=== PATIENT | male | born 1955 | race Caucasian/White ===

== ENCOUNTER 2017-08-19 08:00 | Outpatient (CLI) | payer BC ==
[2017-08-23 09:48] LABS: HB2 TOTAL 16.8 g/dL; HEMOGLOBIN A1C 0.71 g/dL
== END 2017-08-19 23:59 ==
LOC: LAB.R 08:00
PROVIDERS: ATTEND Physician Assistant Medical
DX: R73.9 Hyperglycemia, unspecified (principal)
CPT/HCPCS: 83036

== ENCOUNTER 2017-08-19 08:00 | Outpatient (CLI) | payer BC ==
[2017-08-19 12:55] LABS: BASOPHILS % (AUTO) 0.4 %; EOSINOPHILS # (AUTO) 0.1 10^3/uL (0.0-0.7); EOSINOPHILS % (AUTO) 1.3 %; HGB - HEMOGLOBIN 15.5 g/dL (14.0-18.0); LYMPHOCYTES # (AUTO) 5.6 10^3/uL (1.5-3.5); LYMPHOCYTES % (AUTO) 49.3 %; MEAN CORPUSCULAR HEMOGLOBIN 32.4 pg (27.0-31.0); MEAN CORPUSCULAR HGB CONC 34.4 g/dL (32.0-36.0); MEAN CORPUSCULAR VOLUME 94.3 fL (80.0-94.0); MEAN PLATELET VOLUME 9.7 fL (7.4-11.4); MONOCYTES # (AUTO) 0.9 10^3/uL (0.0-1.0); MONOCYTES % (AUTO) 7.7 %; NEUTROPHILS # (AUTO) 4.7 10^3/uL (1.5-6.6); NEUTROPHILS % (AUTO) 41.3 %; PLT - PLATELET COUNT 204 10^3/uL (130-450); RED BLOOD COUNT 4.77 10^6/uL (4.70-6.10); RED CELL DISTRIBUTION WIDTH 12.4 % (12.0-15.0); WHITE BLOOD COUNT 11.4 x10^3/uL (4.8-10.8)
[2017-08-19 13:01] LABS: ALBUMIN 4.4 g/dL (3.2-5.5); ALBUMIN/GLOBULIN RATIO 1.6 (1.0-2.2); ALKALINE PHOSPHATASE 50 IU/L (42-121); ALT ALANINE AMINOTRANSFERASE 69 IU/L (10-60); AST ASPARTATE AMINOTRANSFERASE 96 IU/L (10-42); BILIRUBIN,TOTAL 0.7 mg/dL (0.2-1.0); BUN - BLOOD UREA NITROGEN 10 mg/dL (6-20); CALCIUM 9.1 mg/dL (8.5-10.3); CARBON DIOXIDE - CO2 23 mmol/L (21-32); CHLORIDE 102 mmol/L (101-111); CHOL/HDL RATIO 3.2 (<5.0); CHOLESTEROL 146 mg/dL; CREATININE 0.9 mg/dL (0.6-1.2); GFR - MDRD 86 (>89); GLUCOSE 133 mg/dL (70-100); HDL CHOLESTEROL 46 mg/dL; LDL CHOLESTEROL,CALCULATED 67 mg/dL; LDL/HDL RATIO 1.5 (<3.6); SODIUM 136 mmol/L (135-145); TOTAL PROTEIN 7.1 g/dL (6.7-8.2); VLDL CHOLESTEROL 33 mg/dL
== END 2017-08-19 08:01 | disposition home or self-care (01) ==
LOC: LAB.WCP 08:00
PROVIDERS: ATTEND Family Medicine
DX: I10 Essential (primary) hypertension (principal); E78.5 Hyperlipidemia, unspecified; Z12.5 Encounter for screening for malignant neoplasm of prostate
CPT/HCPCS: 36415; 80053; 80061; 83721; 84153; 85025

== ENCOUNTER 2017-09-02 09:48 | Outpatient (CLI) | payer BC ==
[2017-09-05 12:41] LABS: HEPATITIS A IGM NON-REACTIVE (NON-REACTIVE); HEPATITIS B CORE ANTIBODY IGM NON-REACTIVE (NON-REACTIVE); HEPATITIS B SURFACE ANTIGEN NON-REACTIVE (NON-REACTIVE); HEPATITIS C ANTIBODY NON-REACTIVE (NON-REACTIVE)
== END 2017-09-02 09:49 | disposition home or self-care (01) ==
LOC: LAB.WCP 09:48
PROVIDERS: ATTEND Family Medicine
DX: R94.5 Abnormal results of liver function studies (principal)
CPT/HCPCS: 36415; 80074

== ENCOUNTER 2018-09-26 07:17 | Outpatient (CLI) | payer BC ==
[2018-09-26 13:51] LABS: BASOPHILS % (AUTO) 0.5 %; EOSINOPHILS # (AUTO) 0.3 10^3/uL (0.0-0.7); EOSINOPHILS % (AUTO) 2.7 %; HGB - HEMOGLOBIN 15.1 g/dL (14.0-18.0); LYMPHOCYTES # (AUTO) 6.2 10^3/uL (1.5-3.5); LYMPHOCYTES % (AUTO) 59.6 %; MEAN CORPUSCULAR HEMOGLOBIN 32.2 pg (27.0-31.0); MEAN CORPUSCULAR HGB CONC 33.9 g/dL (32.0-36.0); MEAN PLATELET VOLUME 9.8 fL (7.4-11.4); MONOCYTES # (AUTO) 0.7 10^3/uL (0.0-1.0); MONOCYTES % (AUTO) 7.1 %; NEUTROPHILS # (AUTO) 3.1 10^3/uL (1.5-6.6); NEUTROPHILS % (AUTO) 30.1 %; PLT - PLATELET COUNT 192 10^3/uL (130-450); RED BLOOD COUNT 4.68 10^6/uL (4.70-6.10); RED CELL DISTRIBUTION WIDTH 12.5 % (12.0-15.0); WHITE BLOOD COUNT 10.4 x10^3/uL (4.8-10.8)
[2018-09-26 13:56] LABS: ALBUMIN 4.2 g/dL (3.2-5.5); ALBUMIN/GLOBULIN RATIO 1.4 (1.0-2.2); ALKALINE PHOSPHATASE 42 IU/L (42-121); ALT ALANINE AMINOTRANSFERASE 32 IU/L (10-60); AST ASPARTATE AMINOTRANSFERASE 34 IU/L (10-42); BILIRUBIN,TOTAL 0.9 mg/dL (0.2-1.0); BUN - BLOOD UREA NITROGEN 13 mg/dL (6-20); CALCIUM 9.2 mg/dL (8.5-10.3); CARBON DIOXIDE - CO2 24 mmol/L (21-32); CHLORIDE 101 mmol/L (101-111); CHOLESTEROL 167 mg/dL; CREATININE 0.9 mg/dL (0.6-1.2); GFR - MDRD 86 (>89); GLUCOSE 130 mg/dL (70-100); HDL CHOLESTEROL 55 mg/dL; LDL CHOLESTEROL,CALCULATED 76 mg/dL; LDL/HDL RATIO 1.4 (<3.6); SODIUM 138 mmol/L (135-145); TOTAL PROTEIN 7.2 g/dL (6.7-8.2); VLDL CHOLESTEROL 36 mg/dL
[2018-09-26 14:05] LABS: PLATELET ESTIMATE, MANUAL NORMAL (130-450,000) (NORMAL); PLATELET MORPHOLOGY 1+ LARGE PLATELETS (NORMAL); RBC MORPHOLOGY (MULTIPLE) NORMAL APPEARANCE (NORMAL)
[2018-09-26 14:22] LABS: HB2 TOTAL 15.7 g/dL; HEMOGLOBIN A1C 0.6 g/dL; HEMOGLOBIN A1C % 5.6 % (4.6-6.2)
== END 2018-09-26 07:18 | disposition home or self-care (01) ==
LOC: LAB.WCP 07:17
PROVIDERS: ATTEND Family Medicine
DX: I10 Essential (primary) hypertension (principal); E78.5 Hyperlipidemia, unspecified; R73.9 Hyperglycemia, unspecified; R94.5 Abnormal results of liver function studies; D12.6 Benign neoplasm of colon, unspecified; Z12.5 Encounter for screening for malignant neoplasm of prostate
CPT/HCPCS: 36415; 80053; 80061; 83036; 83721; 84153; 84443; 85025

== ENCOUNTER 2019-08-12 17:27 | Emergency (ER) | payer BC, OTHER ==
--- NOTE | 2019-08-12 17:38 | ED Physician Documentation ---
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 He is still able to bend his finger and extend it. He has sensation at the tip. However he has several lacerations at the palmar palmar radial aspect of the distal finger and that has continued bleeding despite direct pressure.) Timing - onset: How many hours ago (1), Today Timing - details: Abrupt onset, Still present Improved by: Rest Worsened by: Palpating Associated symptoms: No: Weakness, Numbness Contributing factors: No: Anticoagulated Similar symptoms before: Has not had sx before Review of Systems Constitutional: denies: Fever, Chills Nose: denies: Rhinorrhea / runny nose, Congestion Throat: denies: Sore throat Respiratory: denies: Cough Neurologic: denies: Focal weakness, Numbness PD PAST MEDICAL HISTORY - Past Medical History Cardiovascular: Hypertension, High cholesterol Respiratory: None Endocrine/Autoimmune: None GI: GERD : None HEENT: Glaucoma Psych: None Derm: None - Past Surgical History General: Colonoscopy Ortho: Other HEENT: Cataracts - Present Medications Home Medications: Ambulatory Orders Medication Instructions Recorded Confirmed Aspirin [Aspir-Low] 81 mg PO DAILY 04/28/16 04/28/16 Atorvastatin Calcium 20 mg PO DAILY 04/28/16 04/28/16 Latanoprost 2 drops OP DAILY 04/28/16 04/28/16 Losartan Potassium 50 mg PO DAILY 04/28/16 04/28/16 Omeprazole [PriLOSEC] 20 mg PO DAILY 04/28/16 04/28/16 Timolol [Betimol] 2 drops OP DAILY 04/28/16 04/28/16 - Allergies Allergies/Adverse Reactions: Allergies Allergy/AdvReac Type Severity Reaction Status Date / Time No Known Drug Allergies Allergy Verified 08/12/19 17:36 PD ED PE NORMAL - Vitals Vital signs reviewed: Yes - General General: Alert and oriented X 3, No acute distress, Well developed/nourished - Derm Derm: Normal color, Warm and dry - Extremities Extremities: Other (He has several parallel and intersecting lacerations on the palmar radial side of the distal phalanx of the left index finger. None of them extend into the nailbed. They go to the subcutaneous fatty tissue and I do not see any involvement down to the tendons or bone. There is ongoing slow dripping of bleeding from the wound. The wound has 3 main parallel and incur lacerations that converge to half centimeter area of more mangled tissue. No foreign bodies are seen.) - Neuro Neuro: No motor deficit (He is able to flex the finger strongly against resistance at both the PIP and DIP joints. He has normal sensation at the tip of the finger.), No sensory deficit Results - Vitals Vitals: Vital Signs - 24 hr 08/12/19 17:36 Temperature 36.5 C Heart Rate 85 Respiratory 14 Rate Blood Pressure 150/97 H O2 Saturation 99 Oxygen O2 Source Room air Procedures - Laceration (location) left index finger tip Length in cm: 3 Wound type: Stellate, Into subcut fat, Clean Neurovascular status: Sensory intact, Motor intact, Vascular intact Tendon involvement: Tendon intact Anesthesia: Marcaine 0.5% Wound Preparation: Irrigated copiously NS, Wound explored, To the base, Wound edges modified. No: FB identified Skin layer closure: Nylon, Interrupted, Running, Size #-0 - enter number (4), Sutures - enter # (22 sutures Combination of simple and interrupted sutures in order to bring together the parallel lacerations and then bridging the skin over the small center part in order to provide actually good skin coverage over the whole wound.) PD MEDICAL DECISION MAKING - ED course Complexity details: considered differential, d/w patient Departure - Departure Disposition: 01 Home, Self Care Clinical Impression: Finger laceration Qualifiers: Encounter type: initial encounter Finger: index finger Damage to nail status: without damage Foreign body presence: without foreign body Laterality: left Qualified Code(s): S61.211A - Laceration without foreign body of left index finger without damage to nail, initial encounter Condition: Stable Record reviewed to determine appropriate education?: Yes Instructions: ED Laceration Hand Follow-Up: Héctor Vergara MD [Primary Care Provider] - Comments: It is okay to wash and shower. Clean off the wound twice a day with soap and water, or peroxide and water. Apply some antibiotic ointment to it to keep it moist. Also to watch for signs of infection such as purulence, redness or increasing pain. Return to your primary care or the ER at the specified time for suture removal. Suture removal 9 or 10 days. Gentle use of the finger initially for the first several days to allow sealing of the wounds and less bleeding and swelling. Progressed to more normal activity over several days to week. Still protect the sutures with bandaging and such during use. Tylenol or ibuprofen if needed for pains. The numbing medicine from tonight will last for several hours so should feel okay through the evening.
[2019-08-12] MEDS ORDERED: TETANUS/DIPHTHERIA/PERTUSSIS 0.5 ML SYRINGE IM ONE (17:46)
[2019-08-12] MEDS ORDERED: LIDOCAINE 2% 50 ML MDV SUBQ STA (17:46)
[2019-08-12] MEDS ORDERED: BUPIVACAINE 0.5% PF 10 ML VIAL SUBQ STA (17:50)
[2019-08-12 18:54] VITALS: BP 148/84
== END 2019-08-12 18:54 | disposition home or self-care (01) ==
LOC: ED 17:27
DX: S61.211A Laceration without foreign body of left index finger without damage to nail, initial encounter (principal); W29.3XXA Contact with powered garden and outdoor hand tools and machinery, initial encounter; Y93.H2 Activity, gardening and landscaping; I10 Essential (primary) hypertension
CPT/HCPCS: 12002; 90471; 99283

== ENCOUNTER 2021-05-14 08:00 | Outpatient (CLI) | payer BC, OTHER ==
[2021-05-14 11:33] LABS: BASOPHILS # (AUTO) 0.1 10^3/uL (0.0-0.1); BASOPHILS % (AUTO) 0.7 %; EOSINOPHILS # (AUTO) 0.2 10^3/uL (0.0-0.7); EOSINOPHILS % (AUTO) 2.8 %; HCT - HEMATOCRIT 43.6 % (42.0-52.0); HGB - HEMOGLOBIN 15.1 g/dL (14.0-18.0); LYMPHOCYTES % (AUTO) 57.7 %; MEAN CORPUSCULAR HEMOGLOBIN 32.9 pg (27.0-31.0); MEAN CORPUSCULAR HGB CONC 34.6 g/dL (32.0-36.0); MONOCYTES # (AUTO) 0.7 10^3/uL (0.0-1.0); MONOCYTES % (AUTO) 8.1 %; NEUTROPHILS # (AUTO) 2.6 10^3/uL (1.5-6.6); NEUTROPHILS % (AUTO) 30.6 %; PLT - PLATELET COUNT 159 10^3/uL (130-450); RED BLOOD COUNT 4.59 10^6/uL (4.70-6.10); RED CELL DISTRIBUTION WIDTH 11.3 % (12.0-15.0); WHITE BLOOD COUNT 8.6 x10^3/uL (4.8-10.8)
[2021-05-14 11:58] LABS: ESTIMATED AVERAGE GLUCOSE 126 mg/dL (70-100)
[2021-05-14 12:05] LABS: ALBUMIN 4.4 g/dL (3.2-5.5); ALBUMIN/GLOBULIN RATIO 1.5 (1.0-2.2); ALKALINE PHOSPHATASE 54 IU/L (42-121); ALT ALANINE AMINOTRANSFERASE 73 IU/L (10-60); AST ASPARTATE AMINOTRANSFERASE 84 IU/L (10-42); BUN - BLOOD UREA NITROGEN 12 mg/dL (6-20); CALCIUM 9.4 mg/dL (8.5-10.3); CARBON DIOXIDE - CO2 27 mmol/L (21-32); CHLORIDE 100 mmol/L (101-111); CHOL/HDL RATIO 3.1 (<5.0); CHOLESTEROL 171 mg/dL; CREATININE 0.9 mg/dL (0.6-1.2); GFR - MDRD 85 (>89); GLUCOSE 144 mg/dL (70-100); HDL CHOLESTEROL 55 mg/dL; LDL CHOLESTEROL,CALCULATED 81 mg/dL; LDL/HDL RATIO 1.5 (<3.6); POTASSIUM 3.6 mmol/L (3.5-5.0); SODIUM 138 mmol/L (135-145); TOTAL PROTEIN 7.3 g/dL (6.7-8.2); TRIGLYCERIDES 177 mg/dL; URIC ACID 7.8 mg/dL (2.6-7.2); VLDL CHOLESTEROL 35 mg/dL
[2021-05-14 12:27] LABS: THYROID STIMULATING HORMONE 3.6 uIU/mL (0.34-5.60)
[2021-05-14 18:02] LABS: CREATININE,URINE 294.6 mg/dL; MICROALBUM/CREATININE RATIO,UR 3.7 ug/mg (<30.0); MICROALBUMIN,URINE 1.1 mg/dL (0-300.0)
== END 2021-05-14 23:59 | disposition home or self-care (01) ==
LOC: LAB.WCP 08:00
PROVIDERS: ATTEND Internal Medicine
DX: I10 Essential (primary) hypertension (principal); R73.9 Hyperglycemia, unspecified; M10.9 Gout, unspecified
CPT/HCPCS: 36415; 80053; 80061; 82043; 82570; 83036; 83721; 84443; 84550; 85025

== ENCOUNTER 2021-11-19 06:31 | Day surgery (SDC) | payer OTHER ==
[2021-11-19] MEDS ORDERED: LACTATED RINGERS 1,000 ML IV ONE ×2 (06:49→08:07)
--- NOTE | 2021-11-19 07:03 | ANESTHESIA ---
Pre-Anesthesia VS, & Labs - Diagnosis Screening - Procedure Colonoscopy Vital Signs: Temp Pulse Resp BP Pulse Ox 36 C L 94 16 170/108 H 98 11/19/21 06:38 11/19/21 06:38 11/19/21 06:38 11/19/21 06:38 11/19/21 06:38 Height: 5 ft 10 in Weight (kg): 91 kg Body Mass Index: 28.8 BMI Classification: Overweight - NPO >8 hours - Lab Results Lab results reviewed: Yes Home Medications and Allergies Home Medications: Ambulatory Orders Metoprolol Succinate [Toprol Xl] 25 mg PO ONCE 11/18/21 Potassium Citrate [Potassium] 99 mg PO DAILY 11/18/21 hydroCHLOROthiazide [Hydrodiuril] 25 mg PO DAILY 11/18/21 Aspirin [Aspir-Low] 81 mg PO DAILY 04/28/16 Latanoprost 2 drops OP DAILY 04/28/16 Losartan Potassium 50 mg PO DAILY 04/28/16 Omeprazole [PriLOSEC] 20 mg PO DAILY 04/28/16 Timolol [Betimol] 2 drops OP DAILY 04/28/16 Metoprolol Succinate [Toprol Xl] 25 mg PO ONCE 11/18/21 Potassium Citrate [Potassium] 99 mg PO DAILY 11/18/21 hydroCHLOROthiazide [Hydrodiuril] 25 mg PO DAILY 11/18/21 Allergies/Adverse Reactions: Allergies Allergy/AdvReac Type Severity Reaction Status Date / Time No Known Drug Allergies Allergy Verified 08/12/19 17:36 Anes History & Medical History - Anesthetic History Anesthesia Complications: reports: No previous complications Family history of Anesthesia Complications: Denies Family history of Malignant Hyperthermia: Denies - Medical History Cardiovascular: reports: Hypertension, High cholesterol Pulmonary: reports: None, Sleep apnea (No CPAP) Gastrointestinal: reports: GERD Urinary: reports: None Neuro: reports: None Endocrine/Autoimmune: reports: None Skin: reports: None Smoking Status: Current every day smoker (Marijuana) Psychosocial: reports: Alcohol History of Cancer?: No - Surgical History General: reports: Colonoscopy Eyes Ears Nose Throat (EENT): reports: Cataracts Orthopedic: reports: Other Exam General: Alert, Oriented x3 Dental: WNL Mouth Openin Fingerbreadth Mallampati classification: II Thyromental Distance: 4-6 cm Respiratory: Lungs clear Cardiovascular: Regular rate, Normal S1, Normal S2 Mental/Cognitive Status: Alert/Oriented X3, Normal for patient Cognitive Status: Within normal limits Plan Anesthesia Type: General Consent for Procedure(s) Verified and Reviewed: Yes Code Status: Attempt Resuscitation ASA classification: 2-Mild systemic disease Is this case an emergency?: No
[2021-11-19] MEDS ORDERED: LIDOCAINE-MPF 2% 5 ML VIAL ONE (07:21)
[2021-11-19] MEDS ORDERED: PROPOFOL 500 MG/50 ML 500 MG/50 ML VIAL ONE (07:22)
[2021-11-19] MEDS ORDERED: MIDAZOLAM 2 MG/2 ML VIAL ONE (07:25)
--- NOTE | 2021-11-19 07:28 | HISTORY & PHYSICAL EXAMINATION ---
Chief Complaint - Chief Complaint Chief Complaint: personal hx colon polyp History of Present Illness - History Obtained From Records Reviewed: yes History obtained from: pt Exam Limitations: none - History of Present Illness HPI Comment/Other: father colon cancer age 67 no bowel problems History - Past Medical History Cardiovascular: reports: Hypertension, High cholesterol Respiratory: reports: None, Sleep apnea (No CPAP) Neuro: reports: None Endocrine/Autoimmune: reports: None GI: reports: GERD : reports: None HEENT: reports: Glaucoma Psych: reports: None Derm: reports: None MRSA Hx?: No - Past Surgical History General: reports: Colonoscopy Ortho: reports: Other HEENT: reports: Cataracts Meds/Allgy - Home Medications Home Medications: Ambulatory Orders Medication Instructions Recorded Confirmed Aspirin [Aspir-Low] 81 mg PO DAILY 04/28/16 11/18/21 Latanoprost 2 drops OP DAILY 04/28/16 11/18/21 Losartan Potassium 50 mg PO DAILY 04/28/16 11/18/21 Omeprazole [PriLOSEC] 20 mg PO DAILY 04/28/16 11/18/21 Timolol [Betimol] 2 drops OP DAILY 04/28/16 11/18/21 Metoprolol Succinate [Toprol Xl] 25 mg PO ONCE 11/18/21 11/18/21 Potassium Citrate [Potassium] 99 mg PO DAILY 11/18/21 11/18/21 hydroCHLOROthiazide [Hydrodiuril] 25 mg PO DAILY 11/18/21 11/18/21 - Allergies Allergies/Adverse Reactions: Allergies Allergy/AdvReac Type Severity Reaction Status Date / Time No Known Drug Allergies Allergy Verified 08/12/19 17:36 Review of Systems - Other Findings Other Findings: 10 pt ros as above otherwise unremarkable Exam - Vital Signs Reviewed Vital Signs: Yes Vital Signs: Vital Signs x48h Temp Pulse Resp BP Pulse Ox 11/19/21 06:38 36 C L 94 16 170/108 H 98 - Physical Exam General Appearance: positive: No acute distress, Alert Eyes Bilateral: positive: PERRL, EOMI ENT: positive: No signs of dehydration Neck: positive: No JVD, Trachea midline Respiratory: positive: No respiratory distress, Breath sounds nml Cardiovascular: positive: Regular rate & rhythm Abdomen: positive: Non-tender, No distention Neurologic/Psychiatric: positive: Oriented x3 Conclusion/Plan - Problem List (1) History of adenomatous polyp of colon Conclusion/Plan: plan colonoscopy parq held and consent obtained - Lab Results Lab results reviewed: Yes
[2021-11-19] MEDS ORDERED: SIMETHICONE 40 MG/0.6 ML 30 ML BOTTLE PO ONE (07:45)
[2021-11-19] MEDS ORDERED: SIMETHICONE 40 MG/0.6 ML 30 ML BOTTLE ONE (07:47)
[2021-11-19] MEDS ORDERED: PROPOFOL 200 MG/20 ML VIAL IVP ONE (08:12)
[2021-11-19 08:52] VITALS: BP 110/80
--- NOTE | 2021-11-19 09:15 | ANESTHESIA POST OP EVALUATION ---
Anesthesia Post Eval - Post Anesthesia Eval Vitals: Last Vital Signs Temp 36.1 C L 11/19/21 08:08 Pulse 68 11/19/21 08:52 Resp 16 11/19/21 08:52 BP 110/80 11/19/21 08:52 Pulse Ox 96 11/19/21 08:52 CV Function Including HR & BP: Stable Pain Control: Satisfactory Nausea & Vomiting: Negative Mental Status: Baseline Respiratory Status: Airway Patent Hydration Status: Satisfactory Anesthesia Complications: None
== END 2021-11-19 06:32 | disposition home or self-care (01) ==
LOC: SDS 06:31
PROVIDERS: ATTEND Surgery
PROC: 0DBL8ZX Excision of Transverse Colon, Via Natural or Artificial Opening Endoscopic, Diagnostic (ICD-10-PCS; 2021-11-19)
PROC: 0DBN8ZX Excision of Sigmoid Colon, Via Natural or Artificial Opening Endoscopic, Diagnostic (ICD-10-PCS; 2021-11-19)
PROC: 0DBM8ZX Excision of Descending Colon, Via Natural or Artificial Opening Endoscopic, Diagnostic (ICD-10-PCS; principal; 2021-11-19 07:30)
DX: Z12.11 Encounter for screening for malignant neoplasm of colon (principal); D12.4 Benign neoplasm of descending colon; D12.5 Benign neoplasm of sigmoid colon; D12.3 Benign neoplasm of transverse colon; K63.5 Polyp of colon; I10 Essential (primary) hypertension
CPT/HCPCS: 45380; 45385; A9270; J7120

== ENCOUNTER 2022-06-21 11:55 | Outpatient (CLI) | payer OTHER ==
[2022-06-21 12:07] LABS: BASOPHILS # (AUTO) 0.1 10^3/uL (0.0-0.1); BASOPHILS % (AUTO) 0.6 %; EOSINOPHILS # (AUTO) 0.3 10^3/uL (0.0-0.7); HCT - HEMATOCRIT 49.6 % (42.0-52.0); HGB - HEMOGLOBIN 17.1 g/dL (14.0-18.0); LYMPHOCYTES # (AUTO) 6.5 10^3/uL (1.5-3.5); LYMPHOCYTES % (AUTO) 58.6 %; MEAN CORPUSCULAR HGB CONC 34.5 g/dL (32.0-36.0); MEAN CORPUSCULAR VOLUME 92.9 fL (80.0-94.0); MEAN PLATELET VOLUME 9.8 fL (7.4-11.4); MONOCYTES # (AUTO) 0.9 10^3/uL (0.0-1.0); MONOCYTES % (AUTO) 7.7 %; NEUTROPHILS # (AUTO) 3.3 10^3/uL (1.5-6.6); NEUTROPHILS % (AUTO) 29.9 %; PLT - PLATELET COUNT 197 10^3/uL (130-450); RED BLOOD COUNT 5.34 10^6/uL (4.70-6.10); RED CELL DISTRIBUTION WIDTH 11.2 % (12.0-15.0); WHITE BLOOD COUNT 11.1 x10^3/uL (4.8-10.8)
[2022-06-21 12:28] LABS: ALBUMIN 4.5 g/dL (3.2-5.5); ALBUMIN/GLOBULIN RATIO 1.3 (1.0-2.2); ALKALINE PHOSPHATASE 62 IU/L (42-121); ALT ALANINE AMINOTRANSFERASE 69 IU/L (10-60); AST ASPARTATE AMINOTRANSFERASE 59 IU/L (10-42); BILIRUBIN,TOTAL 1.1 mg/dL (0.2-1.0); BUN - BLOOD UREA NITROGEN 11 mg/dL (6-20); CALCIUM 10.4 mg/dL (8.5-10.3); CARBON DIOXIDE - CO2 26 mmol/L (21-32); CHLORIDE 97 mmol/L (101-111); CHOL/HDL RATIO 4.8 (<5.0); CHOLESTEROL 279 mg/dL; CREATININE 0.8 mg/dL (0.6-1.2); GFR - MDRD 97 (>89); GLUCOSE 137 mg/dL (70-100); HDL CHOLESTEROL 58 mg/dL; LDL CHOLESTEROL,CALCULATED 168 mg/dL; LDL/HDL RATIO 2.9 (<3.6); POTASSIUM 4.1 mmol/L (3.5-5.0); SODIUM 136 mmol/L (135-145); TRIGLYCERIDES 264 mg/dL; VLDL CHOLESTEROL 53 mg/dL
[2022-06-21 12:31] LABS: PLATELET ESTIMATE, MANUAL NORMAL (130-450,000) (NORMAL); PLATELET MORPHOLOGY NORMAL APPEARANCE (NORMAL); RBC MORPHOLOGY (MULTIPLE) NORMAL APPEARANCE (NORMAL); SLIDE REVIEW? Indicated
[2022-06-21 12:38] LABS: THYROID STIMULATING HORMONE 5.31 uIU/mL (0.34-5.60)
[2022-06-21 12:42] LABS: ESTIMATED AVERAGE GLUCOSE 128 mg/dL (70-100); HEMOGLOBIN A1c% 6.1 % (4.27-6.07)
[2022-06-21 15:21] LABS: CREATININE,URINE 151.6 mg/dL; MICROALBUM/CREATININE RATIO,UR 4.6 ug/mg (<30.0); MICROALBUMIN,URINE 0.7 mg/dL (0-300.0)
== END 2022-06-21 11:56 | disposition home or self-care (01) ==
LOC: LAB 11:55
PROVIDERS: ATTEND Internal Medicine
DX: E78.5 Hyperlipidemia, unspecified (principal); R73.9 Hyperglycemia, unspecified; Z12.5 Encounter for screening for malignant neoplasm of prostate; F43.22 Adjustment disorder with anxiety; Z87.39 Personal history of other diseases of the musculoskeletal system and connective tissue
CPT/HCPCS: 36415; 80053; 80061; 82043; 82570; 83036; 83721; 84153; 84443; 84550; 85025

== ENCOUNTER 2023-02-21 07:33 | Outpatient (CLI) | payer MEDICARE, BC ==
[2023-02-21 08:17] LABS: % IRON SATURATION 25 % (20-50); ALBUMIN 4.7 g/dL (3.2-5.5); ALBUMIN/GLOBULIN RATIO 1.7 (1.0-2.2); ALKALINE PHOSPHATASE 72 IU/L (42-121); ALT ALANINE AMINOTRANSFERASE 80 IU/L (10-60); AST ASPARTATE AMINOTRANSFERASE 70 IU/L (10-42); BILIRUBIN,TOTAL 0.6 mg/dL (0.2-1.0); BUN - BLOOD UREA NITROGEN 12 mg/dL (6-20); CALCIUM 9.5 mg/dL (8.5-10.3); CARBON DIOXIDE - CO2 26 mmol/L (21-32); CHLORIDE 100 mmol/L (101-111); CHOLESTEROL 167 mg/dL; CREATININE 0.9 mg/dL (0.6-1.3); GFR - MDRD 84 (>89); GLUCOSE 161 mg/dL (74-104); HDL CHOLESTEROL 55 mg/dL; IRON 114 ug/dL (50-212); LDL CHOLESTEROL,CALCULATED 71 mg/dL; LDL/HDL RATIO 1.3 (<3.6); POTASSIUM 3.6 mmol/L (3.5-4.5); SODIUM 135 mmol/L (135-145); TOTAL IRON BINDING CAPACITY 448 ug/dL (250-450); TOTAL PROTEIN 7.5 g/dL (6.4-8.9); TRANSFERRIN 320 mg/dL (203-362); TRIGLYCERIDES 205 mg/dL (48-352); VLDL CHOLESTEROL 41 mg/dL
[2023-02-21 12:23] LABS: ESTIMATED AVERAGE GLUCOSE 123 mg/dL (70-100); HEMOGLOBIN A1c% 5.9 % (4.27-6.07)
[2023-02-22 03:09] LABS: HBsAG SCREEN Negative (Negative)
[2023-02-22 05:12] LABS: HCV AB Non Reactive (Non Reactive)
== END 2023-02-21 07:34 | disposition home or self-care (01) ==
LOC: LAB 07:33
PROVIDERS: ATTEND Internal Medicine
DX: E78.5 Hyperlipidemia, unspecified (principal); R73.9 Hyperglycemia, unspecified; Z12.5 Encounter for screening for malignant neoplasm of prostate; R79.89 Other specified abnormal findings of blood chemistry
CPT/HCPCS: 36415; 80053; 80061; 82728; 83036; 83540; 84466; 86704; 86803; 87340; G0103; 83721; 84153

== ENCOUNTER 2023-09-26 08:24 | Emergency (ER) | payer MEDICARE, BC ==
--- NOTE | 2023-09-26 09:10 | ED Physician Documentation ---
PD HPI UPPER EXT INJURY - Stated complaint Stated Complaint: LT SHOULDER PX - Chief complaint Chief Complaint: Trauma Ext - History obtained from History obtained from: Patient - History of Present Illness Location: Left, Shoulder Type of injury: No: Fall, Twist Where injury occurred: Home Timing - onset: How many days ago (2) Timing - duration: Days (2) Timing - details: Abrupt onset (was doing okay the day prior with just normal use and activity of shoulders/arms. Awoke in morning with pain on shoulder with ROM. He thought would just improve, but had continued painfully.), Still present Improved by: Rest Worsened by: Moving, Palpating (mainly anterior shoulder.) Associated symptoms: No: Weakness, Numbness Similar symptoms before: Has not had sx before Review of Systems Skin: denies: Rash, Lesions Neurologic: denies: Focal weakness, Numbness PD PAST MEDICAL HISTORY - Past Medical History Cardiovascular: Hypertension, High cholesterol Respiratory: Sleep apnea Neuro: None Endocrine/Autoimmune: None GI: GERD : None HEENT: Glaucoma Psych: None Musculoskeletal: Gout Derm: None - Past Surgical History Past Surgical History: Yes General: Colonoscopy Ortho: Other HEENT: Cataracts - Present Medications Home Medications: Ambulatory Orders Medication Instructions Recorded Confirmed Aspirin [Aspir-Low] 81 mg PO DAILY 04/28/16 11/18/21 Latanoprost 2 drops OP DAILY 04/28/16 11/18/21 Losartan Potassium 50 mg PO DAILY 04/28/16 11/18/21 Omeprazole [PriLOSEC] 20 mg PO DAILY 04/28/16 11/18/21 Timolol [Betimol] 2 drops OP DAILY 04/28/16 11/18/21 Metoprolol Succinate [Toprol Xl] 25 mg PO ONCE 11/18/21 11/18/21 Potassium Citrate [Potassium] 99 mg PO DAILY 11/18/21 11/18/21 hydroCHLOROthiazide [Hydrodiuril] 25 mg PO DAILY 11/18/21 11/18/21 Diclofenac Sodium 1% Gel [Voltaren 2 gm TOP TID 8 Days #50 gm 09/26/23 Gel] Lidocaine Patch 5% [Lidoderm Patch] 1 patch TOP DAILY PRN #10 patch 09/26/23 dexAMETHasone [Decadron] 4 mg PO DAILY #5 tablet 09/26/23 - Allergies Allergies/Adverse Reactions: Allergies Allergy/AdvReac Type Severity Reaction Status Date / Time No Known Drug Allergies Allergy Verified 09/26/23 08:33 - Social History Does the pt smoke?: No Smoking Status: Never smoker Does the pt drink ETOH?: Yes Does the pt have substance abuse?: Yes Substance Use and Type: Marijuana - Immunizations Immunizations are current?: Yes PD ED PE NORMAL - Vitals Vital signs reviewed: Yes - General General: Alert and oriented X 3, Well developed/nourished, Other (appears uncomfortable and holding left shoulder guardedly with home crafted sling. ) - Neck Neck: Supple, no meningeal sign, No bony TTP - Derm Derm: Normal color, Warm and dry, No rash - Extremities Extremities: Other (left shoulder with tenderness and pain anterior and at AC area. No step off. Scapular area not really tender. Movement of shoulder against resistance hurts for abduction and extension, some with internal rotation, with pain anterior shoulder. ) - Neuro Neuro: Alert and oriented X 3, No motor deficit, No sensory deficit Results - Vitals Vitals: Vital Signs - 24 hr 09/26/23 09/26/23 08:34 11:00 Temperature 36.6 C Heart Rate 116 H 82 Respiratory 18 20 Rate Blood Pressure 152/91 H 135/86 H O2 Saturation 96 98 Oxygen O2 Source Room air - Rads (name of study) left shoulder Relevant Findings:: Prelim report reviewed, EMP independent interpretation of test (calcific changes in subacrominon area (bursa or tendon area). Arthritic changes in AC. ) PD Medical Decision Making - ED course Complexity details: reviewed results (presume acute tendonitis in shoulder with evidence of prior/chronic tendonopathy. Can treat NSAIDs, steroid, pain meds (Tylenol as he prefers no opioids), and sling with movement periodically to reduce stiffness/adhesions. ), considered differential (no particular direct injury,. Had been doing light work with lifting and use. No falls, unusual activity per se. ), d/w patient Departure - Departure Disposition: 01 Home, Self Care Clinical Impression: Shoulder pain, acute, Left shoulder tendonitis Condition: Stable Record reviewed to determine appropriate education?: Yes Instructions: ED Tendinitis Calcific Follow-Up: [facility] [Provider Group] Prescriptions: dexAMETHasone [Decadron] 4 mg PO DAILY #5 tablet Lidocaine Patch 5% [Lidoderm Patch] 1 patch TOP DAILY PRN #10 patch PRN Reason: pain Diclofenac Sodium 1% Gel [Voltaren Gel] 2 gm TOP TID 8 Days #50 gm Comments: Your x-ray shows some arthritic changes around the AC joint and also some calcification buildup in the shoulder tendons and bursa. This signifies prior inflammation and problems with the shoulder but also would make sense then for being able to flareup some tendinitis with minimal cause. Your x-ray does not show any fractures or displacements. I would treat this with a sling for the shoulder to reduce motion much of the day. However you do want to take it out of the sling and have range of motion of the shoulder several times a day to keep it from stiffening. I would suggest a combination of anti-inflammatories. I wrote for an oral steroid anti-inflammatory and also a topical nonsteroidal anti-inflammatory. In addition I would suggest Tylenol 500 to 650 mg 4 times a day regularly. There could be some added benefit with topical lidocaine patch to the area though I would not expect it to relieve the pain all by itself. I sent new prescriptions to your preferred pharmacy. Follow-up with your primary care or orthopedics if not improved over the next several days to week. Forms: PCP List Discharge Date/Time: 09/26/23 10:55
--- NOTE | 2023-09-26 09:21 | XRAY Report ---
PROCEDURE: Shoulder 2+V LT INDICATIONS: shoulder pain TECHNIQUE: 3 views of the shoulder were acquired. COMPARISON: None. FINDINGS: Bones: No fractures or dislocations. No suspicious bony lesions. Visualized ribs appear intact. Soft tissues: No suspicious soft tissue calcifications. The visualized lungs are within normal limi ts. IMPRESSION: No acute fracture. Calcific deposits in the region of the supraspinatus consistent with calcific tend initis. Reviewed by: Chiara Viera MD, PhD on 09/26/2023 8:20 AM [facility] Approved by: Chiara Viera MD, PhD on 09/26/2023 8:20 AM [facility] Station ID: [id number]
[2023-09-26] MEDS: IBUPROFEN 600 MG TABLET PO STA (10:14)
[2023-09-26] MEDS: LIDOCAINE PATCH 5% TOP STA (10:15)
[2023-09-26] MEDS: ACETAMINOPHEN 500 MG TABLET PO STA (10:15)
[2023-09-26] MEDS: dexAMETHasone 4 MG TABLET PO STA (10:15)
[2023-09-26 11:06] VITALS: BP 135/86; O2SAT 98
== END 2023-09-26 10:55 | disposition home or self-care (01) ==
LOC: ED 08:24
DX: M75.92 Shoulder lesion, unspecified, left shoulder (principal)
CPT/HCPCS: 73030; 99283; 99284; A9270; J8540

== ENCOUNTER 2023-10-06 08:38 | Outpatient (CLI) | payer MEDICARE, BC | END 2023-10-06 23:59 | disposition critical access hospital (66) | LOC: EMS 08:38 | DX: M54.50 Low back pain, unspecified (principal); W18.39XA Other fall on same level, initial encounter; Y92.003 Bedroom of unspecified non-institutional (private) residence as the place of occurrence of the external cause; R63.0 Anorexia | CPT/HCPCS: A0425; A0429 ==

== ENCOUNTER 2023-10-06 08:48 | Emergency (ER) | payer MEDICARE, BC ==
--- NOTE | 2023-10-06 09:10 | ED Physician Documentation ---
History of Present Illness - Stated complaint Stated Complaint: GLF - History obtained from History obtained from: Patient, Family, EMS - Additonal information Additional information: The patient comes to the emergency department via EMS for chief complaint of multiple pain complaints and fall with head injury today. The pain all started about 2 and half weeks ago when the patient woke up from sleep with a bruise on the top of his left shoulder and pain in the left shoulder. He states that he does not know what caused it but that it has persisted ever since. He started to wear a sling for the next several days and several days later, he was out for a walk when he began to notice that his right hip and low back were hurting. The patient states that that has been hurting over the week and a half since, as well. The patient then took his slipper off about 5 days ago and noticed a sudden pain in his right ankle. He denies any other injuries or problems with the ankle. He states that it has been hurting ever since and that he cannot even stand on the ankle because both the right ankle and the right hip hurt. The patient according to has been sleeping in the recliner because of the back and hip pain and only several days ago was finally able to sleep in his bed again. However, it is hard for him to get up and so today, the is trying to help him get up out of bed when the patient lost his balance and they both fell. He has a big thick wooden headboard and he hit his head against the headboard during the process of the fall. The patient is not on any anticoagulants and denies his head hurting. He also denies neck pain but has "excruciating" pain in his left shoulder, right hip, and right ankle. EMS was mainly called because the is petite and needed help getting the patient up, but then with all of the pain going on, it was decided the patient would be transported here. His shoulder was evaluated in the emergency department just over a week ago with negative x-rays, other than showing calcific tendinitis. He states that he was supposed to get x-rays of his spine, hip, and ankle today here would be, but then the fall happened. No other complaints at this time. PD PAST MEDICAL HISTORY - Past Medical History Cardiovascular: Hypertension, High cholesterol Respiratory: Sleep apnea Neuro: None Endocrine/Autoimmune: None GI: GERD : None HEENT: Glaucoma Psych: None Musculoskeletal: Gout Derm: None - Past Surgical History Past Surgical History: Yes General: Colonoscopy Ortho: Other HEENT: Cataracts - Present Medications Home Medications: Ambulatory Orders Medication Instructions Recorded Confirmed Latanoprost 2 drops OP DAILY 04/28/16 10/06/23 Losartan Potassium 100 mg PO DAILY 04/28/16 10/06/23 Timolol [Betimol] 2 drops OP DAILY 04/28/16 10/06/23 Metoprolol Succinate [Toprol Xl] 25 mg PO DAILY 11/18/21 10/06/23 hydroCHLOROthiazide [Hydrodiuril] 12.5 mg PO DAILY 11/18/21 10/06/23 Rosuvastatin Calcium [Crestor] 20 mg PO HS 10/06/23 10/06/23 allopurinoL [Allopurinol] 300 mg PO DAILY 10/06/23 10/06/23 predniSONE [Deltasone] 10 mg PO [id number] #42 tab 10/06/23 predniSONE [Prednisone] 10 mg PO [id number] 10/06/23 10/06/23 tiZANidine [Zanaflex] 4 mg PO TID 10/06/23 10/06/23 - Allergies Allergies/Adverse Reactions: Allergies Allergy/AdvReac Type Severity Reaction Status Date / Time No Known Drug Allergies Allergy Verified 10/06/23 09:10 - Social History Does the pt smoke?: No Smoking Status: Never smoker Does the pt drink ETOH?: Yes Does the pt have substance abuse?: Yes - Immunizations Immunizations are current?: Yes PD ED PE NORMAL - Vitals Vital signs reviewed: Yes - General General: Alert and oriented X 3, No acute distress, Well developed/nourished - HEENT HEENT: Atraumatic, EOMI, Moist mucous membranes - Neck Neck: Supple, no meningeal sign, No bony TTP - Cardiac Cardiac: RRR, No murmur - Respiratory Respiratory: No respiratory distress, Clear bilaterally - Abdomen Abdomen: Soft, Non tender, Non distended - Back Back: No spinal TTP, Other (Tenderness to palpation to the right of the inferior lumbar spine.) - Derm Derm: Normal color, Warm and dry, No rash - Extremities Extremities: No deformity, Other (Mild edema over right lateral malleolus.Mildly limited range of motion secondary to pain. No deformity.) - Neuro Neuro: Alert and oriented X 3, No motor deficit, No sensory deficit, Normal speech - Psych Psych: Normal mood, Normal affect Results - Vitals Vitals: Vital Signs - 24 hr 10/06/23 10/06/23 10/06/23 09:03 11:10 11:35 Temperature 36.0 C L 36.1 C L Heart Rate 76 71 68 Respiratory 18 17 18 Rate Blood Pressure 103/75 113/81 H 132/86 H O2 Saturation 99 95 95 Oxygen O2 Source Room air - Rads (name of study) CT head Relevant Findings:: Final report received, See rad report (Negative) CT C-spine Relevant Findings:: Final report received, See rad report (Negative for acute findings) CT lumbar spine Relevant Findings:: Final report received, See rad report (Extensive degenerative disease, otherwise unremarkable) CT pelvis Relevant Findings:: Final report received, See rad report (Negative) Right ankle x-ray series Relevant Findings:: Final report received, See rad report (Negative) PD Medical Decision Making - ED course Complexity details: reviewed results, re-evaluated patient, considered differential, d/w patient, d/w family ED course: The patient was worked up with imaging of his head, neck, lumbar spine, and right hip by CT. A right ankle series was also performed. Other than extensive degenerative joint disease in the lumbar spine, the patient's extensive imaging was all negative. I also reviewed his left shoulder x-ray from last week and this was negative as well. The nurse did inform me that the patient had a prescription for hydrocodone from yesterday on file and when asked about this, the stated they had not picked it up. She stated that she did not want to give the patient the pain medicine because she was worried about him falling. I had a discussion with both the patient and his to the effect of the patient does not have a clear reason for all of this pain in various parts of his body, and I am not sure what is at the root of all of it. However, until he is feeling better, I have advised that he use a walker at home to avoid risk of further falls and that he take his pain medication but that he stay down whenever possible while on it to avoid the risk of falling. I have offered a walker here from the emergency department but the patient says he would rather get 1 for a fraction of the steel at [facility]. I have also advised that he get a rigid ankle splint as well. I have dispensed a plastic urinal for the patient from the emergency department and have advised the that perhaps a bedside commode would be helpful as well. She has been advised to go to the [facility] and see what used medical equipment they have available. We have discussed the need for follow-up and the usual indications for return. Departure - Departure Disposition: 01 Home, Self Care Clinical Impression: Calcific tendinitis of shoulder Qualifiers: Laterality: left Qualified Code(s): M75.32 - Calcific tendinitis of left shoulder Closed head injury Qualifiers: Encounter type: subsequent encounter Qualified Code(s): S09.90XD - Unspecified injury of head, subsequent encounter Degenerative joint disease (DJD) of lumbar spine Qualifiers: Spinal osteoarthritis complication: unspecified spinal osteoarthritis Qualified Code(s): M47.816 - Spondylosis without myelopathy or radiculopathy, lumbar region Hip pain Qualifiers: Laterality: right Qualified Code(s): M25.551 - Pain in right hip Right ankle sprain Qualifiers: Encounter type: initial encounter Involved ligament of ankle: unspecified ligament Qualified Code(s): S93.401A - Sprain of unspecified ligament of right ankle, initial encounter Condition: Stable Instructions: ED Sprain Ankle W X Ray, ED Head Injury Closed, ED Degenerative Joint Disease Prescriptions: predniSONE [Deltasone] 10 mg PO [id number] #42 tab Comments: Your CT scans and x-rays overall look good. You do have some arthritis/degenerative joint disease in your back which is basically [id number] and inflammation that has accumulated over time. This is most likely what flared up when you went for your walk. Looking back at your left shoulder x-ray from last week, it appears you have some calcific tendinitis, where chronic inflammation of tendons causes the body to lay down calcium in the tendon material. This can cause a painful, severely limited shoulder as far as movement, and it is important to keep your shoulder moving to avoid getting frozen up. Please talk to your primary doctor about potentially getting referred to physical therapy for this. Is important that you picker your pain medicine prescription today. We have also sent in a prescription for a steroid taper for you to help with some of the inflammation. Please pick this up at [facility]. You have declined to have a walker dispensed from the emergency depart ment today, but you should definitely get one at either [facility] or one of the freestanding pharmacies, as this will greatly help your stability with walking. An ankle brace with rigid strips will also be helpful in giving you some extra support. Your ankle x-ray looks good and you most likely sustained some sort of sprain although the mechanism pulling your slipper off is very unusual. This is expected to get better in time, but you will need to be careful getting around. Some of the pain also may be from trying to favor your right hip and perhaps walking differently than you normally would. Either way, as you rest the affected body parts and give them time to heal, your symptoms should improve. As far as getting the equipment, the [facility] is sometimes a good resource for Certain, gently used medical equipment items. You can check there for things like walkers or wheelchairs. They do not publishes street address on their website but their phone number is [phone] and you may give them a call. You been given a urinal from the ED to use and it is advisable that you use this for now, rather than trying to walk to the bathroom, until your balance and your ankle and hip are feeling better. Please schedule the next available appointment your primary doctor to follow-up. Forms: PCP List Discharge Date/Time: 10/06/23 11:39
[2023-10-06] MEDS: SODIUM CHLORIDE 0.9% 1,000 ML IV STA (09:37)
[2023-10-06] MEDS: KETOROLAC 30 MG/ML VIAL IVP STA (09:37)
[2023-10-06] MEDS: HYDROmorphone 1 MG/ML CARPUJECT IVP STA (09:37)
--- NOTE | 2023-10-06 09:44 | XRAY Report ---
PROCEDURE: Ankle 3+V RT INDICATIONS: injury 5 d/a, pain TECHNIQUE: 3 views of the ankle were acquired. COMPARISON: None. FINDINGS: Bones: No fractures or dislocations. Ankle mortise is normally aligned. No suspicious bony lesions . Midfoot osteoarthritis. Small plantar calcaneal bone spur. Soft tissues: No tibiotalar joint effusion. Achilles tendon appears normal. Soft tissue swelling i s noted and ligamentous injury cannot be excluded. IMPRESSION: No acute bony abnormality. Reviewed by: Corry Hutchinson MD, PhD on 10/06/2023 9:43 AM PDT Approved by: Corry Hutchinson MD, PhD on 10/06/2023 9:43 AM PDT Station ID: [id number]
--- NOTE | 2023-10-06 09:52 | CT Report ---
PROCEDURE: Head WO INDICATIONS: fall/head inj TECHNIQUE: Noncontrast 4.5 mm thick angled axial sections acquired from the foramen magnum to the vertex. For r adiation dose reduction, the following was used: automated exposure control, adjustment of mA and/or kV according to patient size. COMPARISON: None. FINDINGS: Image quality: Excellent. CSF spaces: Basal cisterns are patent. No extra-axial fluid collections. Ventricles are normal in size and shape. Brain: No midline shift. No intracranial masses or hemorrhage. Haines-white matter interface is norm al. Skull and face: Calvarium and visualized facial bones are intact, without suspicious lesions. Sinuses: Visualized sinuses and mastoids are clear. IMPRESSION: No acute intracranial pathology. Reviewed by: Corry Hutchinson MD, PhD on 10/06/2023 9:50 AM PDT Approved by: Corry Hutchinson MD, PhD on 10/06/2023 9:50 AM PDT Station ID: [id number]
--- NOTE | 2023-10-06 09:55 | CT Report ---
PROCEDURE: Cervical Spine WO INDICATIONS: fall/struck head TECHNIQUE: Noncontrast 3 mm thick sections acquired from the skull base to the T4 level. Sagittal and coronal r eformats were then constructed. For radiation dose reduction, the following was used: automated exp osure control, adjustment of mA and/or kV according to patient size. COMPARISON: None. FINDINGS: Image quality: Excellent. Bones: No fractures or dislocations. Visualized superior ribs are intact. Spine degenerative disc disease and facet arthropathy are noted. Soft tissues: Prevertebral soft tissues are normal in thickness. No paravertebral hematomas. No ap ical pneumothoraces. IMPRESSION: No fracture. No acute osseous lesion. If there is continued clinical concern for pathology, then MRI should be considered for further evaluation. Reviewed by: Corry Hutchinson MD, PhD on 10/06/2023 9:53 AM PDT Approved by: Corry Hutchinson MD, PhD on 10/06/2023 9:53 AM PDT Station ID: [id number]
--- NOTE | 2023-10-06 09:58 | CT Report ---
PROCEDURE: Lumbar Spine WO INDICATIONS: pain, uncertain injury TECHNIQUE: Noncontrast 3 mm thick sections acquired from the T12 level to the sacrum. Sagittal and coronal refo rmats were constructed. For radiation dose reduction, the following was used: automated exposure co ntrol, adjustment of mA and/or kV according to patient size. COMPARISON: None. FINDINGS: Image quality: Excellent. Bones: There is normal bony alignment. No acute vertebral body compression fractures. No suspiciou s lytic or blastic bony lesions. Spine degenerative disc disease and facet arthropathy are noted. Pos sible severe L3-L4 and L4-L5 central canal stenosis. No severe neural foraminal narrowing. No pars de fects. Soft tissues: No retroperitoneal masses or hematomas. Visualized aorta is normal in caliber. IMPRESSION: Multilevel degenerative disc disease. Multilevel facet arthropathy. Possible severe L3-L4 and L4-L5 central canal stenosis secondary to degenerative change. Consider non emergent MRI of lumbar spine for additional evaluation. No fracture. No acute osseous lesion. If there is continued clinical concern for pathology, then MRI should be considered for further evaluation. Reviewed by: Corry Hutchinson MD, PhD on 10/06/2023 9:57 AM PDT Approved by: Corry Hutchinson MD, PhD on 10/06/2023 9:57 AM PDT Station ID: [id number]
--- NOTE | 2023-10-06 10:07 | CT Report ---
PROCEDURE: Pelvis WO INDICATIONS: pain R pelvis/hip TECHNIQUE: Noncontrast 3 mm axial sections acquired through the bony pelvis, with coronal and sagittal reformatt ing. For radiation dose reduction, the following was used: automated exposure control, adjustment of mA and/or kV according to patient size. COMPARISON: None. FINDINGS: Image quality: Excellent. Bones: No fracture or dislocation. Mild bilateral hip osteoarthritis. Lower lumbar spine degenerativ e disease and facet arthropathy. Soft tissues: No soft tissue hematoma. No significant hip joint effusion. Visualized large and small bowel loops of normal caliber. Appendix is visualized and is normal. No lymphadenopathy based on siz e criteria. Small fat-containing left inguinal hernia. IMPRESSION: No fracture. Reviewed by: Corry Hutchinson MD, PhD on 10/06/2023 10:05 AM PDT Approved by: Corry Hutchinson MD, PhD on 10/06/2023 10:05 AM PDT Station ID: [id number]
[2023-10-06 11:48] VITALS: O2SAT 95
[2023-10-06 11:58] VITALS: BP 132/86
== END 2023-10-06 11:39 | disposition home or self-care (01) ==
LOC: EDUNIT# → ED 08:48
DX: M75.32 Calcific tendinitis of left shoulder (principal); S09.90XA Unspecified injury of head, initial encounter; M47.816 Spondylosis without myelopathy or radiculopathy, lumbar region; M25.551 Pain in right hip; S93.401A Sprain of unspecified ligament of right ankle, initial encounter; W03.XXXA Other fall on same level due to collision with another person, initial encounter; Y93.89 Activity, other specified; Y92.003 Bedroom of unspecified non-institutional (private) residence as the place of occurrence of the external cause
CPT/HCPCS: 70450; 72125; 72131; 72192; 73610; 96374; 96375; 99284; J1170

== ENCOUNTER 2023-10-14 07:42 | Inpatient (IN) | payer MEDICARE, BC ==
[2023-10-14 10:29] LABS: BASOPHILS % (AUTO) 0.5 %; HCT - HEMATOCRIT 43.1 % (42.0-52.0); HGB - HEMOGLOBIN 14.8 g/dL (14.0-18.0); LYMPHOCYTES % (AUTO) 48.4 %; MEAN CORPUSCULAR HEMOGLOBIN 31.8 pg (27.0-31.0); MEAN CORPUSCULAR HGB CONC 34.3 g/dL (32.0-36.0); MEAN CORPUSCULAR VOLUME 92.7 fL (80.0-94.0); MEAN PLATELET VOLUME 9.2 fL (7.4-11.4); MONOCYTES % (AUTO) 4.5 %; NEUTROPHILS % (AUTO) 45.7 %; PLT - PLATELET COUNT 396 10^3/uL (130-450); RED BLOOD COUNT 4.65 10^6/uL (4.70-6.10); RED CELL DISTRIBUTION WIDTH 12.1 % (12.0-15.0); WHITE BLOOD COUNT 24.3 x10^3/uL (4.8-10.8)
[2023-10-14 10:32] LABS: ABNORMAL LYMPHS % (MANUAL) 0 %
[2023-10-14] MEDS: DEXAMETHASONE 10 MG/ML VIAL IV STA (10:37)
[2023-10-14] MEDS: KETOROLAC 30 MG/ML VIAL IVP STA (10:37)
[2023-10-14] MEDS: HYDROmorphone 1 MG/ML CARPUJECT IVP STA ×3 (10:38→17:08)
[2023-10-14] MEDS: SODIUM CHLORIDE 0.9% 1,000 ML IV STA (10:38)
[2023-10-14 10:42] LABS: ALBUMIN 2.9 g/dL (3.2-5.5); ALBUMIN/GLOBULIN RATIO 0.7 (1.0-2.2); BILIRUBIN,TOTAL 1.3 mg/dL (0.2-1.0); CALCIUM 9.8 mg/dL (8.5-10.3); CREATININE 0.9 mg/dL (0.6-1.3); CRP - C-REACTIVE PROTEIN 23.4 mg/dL (<0.5); POTASSIUM 4.3 mmol/L (3.5-4.5); TOTAL PROTEIN 7.2 g/dL (6.4-8.9)
--- NOTE | 2023-10-14 10:49 | XRAY Report ---
PROCEDURE: Tib/Fib RT INDICATIONS: infection TECHNIQUE: 2 views of the tibia and fibula were acquired. COMPARISON: Right ankle radiograph dated 10/06/2023. FINDINGS: Bones: No fractures or dislocations. No bony erosive changes or abnormal periosteal reaction. No preston picious bony lesions. Soft tissues: No suspicious soft tissue calcifications or masses. IMPRESSION: No lower leg fracture or dislocation. No radiographic evidence of osteomyelitis. Reviewed by: Elvis Perez MD on 10/14/2023 10:48 AM PDT Approved by: Elvis Perez MD on 10/14/2023 10:48 AM PDT Station ID: [id number]
[2023-10-14 10:51] LABS: BAND NEUTROPHILS % (MANUAL) 4 %; EOSINOPHILS # (MANUAL) 0.2 10^3/uL (0-0.7); LYMPHOCYTES # (MANUAL) 13.4 10^3/uL (1.5-3.5); LYMPHOCYTES % (MANUAL) 55 %; MONOCYTES # (MANUAL) 0.7 10^3/uL (0.0-1.0)
[2023-10-14 10:52] LABS: DIFFERENTIAL COMMENT MANUAL DIFFERENTIAL; PLATELET ESTIMATE, MANUAL NORMAL (130-450,000) (NORMAL); PLATELET MORPHOLOGY NORMAL APPEARANCE (NORMAL); RBC MORPHOLOGY (MULTIPLE) NORMAL APPEARANCE (NORMAL); WBC MORPHOLOGY (MULTIPLE) 2+ SMUDGE CELLS (NORMAL)
[2023-10-14] MEDS: VANCOMYCIN INJ 2 GM in SODIUM CHLORIDE 0.9% 500 ML IV STA (11:35)
--- NOTE | 2023-10-14 13:06 | ED Physician Documentation ---
History of Present Illness - Stated complaint Stated Complaint: RT FOOT SWELLING - Chief complaint Chief Complaint: Ext Problem - History obtained from History obtained from: Patient, Family - Additonal information Additional information: The patient is brought to the emergency department by his for chief complaint of redness, swelling, and pain of his right lower extremity. He has been having pain for the last couple of weeks, but the redness, as well as hemorrhagic bulla, just developed a couple of days ago. The patient has not had fevers but has been feeling generally unwell and has been in a lot of pain. His says he has not been eating because he hurts too much. The patient is not a known diabetic. He does have a history of gout. He has noticed erythema over the dorsum of his first MTP, as well as laterally over his ankle and lateral lower leg. His states that he has just generally declined in recent months, and has not been able to summon the energy to take a shower or to exercise regularly as he used to. The patient denies any other symptoms at this time. PD PAST MEDICAL HISTORY - Past Medical History Cardiovascular: Hypertension, High cholesterol Respiratory: Sleep apnea Neuro: None Endocrine/Autoimmune: None GI: GERD : None HEENT: Glaucoma Psych: None Musculoskeletal: Gout Derm: None - Past Surgical History Past Surgical History: Yes General: Colonoscopy Ortho: Other HEENT: Cataracts - Present Medications Home Medications: Ambulatory Orders Medication Instructions Recorded Confirmed Latanoprost 2 drops OP DAILY 04/28/16 10/06/23 Losartan Potassium 100 mg PO DAILY 04/28/16 10/06/23 Timolol [Betimol] 2 drops OP DAILY 04/28/16 10/06/23 Metoprolol Succinate [Toprol Xl] 25 mg PO DAILY 11/18/21 10/06/23 hydroCHLOROthiazide [Hydrodiuril] 12.5 mg PO DAILY 11/18/21 10/06/23 Rosuvastatin Calcium [Crestor] 20 mg PO HS 10/06/23 10/06/23 allopurinoL [Allopurinol] 300 mg PO DAILY 10/06/23 10/06/23 predniSONE [Deltasone] 10 mg PO [id number] #42 tab 10/06/23 predniSONE [Prednisone] 10 mg PO [id number] 10/06/23 10/06/23 tiZANidine [Zanaflex] 4 mg PO TID 10/06/23 10/06/23 - Allergies Allergies/Adverse Reactions: Allergies Allergy/AdvReac Type Severity Reaction Status Date / Time No Known Drug Allergies Allergy Verified 10/14/23 07:55 - Social History Does the pt smoke?: No Smoking Status: Never smoker Does the pt drink ETOH?: Yes Does the pt have substance abuse?: Yes - Immunizations Immunizations are current?: Yes PD ED PE NORMAL - Vitals Vital signs reviewed: Yes - General General: No acute distress, Well developed/nourished, Other (Awake, answers questions appropriately, but responses are slow.) - HEENT HEENT: Atraumatic - Cardiac Cardiac: RRR, No murmur - Respiratory Respiratory: Clear bilaterally - Abdomen Abdomen: Normal bowel sounds, Soft, Non tender, Non distended - Derm Derm: Warm and dry - Extremities Extremities: No deformity - Neuro Neuro: Alert and oriented X 3 - Psych Psych: Normal mood, Normal affect Results - Vitals Vitals: Vital Signs - 24 hr 10/14/23 10/14/23 10/14/23 07:48 10:02 12:55 Temperature 36.6 C 36.3 C L 36.1 C L Heart Rate 67 111 H 93 Respiratory 16 18 18 Rate Blood Pressure 141/102 H 128/98 H 126/94 H O2 Saturation 99 94 97 If not protocol : Oxygen Flow, liters/minute 10/14/23 10/14/23 12:58 13:55 Temperature 35.7 C L Heart Rate 96 Respiratory 18 Rate Blood Pressure 119/85 H O2 Saturation 87 L 97 If not protocol 2 : Oxygen Flow, liters/minute Oxygen O2 Source Nasal cannula - Labs Labs: Laboratory Tests 10/14/23 10/14/23 10/14/23 10:23 10:23 10:23 WBC 24.3 H RBC 4.65 L Hgb 14.8 Hct 43.1 MCV 92.7 MCH 31.8 H MCHC 34.3 RDW 12.1 Plt Count 396 MPV 9.2 Neut # (Auto) Not Reportable Lymph # (Auto) Not Reportable [place] # (Auto) Not Reportable Eos # (Auto) Not Reportable Baso # (Auto) Not Reportable Absolute Nucleated RBC Not Reportable Total Counted 100 Band Neuts % (Manual) 4 Abnorm Lymph % (Manual) 0 Nucleated RBC % Not Reportable Neutrophils # (Manual) 10.0 H Lymphocytes # (Manual) 13.4 H Monocytes # (Manual) 0.7 Eosinophils # (Manual) 0.2 Basophils # (Manual) 0.0 Differential Comment MANUAL DIFFERENTIAL WBC Morphology 2+ SMUDGE CELLS Platelet Estimate NORMAL (130-450,000) Platelet Morphology NORMAL APPEARANCE RBC Morph Micro Appear NORMAL APPEARANCE ESR 56 H Sodium 124 L Potassium 4.3 Chloride 84 L Carbon Dioxide 26 Anion Gap 14.0 H BUN 35 H Creatinine 0.9 Estimated GFR (MDRD) 84 L Glucose 237 H Calcium 9.8 Total Bilirubin 1.3 H AST 35 ALT 35 Alkaline Phosphatase 126 H C-Reactive Protein 23.4 H Total Protein 7.2 Albumin 2.9 L Globulin 4.3 H Albumin/Globulin Ratio 0.7 L Lipase 38 - Rads (name of study) Tib-fib x-ray series Relevant Findings:: Final report received, See rad report (No acute findings.) PD Medical Decision Making - ED course Complexity details: reviewed results, re-evaluated patient, considered di fferential, d/w patient ED course: Patient was evaluated in the emergency department and worked up with labs and x- ray imaging of his right lower extremity. The patient's responses were very slow which is consistent with when I saw him last week, but his was not aware of any sort of neurologic diagnosis. His right lower extremity was edematous and the deep erythema over his right great toe and lateral foot, ankle, and lower leg was new since I saw him last week. His had thought that he was having a gout flareup but I was concerned for cellulitis, given the ascending erythema. I obtained the x-ray series to evaluate for soft tissue air which would be indicative of necrotizing fasciitis, and this was negative. The patient's laboratory studies showed of significance, a white blood cell count of over 24,000, as well as a moderate hyponatremia of 124. Furthermore, the patient was found to have an elevated blood glucose of over 230 and I was concerned for undiagnosed diabetes. I went back to speak with the patient's , who stated that he had been told that he should modify his dietary intake, but had never been given an official diagnosis of diabetes. I started vancomycin on the patient and I also treated the patient's pain with multiple doses of Dilaudid and a dose of Toradol. The patient was still quite uncomfortable and given the new onset diabetes, the lower extremity infection, the markedly elevated white blood cell count and the inability to get adequate pain control in the emergency department, I felt he should be admitted to the hospital. I spoke with Dr. Francis who was in agreement. WILL Cortez did come down and see the patient and came to request a CT scan of the lower extremity prior to admission. This was ordered, And final read is pending at this time. The plan will be to admit the patient to hospitalist service, unless the CT reading indicates the need for a change in management. Departure - Departure Disposition: ED Place in Observation Clinical Impression: Diabetes mellitus, new onset, Hyponatremia Cellulitis Qualifiers: Site of cellulitis: extremity Site of cellulitis of extremity: lower extremity Laterality: right Qualified Code(s): L03.115 - Cellulitis of right lower limb Condition: Serious Forms: PCP List
--- NOTE | 2023-10-14 14:01 | PROVIDER PROGRESS NOTE ---
Progress Note Requested by emergency department to evaluate this 68-year-old gentleman for admission for cellulitis. This 68-year-old male with a past medical history of glaucoma, hypertension and hyperlipidemia who presented to the ED today with worsening right foot pain and swelling. He has a remote history of gout. it has been some years since he has had a gout exacerbation but started to have some right first MTP pain roughly a week ago. He has had no improvement in this pain. Has started to walk with a walker even after starting gout medication about a week ago. On September 25 he was in his usual state of health and presented to the emergency department via POV for some shoulder and back pain. Subsequently was seen by his PCP; labs x-ray and MRI were ordered. On October 05 he was getting ready to go to the hospital to have the studies done when he was ill enough that he fell standing up out of bed at this time he fell down on top of his and started to have some right ankle pain. This has not improved. Over this last 3 weeks he has also had a decreased appetite. In any event, presented to the emergency department today with worsening right first MTP swelling and pain. Workup included CBC remarkable for a white blood count of 24.3, ESR of 56, hyponatremia at 124, normal renal function, glucose of 237. On examination today patient appears ill. he is diaphoretic and his skin is cool. His vital signs are within normal limits; he is not hypotensive or tachycardic. On exam he has a hemorrhagic blister over the right first MCP joint. the right foot and ankle and calf are swollen. There is no palpable crepitus. There is pain on passive stretch of the right calf muscle. there is no palpable cord. Pain is out of proportion to exam. Assessment: given hyponatremia, pain out of portion to exam and pain on passive stretch cannot rule out necrotizing soft tissue infection. Previously undiagnosed diabetes can certainly be a contributor to this. Plan: I have discussed this patient with the emergency room physician, as well as my supervising MD. I have requested that CT of the right lower extremity be ordered to rule out presence of soft tissue gas. Patient is receiving vancomycin here in the emergency department. Consider addition of clindamycin if CT is positive. Patient will be admitted to medicine assuming he does not require urgent surgical intervention.
[2023-10-14] MEDS ORDERED: iohexoL-300 100 ML VIAL ONE (14:03)
--- NOTE | 2023-10-14 14:48 | CT Report ---
PROCEDURE: Lower Extremity RT W INDICATIONS: infection TECHNIQUE: After administration of contrast 3 mm axial sections acquired of the right lower extremity, with jose daniel nal and sagittal reformats. For radiation dose reduction, the following was used: automated exposur e control, adjustment of mA and/or kV according to patient size. CONTRAST: 100ml omni 300 COMPARISON: Right tib-fib radiograph from the same day. Right ankle radiograph dated 10/06/2023. FINDINGS: Image quality: Excellent. Bones: Alignment of right lower extremity is anatomic. No fracture or dislocation. Mild to moderate right hip joint osteoarthritic changes are seen. No evidence of avascular necrosis of femoral head. M ild to moderate tricompartmental osteoarthritis in right knee is also seen more notably in lateral fe moral tibial compartment. No significant patellar subluxation. Mild osteoarthritic changes also seen throughout right ankle and foot. There is no bony erosion or abnormal periosteal reaction. No aggress lisset appearing intraosseous lesion. Soft tissues: There is small right hip joint effusion. No calcified intra-articular loose bodies. No inguinal lymphadenopathy by size criteria. There is no enhancing soft tissue mass or drainable perip herally enhancing fluid collection. No significant right knee joint effusion. There is significant subcutaneous soft tissue edema and swelling with skin thickening over anterolate ral aspect of right lower leg. There is heterogeneous density and enhancement throughout extensor mus cles of the right lower leg. No definite discrete drainable peripherally enhancing intramuscular rayo ection is seen. No other area of abnormal muscle density is seen in lower leg. IMPRESSION: 1. Finding is suggestive of significant myositis involving right extensor muscles along the anterolat eral aspect of right lower leg. No definite discrete drainable intramuscular fluid collection is seen . Enlarged right extensor muscles, clinical diagnosis of compartment syndrome cannot be excluded. 2. Cellulitis along the anterolateral aspect of right lower leg. No abscess collection is seen within subcutaneous soft tissue. No other muscle or soft tissue abnormality is seen. 3. Osteoarthritic changes throughout right lower extremity. No fracture or dislocation. No CT evidenc e of osteomyelitis. Reviewed by: Elvis ePrez MD on 10/14/2023 2:47 PM PDT Approved by: Elvis Perez MD on 10/14/2023 2:47 PM PDT Station ID: [id number]
--- NOTE | 2023-10-14 15:27 | ED Physician Documentation ---
ED Addendum - Addendum Addendum: 10/14/23 15:[address] Lai at shift 3 PM shift change. Briefly 68-year-old gentleman with lower extremity cellulitis pending CT. CT done and showing myositis. I updated the hospitalist by phone who requests orthopedic consult and Dr. Moore will see him. We also broadened antibiotic coverage to include gram-negative coverage with cefepime. He had already received vancomycin and I did order blood cultures and lactate. Disposition: Place in observation Condition: Stable Diagnosis: 1. Right leg cellulitis
[2023-10-14] MEDS: CEFEPIME 2 GM in SODIUM CHLORIDE 0.9% MINIBAG 100 ML IV STA (15:38)
[2023-10-14] MEDS: ONDANSETRON 4 MG/2 ML VIAL IVP STA (15:55)
--- NOTE | 2023-10-14 16:48 | CONSULTATION NOTE ---
Referring Provider Name of Referring Provider:: Dr. Zavala Consult Date: 10/14/23 History of Present Illness - History of Present Illness HPI Comment/Other: Stew Rosen is a 68-year-old male who presents with a greater than 6-day history of progressive right forefoot and lateral ankle and distal calf redness and swelling and pain. Patient denies any penetrating trauma in the region of his foot or ankle. Also denies any trauma whatsoever to hurt his leg. Denies of fever or chills. Initially thought that this was a episode of gout since he has had this in the past and this involves his great toe. He obtained antigout medications last Tuesday and was taking the medication with little improvement. As he was unable to see his primary care physician in the clinic he presented to the emergency room for further evaluation and treatment of his problem. History - Past Medical History Cardiovascular: reports: Hypertension, High cholesterol Respiratory: reports: Sleep apnea Neuro: reports: None Endocrine/Autoimmune: reports: None GI: reports: GERD : reports: None HEENT: reports: Glaucoma Psych: reports: None Musculoskeletal: reports: Gout Derm: reports: None MRSA Hx?: No - Past Surgical History General: reports: Colonoscopy Ortho: reports: Other HEENT: reports: Cataracts Meds/Allgy - Home Medications Home Medications: Ambulatory Orders Medication Instructions Recorded Confirmed Latanoprost 2 drops OP DAILY 04/28/16 10/06/23 Losartan Potassium 100 mg PO DAILY 04/28/16 10/06/23 Timolol [Betimol] 2 drops OP DAILY 04/28/16 10/06/23 Metoprolol Succinate [Toprol Xl] 25 mg PO DAILY 11/18/21 10/06/23 hydroCHLOROthiazide [Hydrodiuril] 12.5 mg PO DAILY 11/18/21 10/06/23 Rosuvastatin Calcium [Crestor] 20 mg PO HS 10/06/23 10/06/23 allopurinoL [Allopurinol] 300 mg PO DAILY 10/06/23 10/06/23 predniSONE [Deltasone] 10 mg PO [id number] #42 tab 10/06/23 predniSONE [Prednisone] 10 mg PO [id number] 10/06/23 10/06/23 tiZANidine [Zanaflex] 4 mg PO TID 10/06/23 10/06/23 - Allergies Allergies/Adverse Reactions: Allergies Allergy/AdvReac Type Severity Reaction Status Date / Time No Known Drug Allergies Allergy Verified 10/14/23 07:55 Exam - Vital Signs Vital Signs: Vital Signs x48h Temp Pulse Resp BP Pulse Ox O2 Flow Rate 10/14/23 15:50 37.3 C 95 18 129/90 H 96 10/14/23 13:55 35.7 C L 96 18 119/85 H 97 2 10/14/23 12:58 87 L 10/14/23 12:55 36.1 C L 93 18 126/94 H 97 10/14/23 10:02 36.3 C L 111 H 18 128/98 H 94 - Physical Exam Comments/Other: Examination: Patient was afebrile. His right foot shows a hemorrhagic bullae superficial over the dorsum of his right great toe. There is surrounding erythema and mild swelling involving the medial forefoot and midfoot region. In addition he also has significant erythema and swelling over the anterolateral aspect of his ankle and the distal calf. There is no palpable fluctuance in his calf. Sensation showed a slight diminished sensation in the dorsal webspace of his right foot. Otherwise the rest of his foot and calf regions were symmetrical on testing with his opposite side. Patient had active toe flexion extension on command. There is able to hold his toe and extensions against resistance. All this was done without discomfort. With passive stretch involving his extensors flexors inverters and everters of his ankle and foot there was no increased pain. X-rays: Plain films showed no osseous abnormalities. CT scan showed no evidence of abscess. There was soft tissue swelling consistent with myositis Laboratory: White count of 24,000; sed rate of 56; CRP of 23 Conclusion/Plan - Problem List (1) Cellulitis Conclusion/Plan: Plan: Agree with the plan to admit the patient to medicine for antibiotic coverage. Will observe the patient that while he is in-house. At this point he does not appear to have an acute compartment syndrome. Will observe room on serial basis while he is in the hospital to make sure his condition has not does not deteriorate with increased compartment pressures that may require decompression. Qualifiers: Site of cellulitis: extremity Site of cellulitis of extremity: lower extremity Laterality: right Qualified Code(s): L03.115 - Cellulitis of right lower limb - Lab Results Fish Bones: 10/14/23 10:23 10/14/23 10:23
[2023-10-14] MEDS ORDERED: oxyCODONE 5 MG TABLET PO PRN (17:12)
--- NOTE | 2023-10-14 17:41 | PHARMACY PROGRESS NOTE ---
- Therapy Status Vancomycin regimen day #: 1 Therapy status: Awaiting steady state Basis for treatment: Empirical Treatment indication: CELLULITIS Trough goal: 10-15 Concurrent antibiotics: CEFEPIME 1GM Q8H - ZEINA Risk Risk level for Acute Kidney Injury: Moderate Acute Kidney Injury risk factors: Other nephrotoxic agents - Monitoring and Recommendation Clinical response to treatment: I&O Previous 24 hours 10/12/23 10/13/23 10/14/23 23:59 23:59 23:59 Intake Total 1600 Balance 1600 Lab Results 10/14/23 10/14/23 10:23 10:23 ESR 56 H BUN 35 H Creatinine 0.9 Estimated GFR (MDRD) 84 L Areas for additional monitoring: IV to PO when appropriate, Therapy de- escalation based on culture results, Acute Kidney Injury Pharmacy recommendation: Continue current regime (LOADED W/ 2GM X1 IN ED. WILL START ON 1GM Q12H FOR ANTICIPATED TROUGH ~13. LABS REV'D. PEND MICRO.)
[2023-10-14 17:53] LABS: BASOPHILS % (AUTO) 0.6 %; HCT - HEMATOCRIT 43.8 % (42.0-52.0); HGB - HEMOGLOBIN 14.7 g/dL (14.0-18.0); LYMPHOCYTES % (AUTO) 50.7 %; MEAN CORPUSCULAR HEMOGLOBIN 31.8 pg (27.0-31.0); MEAN CORPUSCULAR HGB CONC 33.6 g/dL (32.0-36.0); MEAN CORPUSCULAR VOLUME 94.8 fL (80.0-94.0); MEAN PLATELET VOLUME 9.2 fL (7.4-11.4); MONOCYTES % (AUTO) 2.9 %; NEUTROPHILS % (AUTO) 45.2 %; PLT - PLATELET COUNT 363 10^3/uL (130-450); RED BLOOD COUNT 4.62 10^6/uL (4.70-6.10); RED CELL DISTRIBUTION WIDTH 12.3 % (12.0-15.0)
[2023-10-14 17:56] LABS: ABNORMAL LYMPHS % (MANUAL) 0 %
--- NOTE | 2023-10-14 17:58 | HISTORY & PHYSICAL EXAMINATION ---
Chief Complaint - Chief Complaint Chief Complaint: right leg pain History of Present Illness - Admitted From Admitted From:: ED - History Obtained From Records Reviewed: PCP visit on 10/02 History obtained from: Patient, and Exam Limitations: none - History of Present Illness HPI Comment/Other: This 68-year-old male with a past medical history of glaucoma, hypertension and hyperlipidemia who presented to the ED today with worsening right foot pain and swelling. He has a remote history of gout. it has been some years since he has had a gout exacerbation but started to have some right first MTP pain roughly a week ago. He has had no improvement in this pain. Has started to walk with a walker even after starting gout medication about a week ago. On September 25 he was in his usual state of health and presented to the emergency department via POV for some shoulder and back pain. Subsequently was seen by his PCP; labs x-ray and MRI were ordered. On October 05 he was getting ready to go to the hospital to have the studies done when he was ill enough that he fell standing up out of bed at this time he fell down on top of his and started to have some right ankle pain. This has not improved. Over this last 3 weeks he has also had a decreased appetite. He has had a significant decline in function over the last 3 weeks. 3 weeks ago he was driving going to the grocery store taking walks and engaging in his hobbies currently he has been sick at home feeling poorly. In any event, presented to the emergency department today with worsening right first MTP swelling and pain. Workup included CBC remarkable for a white blood count of 24.3, ESR of 56, hyponatremia at 124, normal renal function, glucose of 237. History - Past Medical History Cardiovascular: reports: Hypertension, High cholesterol Respiratory: reports: Sleep apnea Neuro: reports: None Endocrine/Autoimmune: reports: None GI: reports: GERD : reports: None HEENT: reports: Glaucoma Psych: reports: None Musculoskeletal: reports: Gout Derm: reports: None MRSA Hx?: No - Past Surgical History General: reports: Colonoscopy Ortho: reports: Other HEENT: reports: Cataracts - Family & Social History Family History: Mother: (mom at age 94, glaucoma), Hypertension, Father: Cancer (colon) Living arrangement: At home Living Situation: With spouse/s.o. - Substance History Use: Uses substance without health or social issues: NONE Abuse: Recurrent use of substance despite neg consequences: NONE Dependence: Experiences withdrawal or developed tolerances: NONE - POLST Patient has POLST: No POLST Status: Full Code Meds/Allgy - Home Medications Home Medications: Ambulatory Orders Medication Instructions Recorded Confirmed Latanoprost 2 drops OP DAILY 04/28/16 10/06/23 Losartan Potassium 100 mg PO DAILY 04/28/16 10/06/23 Timolol [Betimol] 2 drops OP DAILY 04/28/16 10/06/23 Metoprolol Succinate [Toprol Xl] 25 mg PO DAILY 11/18/21 10/06/23 hydroCHLOROthiazide [Hydrodiuril] 12.5 mg PO DAILY 11/18/21 10/06/23 Rosuvastatin Calcium [Crestor] 20 mg PO HS 10/06/23 10/06/23 allopurinoL [Allopurinol] 300 mg PO DAILY 10/06/23 10/06/23 predniSONE [Deltasone] 10 mg PO [id number] #42 tab 10/06/23 predniSONE [Prednisone] 10 mg PO [id number] 10/06/23 10/06/23 tiZANidine [Zanaflex] 4 mg PO TID 10/06/23 10/06/23 - Allergies Allergies/Adverse Reactions: Allergies Allergy/AdvReac Type Severity Reaction Status Date / Time No Known Drug Allergies Allergy Verified 10/14/23 07:55 Review of Systems - Cardiovascular Cariovascular: denies: Irregular heart rate, Palpitations, Chest pain - Respiratory Respiratory: denies: Cough - Gastrointestinal Gastrointestinal: reports: Abdominal pain. denies: Constipation, Diarrhea, Change in bowel habits - Musculoskeletal Musculoskeletal: reports: Muscle pain - Integumentary Integumentary: reports: Rash (right leg erythma) - Neurological Neurological: reports: General weakness - Psychiatric Psychiatric: denies: Depression, Anxiety - Endocrine Endocrine: reports: Polydypsia (has been very thirsty) - All Other Systems All Other Systems: reports: Reviewed and negative Prior Level of Functionality: Independent and functional adult. Exam - Vital Signs Reviewed Vital Signs: Yes Vital Signs: Vital Signs x48h Temp Pulse Resp BP Pulse Ox O2 Flow Rate 10/14/23 15:50 37.3 C 95 18 129/90 H 96 10/14/23 13:55 35.7 C L 96 18 119/85 H 97 2 10/14/23 12:58 87 L 10/14/23 12:55 36.1 C L 93 18 126/94 H 97 10/14/23 10:02 36.3 C L 111 H 18 128/98 H 94 - Physical Exam General Appearance: positive: Mild distress, Other (Appears ill) Eyes Bilateral: positive: Normal inspection ENT: positive: Other (Lips are dry). negative: Dry mucous membranes Neck: positive: Nml inspection Respiratory: positive: Chest non-tender, No respiratory distress, Breath sounds nml Cardiovascular: positive: Regular rate & rhythm Peripheral Pulses: positive: 2+ Abdomen: positive: Tenderness (Mild diffuse abdominal tenderness.) Back: positive: Nml inspection Skin: positive: Warm (Hemorrhagic blister about 1.5 cm in diameter on the dorsal aspect of the right first MTP TP joint. There is erythema and warmth on the right lateral leg. There is pain out of proportion to exam with palpation of the anterior tibial area and with passive stretch. There is edema of the right lower) Extremities: positive: Calf tenderness, Joint swelling Neurologic/Psychiatric: positive: Oriented x3 Sepsis Event Note (H) - Sepsis Criteria Sepsis Criteria: WBC count greater than 12,000 or less than 4000, LICENSED [employer]: altered consciousness (unrelated to primary neuro pathology) Conclusion/Plan - Problem List (1) Sepsis Conclusion/Plan: This patient has a cellulitis that has been growing over the last several weeks. It is possible that he has an undiagnosed diabetes. Last hemoglobin A1c in the outpatient setting was 5.9% in January 2023. He does have an elevated blood glucose in excess of 200 today. I have sent in hemoglobin A1c. With regards to his sepsis he does have elevated white blood cell count. He does not have fever he does not have hypotension he does not have tachycardia. He does have hyponatremia. Reviewing his labs from January 2023 which were the most recent outpatient labs are available to me I do not see any previous hyponatremia his previous labs showed a sodium of 135. Repeat sodium is ordered this evening along with inflammatory markers. (2) Cellulitis Conclusion/Plan: Right lower extremity cellulitis with symptoms that are quite concerning for sepsis. Patient has significant leukocytosis and hyponatremia. He has pain on passive stretch. For this reason we asked the emergency department to obtain a CT of the right lower extremity. There is myositis but there is no gas seen on imaging. Orthopedics has seen the patient and does not feel that this needs to be operatively explored. We will admit with broad-spectrum antibiotics. Blood cultures have been sent. Qualifiers: Site of cellulitis: extremity Site of cellulitis of extremity: lower extremity Laterality: right Qualified Code(s): L03.115 - Cellulitis of right lower limb (3) Diabetes mellitus, new onset Conclusion/Plan: Hemoglobin A1c is ordered. He has had elevated glucose since he has been here in the emergency department in excess of 200. I will order sliding scale insulin. Hemoglobin A1c last checked in the outpatient environment in January 2023 is 5.9%. (4) Hyponatremia Conclusion/Plan: hyponatremia which is new in onset. I wonder if it is associated with his acute illness. I was concerned about a necrotizing soft tissue infection with cellulitis edema extreme pain in the setting of hyponatremia. CT is negative at this time. We will continue to watch his exam. (5) Hypertension Conclusion/Plan: He has been normotensive during his stay here most recent blood pressure readings 119/85 and 129/90. I will have pharmacy reconcile his medications and will restart antihypertensive as indicated. (6) Glaucoma Conclusion/Plan: Medication reconciliation is not complete. I will order his glaucoma medications - Lab Results Fish Bones: 10/14/23 10:23 10/14/23 10:23
[2023-10-14 18:04] LABS: CALCIUM 9.1 mg/dL (8.5-10.3); CREATININE 0.9 mg/dL (0.6-1.3); CRP - C-REACTIVE PROTEIN 23.5 mg/dL (<0.5); POTASSIUM 4.6 mmol/L (3.5-4.5)
[2023-10-14 18:17] LABS: BAND NEUTROPHILS % (MANUAL) 4 %; BASOPHILS # (MANUAL) 0.2 10^3/uL (0-0.1); BASOPHILS % (MANUAL) 1 %; LYMPHOCYTES % (MANUAL) 52 %; MONOCYTES # (MANUAL) 0.4 10^3/uL (0.0-1.0); NEUTROPHILS # (MANUAL) 8.4 10^3/uL (1.5-6.6); REACTIVE LYMPHS % (MANUAL) 5 %
[2023-10-14 18:18] LABS: DIFFERENTIAL COMMENT MANUAL DIFFERENTIAL; PLATELET ESTIMATE, MANUAL NORMAL (130-450,000) (NORMAL); PLATELET MORPHOLOGY NORMAL APPEARANCE (NORMAL); RBC MORPHOLOGY (MULTIPLE) NORMAL APPEARANCE (NORMAL)
[2023-10-14] MEDS: SODIUM CHLORIDE 0.9% 1,000 ML IV SCH (18:26)
[2023-10-14] MEDS: SODIUM CHLORIDE FLUSH 0.9% 10 ML SYRINGE IVP SCH (18:27)
[2023-10-14] MEDS: PANTOPRAZOLE 40 MG TABLET PO SCH (18:57)
[2023-10-14] MEDS: iohexoL-300 100 ML VIAL IVP ONE (19:07)
[2023-10-14] MEDS: VANCOMYCIN INJ 1 GM in SODIUM CHLORIDE 0.9% 250 ML IV SCH (20:48)
[2023-10-14] MEDS: HEPARIN 5,000 UNIT/ML VIAL SUBQ SCH (20:49)
[2023-10-14] MEDS: IBUPROFEN 600 MG TABLET PO PRN (20:55)
[2023-10-14] MEDS: INSULIN LISPRO 300 UNIT/3 ML PEN SUBQ SCH (21:02)
[2023-10-14] MEDS: CEFEPIME 1 GM in SODIUM CHLORIDE 0.9% MINIBAG 100 ML IV SCH (22:48)
[2023-10-15 05:29] LABS: BASOPHILS % (AUTO) 0.6 %; HCT - HEMATOCRIT 39.6 % (42.0-52.0); HGB - HEMOGLOBIN 14.2 g/dL (14.0-18.0); LYMPHOCYTES % (AUTO) 43.8 %; MEAN CORPUSCULAR HEMOGLOBIN 33.1 pg (27.0-31.0); MEAN CORPUSCULAR HGB CONC 35.9 g/dL (32.0-36.0); MEAN CORPUSCULAR VOLUME 92.3 fL (80.0-94.0); MEAN PLATELET VOLUME 9.5 fL (7.4-11.4); MONOCYTES % (AUTO) 3.1 %; NEUTROPHILS % (AUTO) 51.8 %; PLT - PLATELET COUNT 298 10^3/uL (130-450); RED BLOOD COUNT 4.29 10^6/uL (4.70-6.10); RED CELL DISTRIBUTION WIDTH 12.4 % (12.0-15.0); WHITE BLOOD COUNT 20.7 x10^3/uL (4.8-10.8)
[2023-10-15 05:44] LABS: ABNORMAL LYMPHS % (MANUAL) 0 %; BAND NEUTROPHILS % (MANUAL) 0 %
[2023-10-15 06:09] LABS: CALCIUM 8.6 mg/dL (8.5-10.3); CREATININE 1.7 mg/dL (0.6-1.3); POTASSIUM 4.5 mmol/L (3.5-4.5)
[2023-10-15 06:44] LABS: LYMPHOCYTES # (MANUAL) 11.6 10^3/uL (1.5-3.5); LYMPHOCYTES % (MANUAL) 52 %; MONOCYTES # (MANUAL) 2.3 10^3/uL (0.0-1.0); NEUTROPHILS # (MANUAL) 6.8 10^3/uL (1.5-6.6); REACTIVE LYMPHS % (MANUAL) 4 %
[2023-10-15 06:45] LABS: DIFFERENTIAL COMMENT MANUAL DIFFERENTIAL; PLATELET ESTIMATE, MANUAL NORMAL (130-450,000) (NORMAL); PLATELET MORPHOLOGY PLATELET CLUMPING (NORMAL)
--- NOTE | 2023-10-15 08:07 | PROVIDER PROGRESS NOTE ---
Subjective - Prog Note Date Prog Note Date: 10/15/23 Prog Note Time: 08:07 - Subjective Pt reports feeling: Improved, No change Subjective: He states his leg feels much better. Overnight has had decrease in pain and recession of the swelling in his leg. Continues with no appetite and a rather nagging abdominal pain. His abdominal pain feels little worse this morning. He has not had any vomiting. He continues to have loose stools. He does not have any blood in his bowel movements. He does not have any mucus in his bowel movements. They are not particularly foul-smelling. His states that his loose stools have been going on for a period of weeks. Current Medications - Current Medications Current Medications: Medications Acetaminophen (Acetaminophen 325 Mg Tablet) 650 mg PO Q4HR PRN PRN Reason: Pain 1 to 4, or Fever Last Admin: 10/15/23 08:20 Dose: 650 mg Cefepime HCl 1 gm/ Sodium (Chloride) 100 mls @ 200 mls/hr IV Q8H [facility] Stop: 10/17/23 21:59 Last Admin: 10/15/23 06:40 Dose: Infused Heparin Sodium (Porcine) (Heparin 5,000 Unit/Ml Vial) 5,000 unit SUBQ BID [facility] Last Admin: 10/15/23 08:18 Dose: 5,000 unit Hydromorphone HCl (Hydromorphone 0.5 Mg/0.5 Ml Syringe) 0.5 mg IVP Q2H PRN PRN Reason: Pain 8 to 10 Ibuprofen (Ibuprofen 600 Mg Tablet) 600 mg PO Q6HR PRN PRN Reason: Pain 1 to 4 Last Admin: 10/14/23 20:55 Dose: 600 mg Insulin Human Lispro (Insulin Lispro 300 Unit/3 Ml Pen) 1 - 9 unit SUBQ 0800,1200,1700,2100 [facility]; Protocol Last Admin: 10/15/23 11:24 Dose: 7 unit Ondansetron HCl (Ondansetron 4 Mg/2 Ml Vial) 4 mg IVP Q6HR PRN PRN Reason: Nausea / Vomiting Oxycodone HCl (Oxycodone 5 Mg Tablet) 5 mg PO Q4HR PRN PRN Reason: Pain 8 to 10 Pantoprazole Sodium (Pantoprazole 40 Mg Tablet) 40 mg PO QDAC [facility] Last Admin: 10/15/23 06:22 Dose: 40 mg Vancomycin HCl 1 gm/ Sodium (Chloride) 250 mls @ 250 mls/hr IV Q12H [facility] Last Admin: 10/15/23 10:46 Dose: Infused Orders 10/15/23 08:00 Insulin Lispro [Humalog Kwikpen U-100] 1 - 9 unit SUBQ 0800,1200,1700,2100 Objective - Vital Signs/Intake & Output Reviewed Vital Signs: Yes Vital Signs: Vital Signs x48h Temp Pulse Resp BP Pulse Ox 10/15/23 07:30 36.2 C L 111 H 20 111/68 92 10/15/23 05:24 36.4 C L 108 H 18 106/68 92 10/15/23 00:15 36.4 C L 111 H 16 98/62 92 Intake & Output: Intake & Output 10/12/23 10/13/23 10/14/23 10/15/23 23:59 23:59 23:59 23:59 Intake Total 2310 100 Output Total 275 350 Balance 2034 -250 - Objective General Appearance: positive: Mild distress Eyes Bilateral: positive: Normal inspection ENT: positive: ENT inspection nml Neck: positive: Nml inspection Respiratory: positive: Chest non-tender, No respiratory distress Cardiovascular: positive: Regular rate & rhythm, No murmur Peripheral Pulses: 2+ Dorsalis pedis (R), 2+ Dorsalis pedis (L) Skin: positive: Other (Hemorrhagic blister about 1.5 cm in diameter on the dorsal aspect of the right first MTP joint. There is erythema and warmth on the right lateral leg. this erythema and warmth has receeded within the marked borders.) Extremities: positive: Other (2+ pitting edema at the mid pre tibial area. he is able to tolerate palpation of the leg and calf today.) - Lab Results Fish Bones: 10/15/23 05:16 10/15/23 05:16 Other Labs: Lab Results x24hrs 10/15/23 10/15/23 10/15/23 Range/Units 07:25 05:16 05:16 WBC 20.7 H (4.8-10.8) x10^3/uL RBC 4.29 L (4.70-6.10) 10^6/uL Hgb 14.2 (14.0-18.0) g/dL Hct 39.6 L (42.0-52.0) % MCV 92.3 (80.0-94.0) fL MCH 33.1 H (27.0-31.0) pg MCHC 35.9 (32.0-36.0) g/dL RDW 12.4 (12.0-15.0) % Plt Count 298 (130-450) 10^3/uL MPV 9.5 (7.4-11.4) fL Neut # (Auto) Not Reportable Lymph # (Auto) Not Reportable [place] # (Auto) Not Reportable Eos # (Auto) Not Reportable Baso # (Auto) Not Reportable Absolute Nucleated RBC Not Reportable Total Counted 100 Band Neuts % (Manual) 0 (0 - 10) % Reactive Lymphs % (Man) 4 % Abnorm Lymph % (Manual) 0 % Nucleated RBC % Not Reportable Neutrophils # (Manual) 6.8 H (1.5-6.6) 10^3/uL Lymphocytes # (Manual) 11.6 H (1.5-3.5) 10^3/uL Monocytes # (Manual) 2.3 H (0.0-1.0) 10^3/uL Eosinophils # (Manual) 0.0 (0-0.7) 10^3/uL Basophils # (Manual) 0.0 (0-0.1) 10^3/uL Differential Comment MANUAL DIFFERENTIAL WBC Morphology (NORMAL) Platelet Estimate NORMAL (130-450,000) (NORMAL) Platelet Morphology PLATELET CLUMPING (NORMAL) RBC Morph Micro Appear (NORMAL) ESR (0-20) mm/Hr Sodium 124 L (135-145) mmol/L Potassium 4.5 (3.5-4.5) mmol/L Chloride 90 L (101-111) mmol/L Carbon Dioxide 19 L (21-32) mmol/L Anion Gap 15.0 H (6-13) BUN 62 H (6-20) mg/dL Creatinine 1.7 H (0.6-1.3) mg/dL Estimated GFR (MDRD) 40 L (>89) Glucose 336 H (74-104) mg/dL POC Whole Bld Glucose 321 H (70 - 100) mg/dL Lactic Acid (0.5-2.2) mmol/L Calcium 8.6 (8.5-10.3) mg/dL Total Bilirubin (0.2-1.0) mg/dL AST (10-42) IU/L ALT (10-60) IU/L Alkaline Phosphatase (42-121) IU/L C-Reactive Protein (<0.5) mg/dL Total Protein (6.4-8.9) g/dL Albumin (3.2-5.5) g/dL Globulin (2.1-4.2) g/dL Albumin/Globulin Ratio (1.0-2.2) Lipase (11-82) U/L Procalcitonin Immunoas (<0.5) ng/mL 10/15/23 10/14/23 10/14/23 Range/Units 00:12 20:58 18:35 WBC (4.8-10.8) x10^3/uL RBC (4.70-6.10) 10^6/uL Hgb (14.0-18.0) g/dL Hct (42.0-52.0) % MCV (80.0-94.0) fL MCH (27.0-31.0) pg MCHC (32.0-36.0) g/dL RDW (12.0-15.0) % Plt Count (130-450) 10^3/uL MPV (7.4-11.4) fL Neut # (Auto) Lymph # (Auto) Benton # (Auto) Eos # (Auto) Baso # (Auto) Absolute Nucleated RBC Total Counted Band Neuts % (Manual) (0 - 10) % Reactive Lymphs % (Man) % Abnorm Lymph % (Manual) % Nucleated RBC % Neutrophils # (Manual) (1.5-6.6) 10^3/uL Lymphocytes # (Manual) (1.5-3.5) 10^3/uL Monocytes # (Manual) (0.0-1.0) 10^3/uL Eosinophils # (Manual) (0-0.7) 10^3/uL Basophils # (Manual) (0-0.1) 10^3/uL Differential Comment WBC Morphology (NORMAL) Platelet Estimate (NORMAL) Platelet Morphology (NORMAL) RBC Morph Micro Appear (NORMAL) ESR (0-20) mm/Hr Sodium (135-145) mmol/L Potassium (3.5-4.5) mmol/L Chloride (101-111) mmol/L Carbon Dioxide (21-32) mmol/L Anion Gap (6-13) BUN (6-20) mg/dL Creatinine (0.6-1.3) mg/dL Estimated GFR (MDRD) (>89) Glucose (74-104) mg/dL POC Whole Bld Glucose 371 H 273 H 245 H (70 - 100) mg/dL Lactic Acid (0.5-2.2) mmol/L Calcium (8.5-10.3) mg/dL Total Bilirubin (0.2-1.0) mg/dL AST (10-42) IU/L ALT (10-60) IU/L Alkaline Phosphatase (42-121) IU/L C-Reactive Protein (<0.5) mg/dL Total Protein (6.4-8.9) g/dL Albumin (3.2-5.5) g/dL Globulin (2.1-4.2) g/dL Albumin/Globulin Ratio (1.0-2.2) Lipase (11-82) U/L Procalcitonin Immunoas (<0.5) ng/mL 10/14/23 10/14/23 10/14/23 Range/Units 17:44 17:44 17:44 WBC (4.8-10.8) x10^3/uL RBC (4.70-6.10) 10^6/uL Hgb (14.0-18.0) g/dL Hct (42.0-52.0) % MCV (80.0-94.0) fL MCH (27.0-31.0) pg MCHC (32.0-36.0) g/dL RDW (12.0-15.0) % Plt Count (130-450) 10^3/uL MPV (7.4-11.4) fL Neut # (Auto) Lymph # (Auto) [place] # (Auto) Eos # (Auto) Baso # (Auto) Absolute Nucleated RBC Total Counted Band Neuts % (Manual) (0 - 10) % Reactive Lymphs % (Man) % Abnorm Lymph % (Manual) % Nucleated RBC % Neutrophils # (Manual) (1.5-6.6) 10^3/uL Lymphocytes # (Manual) (1.5-3.5) 10^3/uL Monocytes # (Manual) (0.0-1.0) 10^3/uL Eosinophils # (Manual) (0-0.7) 10^3/uL Basophils # (Manual) (0-0.1) 10^3/uL Differential Comment WBC Morphology (NORMAL) Platelet Estimate (NORMAL) Platelet Morphology (NORMAL) RBC Morph Micro Appear (NORMAL) ESR 67 H (0-20) mm/Hr Sodium (135-145) mmol/L Potassium (3.5-4.5) mmol/L Chloride (101-111) mmol/L Carbon Dioxide (21-32) mmol/L Anion Gap (6-13) BUN (6-20) mg/dL Creatinine (0.6-1.3) mg/dL Estimated GFR (MDRD) (>89) Glucose (74-104) mg/dL POC Whole Bld Glucose (70 - 100) mg/dL Lactic Acid 1.6 (0.5-2.2) mmol/L Calcium (8.5-10.3) mg/dL Total Bilirubin (0.2-1.0) mg/dL AST (10-42) IU/L ALT (10-60) IU/L Alkaline Phosphatase (42-121) IU/L C-Reactive Protein (<0.5) mg/dL Total Protein (6.4-8.9) g/dL Albumin (3.2-5.5) g/dL Globulin (2.1-4.2) g/dL Albumin/Globulin Ratio (1.0-2.2) Lipase (11-82) U/L Procalcitonin Immunoas 1.26 H (<0.5) ng/mL 10/14/23 10/14/23 10/14/23 Range/Units 17:44 17:44 15:42 WBC 21.0 H (4.8-10.8) x10^3/uL RBC 4.62 L (4.70-6.10) 10^6/uL Hgb 14.7 (14.0-18.0) g/dL Hct 43.8 (42.0-52.0) % MCV 94.8 H (80.0-94.0) fL MCH 31.8 H (27.0-31.0) pg MCHC 33.6 (32.0-36.0) g/dL RDW 12.3 (12.0-15.0) % Plt Count 363 (130-450) 10^3/uL MPV 9.2 (7.4-11.4) fL Neut # (Auto) Not Reportable Lymph # (Auto) Not Reportable [place] # (Auto) Not Reportable Eos # (Auto) Not Reportable Baso # (Auto) Not Reportable Absolute Nucleated RBC Not Reportable Total Counted 100 Band Neuts % (Manual) 4 (0 - 10) % Reactive Lymphs % (Man) 5 % Abnorm Lymph % (Manual) 0 % Nucleated RBC % Not Reportable Neutrophils # (Manual) 8.4 H (1.5-6.6) 10^3/uL Lymphocytes # (Manual) 12.0 H (1.5-3.5) 10^3/uL Monocytes # (Manual) 0.4 (0.0-1.0) 10^3/uL Eosinophils # (Manual) 0.0 (0-0.7) 10^3/uL Basophils # (Manual) 0.2 H (0-0.1) 10^3/uL Differential Comment MANUAL DIFFERENTIAL WBC Morphology (NORMAL) Platelet Estimate NORMAL (130-450,000) (NORMAL) Platelet Morphology NORMAL APPEARANCE (NORMAL) RBC Morph Micro Appear NORMAL APPEARANCE (NORMAL) ESR (0-20) mm/Hr Sodium 124 L (135-145) mmol/L Potassium 4.6 H (3.5-4.5) mmol/L Chloride 89 L (101-111) mmol/L Carbon Dioxide 23 (21-32) mmol/L Anion Gap 12.0 (6-13) BUN 42 H (6-20) mg/dL Creatinine 0.9 (0.6-1.3) mg/dL Estimated GFR (MDRD) 84 L (>89) Glucose 257 H (74-104) mg/dL POC Whole Bld Glucose (70 - 100) mg/dL Lactic Acid 1.5 (0.5-2.2) mmol/L Calcium 9.1 (8.5-10.3) mg/dL Total Bilirubin (0.2-1.0) mg/dL AST (10-42) IU/L ALT (10-60) IU/L Alkaline Phosphatase (42-121) IU/L C-Reactive Protein 23.5 H (<0.5) mg/dL Total Protein (6.4-8.9) g/dL Albumin (3.2-5.5) g/dL Globulin (2.1-4.2) g/dL Albumin/Globulin Ratio (1.0-2.2) Lipase (11-82) U/L Procalcitonin Immunoas (<0.5) ng/mL 10/14/23 10/14/23 10/14/23 Range/Units 10:23 10:23 10:23 WBC 24.3 H (4.8-10.8) x10^3/uL RBC 4.65 L (4.70-6.10) 10^6/uL Hgb 14.8 (14.0-18.0) g/dL Hct 43.1 (42.0-52.0) % MCV 92.7 (80.0-94.0) fL MCH 31.8 H (27.0-31.0) pg MCHC 34.3 (32.0-36.0) g/dL RDW 12.1 (12.0-15.0) % Plt Count 396 (130-450) 10^3/uL MPV 9.2 (7.4-11.4) fL Neut # (Auto) Not Reportable Lymph # (Auto) Not Reportable [place] # (Auto) Not Reportable Eos # (Auto) Not Reportable Baso # (Auto) Not Reportable Absolute Nucleated RBC Not Reportable Total Counted 100 Band Neuts % (Manual) 4 (0 - 10) % Reactive Lymphs % (Man) % Abnorm Lymph % (Manual) 0 % Nucleated RBC % Not Reportable Neutrophils # (Manual) 10.0 H (1.5-6.6) 10^3/uL Lymphocytes # (Manual) 13.4 H (1.5-3.5) 10^3/uL Monocytes # (Manual) 0.7 (0.0-1.0) 10^3/uL Eosinophils # (Manual) 0.2 (0-0.7) 10^3/uL Basophils # (Manual) 0.0 (0-0.1) 10^3/uL Differential Comment MANUAL DIFFERENTIAL WBC Morphology 2+ SMUDGE CELLS (NORMAL) Platelet Estimate NORMAL (130-450,000) (NORMAL) Platelet Morphology NORMAL APPEARANCE (NORMAL) RBC Morph Micro Appear NORMAL APPEARANCE (NORMAL) ESR 56 H (0-20) mm/Hr Sodium 124 L (135-145) mmol/L Potassium 4.3 (3.5-4.5) mmol/L Chloride 84 L (101-111) mmol/L Carbon Dioxide 26 (21-32) mmol/L Anion Gap 14.0 H (6-13) BUN 35 H (6-20) mg/dL Creatinine 0.9 (0.6-1.3) mg/dL Estimated GFR (MDRD) 84 L (>89) Glucose 237 H (74-104) mg/dL POC Whole Bld Glucose (70 - 100) mg/dL Lactic Acid (0.5-2.2) mmol/L Calcium 9.8 (8.5-10.3) mg/dL Total Bilirubin 1.3 H (0.2-1.0) mg/dL AST 35 (10-42) IU/L ALT 35 (10-60) IU/L Alkaline Phosphatase 126 H (42-121) IU/L C-Reactive Protein 23.4 H (<0.5) mg/dL Total Protein 7.2 (6.4-8.9) g/dL Albumin 2.9 L (3.2-5.5) g/dL Globulin 4.3 H (2.1-4.2) g/dL Albumin/Globulin Ratio 0.7 L (1.0-2.2) Lipase 38 (11-82) U/L Procalcitonin Immunoas (<0.5) ng/mL - Diagnostic Imaging Diagnostic Imaging Results: positive: Discussed with radiologist Diagnostic Imaging Comments: stat report called by radiology, Dr Haney. pneumoperitoneum Sepsis Event Note (H) - Sepsis Criteria Sepsis Criteria: WBC count greater than 12,000 or less than 4000, [employer]: altered consciousness (unrelated to primary neuro pathology) Assessment/Plan - Problem List (1) Pneumoperitoneum Impression: In response to patient's partially resolved sepsis, lack of appetite abdominal tenderness which is diffuse and persistent abdominal pain I decided to obtain a CT of the abdomen and pelvis. I received a call from radiology stating that the patient had pneumoperitoneum. I immediately contacted the surgeon on-call who was starting another emergent operation. She will see this patient as soon as she completes her current case. He is currently on vancomycin and cefepime for cellulitis. I have added Flagyl to his antibiotic regimen to cover anaerobes. Patient remains mildly hypotensive and mildly tachycardic. He has not begun to run a fever. He continues to have abdominal pain, and he continues to be diaphoretic. (2) Sepsis Impression: . With regards to his sepsis he continues to have leukocytosis, improved from 24.3 on admission to 20.7 this AM. He does not have fever. Overnight, he has had some hypotension, mild. 106/68, 111/68, Heart rate mild tachycardia, 108 and 111. Evidence of end organ dysfunction with Acute kidney injury, Ct 0.9 at admit, up to 1.7 this AM. Continue IV fluids. He did get contrast for the CT of his leg yesterday afternoon. This could be contributing to his acute kidney injury. C-reactive protein done yesterday was high at 23.5 indicating infection. Procalcitonin was intermediate at 1.26 ( (3) Cellulitis Impression: Right lower extremity cellulitis with symptoms that are quite concerning for sepsis. Patient has significant leukocytosis and hyponatremia. his pain on passive stretch has resolved. Erythema is receding within the marked areas. There is myositis but there is no gas seen on imaging. Orthopedics has seen the patient and does not feel that this needs to be operatively explored. Broad spectrum abx are continuing. Blood cultures have been sent. Qualifiers: Site of cellulitis: extremity Site of cellulitis of extremity: lower extremity Laterality: right Qualified Code(s): L03.115 - Cellulitis of right lower limb (4) Acute kidney injury Impression: Patient has been on IV fluids overnight. He received IV contrast for CT of the lower extremity yesterday. His creatinine has increased from 0.9 at the time of admission to 1.3 this morning. This is evidence of endorgan dysfunction related to sepsis. Initial source of sepsis thought to be the cellulitis however in light of recent CT is more likely to be intra-abdominal or multifactorial. (5) Diabetes mellitus, new onset Impression: Elevated glucose above 300. have increased the insulin sliding scale. Will add basal insulin. Hemoglobin A1c last checked in the outpatient environment in January 2023 is 5.9%, currently 8.4% Currently poor control likely due to infection. But, will need outpatient plan for DM management upon DC. (6) Hyponatremia Impression: Not improved overnight. Likely due to his untreated sepsis. We will follow. He is on a normal saline IV. treating the source of his sepsis will likely improve his hyponatremia (7) Hypertension Impression: Relative hypotension at this time. All outpatient antihypertensives have been held. (8) Glaucoma Impression: He is using his outpatient regimen of drops at this time. (9) Hyperlipidemia Impression: Hold statin at this time for this period of critical illness
[2023-10-15] MEDS: INSULIN LISPRO 300 UNIT/3 ML PEN SUBQ SCH ×2 (08:18→11:24)
[2023-10-15] MEDS: ACETAMINOPHEN 325 MG TABLET PO PRN (08:20)
--- NOTE | 2023-10-15 10:47 | PROVIDER PROGRESS NOTE ---
Subjective - Prog Note Date Prog Note Date: 10/15/23 Prog Note Time: 10:44 - Subjective Pt reports feeling: Improved (Less pain in leg this AM) Objective - Vital Signs/Intake & Output Vital Signs: Vital Signs x48h Temp Pulse Resp BP Pulse Ox 10/15/23 07:30 36.2 C L 111 H 20 111/68 92 10/15/23 05:24 36.4 C L 108 H 18 106/68 92 Intake & Output: Intake & Output 10/12/23 10/13/23 10/14/23 10/15/23 23:59 23:59 23:59 23:59 Intake Total 2310 1100 Output Total 275 350 Balance 2035 750 - Lab Results Fish Bones: 10/15/23 05:16 10/15/23 05:16 Other Labs: Lab Results x24hrs 10/15/23 10/15/23 10/15/23 Range/Units 10:18 07:25 05:16 WBC (4.8-10.8) x10^3/uL RBC (4.70-6.10) 10^6/uL Hgb (14.0-18.0) g/dL Hct (42.0-52.0) % MCV (80.0-94.0) fL MCH (27.0-31.0) pg MCHC (32.0-36.0) g/dL RDW (12.0-15.0) % Plt Count (130-450) 10^3/uL MPV (7.4-11.4) fL Neut # (Auto) Lymph # (Auto) Upton # (Auto) Eos # (Auto) Baso # (Auto) Absolute Nucleated RBC Total Counted Band Neuts % (Manual) (0 - 10) % Reactive Lymphs % (Man) % Abnorm Lymph % (Manual) % Nucleated RBC % Neutrophils # (Manual) (1.5-6.6) 10^3/uL Lymphocytes # (Manual) (1.5-3.5) 10^3/uL Monocytes # (Manual) (0.0-1.0) 10^3/uL Eosinophils # (Manual) (0-0.7) 10^3/uL Basophils # (Manual) (0-0.1) 10^3/uL Differential Comment WBC Morphology (NORMAL) Platelet Estimate (NORMAL) Platelet Morphology (NORMAL) RBC Morph Micro Appear (NORMAL) ESR (0-20) mm/Hr Sodium (135-145) mmol/L Potassium (3.5-4.5) mmol/L Chloride (101-111) mmol/L Carbon Dioxide (21-32) mmol/L Anion Gap (6-13) BUN (6-20) mg/dL Creatinine (0.6-1.3) mg/dL Estimated GFR (MDRD) (>89) Glucose (74-104) mg/dL POC Whole Bld Glucose 321 H (70 - 100) mg/dL Lactic Acid (0.5-2.2) mmol/L Calcium (8.5-10.3) mg/dL Total Creatine Kinase 11 L (30-223) IU/L C-Reactive Protein (<0.5) mg/dL Procalcitonin Immunoas (<0.5) ng/mL Vancomycin Peak 59.6 H (20.0-40.0) ug/mL 10/15/23 10/15/23 10/15/23 Range/Units 05:16 05:16 00:12 WBC 20.7 H (4.8-10.8) x10^3/uL RBC 4.29 L (4.70-6.10) 10^6/uL Hgb 14.2 (14.0-18.0) g/dL Hct 39.6 L (42.0-52.0) % MCV 92.3 (80.0-94.0) fL MCH 33.1 H (27.0-31.0) pg MCHC 35.9 (32.0-36.0) g/dL RDW 12.4 (12.0-15.0) % Plt Count 298 (130-450) 10^3/uL MPV 9.5 (7.4-11.4) fL Neut # (Auto) Not Reportable Lymph # (Auto) Not Reportable Upton # (Auto) Not Reportable Eos # (Auto) Not Reportable Baso # (Auto) Not Reportable Absolute Nucleated RBC Not Reportable Total Counted 100 Band Neuts % (Manual) 0 (0 - 10) % Reactive Lymphs % (Man) 4 % Abnorm Lymph % (Manual) 0 % Nucleated RBC % Not Reportable Neutrophils # (Manual) 6.8 H (1.5-6.6) 10^3/uL Lymphocytes # (Manual) 11.6 H (1.5-3.5) 10^3/uL Monocytes # (Manual) 2.3 H (0.0-1.0) 10^3/uL Eosinophils # (Manual) 0.0 (0-0.7) 10^3/uL Basophils # (Manual) 0.0 (0-0.1) 10^3/uL Differential Comment MANUAL DIFFERENTIAL WBC Morphology (NORMAL) Platelet Estimate NORMAL (130-450,000) (NORMAL) Platelet Morphology PLATELET CLUMPING (NORMAL) RBC Morph Micro Appear (NORMAL) ESR (0-20) mm/Hr Sodium 124 L (135-145) mmol/L Potassium 4.5 (3.5-4.5) mmol/L Chloride 90 L (101-111) mmol/L Carbon Dioxide 19 L (21-32) mmol/L Anion Gap 15.0 H (6-13) BUN 62 H (6-20) mg/dL Creatinine 1.7 H (0.6-1.3) mg/dL Estimated GFR (MDRD) 40 L (>89) Glucose 336 H (74-104) mg/dL POC Whole Bld Glucose 371 H (70 - 100) mg/dL Lactic Acid (0.5-2.2) mmol/L Calcium 8.6 (8.5-10.3) mg/dL Total Creatine Kinase (30-223) IU/L C-Reactive Protein (<0.5) mg/dL Procalcitonin Immunoas (<0.5) ng/mL Vancomycin Peak (20.0-40.0) ug/mL 10/14/23 10/14/23 10/14/23 Range/Units 20:58 18:35 17:44 WBC (4.8-10.8) x10^3/uL RBC (4.70-6.10) 10^6/uL Hgb (14.0-18.0) g/dL Hct (42.0-52.0) % MCV (80.0-94.0) fL MCH (27.0-31.0) pg MCHC (32.0-36.0) g/dL RDW (12.0-15.0) % Plt Count (130-450) 10^3/uL MPV (7.4-11.4) fL Neut # (Auto) Lymph # (Auto) Upton # (Auto) Eos # (Auto) Baso # (Auto) Absolute Nucleated RBC Total Counted Band Neuts % (Manual) (0 - 10) % Reactive Lymphs % (Man) % Abnorm Lymph % (Manual) % Nucleated RBC % Neutrophils # (Manual) (1.5-6.6) 10^3/uL Lymphocytes # (Manual) (1.5-3.5) 10^3/uL Monocytes # (Manual) (0.0-1.0) 10^3/uL Eosinophils # (Manual) (0-0.7) 10^3/uL Basophils # (Manual) (0-0.1) 10^3/uL Differential Comment WBC Morphology (NORMAL) Platelet Estimate (NORMAL) Platelet Morphology (NORMAL) RBC Morph Micro Appear (NORMAL) ESR (0-20) mm/Hr Sodium (135-145) mmol/L Potassium (3.5-4.5) mmol/L Chloride (101-111) mmol/L Carbon Dioxide (21-32) mmol/L Anion Gap (6-13) BUN (6-20) mg/dL Creatinine (0.6-1.3) mg/dL Estimated GFR (MDRD) (>89) Glucose (74-104) mg/dL POC Whole Bld Glucose 273 H 245 H (70 - 100) mg/dL Lactic Acid 1.6 (0.5-2.2) mmol/L Calcium (8.5-10.3) mg/dL Total Creatine Kinase (30-223) IU/L C-Reactive Protein (<0.5) mg/dL Procalcitonin Immunoas (<0.5) ng/mL Vancomycin Peak (20.0-40.0) ug/mL 10/14/23 10/14/23 10/14/23 Range/Units 17:44 17:44 17:44 WBC (4.8-10.8) x10^3/uL RBC (4.70-6.10) 10^6/uL Hgb (14.0-18.0) g/dL Hct (42.0-52.0) % MCV (80.0-94.0) fL MCH (27.0-31.0) pg MCHC (32.0-36.0) g/dL RDW (12.0-15.0) % Plt Count (130-450) 10^3/uL MPV (7.4-11.4) fL Neut # (Auto) Lymph # (Auto) Upton # (Auto) Eos # (Auto) Baso # (Auto) Absolute Nucleated RBC Total Counted Band Neuts % (Manual) (0 - 10) % Reactive Lymphs % (Man) % Abnorm Lymph % (Manual) % Nucleated RBC % Neutrophils # (Manual) (1.5-6.6) 10^3/uL Lymphocytes # (Manual) (1.5-3.5) 10^3/uL Monocytes # (Manual) (0.0-1.0) 10^3/uL Eosinophils # (Manual) (0-0.7) 10^3/uL Basophils # (Manual) (0-0.1) 10^3/uL Differential Comment WBC Morphology (NORMAL) Platelet Estimate (NORMAL) Platelet Morphology (NORMAL) RBC Morph Micro Appear (NORMAL) ESR 67 H (0-20) mm/Hr Sodium 124 L (135-145) mmol/L Potassium 4.6 H (3.5-4.5) mmol/L Chloride 89 L (101-111) mmol/L Carbon Dioxide 23 (21-32) mmol/L Anion Gap 12.0 (6-13) BUN 42 H (6-20) mg/dL Creatinine 0.9 (0.6-1.3) mg/dL Estimated GFR (MDRD) 84 L (>89) Glucose 257 H (74-104) mg/dL POC Whole Bld Glucose (70 - 100) mg/dL Lactic Acid (0.5-2.2) mmol/L Calcium 9.1 (8.5-10.3) mg/dL Total Creatine Kinase (30-223) IU/L C-Reactive Protein 23.5 H (<0.5) mg/dL Procalcitonin Immunoas 1.26 H (<0.5) ng/mL Vancomycin Peak (20.0-40.0) ug/mL 10/14/23 10/14/23 10/14/23 Range/Units 17:44 15:42 10:23 WBC 21.0 H (4.8-10.8) x10^3/uL RBC 4.62 L (4.70-6.10) 10^6/uL Hgb 14.7 (14.0-18.0) g/dL Hct 43.8 (42.0-52.0) % MCV 94.8 H (80.0-94.0) fL MCH 31.8 H (27.0-31.0) pg MCHC 33.6 (32.0-36.0) g/dL RDW 12.3 (12.0-15.0) % Plt Count 363 (130-450) 10^3/uL MPV 9.2 (7.4-11.4) fL Neut # (Auto) Not Reportable Lymph # (Auto) Not Reportable Upton # (Auto) Not Reportable Eos # (Auto) Not Reportable Baso # (Auto) Not Reportable Absolute Nucleated RBC Not Reportable Total Counted 100 Band Neuts % (Manual) 4 (0 - 10) % Reactive Lymphs % (Man) 5 % Abnorm Lymph % (Manual) 0 % Nucleated RBC % Not Reportable Neutrophils # (Manual) 8.4 H (1.5-6.6) 10^3/uL Lymphocytes # (Manual) 12.0 H (1.5-3.5) 10^3/uL Monocytes # (Manual) 0.4 (0.0-1.0) 10^3/uL Eosinophils # (Manual) 0.0 (0-0.7) 10^3/uL Basophils # (Manual) 0.2 H (0-0.1) 10^3/uL Differential Comment MANUAL DIFFERENTIAL WBC Morphology (NORMAL) Platelet Estimate NORMAL (130-450,000) (NORMAL) Platelet Morphology NORMAL APPEARANCE (NORMAL) RBC Morph Micro Appear NORMAL APPEARANCE (NORMAL) ESR 56 H (0-20) mm/Hr Sodium (135-145) mmol/L Potassium (3.5-4.5) mmol/L Chloride (101-111) mmol/L Carbon Dioxide (21-32) mmol/L Anion Gap (6-13) BUN (6-20) mg/dL Creatinine (0.6-1.3) mg/dL Estimated GFR (MDRD) (>89) Glucose (74-104) mg/dL POC Whole Bld Glucose (70 - 100) mg/dL Lactic Acid 1.5 (0.5-2.2) mmol/L Calcium (8.5-10.3) mg/dL Total Creatine Kinase (30-223) IU/L C-Reactive Protein (<0.5) mg/dL Procalcitonin Immunoas (<0.5) ng/mL Vancomycin Peak (20.0-40.0) ug/mL 10/14/23 Range/Units 10:23 WBC (4.8-10.8) x10^3/uL RBC (4.70-6.10) 10^6/uL Hgb (14.0-18.0) g/dL Hct (42.0-52.0) % MCV (80.0-94.0) fL MCH (27.0-31.0) pg MCHC (32.0-36.0) g/dL RDW (12.0-15.0) % Plt Count (130-450) 10^3/uL MPV (7.4-11.4) fL Neut # (Auto) Not Reportable Lymph # (Auto) Not Reportable Upton # (Auto) Not Reportable Eos # (Auto) Not Reportable Baso # (Auto) Not Reportable Absolute Nucleated RBC Not Reportable Total Counted 100 Band Neuts % (Manual) 4 (0 - 10) % Reactive Lymphs % (Man) % Abnorm Lymph % (Manual) 0 % Nucleated RBC % Not Reportable Neutrophils # (Manual) 10.0 H (1.5-6.6) 10^3/uL Lymphocytes # (Manual) 13.4 H (1.5-3.5) 10^3/uL Monocytes # (Manual) 0.7 (0.0-1.0) 10^3/uL Eosinophils # (Manual) 0.2 (0-0.7) 10^3/uL Basophils # (Manual) 0.0 (0-0.1) 10^3/uL Differential Comment MANUAL DIFFERENTIAL WBC Morphology 2+ SMUDGE CELLS (NORMAL) Platelet Estimate NORMAL (130-450,000) (NORMAL) Platelet Morphology NORMAL APPEARANCE (NORMAL) RBC Morph Micro Appear NORMAL APPEARANCE (NORMAL) ESR (0-20) mm/Hr Sodium (135-145) mmol/L Potassium (3.5-4.5) mmol/L Chloride (101-111) mmol/L Carbon Dioxide (21-32) mmol/L Anion Gap (6-13) BUN (6-20) mg/dL Creatinine (0.6-1.3) mg/dL Estimated GFR (MDRD) (>89) Glucose (74-104) mg/dL POC Whole Bld Glucose (70 - 100) mg/dL Lactic Acid (0.5-2.2) mmol/L Calcium (8.5-10.3) mg/dL Total Creatine Kinase (30-223) IU/L C-Reactive Protein (<0.5) mg/dL Procalcitonin Immunoas (<0.5) ng/mL Vancomycin Peak (20.0-40.0) ug/mL - Other Results/Comments Other Results/Comments: EXAM: Right leg: Area of erythema is shrinking, calin around great toe. Moving toes ok. Sensation unchanged. 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 Will continue to follow with you. Qualifiers: Qualified Code(s): L03.115 - Cellulitis of right lower limb
[2023-10-15 11:16] LABS: ESTIMATED AVERAGE GLUCOSE 194 mg/dL (70-100); HEMOGLOBIN A1c% 8.4 % (4.27-6.07)
[2023-10-15] MEDS: INSULIN GLARGINE-YFGN 300 UNIT/3 ML PEN SUBQ SCH ×2 (11:23→22:00)
--- NOTE | 2023-10-15 12:11 | CT Report ---
PROCEDURE: Abdomen/Pelvis WO INDICATIONS: abdominal pain TECHNIQUE: A CT scan of the abdomen and pelvis was performed without the use of intravenous contrast. Images we re recorded and evaluated at appropriate window settings. Reformats: coronal and sagittal. For radiat ion dose reduction, the following was used: automated exposure control, adjustment of mA and/or kV ac cording to patient size. COMPARISON: 10/06/2023 FINDINGS: Image quality: Diagnostic Lower chest: Bibasilar mild opacities and atelectasis. Possible trace effusion. Possible coronary irais cifications Liver: Solid organs not well evaluated without intravenous contrast. No contour deforming mass. Gallbladder and biliary system: Pericholecystic fluid and wall thickening. No biliary ductal dilation Pancreas: No ductal dilation Spleen: Nonenlarged Adrenals: No discrete nodules Kidneys: Persistent nephrogram from prior contrast, representing acute kidney injury possibly from AT N. Vessels and lymph nodes: No abdominal aortic aneurysm. No pathologic lymph nodes by size criteria. Ve ssels are not well evaluated on noncontrast imaging Bowel and peritoneum: No evidence of small bowel obstruction. There is generalized. Free fluid is pre sent. Mostly liquid colonic contents, possibly superimposed colitis. Body wall: Small fat-containing inguinal hernias. Small fat-containing umbilical hernia Pelvis: Bladder is filled with contrast. Prostate is not well evaluated on this study Bones: No acute or suspicious osseous finding. Degenerative changes. IMPRESSION: New generalized pneumoperitoneum and free fluid, suspicious for hollow viscus perforation. WILL Cortez was called at the time this report was signed. Other findings as above. Reviewed by: Papito Haney MD on 10/15/2023 12:10 PM PDT Approved by: Papito Haney MD on 10/15/2023 12:10 PM PDT Station ID: [id number]
[2023-10-15] MEDS: metroNIDAZOLE 500 MG/100 ML 500 MG/100 ML BAG IV SCH (13:07)
[2023-10-15] MEDS: HYDROmorphone 0.5 MG/0.5 ML SYRINGE IVP PRN (14:27)
[2023-10-15] MEDS ORDERED: MIDAZOLAM 2 MG/2 ML VIAL ONE (14:33)
[2023-10-15] MEDS ORDERED: PROPOFOL 200 MG/20 ML VIAL IVP ONE (14:34)
[2023-10-15] MEDS ORDERED: fentaNYL 100 MCG/2 ML VIAL ONE ×2 (14:34→14:50)
[2023-10-15] MEDS ORDERED: ONDANSETRON 4 MG/2 ML VIAL ONE (14:35)
[2023-10-15] MEDS ORDERED: ROCURONIUM 50 MG/5 ML VIAL ONE ×2 (14:39→18:36)
[2023-10-15 14:50] LABS: H. PYLORIS ANTIGEN STL NEGATIVE (Negative)
--- NOTE | 2023-10-15 15:01 | ADVANCE CARE PLANNING NOTE ---
Advance Care Planning - Planning Encounter Date: 10/15/23 Time: 14:56 Purpose: determine goals of care in light of acute illness. Parties in Attendance: patient, , Makeda Cortez KELLY Decisional Capacity of the Patient: decisional - Diagnosis for Encounter (1) Pneumoperitoneum Summary: This diagnosis is come to light this morning. In retrospect this could have been an ongoing problem for several weeks. In any event CT this morning shows pneumoperitoneum with extensive air underneath the diaphragm. Surgery has been consulted. Patient has been awake made aware that this will be a period of critical illness. He and his agree that they would like all necessary medical interventions completed. (3) Cellulitis Qualifiers: Site of cellulitis: extremity Site of cellulitis of extremity: lower extremity Laterality: right Qualified Code(s): L03.115 - Cellulitis of right lower limb - Encounter Subjective/Patient's Story: On September 25 this patient began to have some shoulder pain. He was seen in the emergency department and then subsequently went to his PCP who ordered MRIs. He has also been treated with medication for pain to include Voltaren topical and Lidoderm. It was around this time he had an exacerbation of his gout which happens very rarely. On the morning of October 05 that he was getting ready to go to the hospital for ordered radiological testing and had a trip and fall since that time he has been having right ankle and foot pain which developed into a cellulitis. Prior to this. Of acute illness starting on September 25 Stew is a functional adult who enjoys walking and cycling. He is living independently at home with his . He has been retired for about 7 years. Objective/Medical Story: Cellulitis with myositis seen on CT scan. New onset acute kidney injury. Abdominal pain leading to CT resulting in findings of extensive pneumoperitoneum. Elevated blood glucose with a hemoglobin A1c of 8.4%. Likely undiagnosed diabetes. He has been treated with broad-spectrum antibiotics and pain medication. Urgent surgical consultation is pending. Goals of Care: At this time to prolong life through all medical means possible. Plan: Urgent surgical consultation has been requested. Patient will likely be taken to the operating room for an exploratory laparotomy. Patient is aware that he may require a period of time with colostomy. We are waiting definitive surgical consultation and intervention. Code Status: Attempt Resuscitation Time spent on advance care plannin
[2023-10-15] MEDS ORDERED: BUPIVACAINE 0.25% PF 30 ML VIAL ONE (16:08)
[2023-10-15] MEDS ORDERED: PHENYLEPHRINE 20 MG in SODIUM CHLORIDE 0.9% 248 ML IV ONE (16:20)
--- NOTE | 2023-10-15 16:21 | HISTORY & PHYSICAL EXAMINATION ---
HPI - Admitted From Admitted from: ED - History Obtained From History obtained from: Patient, Family Exam limitations: Other (lethargic, poor historian) - History of Present Illness HPI Comment/Other: 68yoM admitted to the hospital yesterday for a severe right foot infection with significant electrolyte derangements, being followed by orthopedic surgeon and deemed nonoperative at this time. He endorses a progressive pain and redness of the right foot and ankle for 1 week with no known inciting event (trauma, insect bite, etc). He complained of worsened abdominal pain this morning and thus the IM team obtained a CT abdomen pelvis (Noncontrasted as his creatinine was up to 1.7 from 0.9 yesterday) and a large volume of free air and moderate volume of free fluid (mid abdomen) was identified with no obvious source. On further questioning he has had relative anorexia, lack of taste/smell, and loose non-bloody stool for about 2-3 weeks. He does not report similar instances of this. PMH/PSH - Past Medical History Cardiovascular: positive: Hypertension (triple agent), High cholesterol Respiratory: positive: Sleep apnea Neuro: positive: None Endocrine/Autoimmune: positive: Type 2 diabetes (unknown to the patient - HA1C 5 -> 8 over last 6 mo) GI: positive: GERD : positive: None HEENT: positive: Glaucoma Psych: positive: None Musculoskeletal: positive: Gout Derm: positive: Herpes zoster MRSA Hx?: No - Past Surgical History General: positive: Colonoscopy Ortho: positive: Other (achilles repair ) HEENT: positive: Cataracts Social & Family Hx - Living Situation Living Arrangement: At home Living Situation: With spouse/s.o. - Social History Does the pt smoke?: No Smoking Status: Former smoker Does the pt drink ETOH?: Yes ETOH Use: Beer Does the pt have substance abuse?: Yes Substance Use and Type: Marijuana - POLST Patient has POLST: No POLST Status: Full Code Meds/Allgy - Home Medications Home Medications: Ambulatory Orders Medication Instructions Recorded Confirmed Latanoprost 1 drops EACHEYE HS 04/28/16 10/15/23 Losartan Potassium 100 mg PO DAILY 04/28/16 10/15/23 Timolol [Betimol] 1 drops EACHEYE DAILY 04/28/16 10/15/23 Metoprolol Succinate [Toprol Xl] 25 mg PO DAILY 11/18/21 10/15/23 hydroCHLOROthiazide [Hydrodiuril] 12.5 mg PO DAILY 11/18/21 10/15/23 Rosuvastatin Calcium [Crestor] 20 mg PO HS 10/06/23 10/15/23 allopurinoL [Allopurinol] 300 mg PO DAILY 10/06/23 10/15/23 predniSONE [Deltasone] 10 mg PO [id number] #[id number] tab 10/06/23 10/15/23 tiZANidine [Zanaflex] 4 - 8 mg PO TID 10/06/23 10/15/23 Colchicine [Colcrys] 0.6 - 1.2 mg PO UD PRN 10/14/23 10/15/23 Diclofenac Sodium 1% Gel [Voltaren 1 applic TOP DAILY PRN 10/15/23 10/15/23 Gel] Lidocaine Patch 5% [Lidoderm Patch] 1 patch TOP DAILY PRN 10/15/23 10/15/23 Oxycodone HCl/Acetaminophen 1 tab PO BID PRN 10/15/23 10/15/23 [Oxycodone-Acetaminophen 5-325] - Allergies Allergies/Adverse Reactions: Allergies Allergy/AdvReac Type Severity Reaction Status Date / Time No Known Drug Allergies Allergy Verified 10/14/23 07:55 Review of Systems - Constitutional Constitutional: reports: Fatigue, Malaise, Weakness, Poor appetite - Gastrointestinal Gastrointestinal: reports: Abdominal pain, Abdominal distention, Diarrhea, Nausea. denies: Rectal bleeding, Bloody stools, Vomiting - Genitourinary Genitourinary: denies: Hematuria - Musculoskeletal Musculoskeletal: reports: Back pain, Muscle aches - Integumentary Integumentary: reports: Lesions (right foot) Exam - Vital Signs Reviewed Vital Signs: Yes Vital Signs: Vital Signs x48h Temp Pulse Resp BP Pulse Ox O2 Flow Rate 10/15/23 14:53 16 92 2 10/15/23 14:52 104 H 16 117/77 91 L 10/15/23 12:37 36.2 C L 102 H 20 114/75 94 - Physical Exam General Appearance: positive: Mild distress Eyes Bilateral: positive: Normal inspection, PERRL Respiratory: positive: Chest non-tender, No respiratory distress, Breath sounds nml Cardiovascular: positive: Tachycardia Abdomen: positive: Tenderness (generalized), Guarding. negative: No distention (distended with tympany) Skin: positive: Pallor Extremities: positive: Other (right ankle with erythema and swelling (decreased from skin outline yesterday), hemorrhagic bullae over right 1st metatarsal) Results - Lab Results Fish Bones: 10/15/23 05:16 10/15/23 05:16 Other Lab Results: Lab Results x24hrs 10/15/23 10/15/23 10/15/23 Range/Units 14:20 11:14 10:18 WBC (4.8-10.8) x10^3/uL RBC (4.70-6.10) 10^6/uL Hgb (14.0-18.0) g/dL Hct (42.0-52.0) % MCV (80.0-94.0) fL MCH (27.0-31.0) pg MCHC (32.0-36.0) g/dL RDW (12.0-15.0) % Plt Count (130-450) 10^3/uL MPV (7.4-11.4) fL Neut # (Auto) Lymph # (Auto) Osborne # (Auto) Eos # (Auto) Baso # (Auto) Absolute Nucleated RBC Total Counted Band Neuts % (Manual) (0 - 10) % Reactive Lymphs % (Man) % Abnorm Lymph % (Manual) % Nucleated RBC % Neutrophils # (Manual) (1.5-6.6) 10^3/uL Lymphocytes # (Manual) (1.5-3.5) 10^3/uL Monocytes # (Manual) (0.0-1.0) 10^3/uL Eosinophils # (Manual) (0-0.7) 10^3/uL Basophils # (Manual) (0-0.1) 10^3/uL Differential Comment Platelet Estimate (NORMAL) Platelet Morphology (NORMAL) RBC Morph Micro Appear (NORMAL) ESR (0-20) mm/Hr Sodium (135-145) mmol/L Potassium (3.5-4.5) mmol/L Chloride (101-111) mmol/L Carbon Dioxide (21-32) mmol/L Anion Gap (6-13) BUN (6-20) mg/dL Creatinine (0.6-1.3) mg/dL Estimated GFR (MDRD) (>89) Glucose (74-104) mg/dL POC Whole Bld Glucose 307 H (70 - 100) mg/dL Estimat Average Glucose (70-100) mg/dL Hemoglobin A1c % (4.27-6.07) % Lactic Acid (0.5-2.2) mmol/L Uric Acid 7.1 (4.4-7.6) mg/dL Calcium (8.5-10.3) mg/dL Total Creatine Kinase (30-223) IU/L C-Reactive Protein (<0.5) mg/dL Procalcitonin Immunoas (<0.5) ng/mL Stool H. pylori Ag NEGATIVE (Negative) Last Dose Date Last Dose Time Vancomycin Peak (20.0-40.0) ug/mL 10/15/23 10/15/23 10/15/23 Range/Units 10:18 07:25 05:16 WBC (4.8-10.8) x10^3/uL RBC (4.70-6.10) 10^6/uL Hgb (14.0-18.0) g/dL Hct (42.0-52.0) % MCV (80.0-94.0) fL MCH (27.0-31.0) pg MCHC (32.0-36.0) g/dL RDW (12.0-15.0) % Plt Count (130-450) 10^3/uL MPV (7.4-11.4) fL Neut # (Auto) Lymph # (Auto) Osborne # (Auto) Eos # (Auto) Baso # (Auto) Absolute Nucleated RBC Total Counted Band Neuts % (Manual) (0 - 10) % Reactive Lymphs % (Man) % Abnorm Lymph % (Manual) % Nucleated RBC % Neutrophils # (Manual) (1.5-6.6) 10^3/uL Lymphocytes # (Manual) (1.5-3.5) 10^3/uL Monocytes # (Manual) (0.0-1.0) 10^3/uL Eosinophils # (Manual) (0-0.7) 10^3/uL Basophils # (Manual) (0-0.1) 10^3/uL Differential Comment Platelet Estimate (NORMAL) Platelet Morphology (NORMAL) RBC Morph Micro Appear (NORMAL) ESR (0-20) mm/Hr Sodium (135-145) mmol/L Potassium (3.5-4.5) mmol/L Chloride (101-111) mmol/L Carbon Dioxide (21-32) mmol/L Anion Gap (6-13) BUN (6-20) mg/dL Creatinine (0.6-1.3) mg/dL Estimated GFR (MDRD) (>89) Glucose (74-104) mg/dL POC Whole Bld Glucose 321 H (70 - 100) mg/dL Estimat Average Glucose (70-100) mg/dL Hemoglobin A1c % (4.27-6.07) % Lactic Acid (0.5-2.2) mmol/L Uric Acid (4.4-7.6) mg/dL Calcium (8.5-10.3) mg/dL Total Creatine Kinase 11 L (30-223) IU/L C-Reactive Protein (<0.5) mg/dL Procalcitonin Immunoas (<0.5) ng/mL Stool H. pylori Ag (Negative) Last Dose Date UNK Last Dose Time UNK Vancomycin Peak 59.6 H (20.0-40.0) ug/mL 10/15/23 10/15/23 10/15/23 Range/Units 05:16 05:16 05:16 WBC 20.7 H (4.8-10.8) x10^3/uL RBC 4.29 L (4.70-6.10) 10^6/uL Hgb 14.2 (14.0-18.0) g/dL Hct 39.6 L (42.0-52.0) % MCV 92.3 (80.0-94.0) fL MCH 33.1 H (27.0-31.0) pg MCHC 35.9 (32.0-36.0) g/dL RDW 12.4 (12.0-15.0) % Plt Count 298 (130-450) 10^3/uL MPV 9.5 (7.4-11.4) fL Neut # (Auto) Not Reportable Lymph # (Auto) Not Reportable Osborne # (Auto) Not Reportable Eos # (Auto) Not Reportable Baso # (Auto) Not Reportable Absolute Nucleated RBC Not Reportable Total Counted 100 Band Neuts % (Manual) 0 (0 - 10) % Reactive Lymphs % (Man) 4 % Abnorm Lymph % (Manual) 0 % Nucleated RBC % Not Reportable Neutrophils # (Manual) 6.8 H (1.5-6.6) 10^3/uL Lymphocytes # (Manual) 11.6 H (1.5-3.5) 10^3/uL Monocytes # (Manual) 2.3 H (0.0-1.0) 10^3/uL Eosinophils # (Manual) 0.0 (0-0.7) 10^3/uL Basophils # (Manual) 0.0 (0-0.1) 10^3/uL Differential Comment MANUAL DIFFERENTIAL Platelet Estimate NORMAL (130-450,000) (NORMAL) Platelet Morphology PLATELET CLUMPING (NORMAL) RBC Morph Micro Appear (NORMAL) ESR (0-20) mm/Hr Sodium 124 L (135-145) mmol/L Potassium 4.5 (3.5-4.5) mmol/L Chloride 90 L (101-111) mmol/L Carbon Dioxide 19 L (21-32) mmol/L Anion Gap 15.0 H (6-13) BUN 62 H (6-20) mg/dL Creatinine 1.7 H (0.6-1.3) mg/dL Estimated GFR (MDRD) 40 L (>89) Glucose 336 H (74-104) mg/dL POC Whole Bld Glucose (70 - 100) mg/dL Estimat Average Glucose 194 H (70-100) mg/dL Hemoglobin A1c % 8.4 H (4.27-6.07) % Lactic Acid (0.5-2.2) mmol/L Uric Acid (4.4-7.6) mg/dL Calcium 8.6 (8.5-10.3) mg/dL Total Creatine Kinase (30-223) IU/L C-Reactive Protein (<0.5) mg/dL Procalcitonin Immunoas (<0.5) ng/mL Stool H. pylori Ag (Negative) Last Dose Date Last Dose Time Vancomycin Peak (20.0-40.0) ug/mL 10/15/23 10/14/23 10/14/23 Range/Units 00:12 20:58 18:35 WBC (4.8-10.8) x10^3/uL RBC (4.70-6.10) 10^6/uL Hgb (14.0-18.0) g/dL Hct (42.0-52.0) % MCV (80.0-94.0) fL MCH (27.0-31.0) pg MCHC (32.0-36.0) g/dL RDW (12.0-15.0) % Plt Count (130-450) 10^3/uL MPV (7.4-11.4) fL Neut # (Auto) Lymph # (Auto) Osborne # (Auto) Eos # (Auto) Baso # (Auto) Absolute Nucleated RBC Total Counted Band Neuts % (Manual) (0 - 10) % Reactive Lymphs % (Man) % Abnorm Lymph % (Manual) % Nucleated RBC % Neutrophils # (Manual) (1.5-6.6) 10^3/uL Lymphocytes # (Manual) (1.5-3.5) 10^3/uL Monocytes # (Manual) (0.0-1.0) 10^3/uL Eosinophils # (Manual) (0-0.7) 10^3/uL Basophils # (Manual) (0-0.1) 10^3/uL Differential Comment Platelet Estimate (NORMAL) Platelet Morphology (NORMAL) RBC Morph Micro Appear (NORMAL) ESR (0-20) mm/Hr Sodium (135-145) mmol/L Potassium (3.5-4.5) mmol/L Chloride (101-111) mmol/L Carbon Dioxide (21-32) mmol/L Anion Gap (6-13) BUN (6-20) mg/dL Creatinine (0.6-1.3) mg/dL Estimated GFR (MDRD) (>89) Glucose (74-104) mg/dL POC Whole Bld Glucose 371 H 273 H 245 H (70 - 100) mg/dL Estimat Average Glucose (70-100) mg/dL Hemoglobin A1c % (4.27-6.07) % Lactic Acid (0.5-2.2) mmol/L Uric Acid (4.4-7.6) mg/dL Calcium (8.5-10.3) mg/dL Total Creatine Kinase (30-223) IU/L C-Reactive Protein (<0.5) mg/dL Procalcitonin Immunoas (<0.5) ng/mL Stool H. pylori Ag (Negative) Last Dose Date Last Dose Time Vancomycin Peak (20.0-40.0) ug/mL 10/14/23 10/14/23 10/14/23 Range/Units 17:44 17:44 17:44 WBC (4.8-10.8) x10^3/uL RBC (4.70-6.10) 10^6/uL Hgb (14.0-18.0) g/dL Hct (42.0-52.0) % MCV (80.0-94.0) fL MCH (27.0-31.0) pg MCHC (32.0-36.0) g/dL RDW (12.0-15.0) % Plt Count (130-450) 10^3/uL MPV (7.4-11.4) fL Neut # (Auto) Lymph # (Auto) Osborne # (Auto) Eos # (Auto) Baso # (Auto) Absolute Nucleated RBC Total Counted Band Neuts % (Manual) (0 - 10) % Reactive Lymphs % (Man) % Abnorm Lymph % (Manual) % Nucleated RBC % Neutrophils # (Manual) (1.5-6.6) 10^3/uL Lymphocytes # (Manual) (1.5-3.5) 10^3/uL Monocytes # (Manual) (0.0-1.0) 10^3/uL Eosinophils # (Manual) (0-0.7) 10^3/uL Basophils # (Manual) (0-0.1) 10^3/uL Differential Comment Platelet Estimate (NORMAL) Platelet Morphology (NORMAL) RBC Morph Micro Appear (NORMAL) ESR 67 H (0-20) mm/Hr Sodium (135-145) mmol/L Potassium (3.5-4.5) mmol/L Chloride (101-111) mmol/L Carbon Dioxide (21-32) mmol/L Anion Gap (6-13) BUN (6-20) mg/dL Creatinine (0.6-1.3) mg/dL Estimated GFR (MDRD) (>89) Glucose (74-104) mg/dL POC Whole Bld Glucose (70 - 100) mg/dL Estimat Average Glucose (70-100) mg/dL Hemoglobin A1c % (4.27-6.07) % Lactic Acid 1.6 (0.5-2.2) mmol/L Uric Acid (4.4-7.6) mg/dL Calcium (8.5-10.3) mg/dL Total Creatine Kinase (30-223) IU/L C-Reactive Protein (<0.5) mg/dL Procalcitonin Immunoas 1.26 H (<0.5) ng/mL Stool H. pylori Ag (Negative) Last Dose Date Last Dose Time Vancomycin Peak (20.0-40.0) ug/mL 10/14/23 10/14/23 Range/Units 17:44 17:44 WBC 21.0 H (4.8-10.8) x10^3/uL RBC 4.62 L (4.70-6.10) 10^6/uL Hgb 14.7 (14.0-18.0) g/dL Hct 43.8 (42.0-52.0) % MCV 94.8 H (80.0-94.0) fL MCH 31.8 H (27.0-31.0) pg MCHC 33.6 (32.0-36.0) g/dL RDW 12.3 (12.0-15.0) % Plt Count 363 (130-450) 10^3/uL MPV 9.2 (7.4-11.4) fL Neut # (Auto) Not Reportable Lymph # (Auto) Not Reportable Osborne # (Auto) Not Reportable Eos # (Auto) Not Reportable Baso # (Auto) Not Reportable Absolute Nucleated RBC Not Reportable Total Counted 100 Band Neuts % (Manual) 4 (0 - 10) % Reactive Lymphs % (Man) 5 % Abnorm Lymph % (Manual) 0 % Nucleated RBC % Not Reportable Neutrophils # (Manual) 8.4 H (1.5-6.6) 10^3/uL Lymphocytes # (Manual) 12.0 H (1.5-3.5) 10^3/uL Monocytes # (Manual) 0.4 (0.0-1.0) 10^3/uL Eosinophils # (Manual) 0.0 (0-0.7) 10^3/uL Basophils # (Manual) 0.2 H (0-0.1) 10^3/uL Differential Comment MANUAL DIFFERENTIAL Platelet Estimate NORMAL (130-450,000) (NORMAL) Platelet Morphology NORMAL APPEARANCE (NORMAL) RBC Morph Micro Appear NORMAL APPEARANCE (NORMAL) ESR (0-20) mm/Hr Sodium 124 L (135-145) mmol/L Potassium 4.6 H (3.5-4.5) mmol/L Chloride 89 L (101-111) mmol/L Carbon Dioxide 23 (21-32) mmol/L Anion Gap 12.0 (6-13) BUN 42 H (6-20) mg/dL Creatinine 0.9 (0.6-1.3) mg/dL Estimated GFR (MDRD) 84 L (>89) Glucose 257 H (74-104) mg/dL POC Whole Bld Glucose (70 - 100) mg/dL Estimat Average Glucose (70-100) mg/dL Hemoglobin A1c % (4.27-6.07) % Lactic Acid (0.5-2.2) mmol/L Uric Acid (4.4-7.6) mg/dL Calcium 9.1 (8.5-10.3) mg/dL Total Creatine Kinase (30-223) IU/L C-Reactive Protein 23.5 H (<0.5) mg/dL Procalcitonin Immunoas (<0.5) ng/mL Stool H. pylori Ag (Negative) Last Dose Date Last Dose Time Vancomycin Peak (20.0-40.0) ug/mL - Diagnostic Imaging Results Diagnostic Imaging Results: positive: Read contemporaneously Diagnostic Imaging Results Comments: CT abdomen pelvis with no contrast - large volume free air, moderate volume free fluid in mid abdomen. Sepsis Event Note (H) - Evaluation Current Stage of Sepsis: Sepsis Possible source of Sepsis: positive: Bone/Joint, GI tract/intra-abdominal - Sepsis Criteria Sepsis Criteria: Recorded Heart Rate greater than 90 bpm, WBC count greater than 12,000 or less than 4000, BOILER WASHER: altered consciousness (unrelated to primary neuro pathology) Impression/Plan - Problem List Problem List: 68yoM with free air of unclear etiology, preceded by 2-3 weeks of poor appetite, loose nonbloody stool, and generalized malaise - query colitis however no stool studies completed yet. Also with significant right foot infection (cellulitis vs myositis) for which he is admitted and on antibiotics, with severe electrolyte derangements. Patient also with undiagnosed DM (A1C 8 from 5 (6 mo interval)) and BG in 300s this admission. Mild tachycardia, SBPs in low 100s without his home antihypertensives. - continue abx (vanc, cefepime, flagyl added today) - defer mgmt of right foot to orthopedics - agree with adding insulin Discussed with patient, spouse, and friend at bedside the serious nature of the findings of free air and fluid in the abdomen, and the recommendation for emergent exploratory laparotomy to identify and manage the source of hollow viscous perforation. Discussed that interventions would be depending on findings, but could include large or small bowel resection, repair of hole in viscus, and possible stoma creation (particularly in light of multitude of sepsis sources, electrolyte derangements, and uncontrolled blood glucose levels. They understand, all questions were answered, and they agree to proceed to the OR. - to OR now for exploratory laparotomy with possible interventions - DC'd NSAIDS and heparin Elva Navarro DO, FACS General Surgeon
[2023-10-15] MEDS ORDERED: VASOPRESSIN 20 UNIT/ML VIAL ONE (16:51)
[2023-10-15] MEDS: BUPIVACAINE 0.25% PF 30 ML VIAL SUBQ ONE (17:50)
--- NOTE | 2023-10-15 18:28 | ANESTHESIA ---
Pre-Anesthesia VS, & Labs - Diagnosis pneumoperitoneum - Procedure exploratory laparotomy Vital Signs: Temp Pulse Resp BP Pulse Ox O2 Flow Rate 36.1 C L 103 H 16 102/71 93 2 10/15/23 16:00 10/15/23 16:00 10/15/23 16:00 10/15/23 16:00 10/15/23 16:00 10/15/23 16:00 Height: 5 ft 10 in Weight (kg): 92.5 kg Body Mass Index: 29.2 BMI Classification: Overweight - NPO Other (ensure at 0900, bites of pears at approx 1130) - Lab Results Current Lab Results: Laboratory Tests 10/15/23 16:37: POC Whole Bld Glucose 321 H 10/15/23 11:14: POC Whole Bld Glucose 307 H 10/15/23 10:18: Uric Acid 7.1 10/15/23 10:18: Last Dose Date UNK, Last Dose Time UNK, Vancomycin Peak 59.6 H 10/15/23 07:25: POC Whole Bld Glucose 321 H 10/15/23 05:16: Total Creatine Kinase 11 L 10/15/23 05:16: Estimat Average Glucose 194 H, Hemoglobin A1c % 8.4 H 10/15/23 05:16: Sodium 124 L, Potassium 4.5, Chloride 90 L, Carbon Dioxide 19 L, Anion Gap 15.0 H, BUN 62 H, Creatinine 1.7 H, Estimated GFR (MDRD) 40 L, Glucose 336 H, Calcium 8.6 10/15/23 05:16: WBC 20.7 H, RBC 4.29 L, Hgb 14.2, Hct 39.6 L, MCV 92.3, MCH 33.1 H, MCHC 35.9, RDW 12.4, Plt Count 298, MPV 9.5, Neut # (Auto) Not Reportable, Lymph # (Auto) Not Reportable, Dewey # (Auto) Not Reportable, Eos # (Auto) Not Reportable, Baso # (Auto) Not Reportable, Absolute Nucleated RBC Not Reportable, Total Counted 100, Band Neuts % (Manual) 0, Reactive Lymphs % (Man) 4, Abnorm Lymph % (Manual) 0, Nucleated RBC % Not Reportable, Neutrophils # (Manual) 6.8 H , Lymphocytes # (Manual) 11.6 H, Monocytes # (Manual) 2.3 H, Eosinophils # (Manual) 0.0, Basophils # (Manual) 0.0, Differential Comment MANUAL DIFFERENTIAL, Platelet Estimate NORMAL (130-450,000), Platelet Morphology PLATELET CLUMPING 10/15/23 00:12: POC Whole Bld Glucose 371 H 10/14/23 20:58: POC Whole Bld Glucose 273 H 10/14/23 18:35: POC Whole Bld Glucose 245 H 10/14/23 17:44: Lactic Acid 1.6 10/14/23 17:44: Procalcitonin Immunoas 1.26 H 10/14/23 17:44: ESR 67 H 10/14/23 17:44: Sodium 124 L, Potassium 4.6 H, Chloride 89 L, Carbon Dioxide 23, Anion Gap 12.0, BUN 42 H, Creatinine 0.9, Estimated GFR (MDRD) 84 L, Glucose 257 H, Calcium 9.1, C-Reactive Protein 23.5 H 10/14/23 17:44: WBC 21.0 H, RBC 4.62 L, Hgb 14.7, Hct 43.8, MCV 94.8 H, MCH 31.8 H, MCHC 33.6, RDW 12.3, Plt Count 363, MPV 9.2, Neut # (Auto) Not Reportable, Lymph # (Auto) Not Reportable, Dewey # (Auto) Not Reportable, Eos # (Auto) Not Reportable, Baso # (Auto) Not Reportable, Absolute Nucleated RBC Not Reportable, Total Counted 100, Band Neuts % (Manual) 4, Reactive Lymphs % (Man) 5, Abnorm Lymph % (Manual) 0, Nucleated RBC % Not Reportable, Neutrophils # (Manual) 8.4 H , Lymphocytes # (Manual) 12.0 H, Monocytes # (Manual) 0.4, Eosinophils # (Manual) 0.0, Basophils # (Manual) 0.2 H, Differential Comment MANUAL DIFFERENTIAL, Platelet Estimate NORMAL (130-450,000), Platelet Morphology NORMAL APPEARANCE, RBC Morph Micro Appear NORMAL APPEARANCE 10/14/23 15:42: Lactic Acid 1.5 10/14/23 10:23: ESR 56 H 10/14/23 10:23: Sodium 124 L, Potassium 4.3, Chloride 84 L, Carbon Dioxide 26, Anion Gap 14.0 H, BUN 35 H, Creatinine 0.9, Estimated GFR (MDRD) 84 L, Glucose 237 H, Calcium 9.8, Total Bilirubin 1.3 H, AST 35, ALT 35, Alkaline Phosphatase 126 H, C-Reactive Protein 23.4 H, Total Protein 7.2, Albumin 2.9 L, Globulin 4.3 H, Albumin/Globulin Ratio 0.7 L, Lipase 38 10/14/23 10:23: WBC 24.3 H, RBC 4.65 L, Hgb 14.8, Hct 43.1, MCV 92.7, MCH 31.8 H , MCHC 34.3, RDW 12.1, Plt Count 396, MPV 9.2, Neut # (Auto) Not Reportable, Lymph # (Auto) Not Reportable, Dewey # (Auto) Not Reportable, Eos # (Auto) Not Reportable, Baso # (Auto) Not Reportable, Absolute Nucleated RBC Not Reportable, Total Counted 100, Band Neuts % (Manual) 4, Abnorm Lymph % (Manual) 0, Nucleated RBC % Not Reportable, Neutrophils # (Manual) 10.0 H, Lymphocytes # (Manual) 13.4 H, Monocytes # (Manual) 0.7, Eosinophils # (Manual) 0.2, Basophils # (Manual) 0.0, Differential Comment MANUAL DIFFERENTIAL, WBC Morphology 2+ SMUDGE CELLS, Platelet Estimate NORMAL (130-450,000), Platelet Morphology NORMAL APPEARANCE, RBC Morph Micro Appear NORMAL APPEARANCE Fish Bones: 10/15/23 05:16 10/15/23 05:16 Home Medications and Allergies Home Medications: Ambulatory Orders Colchicine [Colcrys] 0.6 - 1.2 mg PO UD PRN 10/14/23 Diclofenac Sodium 1% Gel [Voltaren Gel] 1 applic TOP DAILY PRN 10/15/23 Lidocaine Patch 5% [Lidoderm Patch] 1 patch TOP DAILY PRN 10/15/23 Oxycodone HCl/Acetaminophen [Oxycodone-Acetaminophen 5-325] 1 tab PO BID PRN 10/15/23 Active Medications Acetaminophen (Acetaminophen 325 Mg Tablet) 650 mg PO Q4HR PRN PRN Reason: Pain 1 to 4, or Fever Last Admin: 10/15/23 08:20 Dose: 650 mg Hydromorphone HCl (Hydromorphone 0.5 Mg/0.5 Ml Syringe) 0.5 mg IVP Q2H PRN PRN Reason: Pain 8 to 10 Last Admin: 10/15/23 14:27 Dose: 0.5 mg Sodium Chloride (Normal Saline 0.9%) 1,000 mls @ 75 mls/hr IV .[id number] ON LICENSE OF [facility] Last Admin: 10/15/23 08:17 Dose: 75 mls/hr Cefepime HCl 1 gm/ Sodium (Chloride) 100 mls @ 200 mls/hr IV Q8H ON LICENSE OF [facility] Stop: 10/17/23 21:59 Last Admin: 10/15/23 14:08 Dose: 200 mls/hr Vancomycin HCl 1 gm/ Sodium (Chloride) 250 mls @ 250 mls/hr IV Q12H ON LICENSE OF [facility] Last Infusion: 10/15/23 10:46 Dose: Infused Metronidazole (Flagyl 500 Mg/100 Ml) 500 mg in 100 mls @ 100 mls/hr IV Q8H ON LICENSE OF [facility] Stop: 10/19/23 23:59 Last Infusion: 10/15/23 14:09 Dose: Infused Phenylephrine HCl 20 mg/ (Sodium Chloride) 250 mls @ 75 mls/hr IV .Q3H20M ONE; Protocol Stop: 10/15/23 19:39 Insulin Glargine-yfgn (Insulin Glargine-Yfgn 300 Unit/3 Ml Pen) 10 unit SUBQ QP M ON LICENSE OF [facility] Insulin Glargine-yfgn (Insulin Glargine-Yfgn 300 Unit/3 Ml Pen) 10 unit SUBQ QDBREAKFAST ON LICENSE OF [facility] Last Admin: 10/15/23 11:23 Dose: 10 unit Insulin Human Lispro (Insulin Lispro 300 Unit/3 Ml Pen) 1 - 9 unit SUBQ 0800,1200,1700,2100 ON LICENSE OF [facility]; Protocol Last Admin: 10/15/23 11:24 Dose: 7 unit Ondansetron HCl (Ondansetron 4 Mg/2 Ml Vial) 4 mg IVP Q6HR PRN PRN Reason: Nausea / Vomiting Oxycodone HCl (Oxycodone 5 Mg Tablet) 5 mg PO Q4HR PRN PRN Reason: Pain 8 to 10 Pantoprazole Sodium (Pantoprazole 40 Mg Tablet) 40 mg PO QDAC ON LICENSE OF [facility] Last Admin: 10/15/23 06:22 Dose: 40 mg Sodium Chloride (Sodium Chloride Flush 0.9% 10 Ml Syringe) 10 ml IVP PRN PRN PRN Reason: NEEDED PER PROVIDER ORDERS Sodium Chloride (Sodium Chloride Flush 0.9% 10 Ml Syringe) 10 ml IVP 0100,0900,1700 ON LICENSE OF [facility] Last Admin: 10/15/23 08:21 Dose: Not Given Timolol Maleate (Timolol 0.5% Ophth Drops) 1 drops EACHEYE DAILY ON LICENSE OF [facility] Latanoprost 1 drops EACHEYE HS 04/28/16 Losartan Potassium 100 mg PO DAILY 04/28/16 Timolol [Betimol] 1 drops EACHEYE DAILY 04/28/16 Metoprolol Succinate [Toprol Xl] 25 mg PO DAILY 11/18/21 hydroCHLOROthiazide [Hydrodiuril] 12.5 mg PO DAILY 11/18/21 Rosuvastatin Calcium [Crestor] 20 mg PO HS 10/06/23 allopurinoL [Allopurinol] 300 mg PO DAILY 10/06/23 tiZANidine [Zanaflex] 4 - 8 mg PO TID 10/06/23 Colchicine [Colcrys] 0.6 - 1.2 mg PO UD PRN 10/14/23 Diclofenac Sodium 1% Gel [Voltaren Gel] 1 applic TOP DAILY PRN 10/15/23 Lidocaine Patch 5% [Lidoderm Patch] 1 patch TOP DAILY PRN 10/15/23 Oxycodone HCl/Acetaminophen [Oxycodone-Acetaminophen 5-325] 1 tab PO BID PRN 10/15/23 Allergies/Adverse Reactions: Allergies Allergy/AdvReac Type Severity Reaction Status Date / Time No Known Drug Allergies Allergy Verified 10/14/23 07:55 Anes History & Medical History - Anesthetic History Anesthesia Complications: reports: No previous complications Family history of Anesthesia Complications: Denies Family history of Malignant Hyperthermia: Denies - Medical History Cardiovascular: reports: Hypertension (triple agent), High cholesterol Pulmonary: reports: Sleep apnea Gastrointestinal: reports: GERD, Cirrhosis Urinary: reports: None Neuro: reports: None Musculoskeletal: reports: Gout, Other (myositis RLE) Endocrine/Autoimmune: reports: Type 2 diabetes (unknown to the patient - HA1C 5 -> 8 over last 6 mo) Blood Disorders: reports: None Skin: reports: Herpes zoster, Other (RLE cellulitis with blisters, erythema) Smoking Status: Former smoker Psychosocial: reports: Substance abuse, Alcohol (very heavy ETOH, admits to drinking 12 drinks/day), Cannabis (daily cannabis use) History of Cancer?: No - Surgical History General: reports: Colonoscopy Eyes Ears Nose Throat (EENT): reports: Cataracts Orthopedic: reports: Other (achilles repair ) Exam General: Alert, Oriented x3, Moderate distress, Other (flat affect) Dental: Poor dentition, Other (abrasions on lower lip) Mouth Openin Fingerbreadth Mallampati classification: III Thyromental Distance: 4-6 cm Respiratory: Decreased breath sounds Cardiovascular: Regular rate Extremities: Other (RLE cellulitis) Mental/Cognitive Status: Lethargic Plan Anesthesia Type: General Consent for Procedure(s) Verified and Reviewed: Yes Code Status: Attempt Resuscitation ASA classification: 3-Severe systemic disease Is this case an emergency?: Yes
[2023-10-15] MEDS ORDERED: ATROPINE ABBOJECT 1 MG/10 ML SYRINGE IVP PRN (19:48)
[2023-10-15] MEDS ORDERED: ONDANSETRON 4 MG/2 ML VIAL IVP PRN (19:48)
[2023-10-15] MEDS ORDERED: NALOXONE 0.4 MG/ML VIAL IVP PRN (19:48)
[2023-10-15] MEDS ORDERED: ePHEDrine 50 MG/ML VIAL IVP PRN (19:48)
[2023-10-15] MEDS ORDERED: MORPHINE 2 MG/ML CARPUJECT IVP PRN (19:48)
[2023-10-15] MEDS ORDERED: fentaNYL 100 MCG/2 ML VIAL IVP PRN (19:48)
[2023-10-15] MEDS ORDERED: METOCLOPRAMIDE 10 MG/2 ML VIAL IVP PRN (19:48)
[2023-10-15] MEDS ORDERED: HYDROmorphone 0.5 MG/0.5 ML SYRINGE IVP PRN (19:48)
[2023-10-15] MEDS ORDERED: SUGAMMADEX 200 MG/2 ML VIAL IVP ONE (19:52)
[2023-10-15] MEDS ORDERED: LACTATED RINGERS 1,000 ML IV SCH (20:00)
[2023-10-15] MEDS ORDERED: HYDROmorphone 1 MG/ML CARPUJECT ONE (20:07)
--- NOTE | 2023-10-15 20:19 | OPERATIVE REPORT ---
Operative Report - General Admit Date: 10/16/23 Planned Procedure: exploratory laparotomy Pre-Op Diagnosis: pneumoperitoneum Procedure Performed: exploratory laparotomy, repair of duodenal (D1) perforation and perry patch, liver biopsy Post Op Diagnosis: perforated duodenal ulcer, purulent peritonitis, cirrhosis - Procedure Note Primary Surgeon: Elva Navarro Secondary Surgeon: First silvestre Cortez PA-C Anesthesia Provider: Ashley Ambrosio Anesthesia Technique: General ET tube Pathology: 1. peritoneal fluid for culture 2. duodenal ulcer (margin) 3. liver biopsy IV Fluids (mL): 2,000 Estimated Blood Loss (mL): 75 Urine Output (mL): 150 Drain/Tube Type: Nile Gauthier round drain Indications: 68yoM admitted with sepsis deemed to be secondary to RLE cellulitis vs myositis. Evaluation on abdominal pain on HD2 revealed pneumoperitoneum on CT scan. Findings: 600cc purulent fluid in the abdomen, maximal purulent content in RUQ with fibrinous debris and recent food (pears) contents present adjacent to duodenum. 1cm perforation identified in anterior superior aspect of D1. 10L irrigation of abdomen. Repair of duodenum (primary transverse closure followed by omental perry patch. CHAPITO drain laid posterior to the repair. NG positioned in the stomach. Wanted to place a distal feeding however one was not able to be located within the hospital during the case. The Liver surface was nodular with a scalloped edge, a 1cm section from the liver edge was taken for biopsy to rule in/out cirrhosis. Rao left in place, CVC placed at end of case. Complications: NOne - Other Other Information/Narrative: The patient was brought to the operating room and placed supine on the table, general anesthesia with endotracheal tube was induced, a rao catheter was placed. The abdomen was prepped and draped and a timeout was performed. A vertical midline laparotomy incision was made and the peritoneal cavity was entered. 600cc of purulent ascites was encountered and suctioned, and also sent for culture. The abdomen was explored and the bowel was run to identify the source. The large bowel was normal in appearance aside of a moderately dilated transverse colon. A 1cm perforation in the anterior superior portion of D1 portion of the duodenum was identified; the stomach and remaining small bowel were normal in appearance. A bookwalter retractor was placed. The abdomen was irrigated with 8L of normal saline. The edges of the perforation were sharply trimmed to create a clean mucosal edge and also to obtain specimen to send for biopsy of the perforated ulcer. The defect was closed transversely with a running full thickness 3-0 vicryl suture. An omental perry patch was tacked over the repair using 2-0 silk sutures; additionally the omental tongue was pexied to the stomach in order to take some weight off of the omentum to help avoid the perry patch from pulling away from the repair. A 10mm flat CHAPITO drain was placed immediately posterior to the repair and brought out through a separate stab incision in the RUQ and secured at the s kin with 2-0 Nylon. An NGT was placed and manually confirmed to be within the stomach. IT was desired to place a distal feeding tube (bhoff) however one was not able to be found within the hospital during the case during which time I would have been able to manually able to pass it beyond the defect without worsening the defect. The liver was noted to be significantly nodular and fibrotic, consistent with the appearance of chronic cirrhosis. A 1 cm biopsy from the liver edge of the left liver was taken using electrocautery and sent for pathology. Surgiflo and surgicell were used to obtain hemostasis at the biopsy site as well as at the right liver edge where omental adhesions tore and caused some bleeding. The fascia was closed with running #1 PDS x2. The subcutaneous space was irrig ated with normal saline. The skin was closed with karen. A silver dressing was placed over the midline incision and a drain sponge placed at the CHAPITO drain. There were no complications, the rao was left in place, a central line was placed by anesthesia, and the patient was transferred to the ICU in stable condition.
[2023-10-15] MEDS: LACTATED RINGERS 400 ML IV ONE (20:46)
[2023-10-15 21:11] LABS: BASOPHILS % (AUTO) 0.1 %; HCT - HEMATOCRIT 37.2 % (42.0-52.0); HGB - HEMOGLOBIN 12.3 g/dL (14.0-18.0); LYMPHOCYTES % (AUTO) 43.8 %; MEAN CORPUSCULAR HEMOGLOBIN 31.8 pg (27.0-31.0); MEAN CORPUSCULAR HGB CONC 33.1 g/dL (32.0-36.0); MEAN CORPUSCULAR VOLUME 96.1 fL (80.0-94.0); MEAN PLATELET VOLUME 9.7 fL (7.4-11.4); MONOCYTES % (AUTO) 2.6 %; NEUTROPHILS % (AUTO) 51.9 %; PLT - PLATELET COUNT 379 10^3/uL (130-450); RED BLOOD COUNT 3.87 10^6/uL (4.70-6.10); RED CELL DISTRIBUTION WIDTH 12.7 % (12.0-15.0)
[2023-10-15] MEDS ORDERED: PHENYLEPHRINE 10 MG/ML VIAL ONE (21:14)
--- NOTE | 2023-10-15 21:15 | ANESTHESIA PROCEDURE NOTE ---
Anesth Central Line Template - Central Line Central Line Preparation: Unable to obtain consent Central line location: Right IJ Central line type: Triple lumen Central line aftercare: Chlorhexidine disc placed, Secured, Placement confirmed, No pneumothorax, No complications, Bundle checklist complete, Pt tolerated well (placed in OR post-opwhile pt intbated under general anesthesia. port cxr in ICU)
[2023-10-15 21:16] LABS: WHITE BLOOD COUNT 36.3 x10^3/uL (4.8-10.8)
--- NOTE | 2023-10-15 21:16 | ANESTHESIA POST OP EVALUATION ---
Anesthesia Post Eval - Post Anesthesia Eval Vitals: Last Vital Signs Temp 36.6 C 10/15/23 20:49 Pulse 98 10/15/23 21:05 Resp 17 10/15/23 21:05 BP 114/67 10/15/23 21:05 Pulse Ox 95 10/15/23 21:05 O2 Flow Rate 5 10/15/23 21:00 CV Function Including HR & BP: Stable Pain Control: Satisfactory Nausea & Vomiting: Negative Mental Status: Baseline Respiratory Status: Airway Patent Hydration Status: Satisfactory Anesthesia Complications: None
[2023-10-15 21:17] LABS: ABNORMAL LYMPHS % (MANUAL) 0 %
[2023-10-15 21:20] LABS: INR 1.9 (0.8-1.2); PT - PROTHROMBIN TIME 19.8 secs (9.9-12.6)
[2023-10-15] MEDS: SODIUM CHLORIDE 0.9% 1,000 ML IV SCH (21:24)
[2023-10-15 21:25] LABS: ALBUMIN 2.2 g/dL (3.2-5.5); ALBUMIN/GLOBULIN RATIO 0.7 (1.0-2.2); BILIRUBIN,TOTAL 0.7 mg/dL (0.2-1.0); CALCIUM 7.5 mg/dL (8.5-10.3); CREATININE 2.8 mg/dL (0.6-1.3); CRP - C-REACTIVE PROTEIN 26.2 mg/dL (<0.5); POTASSIUM 4.8 mmol/L (3.5-4.5); TOTAL PROTEIN 5.3 g/dL (6.4-8.9)
--- NOTE | 2023-10-15 21:38 | XRAY Report ---
PROCEDURE: Chest for Line Placement INDICATIONS: NG TUBE PLACEMENT AND CENTRAL LINE PLACEMENT TECHNIQUE: One view of the chest was acquired. COMPARISON: CT abdomen/pelvis same day.. FINDINGS: Surgical changes and devices: Central line from right internal jugular approach extends almost into the inferior vena cava appears to be an esophagogastric tube extends below the imaging margin at leas t into the gastric body.. Lungs and pleura: No pleural effusions or pneumothorax. Lungs are clear. Mediastinum: Mediastinal contours appear normal. Heart size is normal. Bones and chest wall: No suspicious bony lesions. Overlying soft tissues appear unremarkable. IMPRESSION: No acute cardiopulmonary process. Central line placed from right-sided approach extending through the right atrium to the upper margin of the inferior vena cava. No pneumothorax. Recommend withdrawing this catheter significantly. Reviewed by: Nick Ashton MD on 10/15/2023 9:36 PM PDT Approved by: Nick Ashton MD on 10/15/2023 9:36 PM PDT Station ID: [id number]
[2023-10-15 21:54] LABS: VANCOMYCIN,TROUGH 26.4 ug/mL
[2023-10-15] MEDS: SODIUM CHLORIDE FLUSH 0.9% 10 ML SYRINGE IVP PRN (21:56)
[2023-10-15] MEDS: PANTOPRAZOLE 40 MG VIAL IVP SCH (22:05)
[2023-10-15] MEDS: PHENYLEPHRINE 20 MG in SODIUM CHLORIDE 0.9% 248 ML IV ONE (22:06)
[2023-10-15 22:09] LABS: BAND NEUTROPHILS % (MANUAL) 7 %; LYMPHOCYTES # (MANUAL) 17.1 10^3/uL (1.5-3.5); LYMPHOCYTES % (MANUAL) 47 %; MONOCYTES # (MANUAL) 1.1 10^3/uL (0.0-1.0); NEUTROPHILS # (MANUAL) 18.2 10^3/uL (1.5-6.6); PLATELET ESTIMATE, MANUAL NORMAL (130-450,000) (NORMAL); PLATELET MORPHOLOGY NORMAL APPEARANCE (NORMAL); RBC MORPHOLOGY (MULTIPLE) NORMAL APPEARANCE (NORMAL); WBC MORPHOLOGY (MULTIPLE) 1+ TOXIC GRANULATION (NORMAL)
[2023-10-15 22:10] LABS: DIFFERENTIAL COMMENT MANUAL DIFFERENTIAL
--- NOTE | 2023-10-15 23:27 | XRAY Report ---
PROCEDURE: Chest for Line Placement INDICATIONS: line pulled back approx 2cm and resutured/secured TECHNIQUE: One view of the chest was acquired. COMPARISON: Similar chest plain film same day.. FINDINGS: Surgical changes and devices: Esophagogastric tube extends into the gastric body, and below the imag ing margin. Central line has been withdrawn from the upper aspect of the inferior vena cava but remai ns within the right atrium. Lungs and pleura: No pleural effusions or pneumothorax. Lungs are difficult to accurately assess du e to pronounced reduced inspiratory volume. Mediastinum: Mediastinal contours appear normal. Heart size is normal. Bones and chest wall: No suspicious bony lesions. Overlying soft tissues appear unremarkable. IMPRESSION: No definite acute cardiopulmonary process. Esophagogastric tube positioning normal. Central line from right-sided approach extends into the righ t atrium and could be withdrawn further, into the distal SVC. Reviewed by: Nick Ashton MD on 10/15/2023 11:26 PM PDT Approved by: Nick Ashton MD on 10/15/2023 11:26 PM PDT Station ID: [id number]
--- NOTE | 2023-10-16 00:20 | CONSULTATION NOTE ---
Consultation Report: central pulled back approx 2 cm and resutured, secured under sterile technique. NAC
[2023-10-16] MEDS: PROCHLORPERAZINE 10 MG/2 ML VIAL IVP PRN (04:55)
[2023-10-16 05:47] LABS: BASOPHILS # (AUTO) 0.1 10^3/uL (0.0-0.1); BASOPHILS % (AUTO) 0.6 %; HCT - HEMATOCRIT 36.1 % (42.0-52.0); HGB - HEMOGLOBIN 11.8 g/dL (14.0-18.0); LYMPHOCYTES # (AUTO) 7.7 10^3/uL (1.5-3.5); LYMPHOCYTES % (AUTO) 33.9 %; MEAN CORPUSCULAR HEMOGLOBIN 31.6 pg (27.0-31.0); MEAN CORPUSCULAR HGB CONC 32.7 g/dL (32.0-36.0); MEAN CORPUSCULAR VOLUME 96.8 fL (80.0-94.0); MEAN PLATELET VOLUME 9.5 fL (7.4-11.4); MONOCYTES # (AUTO) 0.9 10^3/uL (0.0-1.0); MONOCYTES % (AUTO) 3.8 %; NEUTROPHILS # (AUTO) 13.7 10^3/uL (1.5-6.6); NEUTROPHILS % (AUTO) 60.6 %; PLT - PLATELET COUNT 235 10^3/uL (130-450); RED BLOOD COUNT 3.73 10^6/uL (4.70-6.10); RED CELL DISTRIBUTION WIDTH 12.3 % (12.0-15.0); WHITE BLOOD COUNT 22.6 x10^3/uL (4.8-10.8)
[2023-10-16 06:11] LABS: CALCIUM, IONIZED 0.98 mmol/L (1.15-1.33); VBG PH 7.284 (7.31-7.41)
[2023-10-16 06:24] LABS: MAGNESIUM 1.8 mg/dL (1.7-2.3)
--- NOTE | 2023-10-16 07:27 | PHARMACY PROGRESS NOTE ---
- Therapy Status Vancomycin regimen day #: 3 Therapy status: Trough supratherapeutic Basis for treatment: Empirical Treatment indication: CELLULITIS Trough goal: 10-15 Concurrent antibiotics: CEFEPIME 1G Q8H - ZEINA Risk Risk level for Acute Kidney Injury: High Acute Kidney Injury risk factors: IV contrast within 72 hrs, Baseline BUN:SCr >20:1, Diabetes, Admission to ICU, Sepsis - Monitoring and Recommendation Clinical response to treatment: I&O Previous 24 hours 10/14/23 10/15/23 10/16/23 23:59 23:59 23:59 Intake Total 1600 Balance 1600 Lab Results 10/14/23 10/14/23 10:23 10:23 ESR 56 H BUN 35 H Creatinine 0.9 Estimated GFR (MDRD) 84 L Cultures 10/14/23 15:42 Blood - Right Hand Blood Culture - Preliminary 10/14/23 15:42 Blood Blood Culture (PCR) - Final 10/14/23 15:42 Blood - Right Arm Blood Culture - Preliminary Monitoring plan: Daily serum creatinine, Suggest ongoing fluid replacement Areas for additional monitoring: Therapy de-escalation based on culture results (DOSE ADJUSTED DUE T WORSENING RENAL FUNCTION FROM 1G Q12H TO 1G Q48H PER CALCULATIONS USING MOST RECENT PEAK AND TROUGH THOUGH BAYESIAN MODELING. WILL CONTINUE TO MONITOR.), Acute Kidney Injury Pharmacy recommendation: Continue current regime (LOADED W/ 2GM X1 IN ED. WILL START ON 1GM Q12H FOR ANTICIPATED TROUGH ~13. LABS REV'D. PEND MICRO.)
[2023-10-16 07:39] LABS: DIFFERENTIAL COMMENT MANUAL=AUTO DIFF; PLATELET ESTIMATE, MANUAL NORMAL (130-450,000) (NORMAL); PLATELET MORPHOLOGY PLATELET CLUMPING (NORMAL)
[2023-10-16] MEDS: SODIUM CHLORIDE 0.9% 1,000 ML IV ONE (07:55)
[2023-10-16] MEDS: SODIUM CHLORIDE 0.9% 1,000 ML IV SCH (08:10)
[2023-10-16 09:31] LABS: ALBUMIN 2.2 g/dL (3.2-5.5); ALBUMIN/GLOBULIN RATIO 0.7 (1.0-2.2); BILIRUBIN,TOTAL 0.6 mg/dL (0.2-1.0); CALCIUM 7.3 mg/dL (8.5-10.3); CREATININE 3.1 mg/dL (0.6-1.3); POTASSIUM 4.7 mmol/L (3.5-4.5); TOTAL PROTEIN 5.4 g/dL (6.4-8.9)
--- NOTE | 2023-10-16 11:00 | PROVIDER PROGRESS NOTE ---
Subjective - Prog Note Date Prog Note Date: 10/16/23 Prog Note Time: 11:00 - Subjective Pt reports feeling: No change Subjective: minimally verbal this morning. He is not sure if he feels better. Continues to have a lot of abdominal pain. Current Medications - Current Medications Current Medications: Medications Ondansetron HCl (Ondansetron 4 Mg/2 Ml Vial) 4 mg IVP Q6HR PRN PRN Reason: Nausea / Vomiting Sodium Chloride (Normal Saline 0.9%) 1,000 mls @ 125 mls/hr IV .Q8H [facility] Last Admin: 10/16/23 08:10 Dose: 125 mls/hr Vancomycin HCl 1 gm/ Sodium (Chloride) 250 mls @ 250 mls/hr IV Q48H [facility] Cefepime HCl 1 gm/ Sodium (Chloride) 100 mls @ 200 mls/hr IV BID [facility] Stop: 10/17/23 21:59 Heparin Sodium (Porcine) (Heparin 5,000 Unit/Ml Vial) 5,000 unit SUBQ TID [facility] Hydromorphone HCl (Hydromorphone 0.5 Mg/0.5 Ml Syringe) 0.5 mg IVP Q2H PRN PRN Reason: Pain 8 to 10 Last Admin: 10/16/23 04:25 Dose: 0.5 mg Insulin Glargine-yfgn (Insulin Glargine-Yfgn 300 Unit/3 Ml Pen) 10 unit SUBQ QDBREAKFAST [facility] Last Admin: 10/16/23 08:45 Dose: 10 unit Insulin Glargine-yfgn (Insulin Glargine-Yfgn 300 Unit/3 Ml Pen) 10 unit SUBQ QPM [facility] Last Admin: 10/15/23 22:00 Dose: 10 unit Insulin Human Regular (Insulin Regular, Human 300 Unit/3 Ml Pen) 1 - 9 unit SUBQ Q6HR [facility]; Protocol Last Admin: 10/16/23 12:16 Dose: 1 unit Insulin Human Regular (Insulin Regular, Human 300 Unit/3 Ml Pen) 3 unit SUBQ Q6HR [facility] Last Admin: 10/16/23 12:16 Dose: 3 unit Metronidazole (Flagyl 500 Mg/100 Ml) 500 mg in 100 mls @ 100 mls/hr IV Q8H [facility] Stop: 10/19/23 23:59 Last Admin: 10/16/23 12:27 Dose: 100 mls/hr Pantoprazole Sodium (Pantoprazole 40 Mg Vial) 40 mg IVP BID [facility] Last Admin: 10/16/23 08:58 Dose: 40 mg Prochlorperazine Edisylate (Prochlorperazine 10 Mg/2 Ml Vial) 10 mg IVP Q6HR PRN PRN Reason: Nausea / Vomiting Last Admin: 10/16/23 04:55 Dose: 10 mg Objective - Vital Signs/Intake & Output Reviewed Vital Signs: Yes Vital Signs: Vital Signs Temp Pulse Resp BP Pulse Ox O2 Flow Rate 10/16/23 10:00 113 H 24 112/74 94 3 10/16/23 09:00 109 H 17 122/81 H 98 6 10/16/23 08:00 36.7 C 111 H 16 121/76 97 6 Intake & Output: Intake & Output 10/13/23 10/14/23 10/15/23 10/16/23 23:59 23:59 23:59 23:59 Intake Total 2310 1750 260 Output Total 275 611 362 Balance 5 1139 -102 - Objective General Appearance: positive: Mild distress Eyes Bilateral: positive: Normal inspection ENT: positive: Other (lips are dry) Neck: positive: Nml inspection Respiratory: positive: Chest non-tender, No respiratory distress, Breath sounds nml Cardiovascular: positive: Regular rate & rhythm Abdomen: positive: Other (appropriately tender. serosanguinous drain output- 60ml recorded since MN. dresssing is C/D/I) Skin: positive: Color nml, No rash Extremities: positive: Other (cellulitis at RLE continues to receed. intact DP pulse to palpation. hemorrhagic blister on dorsal aspect of the 1st MTP remains.) Neurologic/Psychiatric: positive: Oriented x3 - Lab Results Fish Bones: 10/16/23 13:51 10/16/23 13:51 Other Labs: Lab Results x24hrs 10/16/23 10/16/23 10/16/23 Range/Units 07:57 05:37 05:37 WBC (4.8-10.8) x10^3/uL RBC (4.70-6.10) 10^6/uL Hgb (14.0-18.0) g/dL Hct (42.0-52.0) % MCV (80.0-94.0) fL MCH (27.0-31.0) pg MCHC (32.0-36.0) g/dL RDW (12.0-15.0) % Plt Count (130-450) 10^3/uL MPV (7.4-11.4) fL Neut # (Auto) Lymph # (Auto) [place] # (Auto) Eos # (Auto) Baso # (Auto) Absolute Nucleated RBC Total Counted Band Neuts % (Manual) (0 - 10) % Abnorm Lymph % (Manual) % Nucleated RBC % Neutrophils # (Manual) (1.5-6.6) 10^3/uL Lymphocytes # (Manual) (1.5-3.5) 10^3/uL Monocytes # (Manual) (0.0-1.0) 10^3/uL Eosinophils # (Manual) (0-0.7) 10^3/uL Basophils # (Manual) (0-0.1) 10^3/uL Differential Comment WBC Morphology (NORMAL) Platelet Estimate (NORMAL) Platelet Morphology (NORMAL) RBC Morph Micro Appear (NORMAL) PT (9.9-12.6) secs INR (0.8-1.2) VBG pH 7.284 L (7.31-7.41) Ionized Calcium 0.98 L (1.15-1.33) mmol/L Sodium (135-145) mmol/L Potassium (3.5-4.5) mmol/L Chloride (101-111) mmol/L Carbon Dioxide (21-32) mmol/L Anion Gap (6-13) BUN (6-20) mg/dL Creatinine (0.6-1.3) mg/dL Estimated GFR (MDRD) (>89) Glucose (74-104) mg/dL POC Whole Bld Glucose 196 H (70 - 100) mg/dL Estimat Average Glucose (70-100) mg/dL Hemoglobin A1c % (4.27-6.07) % Calcium (8.5-10.3) mg/dL Phosphorus 8.0 H (2.5-5.0) mg/dL Magnesium (1.7-2.3) mg/dL Total Bilirubin (0.2-1.0) mg/dL AST (10-42) IU/L ALT (10-60) IU/L Alkaline Phosphatase (42-121) IU/L C-Reactive Protein (<0.5) mg/dL Total Protein (6.4-8.9) g/dL Albumin (3.2-5.5) g/dL Globulin (2.1-4.2) g/dL Albumin/Globulin Ratio (1.0-2.2) Prealbumin (17-34) mg/dL Stl C. diff Tox B Gene (NEGATIVE) Stool H. pylori Ag (Negative) Last Dose Date Last Dose Time Vancomycin Trough ug/mL 10/16/23 10/16/23 10/15/23 Range/Units 05:37 05:37 21:03 WBC 22.6 H (4.8-10.8) x10^3/uL RBC 3.73 L (4.70-6.10) 10^6/uL Hgb 11.8 L (14.0-18.0) g/dL Hct 36.1 L (42.0-52.0) % MCV 96.8 H (80.0-94.0) fL MCH 31.6 H (27.0-31.0) pg MCHC 32.7 (32.0-36.0) g/dL RDW 12.3 (12.0-15.0) % Plt Count 235 (130-450) 10^3/uL MPV 9.5 (7.4-11.4) fL Neut # (Auto) 13.7 H Lymph # (Auto) 7.7 H [place] # (Auto) 0.9 Eos # (Auto) 0.0 Baso # (Auto) 0.1 Absolute Nucleated RBC 0.00 Total Counted Band Neuts % (Manual) Not Reportable (0 - 10) % Abnorm Lymph % (Manual) Not Reportable % Nucleated RBC % 0.0 Neutrophils # (Manual) Not Reportable (1.5-6.6) 10^3/uL Lymphocytes # (Manual) Not Reportable (1.5-3.5) 10^3/uL Monocytes # (Manual) Not Reportable (0.0-1.0) 10^3/uL Eosinophils # (Manual) Not Reportable (0-0.7) 10^3/uL Basophils # (Manual) Not Reportable (0-0.1) 10^3/uL Differential Comment MANUAL=AUTO DIFF WBC Morphology (NORMAL) Platelet Estimate NORMAL (130-450,000) (NORMAL) Platelet Morphology PLATELET CLUMPING (NORMAL) RBC Morph Micro Appear (NORMAL) PT 19.8 H (9.9-12.6) secs INR 1.9 H (0.8-1.2) VBG pH (7.31-7.41) Ionized Calcium (1.15-1.33) mmol/L Sodium 129 L (135-145) mmol/L Potassium 4.7 H (3.5-4.5) mmol/L Chloride 98 L (101-111) mmol/L Carbon Dioxide 17 L (21-32) mmol/L Anion Gap 14.0 H (6-13) BUN 85 H* (6-20) mg/dL Creatinine 3.1 H (0.6-1.3) mg/dL Estimated GFR (MDRD) 20 L (>89) Glucose 204 H (74-104) mg/dL POC Whole Bld Glucose (70 - 100) mg/dL Estimat Average Glucose (70-100) mg/dL Hemoglobin A1c % (4.27-6.07) % Calcium 7.3 L (8.5-10.3) mg/dL Phosphorus (2.5-5.0) mg/dL Magnesium 1.8 (1.7-2.3) mg/dL Total Bilirubin 0.6 (0.2-1.0) mg/dL AST 23 (10-42) IU/L ALT 23 (10-60) IU/L Alkaline Phosphatase 79 (42-121) IU/L C-Reactive Protein (<0.5) mg/dL Total Protein 5.4 L (6.4-8.9) g/dL Albumin 2.2 L (3.2-5.5) g/dL Globulin 3.2 (2.1-4.2) g/dL Albumin/Globulin Ratio 0.7 L (1.0-2.2) Prealbumin (17-34) mg/dL Stl C. diff Tox B Gene (NEGATIVE) Stool H. pylori Ag (Negative) Last Dose Date Last Dose Time Vancomycin Trough ug/mL 10/15/23 10/15/23 10/15/23 Range/Units 21:03 21:03 21:03 WBC 36.3 H* (4.8-10.8) x10^3/uL RBC 3.87 L (4.70-6.10) 10^6/uL Hgb 12.3 L (14.0-18.0) g/dL Hct 37.2 L (42.0-52.0) % MCV 96.1 H (80.0-94.0) fL MCH 31.8 H (27.0-31.0) pg MCHC 33.1 (32.0-36.0) g/dL RDW 12.7 (12.0-15.0) % Plt Count 379 (130-450) 10^3/uL MPV 9.7 (7.4-11.4) fL Neut # (Auto) Not Reportable Lymph # (Auto) Not Reportable [place] # (Auto) Not Reportable Eos # (Auto) Not Reportable Baso # (Auto) Not Reportable Absolute Nucleated RBC Not Reportable Total Counted 100 Band Neuts % (Manual) 7 (0 - 10) % Abnorm Lymph % (Manual) 0 % Nucleated RBC % Not Reportable Neutrophils # (Manual) 18.2 H (1.5-6.6) 10^3/uL Lymphocytes # (Manual) 17.1 H (1.5-3.5) 10^3/uL Monocytes # (Manual) 1.1 H (0.0-1.0) 10^3/uL Eosinophils # (Manual) 0.0 (0-0.7) 10^3/uL Basophils # (Manual) 0.0 (0-0.1) 10^3/uL Differential Comment MANUAL DIFFERENTIAL WBC Morphology 1+ TOXIC GRANULATION (NORMAL) Platelet Estimate NORMAL (130-450,000) (NORMAL) Platelet Morphology NORMAL APPEARANCE (NORMAL) RBC Morph Micro Appear NORMAL APPEARANCE (NORMAL) PT (9.9-12.6) secs INR (0.8-1.2) VBG pH (7.31-7.41) Ionized Calcium (1.15-1.33) mmol/L Sodium 127 L (135-145) mmol/L Potassium 4.8 H (3.5-4.5) mmol/L Chloride 97 L (101-111) mmol/L Carbon Dioxide 18 L (21-32) mmol/L Anion Gap 12.0 (6-13) BUN 79 H (6-20) mg/dL Creatinine 2.8 H (0.6-1.3) mg/dL Estimated GFR (MDRD) 23 L (>89) Glucose 211 H (74-104) mg/dL POC Whole Bld Glucose 213 H (70 - 100) mg/dL Estimat Average Glucose (70-100) mg/dL Hemoglobin A1c % (4.27-6.07) % Calcium 7.5 L (8.5-10.3) mg/dL Phosphorus (2.5-5.0) mg/dL Magnesium (1.7-2.3) mg/dL Total Bilirubin 0.7 (0.2-1.0) mg/dL AST 22 (10-42) IU/L ALT 22 (10-60) IU/L Alkaline Phosphatase 84 (42-121) IU/L C-Reactive Protein 26.2 H (<0.5) mg/dL Total Protein 5.3 L (6.4-8.9) g/dL Albumin 2.2 L (3.2-5.5) g/dL Globulin 3.1 (2.1-4.2) g/dL Albumin/Globulin Ratio 0.7 L (1.0-2.2) Prealbumin 6 L (17-34) mg/dL Stl C. diff Tox B Gene (NEGATIVE) Stool H. pylori Ag (Negative) Last Dose Date Last Dose Time Vancomycin Trough ug/mL 10/15/23 10/15/23 10/15/23 Range/Units 21:03 18:48 16:37 WBC (4.8-10.8) x10^3/uL RBC (4.70-6.10) 10^6/uL Hgb (14.0-18.0) g/dL Hct (42.0-52.0) % MCV (80.0-94.0) fL MCH (27.0-31.0) pg MCHC (32.0-36.0) g/dL RDW (12.0-15.0) % Plt Count (130-450) 10^3/uL MPV (7.4-11.4) fL Neut # (Auto) Lymph # (Auto) [place] # (Auto) Eos # (Auto) Baso # (Auto) Absolute Nucleated RBC Total Counted Band Neuts % (Manual) (0 - 10) % Abnorm Lymph % (Manual) % Nucleated RBC % Neutrophils # (Manual) (1.5-6.6) 10^3/uL Lymphocytes # (Manual) (1.5-3.5) 10^3/uL Monocytes # (Manual) (0.0-1.0) 10^3/uL Eosinophils # (Manual) (0-0.7) 10^3/uL Basophils # (Manual) (0-0.1) 10^3/uL Differential Comment WBC Morphology (NORMAL) Platelet Estimate (NORMAL) Platelet Morphology (NORMAL) RBC Morph Micro Appear (NORMAL) PT (9.9-12.6) secs INR (0.8-1.2) VBG pH (7.31-7.41) Ionized Calcium (1.15-1.33) mmol/L Sodium (135-145) mmol/L Potassium (3.5-4.5) mmol/L Chloride (101-111) mmol/L Carbon Dioxide (21-32) mmol/L Anion Gap (6-13) BUN (6-20) mg/dL Creatinine (0.6-1.3) mg/dL Estimated GFR (MDRD) (>89) Glucose (74-104) mg/dL POC Whole Bld Glucose 246 H 321 H (70 - 100) mg/dL Estimat Average Glucose (70-100) mg/dL Hemoglobin A1c % (4.27-6.07) % Calcium (8.5-10.3) mg/dL Phosphorus (2.5-5.0) mg/dL Magnesium (1.7-2.3) mg/dL Total Bilirubin (0.2-1.0) mg/dL AST (10-42) IU/L ALT (10-60) IU/L Alkaline Phosphatase (42-121) IU/L C-Reactive Protein (<0.5) mg/dL Total Protein (6.4-8.9) g/dL Albumin (3.2-5.5) g/dL Globulin (2.1-4.2) g/dL Albumin/Globulin Ratio (1.0-2.2) Prealbumin (17-34) mg/dL Stl C. diff Tox B Gene (NEGATIVE) Stool H. pylori Ag (Negative) Last Dose Date 10/15/23 Last Dose Time 1056 Vancomycin Trough 26.4 H* ug/mL 10/15/23 10/15/23 10/15/23 Range/Units 14:20 14:20 11:14 WBC (4.8-10.8) x10^3/uL RBC (4.70-6.10) 10^6/uL Hgb (14.0-18.0) g/dL Hct (42.0-52.0) % MCV (80.0-94.0) fL MCH (27.0-31.0) pg MCHC (32.0-36.0) g/dL RDW (12.0-15.0) % Plt Count (130-450) 10^3/uL MPV (7.4-11.4) fL Neut # (Auto) Lymph # (Auto) [place] # (Auto) Eos # (Auto) Baso # (Auto) Absolute Nucleated RBC Total Counted Band Neuts % (Manual) (0 - 10) % Abnorm Lymph % (Manual) % Nucleated RBC % Neutrophils # (Manual) (1.5-6.6) 10^3/uL Lymphocytes # (Manual) (1.5-3.5) 10^3/uL Monocytes # (Manual) (0.0-1.0) 10^3/uL Eosinophils # (Manual) (0-0.7) 10^3/uL Basophils # (Manual) (0-0.1) 10^3/uL Differential Comment WBC Morphology (NORMAL) Platelet Estimate (NORMAL) Platelet Morphology (NORMAL) RBC Morph Micro Appear (NORMAL) PT (9.9-12.6) secs INR (0.8-1.2) VBG pH (7.31-7.41) Ionized Calcium (1.15-1.33) mmol/L Sodium (135-145) mmol/L Potassium (3.5-4.5) mmol/L Chloride (101-111) mmol/L Carbon Dioxide (21-32) mmol/L Anion Gap (6-13) BUN (6-20) mg/dL Creatinine (0.6-1.3) mg/dL Estimated GFR (MDRD) (>89) Glucose (74-104) mg/dL POC Whole Bld Glucose 307 H (70 - 100) mg/dL Estimat Average Glucose (70-100) mg/dL Hemoglobin A1c % (4.27-6.07) % Calcium (8.5-10.3) mg/dL Phosphorus (2.5-5.0) mg/dL Magnesium (1.7-2.3) mg/dL Total Bilirubin (0.2-1.0) mg/dL AST (10-42) IU/L ALT (10-60) IU/L Alkaline Phosphatase (42-121) IU/L C-Reactive Protein (<0.5) mg/dL Total Protein (6.4-8.9) g/dL Albumin (3.2-5.5) g/dL Globulin (2.1-4.2) g/dL Albumin/Globulin Ratio (1.0-2.2) Prealbumin (17-34) mg/dL Stl C. diff Tox B Gene NEGATIVE (NEGATIVE) Stool H. pylori Ag NEGATIVE (Negative) Last Dose Date Last Dose Time Vancomycin Trough ug/mL 10/15/23 Range/Units 05:16 WBC (4.8-10.8) x10^3/uL RBC (4.70-6.10) 10^6/uL Hgb (14.0-18.0) g/dL Hct (42.0-52.0) % MCV (80.0-94.0) fL MCH (27.0-31.0) pg MCHC (32.0-36.0) g/dL RDW (12.0-15.0) % Plt Count (130-450) 10^3/uL MPV (7.4-11.4) fL Neut # (Auto) Lymph # (Auto) [place] # (Auto) Eos # (Auto) Baso # (Auto) Absolute Nucleated RBC Total Counted Band Neuts % (Manual) (0 - 10) % Abnorm Lymph % (Manual) % Nucleated RBC % Neutrophils # (Manual) (1.5-6.6) 10^3/uL Lymphocytes # (Manual) (1.5-3.5) 10^3/uL Monocytes # (Manual) (0.0-1.0) 10^3/uL Eosinophils # (Manual) (0-0.7) 10^3/uL Basophils # (Manual) (0-0.1) 10^3/uL Differential Comment WBC Morphology (NORMAL) Platelet Estimate (NORMAL) Platelet Morphology (NORMAL) RBC Morph Micro Appear (NORMAL) PT (9.9-12.6) secs INR (0.8-1.2) VBG pH (7.31-7.41) Ionized Calcium (1.15-1.33) mmol/L Sodium (135-145) mmol/L Potassium (3.5-4.5) mmol/L Chloride (101-111) mmol/L Carbon Dioxide (21-32) mmol/L Anion Gap (6-13) BUN (6-20) mg/dL Creatinine (0.6-1.3) mg/dL Estimated GFR (MDRD) (>89) Glucose (74-104) mg/dL POC Whole Bld Glucose (70 - 100) mg/dL Estimat Average Glucose 194 H (70-100) mg/dL Hemoglobin A1c % 8.4 H (4.27-6.07) % Calcium (8.5-10.3) mg/dL Phosphorus (2.5-5.0) mg/dL Magnesium (1.7-2.3) mg/dL Total Bilirubin (0.2-1.0) mg/dL AST (10-42) IU/L ALT (10-60) IU/L Alkaline Phosphatase (42-121) IU/L C-Reactive Protein (<0.5) mg/dL Total Protein (6.4-8.9) g/dL Albumin (3.2-5.5) g/dL Globulin (2.1-4.2) g/dL Albumin/Globulin Ratio (1.0-2.2) Prealbumin (17-34) mg/dL Stl C. diff Tox B Gene (NEGATIVE) Stool H. pylori Ag (Negative) Last Dose Date Last Dose Time Vancomycin Trough ug/mL Sepsis Event Note (H) - Evaluation Current Stage of Sepsis: Sepsis Possible source of Sepsis: positive: Bone/Joint, GI tract/intra-abdominal - Sepsis Criteria Sepsis Criteria: Recorded Heart Rate greater than 90 bpm, WBC count greater than 12,000 or less than 4000, [employer] REPA[employer]ER: altered consciousness (unrelated to primary neuro pathology), Renal: urine output less than 0.5ml/kg/hr for 2 hours or creatinine gr Assessment/Plan - Problem List (1) Pneumoperitoneum Impression: Patient was taken to the operating room yesterday evening for exploratory laparotomy and response to pneumoperitoneum. I was the wheelchair van operator first responder on this case. Intraoperative findings included duodenal perforation with extensive purulent drainage and succus in the abdomen. 1 cm perforation which was biopsied, primarily closed and Onesimo patch was placed. Surgeon has requested that patient not be given enteral nutrition until at least postop day 3 and possibly postop day 4 depending on his progress and healing. At that time repair will be studied with barium prior to feeding. Patient was discussed with Dr. Navarro today regarding his postoperative care (2) Sepsis Impression: Secondary either to his right lower extremity cellulitis or his pneumoperitoneum and perforated duodenal ulcer. There is evidence of improvement in this patient's clinical course after returning from the operating room. He has maintained his blood pressures without pressor therapy. Readings today are 112/74, 121/72, 128/86, 125/80. His heart rate remains mildly tachycardic in the 110s. He is requiring oxygen support alternating between nasal cannula and simple mask on 3 L maintaining sats in the mid 90s. His urine output has been decreased please see further discussion under acute kidney injury. His white blood cell count peaked at 36.3 postoperatively, came down to 22.6 this morning and further down to 19.7 this afternoon. I think that we have again surgical source control. I think that he will need a total of 4 days of antibiotics postoperatively for his intra-abdominal sepsis. However, for his cellulitis I think a period of 5 to 7 days would be appropriate. After receiving the diagnosis of pneumoperitoneum from the radiologist I added Flagyl for anaerobic coverage. It became clear that the patient's primary source of intra-abdominal infection is duodenal therefore anaerobic coverage may not be indicated, however given the colitis also seen on the CT and his degree of critical illness I do not feel that it is appropriate to discontinue Flagyl at this time. (3) Perforated duodenal ulcer Impression: Likely secondary to alcohol use. Patient was on OTC PPIs prior to admission. It has come to light that until 3 weeks ago he was drinking 10-12 [employer] light beers per day. At the time of admission we are given a history of no alcohol use. Patient is still too critically ill to be receptive to counseling with regards to his alcohol use. This was discussed with his Gabriela today. She feels confident that he can cease alcohol use. (4) Cellulitis Impression: Of the right lower extremity. Improving. I believe that it is improving because the redness is receding within the marked borders. Swelling is decreasing the hemorrhagic blister remains unchanged. I have ordered vancomycin, pharmacy is dosing this medication. I have decreased cefepime dosing to every 12 hours due to his acute kidney injury. Qualifiers: Site of cellulitis: extremity Site of cellulitis of extremity: lower extremity Laterality: right Qualified Code(s): L03.115 - Cellulitis of right lower limb (5) Acute kidney injury Impression: This morning he was given a 1 L bolus of normal saline. At that time his urine output picked up from marginal at 20 cc or less per hour to 50 cc in the first hour that the bolus was given since that time he is maintain a urine output of around 30 cc an hour indicating improved renal function. Laboratories studies show an upward trend in his creatinine from 0.9 at admission to 1 point 7 in the AM yesterday, 2.8 at 9 PM and then 3.1 this morning. It would seem that since we have surgical source control of his intra- abdominal infection his renal function is improving. We are repeating labs this afternoon. (6) Diabetes mellitus, new onset Impression: At this time controlling blood sugars with glargine 10 units twice daily and sliding scale insulin. Blood sugar readings today have been 196 and 171. He is on n.p.o. sliding scale, moderate. It would seem that his blood sugars are not well-controlled although in this period of critical illness less than 180 is probably adequate. Most recent reading at noon was 171 for this reason I will not increase his SSI. (7) Hyponatremia Impression: Hyponatremic at the time of admission sodium of 124. He has had minimal oral intake thus effectively fluid restricted since the time of admission. He is currently n.p.o. for the next several days. Sodium uptrending, 127 yesterday evening and 129 this morning repeat labs are pending at this time. Slow correction out of goal of not more than 8 mmol/L/day is planned as I do not know the time course over which he developed this hyponatremia. (8) Alcoholic cirrhosis of liver Impression: Please see other comments regarding alcohol use disorder. Ammonia level is 25.3 today. Liver biopsy was sent at the time of exploratory laparotomy. Appearance of the liver is fibrosed and nodular. There was about 600 mL of thin purulent fluid in the Abdomen, likely some ascites in addition to the infection. (9) Glaucoma Impression: Will continue glaucoma drops. (10) Hypertension Impression: Not currently needing outpatient antihypertensives. Will revisit this issue as his critical illness improves. (12) Alcohol use disorder Impression: Please see above. Patient will need alcohol cessation counseling. (13) Malnutrition Impression: Poor oral intake since September 25. Albumin is low since admission. Admission level 2.9. Subsequently 2.2. Will need nutrition in order to heal this intra-abdominal infection. Therefore we will start TPN this evening. Discussed with pharmacy this morning.
[2023-10-16] MEDS: INSULIN REGULAR, HUMAN 300 UNIT/3 ML PEN SUBQ SCH ×2 (12:16)
[2023-10-16 14:02] LABS: BASOPHILS % (AUTO) 0.5 %; HCT - HEMATOCRIT 34.5 % (42.0-52.0); HGB - HEMOGLOBIN 11.3 g/dL (14.0-18.0); LYMPHOCYTES % (AUTO) 34.3 %; MEAN CORPUSCULAR HEMOGLOBIN 31.7 pg (27.0-31.0); MEAN CORPUSCULAR HGB CONC 32.8 g/dL (32.0-36.0); MEAN CORPUSCULAR VOLUME 96.9 fL (80.0-94.0); MEAN PLATELET VOLUME 9.4 fL (7.4-11.4); MONOCYTES % (AUTO) 4.1 %; NEUTROPHILS % (AUTO) 60.3 %; PLT - PLATELET COUNT 219 10^3/uL (130-450); RED BLOOD COUNT 3.56 10^6/uL (4.70-6.10); RED CELL DISTRIBUTION WIDTH 12.5 % (12.0-15.0); WHITE BLOOD COUNT 19.7 x10^3/uL (4.8-10.8)
[2023-10-16] MEDS: HEPARIN 5,000 UNIT/ML VIAL SUBQ SCH (14:09)
[2023-10-16 14:12] LABS: ABNORMAL LYMPHS % (MANUAL) 0 %
[2023-10-16 14:17] LABS: PHOSPHORUS 7.2 mg/dL (2.5-5.0)
[2023-10-16 14:19] LABS: CREATININE 3.4 mg/dL (0.6-1.3); POTASSIUM 4.6 mmol/L (3.5-4.5)
[2023-10-16 14:24] LABS: BAND NEUTROPHILS % (MANUAL) 10 %; LYMPHOCYTES # (MANUAL) 4.3 10^3/uL (1.5-3.5); LYMPHOCYTES % (MANUAL) 19 %; METAMYELOCYTES % (MANUAL) 1 %; MONOCYTES # (MANUAL) 0.6 10^3/uL (0.0-1.0); NEUTROPHILS # (MANUAL) 14.6 10^3/uL (1.5-6.6); RBC MORPHOLOGY (MULTIPLE) 1+ ANISOCYTOSIS (NORMAL); REACTIVE LYMPHS % (MANUAL) 3 %
[2023-10-16 14:25] LABS: DIFFERENTIAL COMMENT MANUAL DIFFERENTIAL
[2023-10-16] MEDS: TIMOLOL 0.5% OPHTH DROPS EACHEYE SCH (15:57)
[2023-10-16] MEDS: TPN (CLINIMIX E 5/15) 2,000 ML with MULTIVITAMIN 10 ML, TRACE ELEMENTS 1 ML IV SCH (17:06)
[2023-10-16] MEDS: FAT EMULSION 20% 250 ML IV SCH (18:39)
--- NOTE | 2023-10-16 19:32 | PROVIDER PROGRESS NOTE ---
Subjective - General Admit Date: 10/16/23 Procedure Date: 10/15/23 Post Op Days: 1 Procedure Performed: exploratory laparotomy, repair duodenal perforatio/perry patch, liver bx - Review of Systems Drain Type: CHAPITO (behind perry patch Drain Output Description: serosanguinous Approximate mls Output: 50 All Other Systems: positive: Reviewed and negative - Other Other Information/Narrative: in bed this AM, comfortable but sleepy, not interactive. DId not require any pressor support (tyron) since leaving the OR. CHAPITO drain non-bilious suggesting no leak from repair site at this time. Objective - Patient Data Reviewed Vital Signs: Yes Vital Signs: Vital Signs x48h Temp Pulse Resp BP Pulse Ox O2 Flow Rate 10/16/23 19:00 37.0 C 93 17 132/84 H 97 2 10/16/23 18:00 90 17 120/78 97 2 10/16/23 17:00 93 17 123/83 H 97 2 10/16/23 16:00 109 H 18 124/78 97 2 10/16/23 15:00 112 H 23 142/92 H 96 3 10/16/23 14:00 102 H 19 120/76 96 3 10/16/23 12:59 109 H 23 125/80 96 3 10/16/23 12:00 111 H 18 128/86 H 97 3 Weight: Weight 10/14/23 10/15/23 10/16/23 23:59 23:59 23:59 Weight (kg) 92.5 kg 92.5 kg 96.5 kg Intake & Output: Intake and Output Totals x24h 10/14/23 10/15/23 10/16/23 23:59 23:59 23:59 Intake Total 2310 1750 3393.15 Output Total 120 072 4900 Balance 2035 1139 2381.15 - Lab Results Lab Results: 10/16/23 13:51 10/16/23 13:51 Other Lab Results: Lab Results x24hrs 10/16/23 10/16/23 10/16/23 Range/Units 18:05 13:51 13:51 WBC (4.8-10.8) x10^3/uL RBC (4.70-6.10) 10^6/uL Hgb (14.0-18.0) g/dL Hct (42.0-52.0) % MCV (80.0-94.0) fL MCH (27.0-31.0) pg MCHC (32.0-36.0) g/dL RDW (12.0-15.0) % Plt Count (130-450) 10^3/uL MPV (7.4-11.4) fL Neut # (Auto) Lymph # (Auto) Ulster # (Auto) Eos # (Auto) Baso # (Auto) Absolute Nucleated RBC Total Counted Band Neuts % (Manual) (0 - 10) % Reactive Lymphs % (Man) % Abnorm Lymph % (Manual) % Metamyelocytes % ( - 0) % Nucleated RBC % Neutrophils # (Manual) (1.5-6.6) 10^3/uL Lymphocytes # (Manual) (1.5-3.5) 10^3/uL Monocytes # (Manual) (0.0-1.0) 10^3/uL Eosinophils # (Manual) (0-0.7) 10^3/uL Basophils # (Manual) (0-0.1) 10^3/uL Differential Comment WBC Morphology (NORMAL) Platelet Estimate (NORMAL) Platelet Morphology (NORMAL) RBC Morph Micro Appear (NORMAL) PT (9.9-12.6) secs INR (0.8-1.2) VBG pH (7.31-7.41) Ionized Calcium (1.15-1.33) mmol/L Sodium 130 L (135-145) mmol/L Potassium 4.6 H (3.5-4.5) mmol/L Chloride 101 (101-111) mmol/L Carbon Dioxide 16 L (21-32) mmol/L Anion Gap 13.0 (6-13) BUN 91 H* (6-20) mg/dL Creatinine 3.4 H (0.6-1.3) mg/dL Estimated GFR (MDRD) 18 L (>89) Glucose 183 H (74-104) mg/dL POC Whole Bld Glucose 195 H (70 - 100) mg/dL Calcium 7.0 L (8.5-10.3) mg/dL Phosphorus 7.2 H (2.5-5.0) mg/dL Magnesium (1.7-2.3) mg/dL Total Bilirubin (0.2-1.0) mg/dL AST (10-42) IU/L ALT (10-60) IU/L Alkaline Phosphatase (42-121) IU/L Ammonia 25.3 (18-72) umol/L C-Reactive Protein (<0.5) mg/dL Total Protein (6.4-8.9) g/dL Albumin (3.2-5.5) g/dL Globulin (2.1-4.2) g/dL Albumin/Globulin Ratio (1.0-2.2) Prealbumin (17-34) mg/dL Stl C. diff Tox B Gene (NEGATIVE) Last Dose Date Last Dose Time Vancomycin Trough ug/mL 10/16/23 10/16/23 10/16/23 Range/Units 13:51 12:08 07:57 WBC 19.7 H (4.8-10.8) x10^3/uL RBC 3.56 L (4.70-6.10) 10^6/uL Hgb 11.3 L (14.0-18.0) g/dL Hct 34.5 L (42.0-52.0) % MCV 96.9 H (80.0-94.0) fL MCH 31.7 H (27.0-31.0) pg MCHC 32.8 (32.0-36.0) g/dL RDW 12.5 (12.0-15.0) % Plt Count 219 (130-450) 10^3/uL MPV 9.4 (7.4-11.4) fL Neut # (Auto) Not Reportable Lymph # (Auto) Not Reportable Ulster # (Auto) Not Reportable Eos # (Auto) Not Reportable Baso # (Auto) Not Reportable Absolute Nucleated RBC Not Reportable Total Counted 100 Band Neuts % (Manual) 10 (0 - 10) % Reactive Lymphs % (Man) 3 % Abnorm Lymph % (Manual) 0 % Metamyelocytes % 1 H ( - 0) % Nucleated RBC % Not Reportable Neutrophils # (Manual) 14.6 H (1.5-6.6) 10^3/uL Lymphocytes # (Manual) 4.3 H (1.5-3.5) 10^3/uL Monocytes # (Manual) 0.6 (0.0-1.0) 10^3/uL Eosinophils # (Manual) 0.0 (0-0.7) 10^3/uL Basophils # (Manual) 0.0 (0-0.1) 10^3/uL Differential Comment MANUAL DIFFERENTIAL WBC Morphology (NORMAL) Platelet Estimate (NORMAL) Platelet Morphology (NORMAL) RBC Morph Micro Appear 1+ ANISOCYTOSIS (NORMAL) PT (9.9-12.6) secs INR (0.8-1.2) VBG pH (7.31-7.41) Ionized Calcium (1.15-1.33) mmol/L Sodium (135-145) mmol/L Potassium (3.5-4.5) mmol/L Chloride (101-111) mmol/L Carbon Dioxide (21-32) mmol/L Anion Gap (6-13) BUN (6-20) mg/dL Creatinine (0.6-1.3) mg/dL Estimated GFR (MDRD) (>89) Glucose (74-104) mg/dL POC Whole Bld Glucose 171 H 196 H (70 - 100) mg/dL Calcium (8.5-10.3) mg/dL Phosphorus (2.5-5.0) mg/dL Magnesium (1.7-2.3) mg/dL Total Bilirubin (0.2-1.0) mg/dL AST (10-42) IU/L ALT (10-60) IU/L Alkaline Phosphatase (42-121) IU/L Ammonia (18-72) umol/L C-Reactive Protein (<0.5) mg/dL Total Protein (6.4-8.9) g/dL Albumin (3.2-5.5) g/dL Globulin (2.1-4.2) g/dL Albumin/Globulin Ratio (1.0-2.2) Prealbumin (17-34) mg/dL Stl C. diff Tox B Gene (NEGATIVE) Last Dose Date Last Dose Time Vancomycin Trough ug/mL 10/16/23 10/16/23 10/16/23 Range/Units 05:37 05:37 05:37 WBC (4.8-10.8) x10^3/uL RBC (4.70-6.10) 10^6/uL Hgb (14.0-18.0) g/dL Hct (42.0-52.0) % MCV (80.0-94.0) fL MCH (27.0-31.0) pg MCHC (32.0-36.0) g/dL RDW (12.0-15.0) % Plt Count (130-450) 10^3/uL MPV (7.4-11.4) fL Neut # (Auto) Lymph # (Auto) [place] # (Auto) Eos # (Auto) Baso # (Auto) Absolute Nucleated RBC Total Counted Band Neuts % (Manual) (0 - 10) % Reactive Lymphs % (Man) % Abnorm Lymph % (Manual) % Metamyelocytes % ( - 0) % Nucleated RBC % Neutrophils # (Manual) (1.5-6.6) 10^3/uL Lymphocytes # (Manual) (1.5-3.5) 10^3/uL Monocytes # (Manual) (0.0-1.0) 10^3/uL Eosinophils # (Manual) (0-0.7) 10^3/uL Basophils # (Manual) (0-0.1) 10^3/uL Differential Comment WBC Morphology (NORMAL) Platelet Estimate (NORMAL) Platelet Morphology (NORMAL) RBC Morph Micro Appear (NORMAL) PT (9.9-12.6) secs INR (0.8-1.2) VBG pH 7.284 L (7.31-7.41) Ionized Calcium 0.98 L (1.15-1.33) mmol/L Sodium 129 L (135-145) mmol/L Potassium 4.7 H (3.5-4.5) mmol/L Chloride 98 L (101-111) mmol/L Carbon Dioxide 17 L (21-32) mmol/L Anion Gap 14.0 H (6-13) BUN 85 H* (6-20) mg/dL Creatinine 3.1 H (0.6-1.3) mg/dL Estimated GFR (MDRD) 20 L (>89) Glucose 204 H (74-104) mg/dL POC Whole Bld Glucose (70 - 100) mg/dL Calcium 7.3 L (8.5-10.3) mg/dL Phosphorus 8.0 H (2.5-5.0) mg/dL Magnesium 1.8 (1.7-2.3) mg/dL Total Bilirubin 0.6 (0.2-1.0) mg/dL AST 23 (10-42) IU/L ALT 23 (10-60) IU/L Alkaline Phosphatase 79 (42-121) IU/L Ammonia (18-72) umol/L C-Reactive Protein (<0.5) mg/dL Total Protein 5.4 L (6.4-8.9) g/dL Albumin 2.2 L (3.2-5.5) g/dL Globulin 3.2 (2.1-4.2) g/dL Albumin/Globulin Ratio 0.7 L (1.0-2.2) Prealbumin (17-34) mg/dL Stl C. diff Tox B Gene (NEGATIVE) Last Dose Date Last Dose Time Vancomycin Trough ug/mL 10/16/23 10/15/23 10/15/23 Range/Units 05:37 21:03 21:03 WBC 22.6 H (4.8-10.8) x10^3/uL RBC 3.73 L (4.70-6.10) 10^6/uL Hgb 11.8 L (14.0-18.0) g/dL Hct 36.1 L (42.0-52.0) % MCV 96.8 H (80.0-94.0) fL MCH 31.6 H (27.0-31.0) pg MCHC 32.7 (32.0-36.0) g/dL RDW 12.3 (12.0-15.0) % Plt Count 235 (130-450) 10^3/uL MPV 9.5 (7.4-11.4) fL Neut # (Auto) 13.7 H Lymph # (Auto) 7.7 H [place]ster # (Auto) 0.9 Eos # (Auto) 0.0 Baso # (Auto) 0.1 Absolute Nucleated RBC 0.00 Total Counted Band Neuts % (Manual) Not Reportable (0 - 10) % Reactive Lymphs % (Man) % Abnorm Lymph % (Manual) Not Reportable % Metamyelocytes % ( - 0) % Nucleated RBC % 0.0 Neutrophils # (Manual) Not Reportable (1.5-6.6) 10^3/uL Lymphocytes # (Manual) Not Reportable (1.5-3.5) 10^3/uL Monocytes # (Manual) Not Reportable (0.0-1.0) 10^3/uL Eosinophils # (Manual) Not Reportable (0-0.7) 10^3/uL Basophils # (Manual) Not Reportable (0-0.1) 10^3/uL Differential Comment MANUAL=AUTO DIFF WBC Morphology (NORMAL) Platelet Estimate NORMAL (130-450,000) (NORMAL) Platelet Morphology PLATELET CLUMPING (NORMAL) RBC Morph Micro Appear (NORMAL) PT 19.8 H (9.9-12.6) secs INR 1.9 H (0.8-1.2) VBG pH (7.31-7.41) Ionized Calcium (1.15-1.33) mmol/L Sodium (135-145) mmol/L Potassium (3.5-4.5) mmol/L Chloride (101-111) mmol/L Carbon Dioxide (21-32) mmol/L Anion Gap (6-13) BUN (6-20) mg/dL Creatinine (0.6-1.3) mg/dL Estimated GFR (MDRD) (>89) Glucose (74-104) mg/dL POC Whole Bld Glucose 213 H (70 - 100) mg/dL Calcium (8.5-10.3) mg/dL Phosphorus (2.5-5.0) mg/dL Magnesium (1.7-2.3) mg/dL Total Bilirubin (0.2-1.0) mg/dL AST (10-42) IU/L ALT (10-60) IU/L Alkaline Phosphatase (42-121) IU/L Ammonia (18-72) umol/L C-Reactive Protein (<0.5) mg/dL Total Protein (6.4-8.9) g/dL Albumin (3.2-5.5) g/dL Globulin (2.1-4.2) g/dL Albumin/Globulin Ratio (1.0-2.2) Prealbumin (17-34) mg/dL Stl C. diff Tox B Gene (NEGATIVE) Last Dose Date Last Dose Time Vancomycin Trough ug/mL 10/15/23 10/15/23 10/15/23 Range/Units 21:03 21:03 21:03 WBC 36.3 H* (4.8-10.8) x10^3/uL RBC 3.87 L (4.70-6.10) 10^6/uL Hgb 12.3 L (14.0-18.0) g/dL Hct 37.2 L (42.0-52.0) % MCV 96.1 H (80.0-94.0) fL MCH 31.8 H (27.0-31.0) pg MCHC 33.1 (32.0-36.0) g/dL RDW 12.7 (12.0-15.0) % Plt Count 379 (130-450) 10^3/uL MPV 9.7 (7.4-11.4) fL Neut # (Auto) Not Reportable Lymph # (Auto) Not Reportable [place] # (Auto) Not Reportable Eos # (Auto) Not Reportable Baso # (Auto) Not Reportable Absolute Nucleated RBC Not Reportable Total Counted 100 Band Neuts % (Manual) 7 (0 - 10) % Reactive Lymphs % (Man) % Abnorm Lymph % (Manual) 0 % Metamyelocytes % ( - 0) % Nucleated RBC % Not Reportable Neutrophils # (Manual) 18.2 H (1.5-6.6) 10^3/uL Lymphocytes # (Manual) 17.1 H (1.5-3.5) 10^3/uL Monocytes # (Manual) 1.1 H (0.0-1.0) 10^3/uL Eosinophils # (Manual) 0.0 (0-0.7) 10^3/uL Basophils # (Manual) 0.0 (0-0.1) 10^3/uL Differential Comment MANUAL DIFFERENTIAL WBC Morphology 1+ TOXIC GRANULATION (NORMAL) Platelet Estimate NORMAL (130-450,000) (NORMAL) Platelet Morphology NORMAL APPEARANCE (NORMAL) RBC Morph Micro Appear NORMAL APPEARANCE (NORMAL) PT (9.9-12.6) secs INR (0.8-1.2) VBG pH (7.31-7.41) Ionized Calcium (1.15-1.33) mmol/L Sodium 127 L (135-145) mmol/L Potassium 4.8 H (3.5-4.5) mmol/L Chloride 97 L (101-111) mmol/L Carbon Dioxide 18 L (21-32) mmol/L Anion Gap 12.0 (6-13) BUN 79 H (6-20) mg/dL Creatinine 2.8 H (0.6-1.3) mg/dL Estimated GFR (MDRD) 23 L (>89) Glucose 211 H (74-104) mg/dL POC Whole Bld Glucose (70 - 100) mg/dL Calcium 7.5 L (8.5-10.3) mg/dL Phosphorus (2.5-5.0) mg/dL Magnesium (1.7-2.3) mg/dL Total Bilirubin 0.7 (0.2-1.0) mg/dL AST 22 (10-42) IU/L ALT 22 (10-60) IU/L Alkaline Phosphatase 84 (42-121) IU/L Ammonia (18-72) umol/L C-Reactive Protein 26.2 H (<0.5) mg/dL Total Protein 5.3 L (6.4-8.9) g/dL Albumin 2.2 L (3.2-5.5) g/dL Globulin 3.1 (2.1-4.2) g/dL Albumin/Globulin Ratio 0.7 L (1.0-2.2) Prealbumin 6 L (17-34) mg/dL Stl C. diff Tox B Gene (NEGATIVE) Last Dose Date 10/15/23 Last Dose Time 1056 Vancomycin Trough 26.4 H* ug/mL 10/15/23 Range/Units 14:20 WBC (4.8-10.8) x10^3/uL RBC (4.70-6.10) 10^6/uL Hgb (14.0-18.0) g/dL Hct (42.0-52.0) % MCV (80.0-94.0) fL MCH (27.0-31.0) pg MCHC (32.0-36.0) g/dL RDW (12.0-15.0) % Plt Count (130-450) 10^3/uL MPV (7.4-11.4) fL Neut # (Auto) Lymph # (Auto) [place] # (Auto) Eos # (Auto) Baso # (Auto) Absolute Nucleated RBC Total Counted Band Neuts % (Manual) (0 - 10) % Reactive Lymphs % (Man) % Abnorm Lymph % (Manual) % Metamyelocytes % ( - 0) % Nucleated RBC % Neutrophils # (Manual) (1.5-6.6) 10^3/uL Lymphocytes # (Manual) (1.5-3.5) 10^3/uL Monocytes # (Manual) (0.0-1.0) 10^3/uL Eosinophils # (Manual) (0-0.7) 10^3/uL Basophils # (Manual) (0-0.1) 10^3/uL Differential Comment WBC Morphology (NORMAL) Platelet Estimate (NORMAL) Platelet Morphology (NORMAL) RBC Morph Micro Appear (NORMAL) PT (9.9-12.6) secs INR (0.8-1.2) VBG pH (7.31-7.41) Ionized Calcium (1.15-1.33) mmol/L Sodium (135-145) mmol/L Potassium (3.5-4.5) mmol/L Chloride (101-111) mmol/L Carbon Dioxide (21-32) mmol/L Anion Gap (6-13) BUN (6-20) mg/dL Creatinine (0.6-1.3) mg/dL Estimated GFR (MDRD) (>89) Glucose (74-104) mg/dL POC Whole Bld Glucose (70 - 100) mg/dL Calcium (8.5-10.3) mg/dL Phosphorus (2.5-5.0) mg/dL Magnesium (1.7-2.3) mg/dL Total Bilirubin (0.2-1.0) mg/dL AST (10-42) IU/L ALT (10-60) IU/L Alkaline Phosphatase (42-121) IU/L Ammonia (18-72) umol/L C-Reactive Protein (<0.5) mg/dL Total Protein (6.4-8.9) g/dL Albumin (3.2-5.5) g/dL Globulin (2.1-4.2) g/dL Albumin/Globulin Ratio (1.0-2.2) Prealbumin (17-34) mg/dL Stl C. diff Tox B Gene NEGATIVE (NEGATIVE) Last Dose Date Last Dose Time Vancomycin Trough ug/mL - Current Medications Current Medications: Current Medications Generic Name Dose Route Start Last Admin Trade Name Freq PRN Reason Stop Dose Admin Heparin Sodium (Porcine) 5,000 unit 10/16/23 14:00 10/16/23 14:09 Heparin 5,000 Unit/Ml Vial SUBQ 5,000 unit TID CYRIL Administration Hydromorphone HCl 0.5 mg 10/14/23 17:12 10/16/23 15:00 Hydromorphone 0.5 Mg/0.5 Ml Syringe IVP 0.5 mg Q2H PRN Administration Pain 8 to 10 Metronidazole 500 mg in 100 mls @ 100 mls/hr 10/15/23 13:00 10/16/23 13:40 Flagyl 500 Mg/100 Ml IV 10/19/23 23:59 Infused Q8H CYRIL Infusion Sodium Chloride 1,000 mls @ 125 mls/hr 10/16/23 07:11 10/16/23 18:15 Normal Saline 0.9% IV 125 mls/hr .Q8H CYRIL Administration Multivitamins 10 ml/ TRACE 2,011 mls @ 83 mls/hr 10/16/23 19:00 10/16/23 17:09 ELEMENTS 1 ml/ Amino Ac/ IV 50 mls/hr Electrol/Dextrose/Calcium 1900 CYRIL Infusion Protocol Fat Emulsion Intravenous 250 mls @ 21 mls/hr 10/16/23 19:00 10/16/23 18:39 Intralipid 20% IV 21 mls/hr 1900 CYRIL Administration Insulin Glargine-yfgn 10 unit 10/15/23 21:00 10/15/23 22:00 Insulin Glargine-Yfgn 300 Unit/3 Ml Pen SUBQ 10 unit QPM CYRIL Administration Insulin Glargine-yfgn 10 unit 10/15/23 11:00 10/16/23 08:45 Insulin Glargine-Yfgn 300 Unit/3 Ml Pen SUBQ 10 unit [id number] CYRIL Administration Insulin Human Regular 1 - 9 unit 10/16/23 12:00 10/16/23 18:14 Insulin Regular, Human 300 Unit/3 Ml Pen SUBQ 3 unit Q6HR CYRIL Administration Protocol Insulin Human Regular 3 unit 10/16/23 12:00 10/16/23 18:14 Insulin Regular, Human 300 Unit/3 Ml Pen SUBQ 3 unit Q6HR CYRIL Administration Pantoprazole Sodium 40 mg 10/15/23 21:00 10/16/23 08:58 Pantoprazole 40 Mg Vial IVP 40 mg BID CYRIL Administration Prochlorperazine Edisylate 10 mg 10/15/23 20:51 10/16/23 04:55 Prochlorperazine 10 Mg/2 Ml Vial IVP 10 mg Q6HR PRN Administration Nausea / Vomiting Sodium Chloride 10 ml 10/14/23 17:12 10/16/23 05:38 Sodium Chloride Flush 0.9% 10 Ml Syringe IVP 30 ml PRN PRN Administration NEEDED PER PROVIDER ORDERS Sodium Chloride 10 ml 10/15/23 01:00 10/16/23 18:16 Sodium Chloride Flush 0.9% 10 Ml Syringe IVP 10 ml 0100,0900,1700 CYRIL Administration Timolol Maleate 1 drops 10/16/23 15:00 10/16/23 15:57 Timolol 0.5% Ophth Drops EACHEYE 1 drops DAILY CYRIL Administration - Physical Exam Wound/Incisions: positive: Dressing dry and intact, Other (CHAPITO drain ssf) General Appearance: positive: Lethargic Respiratory: positive: Chest non-tender, No respiratory distress Cardiovascular: positive: Regular rate & rhythm Abdomen: positive: Tenderness (appropriate/minimal about incision). negative: No distention (less than preop) Skin: positive: Pallor Extremities: positive: Other (RLE cellulitis with improved erythema) ABX Reporting Has patient been on IV antibiotics over the past 48 hours?: Yes Impression/Plan - Problem List Problem List: POD1 s/p ex lap with repair of duodenal ulcer and perry patch for pneumoperitoneum - Continue NGT, strict NPO, nothing per NGT until UGI swallow study on POD 3-5 (pending clinical status) - continue CHAPITO drain to monitor for leak at repair site - TPN started by primary team, no preop albumin but immediately postop prealbumin was 6 (CRP 25) (Note was unable to place distal feeding tube intraoperatively as dpbhoff tube was unable to be located during relevant portion of case) - BID PPI - abx for foregut coverage with purulent peritonitis - peritoneal fluid cx are pending though gram stain has no organisms - f/u bx of duodenal ulcer margins (1cm perf in D1) - TID hep dvt ppx started - likely rao out tomorrow if HD stable today - silver dressing in place, karen will need to come out around POD 12 RLE cellulitis/myositits - improving by physical exam - as per primary team with ortho consult Comorbidities: - previously undiagnosed DM - IM primary team managing blood glucose (improving 300s to high-100s) - ZEINA continue to worsen without creatinine peak yet - IVF resuscitation being managed by IM - previously undiagnosed alcoholic cirrhosis, based on etoh hx and appearance of liver intraoperatively ---f/u liver biopsies, counseling re etoh-cessation, ongoing outpatient f/u Elva Navarro DO, FACS General Surgeon
[2023-10-16] MEDS: CEFEPIME 1 GM in SODIUM CHLORIDE 0.9% MINIBAG 100 ML IV SCH (21:09)
[2023-10-17 02:07] LABS: ADENOVIRUS F 40/41 Not Detected (Not Detected); ASTROVIRUS Not Detected (Not Detected); C DIFFICILE TOXIN A/B Not Detected (Not Detected); CAMPYLOBACTER Not Detected (Not Detected); CRYPTOSPORIDIUM Not Detected (Not Detected); CYCLOSPORA CAYETANENSIS Not Detected (Not Detected); ENTAMOEBA HISTOLYTICA Not Detected (Not Detected); ENTEROAGGREGATIVE E COLI Not Detected (Not Detected); ENTEROPATHOGENIC E COLI Not Detected (Not Detected); ENTEROTOXIGENIC E COLI Not Detected (Not Detected); GIARDIA LAMBLIA Not Detected (Not Detected); NOROVIRUS GI/GII Not Detected (Not Detected); PLESIOMONAS SHIGELLOIDES Not Detected (Not Detected); ROTAVIRUS A Not Detected (Not Detected); SALMONELLA Not Detected (Not Detected); SAPOVIRUS Not Detected (Not Detected); SHIGA-TOXIN-PRODUCING E COLI Not Detected (Not Detected); SHIGELLA/ENTEROINVASIVE E COLI Not Detected (Not Detected); VIBRIO Not Detected (Not Detected); VIBRIO CHOLERAE Not Detected (Not Detected); YERSINIA ENTEROCOLITICA Not Detected (Not Detected)
[2023-10-17 05:32] LABS: BASOPHILS # (AUTO) 0.1 10^3/uL (0.0-0.1); BASOPHILS % (AUTO) 0.4 %; EOSINOPHILS % (AUTO) 0.1 %; HCT - HEMATOCRIT 34.8 % (42.0-52.0); HGB - HEMOGLOBIN 11.4 g/dL (14.0-18.0); LYMPHOCYTES # (AUTO) 6.8 10^3/uL (1.5-3.5); LYMPHOCYTES % (AUTO) 34.2 %; MEAN CORPUSCULAR HEMOGLOBIN 31.7 pg (27.0-31.0); MEAN CORPUSCULAR HGB CONC 32.8 g/dL (32.0-36.0); MEAN CORPUSCULAR VOLUME 96.7 fL (80.0-94.0); MEAN PLATELET VOLUME 9.6 fL (7.4-11.4); MONOCYTES # (AUTO) 1.1 10^3/uL (0.0-1.0); MONOCYTES % (AUTO) 5.6 %; NEUTROPHILS # (AUTO) 11.5 10^3/uL (1.5-6.6); NEUTROPHILS % (AUTO) 58.2 %; PLT - PLATELET COUNT 237 10^3/uL (130-450); RED CELL DISTRIBUTION WIDTH 12.5 % (12.0-15.0); WHITE BLOOD COUNT 19.8 x10^3/uL (4.8-10.8)
[2023-10-17 05:37] LABS: INR 1.9 (0.8-1.2); PT - PROTHROMBIN TIME 19.5 secs (9.9-12.6)
[2023-10-17 05:57] LABS: VBG PH 7.333 (7.31-7.41)
[2023-10-17 06:04] LABS: PHOSPHORUS 5.4 mg/dL (2.5-5.0)
[2023-10-17 06:06] LABS: ALBUMIN 2.2 g/dL (3.2-5.5); ALBUMIN/GLOBULIN RATIO 0.7 (1.0-2.2); BILIRUBIN,TOTAL 0.4 mg/dL (0.2-1.0); CALCIUM 7.3 mg/dL (8.5-10.3); CREATININE 3.2 mg/dL (0.6-1.3); POTASSIUM 3.8 mmol/L (3.5-4.5); TOTAL PROTEIN 5.2 g/dL (6.4-8.9)
[2023-10-17 06:45] LABS: PLATELET ESTIMATE, MANUAL NORMAL (130-450,000) (NORMAL); PLATELET MORPHOLOGY NORMAL APPEARANCE (NORMAL)
[2023-10-17 06:46] LABS: DIFFERENTIAL COMMENT MANUAL=AUTO DIFF
--- NOTE | 2023-10-17 07:53 | PROVIDER PROGRESS NOTE ---
Subjective - General Admit Date: 10/16/23 Procedure Date: 10/15/23 Post Op Days: 2 Procedure Performed: exploratory laparotomy, repair duodenal perforatio/perry patch, liver bx - Review of Systems Wound/Incisions: positive: Dressing dry and intact, Other (CHAPITO drain ssf) Drain Type: CHAPITO (behind perry patch Drain Output Description: serosanguinous Approximate mls Output: 140 All Other Systems: positive: Reviewed and negative - Other Other Information/Narrative: Pain controlled. Patient complaining of dry mouth and would like something to drink. He states he did not sleep well last night. He has not been out of bed since surgery. No n/v. No acute events overnight per RN. Objective - Patient Data Reviewed Vital Signs: Yes Vital Signs: Vital Signs x48h Temp Pulse Resp BP Pulse Ox 10/17/23 07:00 112 H 19 153/93 H 95 10/17/23 06:00 107 H 17 137/89 H 94 10/17/23 05:00 110 H 18 154/92 H 94 10/17/23 04:00 106 H 17 145/91 H 94 10/17/23 03:00 109 H 18 140/93 H 95 10/17/23 02:00 110 H 20 134/85 H 95 10/17/23 01:00 36.7 C 110 H 18 135/88 H 94 10/17/23 00:00 106 H 18 129/90 H 95 Weight: Weight 10/15/23 10/16/23 10/17/23 23:59 23:59 23:59 Weight (kg) 92.5 kg 96.5 kg Intake & Output: Intake and Output Totals x24h 10/15/23 10/16/23 10/17/23 23:59 23:59 23:59 Intake Total 1750 3593.15 1000 Output Total 611 1552 1080 Balance 1139 2041.15 -80 - Lab Results Lab Results: 10/17/23 04:42 10/17/23 04:42 Other Lab Results: Lab Results x24hrs 10/17/23 10/17/23 10/17/23 Range/Units 05:57 04:42 04:42 WBC (4.8-10.8) x10^3/uL RBC (4.70-6.10) 10^6/uL Hgb (14.0-18.0) g/dL Hct (42.0-52.0) % MCV (80.0-94.0) fL MCH (27.0-31.0) pg MCHC (32.0-36.0) g/dL RDW (12.0-15.0) % Plt Count (130-450) 10^3/uL MPV (7.4-11.4) fL Neut # (Auto) Lymph # (Auto) Lamb # (Auto) Eos # (Auto) Baso # (Auto) Absolute Nucleated RBC Total Counted Band Neuts % (Manual) (0 - 10) % Reactive Lymphs % (Man) % Abnorm Lymph % (Manual) % Metamyelocytes % ( - 0) % Nucleated RBC % Neutrophils # (Manual) (1.5-6.6) 10^3/uL Lymphocytes # (Manual) (1.5-3.5) 10^3/uL Monocytes # (Manual) (0.0-1.0) 10^3/uL Eosinophils # (Manual) (0-0.7) 10^3/uL Basophils # (Manual) (0-0.1) 10^3/uL Differential Comment Platelet Estimate (NORMAL) Platelet Morphology (NORMAL) RBC Morph Micro Appear (NORMAL) PT 19.5 H (9.9-12.6) secs INR 1.9 H (0.8-1.2) VBG pH 7.333 (7.31-7.41) Ionized Calcium 1.00 L (1.15-1.33) mmol/L Sodium (135-145) mmol/L Potassium (3.5-4.5) mmol/L Chloride (101-111) mmol/L Carbon Dioxide (21-32) mmol/L Anion Gap (6-13) BUN (6-20) mg/dL Creatinine (0.6-1.3) mg/dL Estimated GFR (MDRD) (>89) Glucose (74-104) mg/dL POC Whole Bld Glucose 217 H (70 - 100) mg/dL Calcium (8.5-10.3) mg/dL Phosphorus (2.5-5.0) mg/dL Magnesium (1.7-2.3) mg/dL Total Bilirubin (0.2-1.0) mg/dL AST (10-42) IU/L ALT (10-60) IU/L Alkaline Phosphatase (42-121) IU/L Ammonia (18-72) umol/L Total Protein (6.4-8.9) g/dL Albumin (3.2-5.5) g/dL Globulin (2.1-4.2) g/dL Albumin/Globulin Ratio (1.0-2.2) Prealbumin (17-34) mg/dL Triglycerides (48-352) mg/dL Stl C. cayetanensis PCR (Not Detected) Stool Rotavirus A PCR (Not Detected) Stl Adenov F 40/41 PCR (Not Detected) Stool Astrovirus (PCR) (Not Detected) Stool Campylobacter PCR (Not Detected) Stl C. diff Tox A/B PCR (Not Detected) Stool Cryptosporidium PCR (Not Detected) Stl Sh Tox Pr E STEC PCR (Not Detected) Stool E coli O157 PCR (Not Detected) Stl Enterotoxigenic E PCR (Not Detected) Stool EPEC (PCR) (Not Detected) Stl E. histolytica PCR (Not Detected) Stool Giardia Lamblia PCR (Not Detected) Stl P. shigelloides PCR (Not Detected) Stool Salmonella PCR (Not Detected) Stool Sapovirus (PCR) (Not Detected) Stl Shigella/EIEC PCR (Not Detected) St Y.enterocolitica PCR (Not Detected) Stool Vibrio (PCR) (Not Detected) Stl Vibrio cholerae PCR (Not Detected) Stl Enteroaggr Ecoli PCR (Not Detected) Stl Norovirus GI/GII PCR (Not Detected) 10/17/23 10/17/23 10/16/23 Range/Units 04:42 04:42 23:52 WBC 19.8 H (4.8-10.8) x10^3/uL RBC 3.60 L (4.70-6.10) 10^6/uL Hgb 11.4 L (14.0-18.0) g/dL Hct 34.8 L (42.0-52.0) % MCV 96.7 H (80.0-94.0) fL MCH 31.7 H (27.0-31.0) pg MCHC 32.8 (32.0-36.0) g/dL RDW 12.5 (12.0-15.0) % Plt Count 237 (130-450) 10^3/uL MPV 9.6 (7.4-11.4) fL Neut # (Auto) 11.5 H Lymph # (Auto) 6.8 H Lamb # (Auto) 1.1 H Eos # (Auto) 0.0 Baso # (Auto) 0.1 Absolute Nucleated RBC 0.00 Total Counted Band Neuts % (Manual) Not Reportable (0 - 10) % Reactive Lymphs % (Man) % Abnorm Lymph % (Manual) Not Reportable % Metamyelocytes % ( - 0) % Nucleated RBC % 0.0 Neutrophils # (Manual) Not Reportable (1.5-6.6) 10^3/uL Lymphocytes # (Manual) Not Reportable (1.5-3.5) 10^3/uL Monocytes # (Manual) Not Reportable (0.0-1.0) 10^3/uL Eosinophils # (Manual) Not Reportable (0-0.7) 10^3/uL Basophils # (Manual) Not Reportable (0-0.1) 10^3/uL Differential Comment MANUAL=AUTO DIFF Platelet Estimate NORMAL (130-450,000) (NORMAL) Platelet Morphology NORMAL APPEARANCE (NORMAL) RBC Morph Micro Appear (NORMAL) PT (9.9-12.6) secs INR (0.8-1.2) VBG pH (7.31-7.41) Ionized Calcium (1.15-1.33) mmol/L Sodium 132 L (135-145) mmol/L Potassium 3.8 (3.5-4.5) mmol/L Chloride 104 (101-111) mmol/L Carbon Dioxide 17 L (21-32) mmol/L Anion Gap 11.0 (6-13) BUN 94 H* (6-20) mg/dL Creatinine 3.2 H (0.6-1.3) mg/dL Estimated GFR (MDRD) 19 L (>89) Glucose 257 H (74-104) mg/dL POC Whole Bld Glucose 223 H (70 - 100) mg/dL Calcium 7.3 L (8.5-10.3) mg/dL Phosphorus 5.4 H (2.5-5.0) mg/dL Magnesium 2.0 (1.7-2.3) mg/dL Total Bilirubin 0.4 (0.2-1.0) mg/dL AST 24 (10-42) IU/L ALT 23 (10-60) IU/L Alkaline Phosphatase 96 (42-121) IU/L Ammonia (18-72) umol/L Total Protein 5.2 L (6.4-8.9) g/dL Albumin 2.2 L (3.2-5.5) g/dL Globulin 3.0 (2.1-4.2) g/dL Albumin/Globulin Ratio 0.7 L (1.0-2.2) Prealbumin 6 L (17-34) mg/dL Triglycerides 130 (48-352) mg/dL Stl C. cayetanensis PCR (Not Detected) Stool Rotavirus A PCR (Not Detected) Stl Adenov F 40/41 PCR (Not Detected) Stool Astrovirus (PCR) (Not Detected) Stool Campylobacter PCR (Not Detected) Stl C. diff Tox A/B PCR (Not Detected) Stool Cryptosporidium PCR (Not Detected) Stl Sh Tox Pr E STEC PCR (Not Detected) Stool E coli O157 PCR (Not Detected) Stl Enterotoxigenic E PCR (Not Detected) Stool EPEC (PCR) (Not Detected) Stl E. histolytica PCR (Not Detected) Stool Giardia Lamblia PCR (Not Detected) Stl P. shigelloides PCR (Not Detected) Stool Salmonella PCR (Not Detected) Stool Sapovirus (PCR) (Not Detected) Stl Shigella/EIEC PCR (Not Detected) St Y.enterocolitica PCR (Not Detected) Stool Vibrio (PCR) (Not Detected) Stl Vibrio cholerae PCR (Not Detected) Stl Enteroaggr Ecoli PCR (Not Detected) Stl Norovirus GI/GII PCR (Not Detected) 10/16/23 10/16/23 10/16/23 Range/Units 21:12 18:05 13:51 WBC (4.8-10.8) x10^3/uL RBC (4.70-6.10) 10^6/uL Hgb (14.0-18.0) g/dL Hct (42.0-52.0) % MCV (80.0-94.0) fL MCH (27.0-31.0) pg MCHC (32.0-36.0) g/dL RDW (12.0-15.0) % Plt Count (130-450) 10^3/uL MPV (7.4-11.4) fL Neut # (Auto) Lymph # (Auto) Lamb # (Auto) Eos # (Auto) Baso # (Auto) Absolute Nucleated RBC Total Counted Band Neuts % (Manual) (0 - 10) % Reactive Lymphs % (Man) % Abnorm Lymph % (Manual) % Metamyelocytes % ( - 0) % Nucleated RBC % Neutrophils # (Manual) (1.5-6.6) 10^3/uL Lymphocytes # (Manual) (1.5-3.5) 10^3/uL Monocytes # (Manual) (0.0-1.0) 10^3/uL Eosinophils # (Manual) (0-0.7) 10^3/uL Basophils # (Manual) (0-0.1) 10^3/uL Differential Comment Platelet Estimate (NORMAL) Platelet Morphology (NORMAL) RBC Morph Micro Appear (NORMAL) PT (9.9-12.6) secs INR (0.8-1.2) VBG pH (7.31-7.41) Ionized Calcium (1.15-1.33) mmol/L Sodium (135-145) mmol/L Potassium (3.5-4.5) mmol/L Chloride (101-111) mmol/L Carbon Dioxide (21-32) mmol/L Anion Gap (6-13) BUN (6-20) mg/dL Creatinine (0.6-1.3) mg/dL Estimated GFR (MDRD) (>89) Glucose (74-104) mg/dL POC Whole Bld Glucose 241 H 195 H (70 - 100) mg/dL Calcium (8.5-10.3) mg/dL Phosphorus (2.5-5.0) mg/dL Magnesium (1.7-2.3) mg/dL Total Bilirubin (0.2-1.0) mg/dL AST (10-42) IU/L ALT (10-60) IU/L Alkaline Phosphatase (42-121) IU/L Ammonia 25.3 (18-72) umol/L Total Protein (6.4-8.9) g/dL Albumin (3.2-5.5) g/dL Globulin (2.1-4.2) g/dL Albumin/Globulin Ratio (1.0-2.2) Prealbumin (17-34) mg/dL Triglycerides (48-352) mg/dL Stl C. cayetanensis PCR (Not Detected) Stool Rotavirus A PCR (Not Detected) Stl Adenov F 40/41 PCR (Not Detected) Stool Astrovirus (PCR) (Not Detected) Stool Campylobacter PCR (Not Detected) Stl C. diff Tox A/B PCR (Not Detected) Stool Cryptosporidium PCR (Not Detected) Stl Sh Tox Pr E STEC PCR (Not Detected) Stool E coli O157 PCR (Not Detected) Stl Enterotoxigenic E PCR (Not Detected) Stool EPEC (PCR) (Not Detected) Stl E. histolytica PCR (Not Detected) Stool Giardia Lamblia PCR (Not Detected) Stl P. shigelloides PCR (Not Detected) Stool Salmonella PCR (Not Detected) Stool Sapovirus (PCR) (Not Detected) Stl Shigella/EIEC PCR (Not Detected) St Y.enterocolitica PCR (Not Detected) Stool Vibrio (PCR) (Not Detected) Stl Vibrio cholerae PCR (Not Detected) Stl Enteroaggr Ecoli PCR (Not Detected) Stl Norovirus GI/GII PCR (Not Detected) 10/16/23 10/16/23 10/16/23 Range/Units 13:51 13:51 12:08 WBC 19.7 H (4.8-10.8) x10^3/uL RBC 3.56 L (4.70-6.10) 10^6/uL Hgb 11.3 L (14.0-18.0) g/dL Hct 34.5 L (42.0-52.0) % MCV 96.9 H (80.0-94.0) fL MCH 31.7 H (27.0-31.0) pg MCHC 32.8 (32.0-36.0) g/dL RDW 12.5 (12.0-15.0) % Plt Count 219 (130-450) 10^3/uL MPV 9.4 (7.4-11.4) fL Neut # (Auto) Not Reportable Lymph # (Auto) Not Reportable Lamb # (Auto) Not Reportable Eos # (Auto) Not Reportable Baso # (Auto) Not Reportable Absolute Nucleated RBC Not Reportable Total Counted 100 Band Neuts % (Manual) 10 (0 - 10) % Reactive Lymphs % (Man) 3 % Abnorm Lymph % (Manual) 0 % Metamyelocytes % 1 H ( - 0) % Nucleated RBC % Not Reportable Neutrophils # (Manual) 14.6 H (1.5-6.6) 10^3/uL Lymphocytes # (Manual) 4.3 H (1.5-3.5) 10^3/uL Monocytes # (Manual) 0.6 (0.0-1.0) 10^3/uL Eosinophils # (Manual) 0.0 (0-0.7) 10^3/uL Basophils # (Manual) 0.0 (0-0.1) 10^3/uL Differential Comment MANUAL DIFFERENTIAL Platelet Estimate (NORMAL) Platelet Morphology (NORMAL) RBC Morph Micro Appear 1+ ANISOCYTOSIS (NORMAL) PT (9.9-12.6) secs INR (0.8-1.2) VBG pH (7.31-7.41) Ionized Calcium (1.15-1.33) mmol/L Sodium 130 L (135-145) mmol/L Potassium 4.6 H (3.5-4.5) mmol/L Chloride 101 (101-111) mmol/L Carbon Dioxide 16 L (21-32) mmol/L Anion Gap 13.0 (6-13) BUN 91 H* (6-20) mg/dL Creatinine 3.4 H (0.6-1.3) mg/dL Estimated GFR (MDRD) 18 L (>89) Glucose 183 H (74-104) mg/dL POC Whole Bld Glucose 171 H (70 - 100) mg/dL Calcium 7.0 L (8.5-10.3) mg/dL Phosphorus 7.2 H (2.5-5.0) mg/dL Magnesium (1.7-2.3) mg/dL Total Bilirubin (0.2-1.0) mg/dL AST (10-42) IU/L ALT (10-60) IU/L Alkaline Phosphatase (42-121) IU/L Ammonia (18-72) umol/L Total Protein (6.4-8.9) g/dL Albumin (3.2-5.5) g/dL Globulin (2.1-4.2) g/dL Albumin/Globulin Ratio (1.0-2.2) Prealbumin (17-34) mg/dL Triglycerides (48-352) mg/dL Stl C. cayetanensis PCR (Not Detected) Stool Rotavirus A PCR (Not Detected) Stl Adenov F 40/41 PCR (Not Detected) Stool Astrovirus (PCR) (Not Detected) Stool Campylobacter PCR (Not Detected) Stl C. diff Tox A/B PCR (Not Detected) Stool Cryptosporidium PCR (Not Detected) Stl Sh Tox Pr E STEC PCR (Not Detected) Stool E coli O157 PCR (Not Detected) Stl Enterotoxigenic E PCR (Not Detected) Stool EPEC (PCR) (Not Detected) Stl E. histolytica PCR (Not Detected) Stool Giardia Lamblia PCR (Not Detected) Stl P. shigelloides PCR (Not Detected) Stool Salmonella PCR (Not Detected) Stool Sapovirus (PCR) (Not Detected) Stl Shigella/EIEC PCR (Not Detected) St Y.enterocolitica PCR (Not Detected) Stool Vibrio (PCR) (Not Detected) Stl Vibrio cholerae PCR (Not Detected) Stl Enteroaggr Ecoli PCR (Not Detected) Stl Norovirus GI/GII PCR (Not Detected) 10/16/23 10/16/23 10/15/23 Range/Units 07:57 05:37 14:20 WBC (4.8-10.8) x10^3/uL RBC (4.70-6.10) 10^6/uL Hgb (14.0-18.0) g/dL Hct (42.0-52.0) % MCV (80.0-94.0) fL MCH (27.0-31.0) pg MCHC (32.0-36.0) g/dL RDW (12.0-15.0) % Plt Count (130-450) 10^3/uL MPV (7.4-11.4) fL Neut # (Auto) Lymph # (Auto) Lamb # (Auto) Eos # (Auto) Baso # (Auto) Absolute Nucleated RBC Total Counted Band Neuts % (Manual) (0 - 10) % Reactive Lymphs % (Man) % Abnorm Lymph % (Manual) % Metamyelocytes % ( - 0) % Nucleated RBC % Neutrophils # (Manual) (1.5-6.6) 10^3/uL Lymphocytes # (Manual) (1.5-3.5) 10^3/uL Monocytes # (Manual) (0.0-1.0) 10^3/uL Eosinophils # (Manual) (0-0.7) 10^3/uL Basophils # (Manual) (0-0.1) 10^3/uL Differential Comment Platelet Estimate (NORMAL) Platelet Morphology (NORMAL) RBC Morph Micro Appear (NORMAL) PT (9.9-12.6) secs INR (0.8-1.2) VBG pH (7.31-7.41) Ionized Calcium (1.15-1.33) mmol/L Sodium 129 L (135-145) mmol/L Potassium 4.7 H (3.5-4.5) mmol/L Chloride 98 L (101-111) mmol/L Carbon Dioxide 17 L (21-32) mmol/L Anion Gap 14.0 H (6-13) BUN (6-20) mg/dL Creatinine 3.1 H (0.6-1.3) mg/dL Estimated GFR (MDRD) 20 L (>89) Glucose 204 H (74-104) mg/dL POC Whole Bld Glucose 196 H (70 - 100) mg/dL Calcium 7.3 L (8.5-10.3) mg/dL Phosphorus (2.5-5.0) mg/dL Magnesium (1.7-2.3) mg/dL Total Bilirubin 0.6 (0.2-1.0) mg/dL AST 23 (10-42) IU/L ALT 23 (10-60) IU/L Alkaline Phosphatase 79 (42-121) IU/L Ammonia (18-72) umol/L Total Protein 5.4 L (6.4-8.9) g/dL Albumin 2.2 L (3.2-5.5) g/dL Globulin 3.2 (2.1-4.2) g/dL Albumin/Globulin Ratio 0.7 L (1.0-2.2) Prealbumin (17-34) mg/dL Triglycerides (48-352) mg/dL Stl C. cayetanensis PCR Not Detected (Not Detected) Stool Rotavirus A PCR Not Detected (Not Detected) Stl Adenov F 40/41 PCR Not Detected (Not Detected) Stool Astrovirus (PCR) Not Detected (Not Detected) Stool Campylobacter PCR Not Detected (Not Detected) Stl C. diff Tox A/B PCR Not Detected (Not Detected) Stool Cryptosporidium PCR Not Detected (Not Detected) Stl Sh Tox Pr E STEC PCR Not Detected (Not Detected) Stool E coli O157 PCR Not applicable (Not Detected) Stl Enterotoxigenic E PCR Not Detected (Not Detected) Stool EPEC (PCR) Not Detected (Not Detected) Stl E. histolytica PCR Not Detected (Not Detected) Stool Giardia Lamblia PCR Not Detected (Not Detected) Stl P. shigelloides PCR Not Detected (Not Detected) Stool Salmonella PCR Not Detected (Not Detected) Stool Sapovirus (PCR) Not Detected (Not Detected) Stl Shigella/EIEC PCR Not Detected (Not Detected) St Y.enterocolitica PCR Not Detected (Not Detected) Stool Vibrio (PCR) Not Detected (Not Detected) Stl Vibrio cholerae PCR Not Detected (Not Detected) Stl Enteroaggr Ecoli PCR Not Detected (Not Detected) Stl Norovirus GI/GII PCR Not Detected (Not Detected) - Current Medications Current Medications: Current Medications Generic Name Dose Route Start Last Admin Trade Name Freq PRN Reason Stop Dose Admin Heparin Sodium (Porcine) 5,000 unit 10/16/23 14:00 10/17/23 06:07 Heparin 5,000 Unit/Ml Vial SUBQ 5,000 unit TID CYRIL Administration Hydromorphone HCl 0.5 mg 10/14/23 17:12 10/17/23 01:59 Hydromorphone 0.5 Mg/0.5 Ml Syringe IVP 0.5 mg Q2H PRN Administration Pain 8 to 10 Metronidazole 500 mg in 100 mls @ 100 mls/hr 10/15/23 13:00 10/17/23 04:36 Flagyl 500 Mg/100 Ml IV 10/19/23 23:59 100 mls/hr Q8H CYRIL Administration Multivitamins 10 ml/ TRACE 2,011 mls @ 83 mls/hr 10/16/23 19:00 10/16/23 17:09 ELEMENTS 1 ml/ Amino Ac/ IV 50 mls/hr Electrol/Dextrose/Calcium 1900 [facility] Infusion Protocol Fat Emulsion Intravenous 250 mls @ 21 mls/hr 10/16/23 19:00 10/16/23 18:39 Intralipid 20% IV 21 mls/hr 1900 CYRIL Administration Cefepime HCl 1 gm/ Sodium 100 mls @ 200 mls/hr 10/16/23 21:00 10/16/23 21:45 Chloride IV 10/17/23 21:59 Infused BID CYRIL Infusion Insulin Glargine-yfgn 10 unit 10/15/23 21:00 10/16/23 21:36 Insulin Glargine-Yfgn 300 Unit/3 Ml Pen SUBQ 10 unit QPM CYRIL Administration Insulin Glargine-yfgn 10 unit 10/15/23 11:00 10/16/23 08:45 Insulin Glargine-Yfgn 300 Unit/3 Ml Pen SUBQ 10 unit [id number] CYRIL Administration Insulin Human Regular 1 - 9 unit 10/16/23 12:00 10/17/23 06:08 Insulin Regular, Human 300 Unit/3 Ml Pen SUBQ 3 unit Q6HR CYRIL Administration Protocol Insulin Human Regular 3 unit 10/16/23 12:00 10/17/23 06:07 Insulin Regular, Human 300 Unit/3 Ml Pen SUBQ 3 unit Q6HR CYRIL Administration Pantoprazole Sodium 40 mg 10/15/23 21:00 10/16/23 21:12 Pantoprazole 40 Mg Vial IVP 40 mg BID CYRIL Administration Prochlorperazine Edisylate 10 mg 10/15/23 20:51 10/16/23 04:55 Prochlorperazine 10 Mg/2 Ml Vial IVP 10 mg Q6HR PRN Administration Nausea / Vomiting Sodium Chloride 10 ml 10/14/23 17:12 10/17/23 04:40 Sodium Chloride Flush 0.9% 10 Ml Syringe IVP 20 ml PRN PRN Administration NEEDED PER PROVIDER ORDERS Sodium Chloride 10 ml 10/15/23 01:00 10/17/23 00:03 Sodium Chloride Flush 0.9% 10 Ml Syringe IVP 10 ml 0100,0900,1700 YCRIL Administration Timolol Maleate 1 drops 10/16/23 15:00 10/16/23 15:57 Timolol 0.5% Ophth Drops EACHEYE 1 drops DAILY CYRIL Administration - Physical Exam Wound/Incisions: positive: Healing well, Dressing dry and intact General Appearance: positive: No acute distress Eyes Bilateral: positive: PERRL, EOMI ENT: positive: Dry mucous membranes Neck: positive: Trachea midline Respiratory: positive: Chest non-tender, No respiratory distress Cardiovascular: positive: Tachycardia Abdomen: positive: Tenderness (incisional, no r/g) Extremities: positive: Other (R LE cellulitis appears to be improving, MSI) Neurologic/Psychiatric: positive: Oriented x3 ABX Reporting Has patient been on IV antibiotics over the past 48 hours?: Yes Impression/Plan - Problem List Problem List: 68 y/o M with: 1. duodenal perforation with purulent peritonitis POD#2 s/p ex lap with repair of duodenal ulcer and perry patch for pneumoperitoneum (10/14/) - Consider small fluid bolus this AM given leukocytosis and borderline UOP (0.5mL/kg/hr for last 24 hrs) - Continue NGT, strict NPO, nothing per NGT until able to evaluate perforation on POD 3-5 (pending clinical status). Unable to obtain UGI at this facility due to lack of fluoroscopy. Exploring other options, likely will pursue blue ice study. - Continue CHAPITO drain to monitor for leak at repair site, 200mL serosang output yesterday (not bilious) - Continue TPN as per primary team, postop prealbumin was 6 (CRP 25) (Note was unable to place distal feeding tube intraoperatively as dpbhoff tube was unable to be located during relevant portion of case) - Continue BID PPI - Abx for foregut coverage with purulent peritonitis - peritoneal fluid cx are pending though gram stain has no organisms. Adding fluconazole today given persistent leukocytosis and tachycardia. - 2/2 blood cx at time of admission growing GPC's - f/u bx of duodenal ulcer margins (1cm perf in D1), liver bx - TID hep dvt ppx - Ok to d/c rao from surgery standpoint - silver dressing in place, karen will need to come out around POD 12 2. RLE cellulitis/myositits - improving by physical exam - as per primary team with ortho consult 3. previously undiagnosed DM - IM primary team managing blood glucose (improving 300s to high-100s) 4.ZEINA - Cr stable this AM - IVF resuscitation being managed by IM. Consider IVF bolus this AM 5.previously undiagnosed alcoholic cirrhosis, based on etoh hx and appearance of liver intraoperatively ---f/u liver biopsies, counseling re etoh-cessation, ongoing outpatient f/u Agree with PT/OT consultation to increase activity. No lifting/pushing/pulling more than 20 lbs. Abd binder ordered. Patient status remains guarded. Admitted to ICU. Thank you for consulting us in the care of this patient. We will continue to follow closely. Yohana Shah MD FACS General Surgeon
[2023-10-17] MEDS: SODIUM CHLORIDE 0.9% 1,000 ML IV SCH (08:00)
[2023-10-17] MEDS: VANCOMYCIN INJ 1 GM in SODIUM CHLORIDE 0.9% 250 ML IV SCH (08:26)
[2023-10-17] MEDS: SODIUM CHLORIDE 0.9% 1,000 ML IV ONE (08:48)
[2023-10-17] MEDS: FLUCONAZOLE 200 MG/100 ML 100 ML IV SCH (08:49)
--- NOTE | 2023-10-17 11:13 | PROVIDER PROGRESS NOTE ---
Subjective - Prog Note Date Prog Note Date: 10/17/23 Prog Note Time: 11:12 Objective - Vital Signs/Intake & Output Vital Signs: Vital Signs Temp Pulse Resp BP Pulse Ox 10/17/23 10:00 92 17 144/85 H 96 10/17/23 09:00 99 15 140/98 H 95 10/17/23 08:00 98.1 C H 116 H 19 143/96 H 94 Intake & Output: Intake & Output 10/14/23 10/15/23 10/16/23 10/17/23 23:59 23:59 23:59 23:59 Intake Total 2310 1750 3593.15 1855 Output Total 173 066 5219 1825 Balance 2035 1139 2041.15 30 - Lab Results Fish Bones: 10/17/23 04:42 10/17/23 04:42 Other Labs: Lab Results x24hrs 10/17/23 10/17/23 10/17/23 Range/Units 05:57 04:42 04:42 WBC (4.8-10.8) x10^3/uL RBC (4.70-6.10) 10^6/uL Hgb (14.0-18.0) g/dL Hct (42.0-52.0) % MCV (80.0-94.0) fL MCH (27.0-31.0) pg MCHC (32.0-36.0) g/dL RDW (12.0-15.0) % Plt Count (130-450) 10^3/uL MPV (7.4-11.4) fL Neut # (Auto) Lymph # (Auto) [place] # (Auto) Eos # (Auto) Baso # (Auto) Absolute Nucleated RBC Total Counted Band Neuts % (Manual) (0 - 10) % Reactive Lymphs % (Man) % Abnorm Lymph % (Manual) % Metamyelocytes % ( - 0) % Nucleated RBC % Neutrophils # (Manual) (1.5-6.6) 10^3/uL Lymphocytes # (Manual) (1.5-3.5) 10^3/uL Monocytes # (Manual) (0.0-1.0) 10^3/uL Eosinophils # (Manual) (0-0.7) 10^3/uL Basophils # (Manual) (0-0.1) 10^3/uL Differential Comment Platelet Estimate (NORMAL) Platelet Morphology (NORMAL) RBC Morph Micro Appear (NORMAL) PT 19.5 H (9.9-12.6) secs INR 1.9 H (0.8-1.2) VBG pH 7.333 (7.31-7.41) Ionized Calcium 1.00 L (1.15-1.33) mmol/L Sodium (135-145) mmol/L Potassium (3.5-4.5) mmol/L Chloride (101-111) mmol/L Carbon Dioxide (21-32) mmol/L Anion Gap (6-13) BUN (6-20) mg/dL Creatinine (0.6-1.3) mg/dL Estimated GFR (MDRD) (>89) Glucose (74-104) mg/dL POC Whole Bld Glucose 217 H (70 - 100) mg/dL Calcium (8.5-10.3) mg/dL Phosphorus (2.5-5.0) mg/dL Magnesium (1.7-2.3) mg/dL Total Bilirubin (0.2-1.0) mg/dL AST (10-42) IU/L ALT (10-60) IU/L Alkaline Phosphatase (42-121) IU/L Ammonia (18-72) umol/L Total Protein (6.4-8.9) g/dL Albumin (3.2-5.5) g/dL Globulin (2.1-4.2) g/dL Albumin/Globulin Ratio (1.0-2.2) Prealbumin (17-34) mg/dL Triglycerides (48-352) mg/dL Stl C. cayetanensis PCR (Not Detected) Stool Rotavirus A PCR (Not Detected) Stl Adenov F 40/41 PCR (Not Detected) Stool Astrovirus (PCR) (Not Detected) Stool Campylobacter PCR (Not Detected) Stl C. diff Tox A/B PCR (Not Detected) Stool Cryptosporidium PCR (Not Detected) Stl Sh Tox Pr E STEC PCR (Not Detected) Stool E coli O157 PCR (Not Detected) Stl Enterotoxigenic E PCR (Not Detected) Stool EPEC (PCR) (Not Detected) Stl E. histolytica PCR (Not Detected) Stool Giardia Lamblia PCR (Not Detected) Stl P. shigelloides PCR (Not Detected) Stool Salmonella PCR (Not Detected) Stool Sapovirus (PCR) (Not Detected) Stl Shigella/EIEC PCR (Not Detected) St Y.enterocolitica PCR (Not Detected) Stool Vibrio (PCR) (Not Detected) Stl Vibrio cholerae PCR (Not Detected) Stl Enteroaggr Ecoli PCR (Not Detected) Stl Norovirus GI/GII PCR (Not Detected) 10/17/23 10/17/23 10/16/23 Range/Units 04:42 04:42 23:52 WBC 19.8 H (4.8-10.8) x10^3/uL RBC 3.60 L (4.70-6.10) 10^6/uL Hgb 11.4 L (14.0-18.0) g/dL Hct 34.8 L (42.0-52.0) % MCV 96.7 H (80.0-94.0) fL MCH 31.7 H (27.0-31.0) pg MCHC 32.8 (32.0-36.0) g/dL RDW 12.5 (12.0-15.0) % Plt Count 237 (130-450) 10^3/uL MPV 9.6 (7.4-11.4) fL Neut # (Auto) 11.5 H Lymph # (Auto) 6.8 H [place] # (Auto) 1.1 H Eos # (Auto) 0.0 Baso # (Auto) 0.1 Absolute Nucleated RBC 0.00 Total Counted Band Neuts % (Manual) Not Reportable (0 - 10) % Reactive Lymphs % (Man) % Abnorm Lymph % (Manual) Not Reportable % Metamyelocytes % ( - 0) % Nucleated RBC % 0.0 Neutrophils # (Manual) Not Reportable (1.5-6.6) 10^3/uL Lymphocytes # (Manual) Not Reportable (1.5-3.5) 10^3/uL Monocytes # (Manual) Not Reportable (0.0-1.0) 10^3/uL Eosinophils # (Manual) Not Reportable (0-0.7) 10^3/uL Basophils # (Manual) Not Reportable (0-0.1) 10^3/uL Differential Comment MANUAL=AUTO DIFF Platelet Estimate NORMAL (130-450,000) (NORMAL) Platelet Morphology NORMAL APPEARANCE (NORMAL) RBC Morph Micro Appear (NORMAL) PT (9.9-12.6) secs INR (0.8-1.2) VBG pH (7.31-7.41) Ionized Calcium (1.15-1.33) mmol/L Sodium 132 L (135-145) mmol/L Potassium 3.8 (3.5-4.5) mmol/L Chloride 104 (101-111) mmol/L Carbon Dioxide 17 L (21-32) mmol/L Anion Gap 11.0 (6-13) BUN 94 H* (6-20) mg/dL Creatinine 3.2 H (0.6-1.3) mg/dL Estimated GFR (MDRD) 19 L (>89) Glucose 257 H (74-104) mg/dL POC Whole Bld Glucose 223 H (70 - 100) mg/dL Calcium 7.3 L (8.5-10.3) mg/dL Phosphorus 5.4 H (2.5-5.0) mg/dL Magnesium 2.0 (1.7-2.3) mg/dL Total Bilirubin 0.4 (0.2-1.0) mg/dL AST 24 (10-42) IU/L ALT 23 (10-60) IU/L Alkaline Phosphatase 96 (42-121) IU/L Ammonia (18-72) umol/L Total Protein 5.2 L (6.4-8.9) g/dL Albumin 2.2 L (3.2-5.5) g/dL Globulin 3.0 (2.1-4.2) g/dL Albumin/Globulin Ratio 0.7 L (1.0-2.2) Prealbumin 6 L (17-34) mg/dL Triglycerides 130 (48-352) mg/dL Stl C. cayetanensis PCR (Not Detected) Stool Rotavirus A PCR (Not Detected) Stl Adenov F 40/41 PCR (Not Detected) Stool Astrovirus (PCR) (Not Detected) Stool Campylobacter PCR (Not Detected) Stl C. diff Tox A/B PCR (Not Detected) Stool Cryptosporidium PCR (Not Detected) Stl Sh Tox Pr E STEC PCR (Not Detected) Stool E coli O157 PCR (Not Detected) Stl Enterotoxigenic E PCR (Not Detected) Stool EPEC (PCR) (Not Detected) Stl E. histolytica PCR (Not Detected) Stool Giardia Lamblia PCR (Not Detected) Stl P. shigelloides PCR (Not Detected) Stool Salmonella PCR (Not Detected) Stool Sapovirus (PCR) (Not Detected) Stl Shigella/EIEC PCR (Not Detected) St Y.enterocolitica PCR (Not Detected) Stool Vibrio (PCR) (Not Detected) Stl Vibrio cholerae PCR (Not Detected) Stl Enteroaggr Ecoli PCR (Not Detected) Stl Norovirus GI/GII PCR (Not Detected) 10/16/23 10/16/23 10/16/23 Range/Units 21:12 18:05 13:51 WBC (4.8-10.8) x10^3/uL RBC (4.70-6.10) 10^6/uL Hgb (14.0-18.0) g/dL Hct (42.0-52.0) % MCV (80.0-94.0) fL MCH (27.0-31.0) pg MCHC (32.0-36.0) g/dL RDW (12.0-15.0) % Plt Count (130-450) 10^3/uL MPV (7.4-11.4) fL Neut # (Auto) Lymph # (Auto) [place] # (Auto) Eos # (Auto) Baso # (Auto) Absolute Nucleated RBC Total Counted Band Neuts % (Manual) (0 - 10) % Reactive Lymphs % (Man) % Abnorm Lymph % (Manual) % Metamyelocytes % ( - 0) % Nucleated RBC % Neutrophils # (Manual) (1.5-6.6) 10^3/uL Lymphocytes # (Manual) (1.5-3.5) 10^3/uL Monocytes # (Manual) (0.0-1.0) 10^3/uL Eosinophils # (Manual) (0-0.7) 10^3/uL Basophils # (Manual) (0-0.1) 10^3/uL Differential Comment Platelet Estimate (NORMAL) Platelet Morphology (NORMAL) RBC Morph Micro Appear (NORMAL) PT (9.9-12.6) secs INR (0.8-1.2) VBG pH (7.31-7.41) Ionized Calcium (1.15-1.33) mmol/L Sodium (135-145) mmol/L Potassium (3.5-4.5) mmol/L Chloride (101-111) mmol/L Carbon Dioxide (21-32) mmol/L Anion Gap (6-13) BUN (6-20) mg/dL Creatinine (0.6-1.3) mg/dL Estimated GFR (MDRD) (>89) Glucose (74-104) mg/dL POC Whole Bld Glucose 241 H 195 H (70 - 100) mg/dL Calcium (8.5-10.3) mg/dL Phosphorus (2.5-5.0) mg/dL Magnesium (1.7-2.3) mg/dL Total Bilirubin (0.2-1.0) mg/dL AST (10-42) IU/L ALT (10-60) IU/L Alkaline Phosphatase (42-121) IU/L Ammonia 25.3 (18-72) umol/L Total Protein (6.4-8.9) g/dL Albumin (3.2-5.5) g/dL Globulin (2.1-4.2) g/dL Albumin/Globulin Ratio (1.0-2.2) Prealbumin (17-34) mg/dL Triglycerides (48-352) mg/dL Stl C. cayetanensis PCR (Not Detected) Stool Rotavirus A PCR (Not Detected) Stl Adenov F 40/41 PCR (Not Detected) Stool Astrovirus (PCR) (Not Detected) Stool Campylobacter PCR (Not Detected) Stl C. diff Tox A/B PCR (Not Detected) Stool Cryptosporidium PCR (Not Detected) Stl Sh Tox Pr E STEC PCR (Not Detected) Stool E coli O157 PCR (Not Detected) Stl Enterotoxigenic E PCR (Not Detected) Stool EPEC (PCR) (Not Detected) Stl E. histolytica PCR (Not Detected) Stool Giardia Lamblia PCR (Not Detected) Stl P. shigelloides PCR (Not Detected) Stool Salmonella PCR (Not Detected) Stool Sapovirus (PCR) (Not Detected) Stl Shigella/EIEC PCR (Not Detected) St Y.enterocolitica PCR (Not Detected) Stool Vibrio (PCR) (Not Detected) Stl Vibrio cholerae PCR (Not Detected) Stl Enteroaggr Ecoli PCR (Not Detected) Stl Norovirus GI/GII PCR (Not Detected) 10/16/23 10/16/23 10/16/23 Range/Units 13:51 13:51 12:08 WBC 19.7 H (4.8-10.8) x10^3/uL RBC 3.56 L (4.70-6.10) 10^6/uL Hgb 11.3 L (14.0-18.0) g/dL Hct 34.5 L (42.0-52.0) % MCV 96.9 H (80.0-94.0) fL MCH 31.7 H (27.0-31.0) pg MCHC 32.8 (32.0-36.0) g/dL RDW 12.5 (12.0-15.0) % Plt Count 219 (130-450) 10^3/uL MPV 9.4 (7.4-11.4) fL Neut # (Auto) Not Reportable Lymph # (Auto) Not Reportable [place] # (Auto) Not Reportable Eos # (Auto) Not Reportable Baso # (Auto) Not Reportable Absolute Nucleated RBC Not Reportable Total Counted 100 Band Neuts % (Manual) 10 (0 - 10) % Reactive Lymphs % (Man) 3 % Abnorm Lymph % (Manual) 0 % Metamyelocytes % 1 H ( - 0) % Nucleated RBC % Not Reportable Neutrophils # (Manual) 14.6 H (1.5-6.6) 10^3/uL Lymphocytes # (Manual) 4.3 H (1.5-3.5) 10^3/uL Monocytes # (Manual) 0.6 (0.0-1.0) 10^3/uL Eosinophils # (Manual) 0.0 (0-0.7) 10^3/uL Basophils # (Manual) 0.0 (0-0.1) 10^3/uL Differential Comment MANUAL DIFFERENTIAL Platelet Estimate (NORMAL) Platelet Morphology (NORMAL) RBC Morph Micro Appear 1+ ANISOCYTOSIS (NORMAL) PT (9.9-12.6) secs INR (0.8-1.2) VBG pH (7.31-7.41) Ionized Calcium (1.15-1.33) mmol/L Sodium 130 L (135-145) mmol/L Potassium 4.6 H (3.5-4.5) mmol/L Chloride 101 (101-111) mmol/L Carbon Dioxide 16 L (21-32) mmol/L Anion Gap 13.0 (6-13) BUN 91 H* (6-20) mg/dL Creatinine 3.4 H (0.6-1.3) mg/dL Estimated GFR (MDRD) 18 L (>89) Glucose 183 H (74-104) mg/dL POC Whole Bld Glucose 171 H (70 - 100) mg/dL Calcium 7.0 L (8.5-10.3) mg/dL Phosphorus 7.2 H (2.5-5.0) mg/dL Magnesium (1.7-2.3) mg/dL Total Bilirubin (0.2-1.0) mg/dL AST (10-42) IU/L ALT (10-60) IU/L Alkaline Phosphatase (42-121) IU/L Ammonia (18-72) umol/L Total Protein (6.4-8.9) g/dL Albumin (3.2-5.5) g/dL Globulin (2.1-4.2) g/dL Albumin/Globulin Ratio (1.0-2.2) Prealbumin (17-34) mg/dL Triglycerides (48-352) mg/dL Stl C. cayetanensis PCR (Not Detected) Stool Rotavirus A PCR (Not Detected) Stl Adenov F 40/41 PCR (Not Detected) Stool Astrovirus (PCR) (Not Detected) Stool Campylobacter PCR (Not Detected) Stl C. diff Tox A/B PCR (Not Detected) Stool Cryptosporidium PCR (Not Detected) Stl Sh Tox Pr E STEC PCR (Not Detected) Stool E coli O157 PCR (Not Detected) Stl Enterotoxigenic E PCR (Not Detected) Stool EPEC (PCR) (Not Detected) Stl E. histolytica PCR (Not Detected) Stool Giardia Lamblia PCR (Not Detected) Stl P. shigelloides PCR (Not Detected) Stool Salmonella PCR (Not Detected) Stool Sapovirus (PCR) (Not Detected) Stl Shigella/EIEC PCR (Not Detected) St Y.enterocolitica PCR (Not Detected) Stool Vibrio (PCR) (Not Detected) Stl Vibrio cholerae PCR (Not Detected) Stl Enteroaggr Ecoli PCR (Not Detected) Stl Norovirus GI/GII PCR (Not Detected) 10/15/23 Range/Units 14:20 WBC (4.8-10.8) x10^3/uL RBC (4.70-6.10) 10^6/uL Hgb (14.0-18.0) g/dL Hct (42.0-52.0) % MCV (80.0-94.0) fL MCH (27.0-31.0) pg MCHC (32.0-36.0) g/dL RDW (12.0-15.0) % Plt Count (130-450) 10^3/uL MPV (7.4-11.4) fL Neut # (Auto) Lymph # (Auto) [place] # (Auto) Eos # (Auto) Baso # (Auto) Absolute Nucleated RBC Total Counted Band Neuts % (Manual) (0 - 10) % Reactive Lymphs % (Man) % Abnorm Lymph % (Manual) % Metamyelocytes % ( - 0) % Nucleated RBC % Neutrophils # (Manual) (1.5-6.6) 10^3/uL Lymphocytes # (Manual) (1.5-3.5) 10^3/uL Monocytes # (Manual) (0.0-1.0) 10^3/uL Eosinophils # (Manual) (0-0.7) 10^3/uL Basophils # (Manual) (0-0.1) 10^3/uL Differential Comment Platelet Estimate (NORMAL) Platelet Morphology (NORMAL) RBC Morph Micro Appear (NORMAL) PT (9.9-12.6) secs INR (0.8-1.2) VBG pH (7.31-7.41) Ionized Calcium (1.15-1.33) mmol/L Sodium (135-145) mmol/L Potassium (3.5-4.5) mmol/L Chloride (101-111) mmol/L Carbon Dioxide (21-32) mmol/L Anion Gap (6-13) BUN (6-20) mg/dL Creatinine (0.6-1.3) mg/dL Estimated GFR (MDRD) (>89) Glucose (74-104) mg/dL POC Whole Bld Glucose (70 - 100) mg/dL Calcium (8.5-10.3) mg/dL Phosphorus (2.5-5.0) mg/dL Magnesium (1.7-2.3) mg/dL Total Bilirubin (0.2-1.0) mg/dL AST (10-42) IU/L ALT (10-60) IU/L Alkaline Phosphatase (42-121) IU/L Ammonia (18-72) umol/L Total Protein (6.4-8.9) g/dL Albumin (3.2-5.5) g/dL Globulin (2.1-4.2) g/dL Albumin/Globulin Ratio (1.0-2.2) Prealbumin (17-34) mg/dL Triglycerides (48-352) mg/dL Stl C. cayetanensis PCR Not Detected (Not Detected) Stool Rotavirus A PCR Not Detected (Not Detected) Stl Adenov F 40/41 PCR Not Detected (Not Detected) Stool Astrovirus (PCR) Not Detected (Not Detected) Stool Campylobacter PCR Not Detected (Not Detected) Stl C. diff Tox A/B PCR Not Detected (Not Detected) Stool Cryptosporidium PCR Not Detected (Not Detected) Stl Sh Tox Pr E STEC PCR Not Detected (Not Detected) Stool E coli O157 PCR Not applicable (Not Detected) Stl Enterotoxigenic E PCR Not Detected (Not Detected) Stool EPEC (PCR) Not Detected (Not Detected) Stl E. histolytica PCR Not Detected (Not Detected) Stool Giardia Lamblia PCR Not Detected (Not Detected) Stl P. shigelloides PCR Not Detected (Not Detected) Stool Salmonella PCR Not Detected (Not Detected) Stool Sapovirus (PCR) Not Detected (Not Detected) Stl Shigella/EIEC PCR Not Detected (Not Detected) St Y.enterocolitica PCR Not Detected (Not Detected) Stool Vibrio (PCR) Not Detected (Not Detected) Stl Vibrio cholerae PCR Not Detected (Not Detected) Stl Enteroaggr Ecoli PCR Not Detected (Not Detected) Stl Norovirus GI/GII PCR Not Detected (Not Detected) Sepsis Event Note (H) - Evaluation Current Stage of Sepsis: Sepsis Possible source of Sepsis: positive: Bone/Joint, GI tract/intra-abdominal - Sepsis Criteria Sepsis Criteria: Recorded Heart Rate greater than 90 bpm, WBC count greater than 12,000 or less than 4000, [employer]: altered consciousness (unrelated to primary neuro pathology), Renal: urine output less than 0.5ml/kg/hr for 2 hours or creatinine gr Assessment/Plan - Problem List (4) Cellulitis Qualifiers: Site of cellulitis: extremity Site of cellulitis of extremity: lower extremity Laterality: right Qualified Code(s): L03.115 - Cellulitis of right lower limb
[2023-10-17] MEDS: INSULIN REGULAR, HUMAN 300 UNIT/3 ML PEN SUBQ SCH ×2 (12:11→18:07)
--- NOTE | 2023-10-17 15:40 | PROVIDER PROGRESS NOTE ---
Subjective - Prog Note Date Prog Note Date: 10/17/23 Prog Note Time: 08:00 - Subjective Pt reports feeling: No change Subjective: Desperately wants to drink water. He was surprised to learn of his intra- abdominal pathology. When questioned about his previous alcohol use he is able to relate to me that he drank "a lot". He does not want to admit to exactly how much he might have been drinking on a daily basis. he has no complaints with regards to discomfort in his lower extremities. his shoulder pain is now gone this AM Current Medications - Current Medications Current Medications: Medications Heparin Sodium (Porcine) (Heparin 5,000 Unit/Ml Vial) 5,000 unit SUBQ TID [facility] Last Admin: 10/17/23 14:01 Dose: 5,000 unit Insulin Glargine-yfgn (Insulin Glargine-Yfgn 300 Unit/3 Ml Pen) 10 unit SUBQ QPM [facility] Last Admin: 10/16/23 21:36 Dose: 10 unit Multivitamins 10 ml/ TRACE ELEMENTS 1 ml/ Amino Ac/Electrol/Dextrose/Calcium 2,011 mls @ 65 mls/hr IV 1900 [facility]; Protocol Last Admin: 10/17/23 10:15 Dose: 65 mls/hr Cefepime HCl 1 gm/ Sodium (Chloride) 100 mls @ 200 mls/hr IV Q24H [facility] Fat Emulsion Intravenous (Intralipid 20%) 250 mls @ 21 mls/hr IV 1900 [facility] Last Admin: 10/17/23 11:51 Dose: Infused Fluconazole (Diflucan 200 Mg/100 Ml) 100 mls @ 200 mls/hr IV DAILY [facility] Last Admin: 10/17/23 11:48 Dose: Infused Hydromorphone HCl (Hydromorphone 0.5 Mg/0.5 Ml Syringe) 0.5 mg IVP Q2H PRN PRN Reason: Pain 8 to 10 Last Admin: 10/17/23 14:01 Dose: 0.5 mg Insulin Glargine-yfgn (Insulin Glargine-Yfgn 300 Unit/3 Ml Pen) 10 unit SUBQ QDBREAKFAST [facility] Last Admin: 10/17/23 08:25 Dose: 10 unit Insulin Human Regular (Insulin Regular, Human 300 Unit/3 Ml Pen) 6 unit SUBQ Q6HR [facility] Last Admin: 10/17/23 12:11 Dose: 6 unit Insulin Human Regular (Insulin Regular, Human 300 Unit/3 Ml Pen) 3 - 11 unit SUBQ Q6HR [facility]; Protocol Lorazepam (Lorazepam 2 Mg/Ml Vial) 0.5 mg IVP Q4H PRN PRN Reason: Anxiety Metronidazole (Flagyl 500 Mg/100 Ml) 500 mg in 100 mls @ 100 mls/hr IV Q8H [facility] Stop: 10/19/23 23:59 Last Admin: 10/17/23 14:38 Dose: Infused Ondansetron HCl (Ondansetron 4 Mg/2 Ml Vial) 4 mg IVP Q6HR PRN PRN Reason: Nausea / Vomiting Pantoprazole Sodium (Pantoprazole 40 Mg Vial) 40 mg IVP BID [facility] Last Admin: 10/17/23 08:24 Dose: 40 mg Vancomycin HCl 1 gm/ Sodium (Chloride) 250 mls @ 250 mls/hr IV Q48H [facility] Last Admin: 10/17/23 11:48 Dose: Infused Timolol Maleate (Timolol 0.5% Ophth Drops) 1 drops EACHEYE DAILY [facility] Last Admin: 10/17/23 08:23 Dose: 1 drops Objective - Vital Signs/Intake & Output Reviewed Vital Signs: Yes Vital Signs: Vital Signs Temp Pulse Resp BP Pulse Ox 10/17/23 14:00 100 18 137/89 H 96 10/17/23 13:00 98 19 138/93 H 95 10/17/23 12:00 36.3 C L 97 18 145/94 H 18 L Intake & Output: Intake & Output 10/14/23 10/15/23 10/16/23 10/17/23 23:59 23:59 23:59 23:59 Intake Total 2310 1750 3593.15 5317.5 Output Total 586 444 4033 2790 Balance 2035 1139 2041.15 2527.5 - Objective General Appearance: positive: Mild distress Eyes Bilateral: positive: Normal inspection ENT: positive: Dry mucous membranes Neck: positive: Nml inspection, No JVD Respiratory: positive: No respiratory distress, Breath sounds nml Cardiovascular: positive: Tachycardia Abdomen: positive: Tenderness (appropriately tender. there is no drainage on the dressing. CHAPITO without bilious drainage- some serosanguinous drainage in the bulb.) Back: positive: Nml inspection Skin: positive: Other (The hemorrhagic blister remains intact. There is edema of the foot, but erythema continues to receed. The MTP joint is has an effusion .) Extremities: positive: Pedal edema (mild bilateral pedal edema. right>Left, see comments about cellulitis.) Neurologic/Psychiatric: positive: Oriented x3, Mood/affect nml - Lab Results Fish Bones: 10/17/23 04:42 10/17/23 04:42 Other Labs: Lab Results x24hrs 10/17/23 10/17/23 10/17/23 Range/Units 11:41 05:57 04:42 WBC (4.8-10.8) x10^3/uL RBC (4.70-6.10) 10^6/uL Hgb (14.0-18.0) g/dL Hct (42.0-52.0) % MCV (80.0-94.0) fL MCH (27.0-31.0) pg MCHC (32.0-36.0) g/dL RDW (12.0-15.0) % Plt Count (130-450) 10^3/uL MPV (7.4-11.4) fL Neut # (Auto) (1.5-6.6) 10^3/uL Lymph # (Auto) (1.5-3.5) 10^3/uL Bertie # (Auto) (0.0-1.0) 10^3/uL Eos # (Auto) (0.0-0.7) 10^3/uL Baso # (Auto) (0.0-0.1) 10^3/uL Absolute Nucleated RBC x10^3/uL Band Neuts % (Manual) Abnorm Lymph % (Manual) Nucleated RBC % /100WBC Neutrophils # (Manual) Lymphocytes # (Manual) Monocytes # (Manual) Eosinophils # (Manual) Basophils # (Manual) Differential Comment Platelet Estimate (NORMAL) Platelet Morphology (NORMAL) PT 19.5 H (9.9-12.6) secs INR 1.9 H (0.8-1.2) VBG pH (7.31-7.41) Ionized Calcium (1.15-1.33) mmol/L Sodium (135-145) mmol/L Potassium (3.5-4.5) mmol/L Chloride (101-111) mmol/L Carbon Dioxide (21-32) mmol/L Anion Gap (6-13) BUN (6-20) mg/dL Creatinine (0.6-1.3) mg/dL Estimated GFR (MDRD) (>89) Glucose (74-104) mg/dL POC Whole Bld Glucose 225 H 217 H (70 - 100) mg/dL Calcium (8.5-10.3) mg/dL Phosphorus (2.5-5.0) mg/dL Magnesium (1.7-2.3) mg/dL Total Bilirubin (0.2-1.0) mg/dL AST (10-42) IU/L ALT (10-60) IU/L Alkaline Phosphatase (42-121) IU/L Total Protein (6.4-8.9) g/dL Albumin (3.2-5.5) g/dL Globulin (2.1-4.2) g/dL Albumin/Globulin Ratio (1.0-2.2) Prealbumin (17-34) mg/dL Triglycerides (48-352) mg/dL Stl C. cayetanensis PCR (Not Detected) Stool Rotavirus A PCR (Not Detected) Stl Adenov F 40/41 PCR (Not Detected) Stool Astrovirus (PCR) (Not Detected) Stool Campylobacter PCR (Not Detected) Stl C. diff Tox A/B PCR (Not Detected) Stool Cryptosporidium PCR (Not Detected) Stl Sh Tox Pr E STEC PCR (Not Detected) Stool E coli O157 PCR (Not Detected) Stl Enterotoxigenic E PCR (Not Detected) Stool EPEC (PCR) (Not Detected) Stl E. histolytica PCR (Not Detected) Stool Giardia Lamblia PCR (Not Detected) Stl P. shigelloides PCR (Not Detected) Stool Salmonella PCR (Not Detected) Stool Sapovirus (PCR) (Not Detected) Stl Shigella/EIEC PCR (Not Detected) St Y.enterocolitica PCR (Not Detected) Stool Vibrio (PCR) (Not Detected) Stl Vibrio cholerae PCR (Not Detected) Stl Enteroaggr Ecoli PCR (Not Detected) Stl Norovirus GI/GII PCR (Not Detected) 10/17/23 10/17/23 10/17/23 Range/Units 04:42 04:42 04:42 WBC 19.8 H (4.8-10.8) x10^3/uL RBC 3.60 L (4.70-6.10) 10^6/uL Hgb 11.4 L (14.0-18.0) g/dL Hct 34.8 L (42.0-52.0) % MCV 96.7 H (80.0-94.0) fL MCH 31.7 H (27.0-31.0) pg MCHC 32.8 (32.0-36.0) g/dL RDW 12.5 (12.0-15.0) % Plt Count 237 (130-450) 10^3/uL MPV 9.6 (7.4-11.4) fL Neut # (Auto) 11.5 H (1.5-6.6) 10^3/uL Lymph # (Auto) 6.8 H (1.5-3.5) 10^3/uL Bertie # (Auto) 1.1 H (0.0-1.0) 10^3/uL Eos # (Auto) 0.0 (0.0-0.7) 10^3/uL Baso # (Auto) 0.1 (0.0-0.1) 10^3/uL Absolute Nucleated RBC 0.00 x10^3/uL Band Neuts % (Manual) Not Reportable Abnorm Lymph % (Manual) Not Reportable Nucleated RBC % 0.0 /100WBC Neutrophils # (Manual) Not Reportable Lymphocytes # (Manual) Not Reportable Monocytes # (Manual) Not Reportable Eosinophils # (Manual) Not Reportable Basophils # (Manual) Not Reportable Differential Comment MANUAL=AUTO DIFF Platelet Estimate NORMAL (130-450,000) (NORMAL) Platelet Morphology NORMAL APPEARANCE (NORMAL) PT (9.9-12.6) secs INR (0.8-1.2) VBG pH 7.333 (7.31-7.41) Ionized Calcium 1.00 L (1.15-1.33) mmol/L Sodium 132 L (135-145) mmol/L Potassium 3.8 (3.5-4.5) mmol/L Chloride 104 (101-111) mmol/L Carbon Dioxide 17 L (21-32) mmol/L Anion Gap 11.0 (6-13) BUN 94 H* (6-20) mg/dL Creatinine 3.2 H (0.6-1.3) mg/dL Estimated GFR (MDRD) 19 L (>89) Glucose 257 H (74-104) mg/dL POC Whole Bld Glucose (70 - 100) mg/dL Calcium 7.3 L (8.5-10.3) mg/dL Phosphorus 5.4 H (2.5-5.0) mg/dL Magnesium 2.0 (1.7-2.3) mg/dL Total Bilirubin 0.4 (0.2-1.0) mg/dL AST 24 (10-42) IU/L ALT 23 (10-60) IU/L Alkaline Phosphatase 96 (42-121) IU/L Total Protein 5.2 L (6.4-8.9) g/dL Albumin 2.2 L (3.2-5.5) g/dL Globulin 3.0 (2.1-4.2) g/dL Albumin/Globulin Ratio 0.7 L (1.0-2.2) Prealbumin 6 L (17-34) mg/dL Triglycerides 130 (48-352) mg/dL Stl C. cayetanensis PCR (Not Detected) Stool Rotavirus A PCR (Not Detected) Stl Adenov F 40/41 PCR (Not Detected) Stool Astrovirus (PCR) (Not Detected) Stool Campylobacter PCR (Not Detected) Stl C. diff Tox A/B PCR (Not Detected) Stool Cryptosporidium PCR (Not Detected) Stl Sh Tox Pr E STEC PCR (Not Detected) Stool E coli O157 PCR (Not Detected) Stl Enterotoxigenic E PCR (Not Detected) Stool EPEC (PCR) (Not Detected) Stl E. histolytica PCR (Not Detected) Stool Giardia Lamblia PCR (Not Detected) Stl P. shigelloides PCR (Not Detected) Stool Salmonella PCR (Not Detected) Stool Sapovirus (PCR) (Not Detected) Stl Shigella/EIEC PCR (Not Detected) St Y.enterocolitica PCR (Not Detected) Stool Vibrio (PCR) (Not Detected) Stl Vibrio cholerae PCR (Not Detected) Stl Enteroaggr Ecoli PCR (Not Detected) Stl Norovirus GI/GII PCR (Not Detected) 10/16/23 10/16/23 10/16/23 Range/Units 23:52 21:12 18:05 WBC (4.8-10.8) x10^3/uL RBC (4.70-6.10) 10^6/uL Hgb (14.0-18.0) g/dL Hct (42.0-52.0) % MCV (80.0-94.0) fL MCH (27.0-31.0) pg MCHC (32.0-36.0) g/dL RDW (12.0-15.0) % Plt Count (130-450) 10^3/uL MPV (7.4-11.4) fL Neut # (Auto) (1.5-6.6) 10^3/uL Lymph # (Auto) (1.5-3.5) 10^3/uL Bertie # (Auto) (0.0-1.0) 10^3/uL Eos # (Auto) (0.0-0.7) 10^3/uL Baso # (Auto) (0.0-0.1) 10^3/uL Absolute Nucleated RBC x10^3/uL Band Neuts % (Manual) Abnorm Lymph % (Manual) Nucleated RBC % /100WBC Neutrophils # (Manual) Lymphocytes # (Manual) Monocytes # (Manual) Eosinophils # (Manual) Basophils # (Manual) Differential Comment Platelet Estimate (NORMAL) Platelet Morphology (NORMAL) PT (9.9-12.6) secs INR (0.8-1.2) VBG pH (7.31-7.41) Ionized Calcium (1.15-1.33) mmol/L Sodium (135-145) mmol/L Potassium (3.5-4.5) mmol/L Chloride (101-111) mmol/L Carbon Dioxide (21-32) mmol/L Anion Gap (6-13) BUN (6-20) mg/dL Creatinine (0.6-1.3) mg/dL Estimated GFR (MDRD) (>89) Glucose (74-104) mg/dL POC Whole Bld Glucose 223 H 241 H 195 H (70 - 100) mg/dL Calcium (8.5-10.3) mg/dL Phosphorus (2.5-5.0) mg/dL Magnesium (1.7-2.3) mg/dL Total Bilirubin (0.2-1.0) mg/dL AST (10-42) IU/L ALT (10-60) IU/L Alkaline Phosphatase (42-121) IU/L Total Protein (6.4-8.9) g/dL Albumin (3.2-5.5) g/dL Globulin (2.1-4.2) g/dL Albumin/Globulin Ratio (1.0-2.2) Prealbumin (17-34) mg/dL Triglycerides (48-352) mg/dL Stl C. cayetanensis PCR (Not Detected) Stool Rotavirus A PCR (Not Detected) Stl Adenov F 40/41 PCR (Not Detected) Stool Astrovirus (PCR) (Not Detected) Stool Campylobacter PCR (Not Detected) Stl C. diff Tox A/B PCR (Not Detected) Stool Cryptosporidium PCR (Not Detected) Stl Sh Tox Pr E STEC PCR (Not Detected) Stool E coli O157 PCR (Not Detected) Stl Enterotoxigenic E PCR (Not Detected) Stool EPEC (PCR) (Not Detected) Stl E. histolytica PCR (Not Detected) Stool Giardia Lamblia PCR (Not Detected) Stl P. shigelloides PCR (Not Detected) Stool Salmonella PCR (Not Detected) Stool Sapovirus (PCR) (Not Detected) Stl Shigella/EIEC PCR (Not Detected) St Y.enterocolitica PCR (Not Detected) Stool Vibrio (PCR) (Not Detected) Stl Vibrio cholerae PCR (Not Detected) Stl Enteroaggr Ecoli PCR (Not Detected) Stl Norovirus GI/GII PCR (Not Detected) 10/15/23 Range/Units 14:20 WBC (4.8-10.8) x10^3/uL RBC (4.70-6.10) 10^6/uL Hgb (14.0-18.0) g/dL Hct (42.0-52.0) % MCV (80.0-94.0) fL MCH (27.0-31.0) pg MCHC (32.0-36.0) g/dL RDW (12.0-15.0) % Plt Count (130-450) 10^3/uL MPV (7.4-11.4) fL Neut # (Auto) (1.5-6.6) 10^3/uL Lymph # (Auto) (1.5-3.5) 10^3/uL Bertie # (Auto) (0.0-1.0) 10^3/uL Eos # (Auto) (0.0-0.7) 10^3/uL Baso # (Auto) (0.0-0.1) 10^3/uL Absolute Nucleated RBC x10^3/uL Band Neuts % (Manual) Abnorm Lymph % (Manual) Nucleated RBC % /100WBC Neutrophils # (Manual) Lymphocytes # (Manual) Monocytes # (Manual) Eosinophils # (Manual) Basophils # (Manual) Differential Comment Platelet Estimate (NORMAL) Platelet Morphology (NORMAL) PT (9.9-12.6) secs INR (0.8-1.2) VBG pH (7.31-7.41) Ionized Calcium (1.15-1.33) mmol/L Sodium (135-145) mmol/L Potassium (3.5-4.5) mmol/L Chloride (101-111) mmol/L Carbon Dioxide (21-32) mmol/L Anion Gap (6-13) BUN (6-20) mg/dL Creatinine (0.6-1.3) mg/dL Estimated GFR (MDRD) (>89) Glucose (74-104) mg/dL POC Whole Bld Glucose (70 - 100) mg/dL Calcium (8.5-10.3) mg/dL Phosphorus (2.5-5.0) mg/dL Magnesium (1.7-2.3) mg/dL Total Bilirubin (0.2-1.0) mg/dL AST (10-42) IU/L ALT (10-60) IU/L Alkaline Phosphatase (42-121) IU/L Total Protein (6.4-8.9) g/dL Albumin (3.2-5.5) g/dL Globulin (2.1-4.2) g/dL Albumin/Globulin Ratio (1.0-2.2) Prealbumin (17-34) mg/dL Triglycerides (48-352) mg/dL Stl C. cayetanensis PCR Not Detected (Not Detected) Stool Rotavirus A PCR Not Detected (Not Detected) Stl Adenov F 40/41 PCR Not Detected (Not Detected) Stool Astrovirus (PCR) Not Detected (Not Detected) Stool Campylobacter PCR Not Detected (Not Detected) Stl C. diff Tox A/B PCR Not Detected (Not Detected) Stool Cryptosporidium PCR Not Detected (Not Detected) Stl Sh Tox Pr E STEC PCR Not Detected (Not Detected) Stool E coli O157 PCR Not applicable (Not Detected) Stl Enterotoxigenic E PCR Not Detected (Not Detected) Stool EPEC (PCR) Not Detected (Not Detected) Stl E. histolytica PCR Not Detected (Not Detected) Stool Giardia Lamblia PCR Not Detected (Not Detected) Stl P. shigelloides PCR Not Detected (Not Detected) Stool Salmonella PCR Not Detected (Not Detected) Stool Sapovirus (PCR) Not Detected (Not Detected) Stl Shigella/EIEC PCR Not Detected (Not Detected) St Y.enterocolitica PCR Not Detected (Not Detected) Stool Vibrio (PCR) Not Detected (Not Detected) Stl Vibrio cholerae PCR Not Detected (Not Detected) Stl Enteroaggr Ecoli PCR Not Detected (Not Detected) Stl Norovirus GI/GII PCR Not Detected (Not Detected) Sepsis Event Note (H) - Evaluation Current Stage of Sepsis: Sepsis Possible source of Sepsis: positive: Bone/Joint, GI tract/intra-abdominal Confirmed Source and Organism (if known) of Sepsis: positve blood cultures for GPC- ID [pending. tried to add on fungal cultures for peritoneal fluid, but specimen no longer available. - Sepsis Criteria Sepsis Criteria: Recorded Heart Rate greater than 90 bpm, WBC count greater than 12,000 or less than 4000, BRAKE LINING FINISHER: altered consciousness (unrelated to primary neuro pathology), Renal: urine output less than 0.5ml/kg/hr for 2 hours or creatinine gr Assessment/Plan - Problem List (1) Pneumoperitoneum Impression: POD#2 for exploratory laparotomy and response to pneumoperitoneum. . Intraoperative findings included duodenal perforation with extensive purulent drainage and succus in the abdomen. 1 cm perforation which was biopsied, primarily closed and Onesimo patch was placed. Surgeon has requested that patient not be given enteral nutrition until at least postop day 3 and possibly postop day 4 depending on his progress and healing. At that time repair will be studied prior to feeding Patient was discussed with Dr. Shah. We elected to start Fluconazole. Attempted to add on fungal cultures to peritoneal fluid specimen. Specimen is no longer available. With regards to studying the repair on postop day 3 or 4, fluoroscopy is not available at this institution. Will continue to work with surgery to find a viable option for study of the repair. (2) Sepsis Impression: Secondary either to his right lower extremity cellulitis or his pneumoperitoneum and perforated duodenal ulcer. There is evidence of improvement in this patient's clinical course after returning from the operating room. He has maintained his blood pressures without pressor therapy. Readings today are 143/96, 140/98, 144/85, 145/92, 145/94, 138/93, 137/89, 170/93. His heart rate remains mildly tachycardic in the 110s, Did dip down into the 90s around the middle of the day today. He is no longer requiring oxygen support. He is breathing well on room air. His urine output has been decreased please see further discussion under acute kidney injury. His white blood cell count peaked at 36.3 postoperatively, came down to. 19.7 yesterday afternoon but 19.8 this morning. Some stagnation with regards to resolution here.. I think that he will need a total of 4 days of antibiotics postoperatively for his intra-abdominal sepsis. However, for his cellulitis I think a period of 5 to 7 days would be appropriate. After receiving the diagnosis of pneumoperitoneum from the radiologist I added Flagyl for anaerobic coverage. It became clear that the patient's primary source of intra-abdominal infection is duodenal therefore anaerobic coverage may not be indicated, however given the colitis also seen on the CT and his degree of critical illness I do not feel that it is appropriate to discontinue Flagyl at this time. (3) Perforated duodenal ulcer Impression: Likely secondary to alcohol use. Patient was on OTC PPIs prior to admission. It has come to light that until 3 weeks ago he was drinking 10-12 Coors light beers per day. At the time of admission we are given a history of no alcohol use. This morning he is much more receptive to counseling regarding his alcohol use. He is quite frankly shocked to hear that this happened to him and at this juncture is vowing never to consume alcohol again. (4) Cellulitis Impression: Of the right lower extremity. Improving. I believe that it is improving because the redness is receding within the marked borders. Swelling is decreasing. the hemorrhagic blister remains unchanged. I have ordered vancomycin, pharmacy is dosing this medication. I have decreased cefepime dosing to every 12 hours due to his acute kidney injury. Qualifiers: Site of cellulitis: extremity Site of cellulitis of extremity: lower extremity Laterality: right Qualified Code(s): L03.115 - Cellulitis of right lower limb (5) Acute kidney injury Impression: This morning I gave him a 1 L bolus of normal saline. His urine output looks adequate. 2 L since midnight. He is getting TPN. In addition to normal saline. Creatinine is 3.2 this morning, 0.9 at admission, and 3.4 yesterday. (6) Diabetes mellitus, new onset Impression: At this time controlling blood sugars with glargine 10 units twice daily and sliding scale insulin. Also 6 mg of regular insulin every 6 hours while he is on TPN. His blood sugars still remain in excess of 200 with readings today of 225 and 217. I increase the regular insulin from 3 mg every 6 hours to 6 mg every 6 hours this morning. Will wait for this to take effect and consider increasing sliding scale tomorrow. (7) Hyponatremia Impression: Hyponatremic at the time of admission sodium of 124. He has had minimal oral intake thus effectively fluid restricted since the time of admission. He is currently n.p.o. for the next several days. Sodium uptrending, 124 at admission, 130 yesterday and 132 today.Slow correction out of goal of not more than 8 mmol/L/day is planned as I do not know the time course over which he developed this hyponatremia. (8) Alcoholic cirrhosis of liver Impression: Please see other comments regarding alcohol use disorder. Ammonia level was not significantly elevated at 25.3. Liver biopsy was sent at the time of exploratory laparotomy. Remains pending. Appearance of the liver is fibrosed and nodular. (9) Glaucoma Impression: Will continue glaucoma drops. (10) Hypertension Impression: See discussion above regarding his blood pressures. Will check echocardiogram today. We will consider restarting his blood pressure medications. He is currently n.p.o. and assuming echo does not show any gross abnormalities I will restart his metoprolol 5 mg every 6 hours scheduled with hold parameters of heart rate less than 110 systolic blood pressure less than 120. (12) Alcohol use disorder Impression: Please see above. Patient was receptive to the idea of ceasing all alcohol consumption.. (13) Malnutrition Impression: Poor oral intake since September 25. Albumin is low since admission. Admission level 2.9. Subsequently 2.2. Will need nutrition in order to heal this intra-abdominal infection. TPN was started yesterday evening. Heavy Duty Press Operator is following with labs. There is some concern about hypocalcemia. However calcium corrected with regards to albumin level shows a calcium corrected at 8.7. (14) Tachycardia Impression: Etiology of his tachycardia is unclear. He could be having some mild alcohol withdrawal symptoms which are manifesting as tachycardia. He could have alcoholic cardiomyopathy. He could have fluid deficit which is causing his tachycardia. He was on metoprolol as an outpatient and could be having some reflex tachycardia after going off of this. We will check echocardiogram.
[2023-10-17] MEDS: METOPROLOL 5 MG/5 ML VIAL IVP SCH (18:07)
[2023-10-17] MEDS: SODIUM CHLORIDE 0.9% 500 ML IV ONE (18:08)
[2023-10-17] MEDS: LORazepam 2 MG/ML VIAL IVP PRN (21:37)
[2023-10-18 05:04] LABS: EOSINOPHILS % (AUTO) 0.3 %; LYMPHOCYTES % (AUTO) 31.5 %; MONOCYTES % (AUTO) 6.9 %
[2023-10-18 05:07] LABS: BASOPHILS # (AUTO) 0.1 10^3/uL (0.0-0.1); BASOPHILS % (AUTO) 0.4 %; HCT - HEMATOCRIT 35.7 % (42.0-52.0); HGB - HEMOGLOBIN 11.7 g/dL (14.0-18.0); MEAN CORPUSCULAR HEMOGLOBIN 31.6 pg (27.0-31.0); MEAN CORPUSCULAR HGB CONC 32.8 g/dL (32.0-36.0); MEAN CORPUSCULAR VOLUME 96.5 fL (80.0-94.0); MEAN PLATELET VOLUME 9.6 fL (7.4-11.4); MONOCYTES # (AUTO) 1.1 10^3/uL (0.0-1.0); NEUTROPHILS # (AUTO) 9.3 10^3/uL (1.5-6.6); NEUTROPHILS % (AUTO) 59.1 %; PLT - PLATELET COUNT 219 10^3/uL (130-450); RED CELL DISTRIBUTION WIDTH 12.5 % (12.0-15.0); WHITE BLOOD COUNT 15.7 x10^3/uL (4.8-10.8)
[2023-10-18 05:21] LABS: CALCIUM 7.8 mg/dL (8.5-10.3); POTASSIUM 3.8 mmol/L (3.5-4.5)
--- NOTE | 2023-10-18 06:47 | PROVIDER PROGRESS NOTE ---
Subjective - General Admit Date: 10/16/23 Procedure Date: 10/15/23 Post Op Days: 3 Procedure Performed: exploratory laparotomy, repair duodenal perforatio/perry patch, liver bx - Review of Systems Wound/Incisions: positive: Healing well, Dressing dry and intact Drain Type: CHAPITO (behind perry patch Drain Output Description: serosanguinous Approximate mls Output: 770 All Other Systems: positive: Reviewed and negative - Other Other Information/Narrative: Pain controlled, patient states abdomen is feeling better and denies pain in his leg. No n/v. He is very thirsty and would like something to drink. No f/c. No acute events overnight. Objective - Patient Data Vital Signs: Vital Signs x48h Temp Pulse Resp BP BP Pulse Ox 10/18/23 06:04 162/94 H 10/18/23 06:00 115 H 17 162/94 H 96 10/18/23 05:00 112 H 18 154/96 H 96 10/18/23 04:00 36.8 C 108 H 17 133/99 H 97 10/18/23 03:00 109 H 18 150/91 H 97 10/18/23 02:00 106 H 18 135/94 H 95 10/18/23 01:00 102 H 17 149/87 H 96 10/18/23 00:04 130/92 H 10/18/23 00:00 36.6 C 114 H 19 130/92 H 96 10/17/23 23:00 110 H 17 133/93 H 95 Weight: Weight 10/16/23 10/17/23 10/18/23 23:59 23:59 23:59 Weight (kg) 96.5 kg 98.5 kg Intake & Output: Intake and Output Totals x24h 10/16/23 10/17/23 10/18/23 23:59 23:59 23:59 Intake Total 3593.15 6427.75 350 Output Total 1552 4575 1170 Balance 2041.15 1852.75 -820 - Lab Results Lab Results: 10/18/23 04:30 10/18/23 04:30 Other Lab Results: Lab Results x24hrs 10/18/23 10/18/23 10/18/23 Range/Units 05:54 04:30 04:30 WBC 15.7 H (4.8-10.8) x10^3/uL RBC 3.70 L (4.70-6.10) 10^6/uL Hgb 11.7 L (14.0-18.0) g/dL Hct 35.7 L (42.0-52.0) % MCV 96.5 H (80.0-94.0) fL MCH 31.6 H (27.0-31.0) pg MCHC 32.8 (32.0-36.0) g/dL RDW 12.5 (12.0-15.0) % Plt Count 219 (130-450) 10^3/uL MPV 9.6 (7.4-11.4) fL Neut # (Auto) 9.3 H (1.5-6.6) 10^3/uL Lymph # (Auto) 5.0 H (1.5-3.5) 10^3/uL [place] # (Auto) 1.1 H (0.0-1.0) 10^3/uL Eos # (Auto) 0.0 (0.0-0.7) 10^3/uL Baso # (Auto) 0.1 (0.0-0.1) 10^3/uL Absolute Nucleated RBC 0.00 x10^3/uL Band Neuts % (Manual) Abnorm Lymph % (Manual) Nucleated RBC % 0.0 /100WBC Neutrophils # (Manual) Lymphocytes # (Manual) Monocytes # (Manual) Eosinophils # (Manual) Basophils # (Manual) Differential Comment Platelet Estimate (NORMAL) Platelet Morphology (NORMAL) Sodium 135 (135-145) mmol/L Potassium 3.8 (3.5-4.5) mmol/L Chloride 110 (101-111) mmol/L Carbon Dioxide 17 L (21-32) mmol/L Anion Gap 8.0 (6-13) BUN 69 H (6-20) mg/dL Creatinine 2.0 H (0.6-1.3) mg/dL Estimated GFR (MDRD) 33 L (>89) Glucose 255 H (74-104) mg/dL POC Whole Bld Glucose 247 H (70 - 100) mg/dL Calcium 7.8 L (8.5-10.3) mg/dL 10/18/23 10/17/23 10/17/23 Range/Units 00:03 18:02 11:41 WBC (4.8-10.8) x10^3/uL RBC (4.70-6.10) 10^6/uL Hgb (14.0-18.0) g/dL Hct (42.0-52.0) % MCV (80.0-94.0) fL MCH (27.0-31.0) pg MCHC (32.0-36.0) g/dL RDW (12.0-15.0) % Plt Count (130-450) 10^3/uL MPV (7.4-11.4) fL Neut # (Auto) (1.5-6.6) 10^3/uL Lymph # (Auto) (1.5-3.5) 10^3/uL [place] # (Auto) (0.0-1.0) 10^3/uL Eos # (Auto) (0.0-0.7) 10^3/uL Baso # (Auto) (0.0-0.1) 10^3/uL Absolute Nucleated RBC x10^3/uL Band Neuts % (Manual) Abnorm Lymph % (Manual) Nucleated RBC % /100WBC Neutrophils # (Manual) Lymphocytes # (Manual) Monocytes # (Manual) Eosinophils # (Manual) Basophils # (Manual) Differential Comment Platelet Estimate (NORMAL) Platelet Morphology (NORMAL) Sodium (135-145) mmol/L Potassium (3.5-4.5) mmol/L Chloride (101-111) mmol/L Carbon Dioxide (21-32) mmol/L Anion Gap (6-13) BUN (6-20) mg/dL Creatinine (0.6-1.3) mg/dL Estimated GFR (MDRD) (>89) Glucose (74-104) mg/dL POC Whole Bld Glucose 234 H 223 H 225 H (70 - 100) mg/dL Calcium (8.5-10.3) mg/dL 10/17/23 Range/Units 04:42 WBC (4.8-10.8) x10^3/uL RBC (4.70-6.10) 10^6/uL Hgb (14.0-18.0) g/dL Hct (42.0-52.0) % MCV (80.0-94.0) fL MCH (27.0-31.0) pg MCHC (32.0-36.0) g/dL RDW (12.0-15.0) % Plt Count (130-450) 10^3/uL MPV (7.4-11.4) fL Neut # (Auto) 11.5 H (1.5-6.6) 10^3/uL Lymph # (Auto) 6.8 H (1.5-3.5) 10^3/uL [place] # (Auto) 1.1 H (0.0-1.0) 10^3/uL Eos # (Auto) 0.0 (0.0-0.7) 10^3/uL Baso # (Auto) 0.1 (0.0-0.1) 10^3/uL Absolute Nucleated RBC 0.00 x10^3/uL Band Neuts % (Manual) Not Reportable Abnorm Lymph % (Manual) Not Reportable Nucleated RBC % 0.0 /100WBC Neutrophils # (Manual) Not Reportable Lymphocytes # (Manual) Not Reportable Monocytes # (Manual) Not Reportable Eosinophils # (Manual) Not Reportable Basophils # (Manual) Not Reportable Differential Comment MANUAL=AUTO DIFF Platelet Estimate NORMAL (130-450,000) (NORMAL) Platelet Morphology NORMAL APPEARANCE (NORMAL) Sodium (135-145) mmol/L Potassium (3.5-4.5) mmol/L Chloride (101-111) mmol/L Carbon Dioxide (21-32) mmol/L Anion Gap (6-13) BUN (6-20) mg/dL Creatinine (0.6-1.3) mg/dL Estimated GFR (MDRD) (>89) Glucose (74-104) mg/dL POC Whole Bld Glucose (70 - 100) mg/dL Calcium (8.5-10.3) mg/dL - Current Medications Current Medications: Current Medications Generic Name Dose Route Start Last Admin Trade Name Freq PRN Reason Stop Dose Admin Heparin Sodium (Porcine) 5,000 unit 10/16/23 14:00 10/18/23 06:05 Heparin 5,000 Unit/Ml Vial SUBQ 5,000 unit TID CYRIL Administration Hydromorphone HCl 0.5 mg 10/14/23 17:12 10/17/23 21:31 Hydromorphone 0.5 Mg/0.5 Ml Syringe IVP 0.5 mg Q2H PRN Administration Pain 8 to 10 Metronidazole 500 mg in 100 mls @ 100 mls/hr 10/15/23 13:00 10/18/23 05:55 Flagyl 500 Mg/100 Ml IV 10/19/23 23:59 Infused Q8H CYRIL Infusion Vancomycin HCl 1 gm/ Sodium 250 mls @ 250 mls/hr 10/17/23 08:00 10/17/23 11:48 Chloride IV Infused Q48H CYRIL Infusion Multivitamins 10 ml/ TRACE 2,011 mls @ 65 mls/hr 10/16/23 19:00 10/17/23 18:06 ELEMENTS 1 ml/ Amino Ac/ IV 65 mls/hr Electrol/Dextrose/Calcium 1900 CYRIL Administration Protocol Fat Emulsion Intravenous 250 mls @ 21 mls/hr 10/16/23 19:00 10/18/23 06:36 Intralipid 20% IV Infused 1900 CYRIL Infusion Sodium Chloride 1,000 mls @ 75 mls/hr 10/17/23 07:28 10/17/23 21:35 Normal Saline 0.9% IV Not Given .[id number] CYRIL Fluconazole 100 mls @ 200 mls/hr 10/17/23 09:00 10/17/23 11:48 Diflucan 200 Mg/100 Ml IV Infused DAILY CYRIL Infusion Insulin Glargine-yfgn 10 unit 10/15/23 21:00 10/17/23 21:37 Insulin Glargine-Yfgn 300 Unit/3 Ml Pen SUBQ 10 unit QPM CYRIL Administration Insulin Glargine-yfgn 10 unit 10/15/23 11:00 10/17/23 08:25 Insulin Glargine-Yfgn 300 Unit/3 Ml Pen SUBQ 10 unit QDBREAKFAST CYRIL Administration Insulin Human Regular 6 unit 10/17/23 12:00 10/18/23 06:04 Insulin Regular, Human 300 Unit/3 Ml Pen SUBQ 6 unit Q6HR CYRIL Administration Insulin Human Regular 3 - 11 unit 10/17/23 18:00 10/18/23 06:04 Insulin Regular, Human 300 Unit/3 Ml Pen SUBQ 7 unit Q6HR CYRIL Administration Protocol Lorazepam 0.5 mg 10/17/23 08:18 10/17/23 21:37 Lorazepam 2 Mg/Ml Vial IVP 0.5 mg Q4H PRN Administration Anxiety Metoprolol Tartrate 5 mg 10/17/23 18:00 10/18/23 06:04 Metoprolol 5 Mg/5 Ml Vial IVP 5 mg Q6H CYRIL Administration Pantoprazole Sodium 40 mg 10/15/23 21:00 10/17/23 21:26 Pantoprazole 40 Mg Vial IVP 40 mg BID CYRIL Administration Prochlorperazine Edisylate 10 mg 10/15/23 20:51 10/16/23 04:55 Prochlorperazine 10 Mg/2 Ml Vial IVP 10 mg Q6HR PRN Administration Nausea / Vomiting Sodium Chloride 10 ml 10/14/23 17:12 10/18/23 04:54 Sodium Chloride Flush 0.9% 10 Ml Syringe IVP 40 ml PRN PRN Administration NEEDED PER PROVIDER ORDERS Sodium Chloride 10 ml 10/15/23 01:00 10/18/23 00:06 Sodium Chloride Flush 0.9% 10 Ml Syringe IVP 10 ml 0100,0900,1700 CYRIL Administration Timolol Maleate 1 drops 10/16/23 15:00 10/17/23 08:23 Timolol 0.5% Ophth Drops EACHEYE 1 drops DAILY CYRIL Administration - Physical Exam Comments/Other: Gen: NAD, alert and oriented CV: tachycardic 90-115 yesterday Pulm: non labored, on RA Abd: soft with appropriate incisional ttp. High output from drain, serosang. NG with 450mL bilious output. No r/g. Incision c/d/i Ext: B LE with edema, R>L. Cellulitis about R LE continue to improve Impression/Plan - Problem List Problem List: 68 y/o M with: 1. duodenal perforation with purulent peritonitis POD#3 s/p ex lap with repair of duodenal ulcer and perry patch for pneumoperitoneum (10/15/23) - Leukocytosis improving - Continue NGT, strict NPO, nothing per NGT until able to evaluate perforation on POD 3-5 (pending clinical status). Unable to obtain UGI at this facility due to lack of fluoroscopy. Plan for CT with PO contrast tomorrow, if negative will do blue ice study. If that is also negative at 90 min, plan to start clears. - Continue CHAPITO drain to monitor for leak at repair site, 770mL serosang output yesterday (not bilious) - Continue TPN as per primary team, postop prealbumin was 6 (CRP 25) (Note was unable to place distal feeding tube intraoperatively as dpbhoff tube was unable to be located during relevant portion of case) - Continue BID PPI - Abx for foregut coverage with purulent peritonitis - peritoneal fluid cx are pending though gram stain has no organisms. On broad spectrum coverage while cx are pending. - 2/2 blood cx at time of admission growing GPC's, consider repeat BCx today to prove clearance of infection - f/u bx of duodenal ulcer margins (1cm perf in D1), liver bx - TID hep dvt ppx - Ok to d/c rao from surgery standpoint - silver dressing in place, karen will need to come out around POD 12 2. RLE cellulitis/myositits - improving by physical exam - as per primary team with ortho consult 3. previously undiagnosed DM - IM primary team managing blood glucose (improving 300s to high-100s) 4.ZEINA - Cr improving, UOP good - IVF resuscitation being managed by IM. 5.previously undiagnosed alcoholic cirrhosis, based on etoh hx and appearance of liver intraoperatively ---f/u liver biopsies, counseling re etoh-cessation, ongoing outpatient f/u Agree with PT/OT consultation to increase activity. No lifting/pushing/pulling more than 20 lbs. Abd binder ordered. Patient status remains guarded. Admitted to ICU. Thank you for consulting us in the care of this patient. We will continue to follow closely. Yohana Shah MD FACS General Surgeon
[2023-10-18] MEDS: CEFEPIME 1 GM in SODIUM CHLORIDE 0.9% MINIBAG 100 ML IV SCH (07:59)
--- NOTE | 2023-10-18 08:24 | PROVIDER PROGRESS NOTE ---
Subjective - Prog Note Date Prog Note Date: 10/18/23 Prog Note Time: 08:23 - Subjective Pt reports feeling: No change Subjective: Patient reports that he feels much better today. He is desperate for a drink of water He promises never to drink alcohol again. He understands the need to not have anything by mouth. He is nervous about working with PT and OT, but he really wants to discharge to home vs SNF, so understands the need to at least get to the edge of the bed on a daily basis. Current Medications - Current Medications Current Medications: Medications Metronidazole (Flagyl 500 Mg/100 Ml) 500 mg in 100 mls @ 100 mls/hr IV Q8H [facility] Stop: 10/19/23 23:59 Last Admin: 10/18/23 05:55 Dose: Infused Multivitamins 10 ml/ TRACE ELEMENTS 1 ml/ Amino Ac/Electrol/Dextrose/Calcium 2,011 mls @ 65 mls/hr IV 1900 CYRIL; Protocol Last Admin: 10/17/23 18:06 Dose: 65 mls/hr Heparin Sodium (Porcine) (Heparin 5,000 Unit/Ml Vial) 5,000 unit SUBQ TID [facility] Last Admin: 10/18/23 06:05 Dose: 5,000 unit Insulin Human Regular (Insulin Regular, Human 300 Unit/3 Ml Pen) 3 - 11 unit SUBQ Q6HR [facility]; Protocol Last Admin: 10/18/23 06:04 Dose: 7 unit Lorazepam (Lorazepam 2 Mg/Ml Vial) 0.5 mg IVP Q4H PRN PRN Reason: Anxiety Last Admin: 10/17/23 21:37 Dose: 0.5 mg Metoprolol Tartrate (Metoprolol 5 Mg/5 Ml Vial) 5 mg IVP Q6H [facility] Last Admin: 10/18/23 06:04 Dose: 5 mg Ondansetron HCl (Ondansetron 4 Mg/2 Ml Vial) 4 mg IVP Q6HR PRN PRN Reason: Nausea / Vomiting Pantoprazole Sodium (Pantoprazole 40 Mg Vial) 40 mg IVP BID [facility] Last Admin: 10/17/23 21:26 Dose: 40 mg Cefepime HCl 1 gm/ Sodium (Chloride) 100 mls @ 200 mls/hr IV Q24H [facility] Last Admin: 10/18/23 07:59 Dose: 200 mls/hr Fat Emulsion Intravenous (Intralipid 20%) 250 mls @ 21 mls/hr IV 1900 [facility] Last Admin: 10/18/23 06:36 Dose: Infused Fluconazole (Diflucan 200 Mg/100 Ml) 100 mls @ 200 mls/hr IV DAILY [facility] Last Admin: 10/17/23 11:48 Dose: Infused Hydromorphone HCl (Hydromorphone 0.5 Mg/0.5 Ml Syringe) 0.5 mg IVP Q2H PRN PRN Reason: Pain 8 to 10 Last Admin: 10/17/23 21:31 Dose: 0.5 mg Insulin Glargine-yfgn (Insulin Glargine-Yfgn 300 Unit/3 Ml Pen) 10 unit SUBQ QDBREAKFAST [facility] Last Admin: 10/18/23 08:03 Dose: 10 unit Insulin Glargine-yfgn (Insulin Glargine-Yfgn 300 Unit/3 Ml Pen) 10 unit SUBQ QPM [facility] Last Admin: 10/17/23 21:37 Dose: 10 unit Insulin Human Regular (Insulin Regular, Human 300 Unit/3 Ml Pen) 6 unit SUBQ Q6HR [facility] Last Admin: 10/18/23 06:04 Dose: 6 unit Prochlorperazine Edisylate (Prochlorperazine 10 Mg/2 Ml Vial) 10 mg IVP Q6HR PRN PRN Reason: Nausea / Vomiting Last Admin: 10/16/23 04:55 Dose: 10 mg Timolol Maleate (Timolol 0.5% Ophth Drops) 1 drops EACHEYE DAILY [facility] Last Admin: 10/17/23 08:23 Dose: 1 drops Vancomycin HCl 1 gm/ Sodium (Chloride) 250 mls @ 250 mls/hr IV Q48H [facility] Last Admin: 10/17/23 11:48 Dose: Infused Objective - Vital Signs/Intake & Output Reviewed Vital Signs: Yes Vital Signs: Vital Signs x48h Temp Pulse Resp BP BP Pulse Ox 10/18/23 08:00 36.9 C 107 H 19 148/86 H 96 10/18/23 07:00 102 H 18 135/93 H 96 10/18/23 06:04 162/94 H 10/18/23 06:00 115 H 17 162/94 H 96 10/18/23 05:00 112 H 18 154/96 H 96 10/18/23 04:00 36.8 C 108 H 17 133/99 H 97 10/18/23 03:00 109 H 18 150/91 H 97 10/18/23 02:00 106 H 18 135/94 H 95 10/18/23 01:00 102 H 17 149/87 H 96 Intake & Output: Intake & Output 10/15/23 10/16/23 10/17/23 10/18/23 23:59 23:59 23:59 23:59 Intake Total 1750 3593.15 7427.75 350 Output Total 611 1552 4575 1470 Balance 1139 2041.15 2852.75 -1120 CHAPITO with 250ml over last 12 hours, this is serosanguinous drainage. no bile. hourly UOP has been in excess of 100cc all night. - Objective General Appearance: positive: No acute distress Eyes Bilateral: positive: Normal inspection ENT: positive: ENT inspection nml, Dry mucous membranes (lips are dry) Neck: positive: Nml inspection Respiratory: positive: No respiratory distress, Breath sounds nml Cardiovascular: positive: Regular rate & rhythm (sinus tachycardia.100's), Tachycardia Peripheral Pulses: 2+ Dorsalis pedis (R), 2+ Dorsalis pedis (L) Abdomen: positive: Other (appropriately tender, no draiange on the dressing.) Skin: positive: Other (right foot. The MTP is edematous. on the blister on the dorsal MTP there is layering of blood. There as a new bullous lesion with serous fluid on the dorsal foot. There is development of a small (1cm) blister on the medial aspect of the first MTP joint.) Extremities: positive: Non-tender, Pedal edema (mild pedal edema, R>L) Neurologic/Psychiatric: positive: Disoriented to time (can tell me that it is Tuesday. Does not know the month and year.) - Lab Results Fish Bones: 10/18/23 04:30 10/18/23 04:30 Other Labs: Lab Results x24hrs 10/18/23 10/18/23 10/18/23 Range/Units 05:54 04:30 04:30 WBC 15.7 H (4.8-10.8) x10^3/uL RBC 3.70 L (4.70-6.10) 10^6/uL Hgb 11.7 L (14.0-18.0) g/dL Hct 35.7 L (42.0-52.0) % MCV 96.5 H (80.0-94.0) fL MCH 31.6 H (27.0-31.0) pg MCHC 32.8 (32.0-36.0) g/dL RDW 12.5 (12.0-15.0) % Plt Count 219 (130-450) 10^3/uL MPV 9.6 (7.4-11.4) fL Neut # (Auto) 9.3 H (1.5-6.6) 10^3/uL Lymph # (Auto) 5.0 H (1.5-3.5) 10^3/uL [place] # (Auto) 1.1 H (0.0-1.0) 10^3/uL Eos # (Auto) 0.0 (0.0-0.7) 10^3/uL Baso # (Auto) 0.1 (0.0-0.1) 10^3/uL Absolute Nucleated RBC 0.00 x10^3/uL Nucleated RBC % 0.0 /100WBC Sodium 135 (135-145) mmol/L Potassium 3.8 (3.5-4.5) mmol/L Chloride 110 (101-111) mmol/L Carbon Dioxide 17 L (21-32) mmol/L Anion Gap 8.0 (6-13) BUN 69 H (6-20) mg/dL Creatinine 2.0 H (0.6-1.3) mg/dL Estimated GFR (MDRD) 33 L (>89) Glucose 255 H (74-104) mg/dL POC Whole Bld Glucose 247 H (70 - 100) mg/dL Calcium 7.8 L (8.5-10.3) mg/dL 10/18/23 10/17/23 10/17/23 Range/Units 00:03 18:02 11:41 WBC (4.8-10.8) x10^3/uL RBC (4.70-6.10) 10^6/uL Hgb (14.0-18.0) g/dL Hct (42.0-52.0) % MCV (80.0-94.0) fL MCH (27.0-31.0) pg MCHC (32.0-36.0) g/dL RDW (12.0-15.0) % Plt Count (130-450) 10^3/uL MPV (7.4-11.4) fL Neut # (Auto) (1.5-6.6) 10^3/uL Lymph # (Auto) (1.5-3.5) 10^3/uL [place] # (Auto) (0.0-1.0) 10^3/uL Eos # (Auto) (0.0-0.7) 10^3/uL Baso # (Auto) (0.0-0.1) 10^3/uL Absolute Nucleated RBC x10^3/uL Nucleated RBC % /100WBC Sodium (135-145) mmol/L Potassium (3.5-4.5) mmol/L Chloride (101-111) mmol/L Carbon Dioxide (21-32) mmol/L Anion Gap (6-13) BUN (6-20) mg/dL Creatinine (0.6-1.3) mg/dL Estimated GFR (MDRD) (>89) Glucose (74-104) mg/dL POC Whole Bld Glucose 234 H 223 H 225 H (70 - 100) mg/dL Calcium (8.5-10.3) mg/dL Sepsis Event Note (H) - Evaluation Current Stage of Sepsis: Sepsis Possible source of Sepsis: positive: Bone/Joint, GI tract/intra-abdominal Confirmed Source and Organism (if known) of Sepsis: intraoperative body fluid cultures show NGTD GPC in blood. PCR was negative. Fluconazole added POD #2 due to persistent tachycardia and leukocytosis - Sepsis Criteria Sepsis Criteria: Recorded Heart Rate greater than 90 bpm, WBC count greater than 12,000 or less than 4000, DIRECTOR TRADING: altered consciousness (unrelated to primary neuro pathology) Assessment/Plan - Problem List (1) Pneumoperitoneum Impression: POD#3 for exploratory laparotomy in response to pneumoperitoneum. . I ntraoperative findings included duodenal perforation with extensive purulent drainage and succus in the abdomen. 1 cm perforation which was biopsied, primarily closed and Onesimo patch was placed. Surgeon has requested that patient not be given enteral nutrition until repair has been studied. Plan for study: CT of the abdomen and pelvis with p.o. contrast on postop day 4. If negative will do blue ice study and observe for 90 minutes. Assuming there is no blue drainage from the CHAPITO at 90 minutes we will start clears. In discussion with surgery I elected to start fluconazole on postoperative day 2. Patient remained tachycardic and his white count was still elevated. His white blood cell count appears to be coming down today from 19.8 yesterday to 15.7 today. Attempted to add on fungal cultures to peritoneal fluid specimen. Specimen is no longer available. Due to inability to locate Dobbhoff tube at the relevant portion of the OR case, patient has required TPN. Will continue TPN until he is able to take in adequate nutrition orally. I anticipate this to happen in the next 2 to 3 days. (2) Sepsis Impression: Secondary either to his right lower extremity cellulitis or his pneumoperitoneum and perforated duodenal ulcer. There is evidence of improvement in this patient's clinical course as evidenced by his vital signs. Blood pressures today are normotensive during the night and as high as 160 systolic today. His heart rate continues to be in the low 100s. He demonstrates normal oxygen saturation on room air. His urine output has normalized His white blood cell count peaked at 36.3 postoperatively, came down to 15.7 this morning. After receiving the diagnosis of pneumoperitoneum from the radiologist I added Flagyl for anaerobic coverage. It became clear that the patient's primary source of intra-abdominal infection is duodenal therefore anaerobic coverage may not be indicated, however given the colitis also seen on the CT and his degree of critical illness I do not feel that it is appropriate to discontinue Flagyl at this time.4 days post surgical source control antibiotics are scheduled. We are adjusting the cefepime with regards to his renal function. PCR on blood cultures is positive for Streptococcus. Peritoneal fluid remains pending with many white blood cells on Gram stain no organisms are seen. (3) Perforated duodenal ulcer Impression: Likely secondary to alcohol use. Patient was on OTC PPIs prior to admission. It has come to light that until 3 weeks ago he was drinking 10-12 Coors light beers per day. At the time of admission we are given a history of no alcohol use. Patient remains committed to abstinence from alcohol. (4) Cellulitis Right foot. Impression: Of the right lower extremity. Stable. The redness is not increasing however he is developing blisters on the dorsum of his foot and on the medial aspect of the first MTP. Clinically, the foot is well-perfused with easily palpable dorsalis pedis pulse.Will treat for total of 7 days. This would mean completion on 10/19. (5) Acute kidney injury Impression: His acute kidney injury is improving. His urine output has been more than adequate overnight at greater than 100 cc/h. His creatinine is trending in the correct direction. 3.2 yesterday, 2.0 today. Cefepime dosing adjusted as above (6) Diabetes mellitus, new onset Impression: Insulin increased yesterday to 10 units glargine twice daily and 6 units of regular insulin every 6 hours while on TPN. Today I will increase glargine to 15 units twice daily and regular insulin to 10 units every 6 hours. Blood glucose readings: 217, 225, 223, 234, 255. (7) Hyponatremia, resolved Impression: Hyponatremic at the time of admission sodium of 124. He has had minimal oral intake thus effectively fluid restricted since the time of admission. He is currently n.p.o. Sodium uptrending, 124 at admission, 132 yesterday and 135 today.His hyponatremia was corrected at a rate that did not exceed 8 mmol/L/day. He has normal natremia today. We will continue to follow his sodiums. (8) Alcoholic cirrhosis of liver Impression: Please see other comments regarding alcohol use disorder. Ammonia level was not significantly elevated at 25.3. Liver biopsy was sent at the time of exploratory laparotomy. Remains pending. Appearance of the liver is fibrosed and nodular. (9) Glaucoma Impression: Will continue glaucoma drops. (10) Hypertension Impression: See discussion above regarding his blood pressures. Echocardiogram completed on 10/16. It has not been read.. His outpatient blood pressure medications are metoprolol 25 mg daily and losartan 100 mg daily. He is currently not able to take p.o. I am treating him with IV labetalol 20 mg every 4 hours and hydralazine 10 mg every 4 hours alternating every 2 hours with hold parameters of systolic blood pressure less than 120 and heart rate less than 60. I will resume his outpatient blood pressure regimen at such time as he can take oral medication (12) Alcohol use disorder Impression: Please see above. Patient is receptive to ceasing alcohol conception. He has not had any withdrawal. He reports not drinking for 3 weeks prior to presentation to the emergency department. (13) Malnutrition Impression: Poor oral intake since September 25. Albumin is low since admission. Admission level 2.9. Subsequently 2.2. Will need nutrition in order to heal this intra-abdominal infection. TPN In progress. I anticipate continuing this until his oral intake is adequate and there are no concerns about the stability of his ulcer repair. There is some concern about hypocalcemia. However calcium corrected with regards to albumin level shows a Normal corrected calcium level.. (14) Tachycardia Impression: Etiology of his tachycardia is unclear. He could be having some mild alcohol withdrawal symptoms which are manifesting as tachycardia. He could have alcoholic cardiomyopathy. He could have fluid deficit which is causing his tachycardia, Although I doubt this given his urine output. echocardiogram read is pending the study has been done. His tachycardia remains in the low 100s despite treatment with metoprolol. Given his increased blood pressures I have switched over to labetalol which should also have some effect on his heart rate.
[2023-10-18] MEDS: INSULIN REGULAR, HUMAN 300 UNIT/3 ML PEN SUBQ SCH (12:15)
[2023-10-18] MEDS: LABETALOL 20 MG/4 ML SYRINGE IVP SCH (14:12)
[2023-10-18 15:36] LABS: VANCOMYCIN,RANDOM 11.1 ug/mL
[2023-10-18] MEDS: hydrALAZINE INJ 20 MG/ML VIAL IVP SCH (16:11)
[2023-10-18] MEDS: VANCOMYCIN INJ 1 GM in SODIUM CHLORIDE 0.9% 250 ML IV ONE (17:15)
[2023-10-18] MEDS: INSULIN GLARGINE-YFGN 300 UNIT/3 ML PEN SUBQ SCH (21:02)
[2023-10-19 04:22] LABS: BASOPHILS % (AUTO) 0.2 %; EOSINOPHILS # (AUTO) 0.1 10^3/uL (0.0-0.7); EOSINOPHILS % (AUTO) 0.4 %; HCT - HEMATOCRIT 35.3 % (42.0-52.0); HGB - HEMOGLOBIN 11.4 g/dL (14.0-18.0); LYMPHOCYTES # (AUTO) 4.8 10^3/uL (1.5-3.5); LYMPHOCYTES % (AUTO) 29.7 %; MEAN CORPUSCULAR HEMOGLOBIN 31.6 pg (27.0-31.0); MEAN CORPUSCULAR HGB CONC 32.3 g/dL (32.0-36.0); MEAN CORPUSCULAR VOLUME 97.8 fL (80.0-94.0); MEAN PLATELET VOLUME 9.4 fL (7.4-11.4); MONOCYTES # (AUTO) 1.1 10^3/uL (0.0-1.0); MONOCYTES % (AUTO) 6.5 %; NEUTROPHILS # (AUTO) 9.9 10^3/uL (1.5-6.6); NEUTROPHILS % (AUTO) 61.1 %; PLT - PLATELET COUNT 227 10^3/uL (130-450); RED BLOOD COUNT 3.61 10^6/uL (4.70-6.10); RED CELL DISTRIBUTION WIDTH 12.6 % (12.0-15.0); WHITE BLOOD COUNT 16.2 x10^3/uL (4.8-10.8)
[2023-10-19 04:34] LABS: MAGNESIUM 1.6 mg/dL (1.7-2.3)
[2023-10-19 04:41] LABS: ALBUMIN/GLOBULIN RATIO 0.6 (1.0-2.2); BILIRUBIN,TOTAL 0.4 mg/dL (0.2-1.0); CALCIUM 8.1 mg/dL (8.5-10.3); CREATININE 1.4 mg/dL (0.6-1.3); PHOSPHORUS 3.4 mg/dL (2.5-5.0); POTASSIUM 3.8 mmol/L (3.5-4.5); TOTAL PROTEIN 5.2 g/dL (6.4-8.9)
[2023-10-19] MEDS ORDERED: DIATRIZOATE MEGLU/DIATRIZO SOD 30 ML BOTTLE PO ONE (07:54)
[2023-10-19] MEDS ORDERED: iohexoL-300 100 ML VIAL ONE (07:54)
[2023-10-19] MEDS ORDERED: INSULIN GLARGINE-YFGN 300 UNIT/3 ML PEN SUBQ SCH ×2 (08:00→21:00)
--- NOTE | 2023-10-19 08:06 | PROVIDER PROGRESS NOTE ---
Subjective - Prog Note Date Prog Note Date: 10/19/23 Prog Note Time: 08:04 - Subjective Pt reports feeling: Improved Subjective: feels better overall. When questioned he does tell me that his foot hurts when he stands on it. He is excited to get some water today. Current Medications - Current Medications Current Medications: Medications Acetaminophen (Acetaminophen) 1,000 mg in 100 mls @ 400 mls/hr IV Q6HR PRN PRN Reason: Moderate Pain (Level 4-6) Multivitamins 10 ml/ TRACE ELEMENTS 1 ml/ Amino Ac/Electrol/Dextrose/Calcium 2, 011 mls @ 75 mls/hr IV 1900 [facility]; Protocol Last Admin: 10/18/23 19:03 Dose: 75 mls/hr Cefepime HCl 2 gm/ Sodium (Chloride) 100 mls @ 200 mls/hr IV Q24H [facility] Stop: 10/20/23 14:00 Fat Emulsion Intravenous (Intralipid 20%) 250 mls @ 21 mls/hr IV 1900 [facility] Last Admin: 10/19/23 07:09 Dose: Infused Fluconazole (Diflucan 200 Mg/100 Ml) 100 mls @ 200 mls/hr IV DAILY [facility] Stop: 10/20/23 12:00 Last Admin: 10/18/23 10:15 Dose: Infused Heparin Sodium (Porcine) (Heparin 5,000 Unit/Ml Vial) 5,000 unit SUBQ TID [facility] Last Admin: 10/19/23 06:13 Dose: 5,000 unit Hydralazine HCl (Hydralazine Inj 20 Mg/Ml Vial) 10 mg IVP Q4H [facility] Last Admin: 10/19/23 04:12 Dose: 10 mg Hydromorphone HCl (Hydromorphone 0.5 Mg/0.5 Ml Syringe) 0.5 mg IVP Q2H PRN PRN Reason: Pain 8 to 10 Last Admin: 10/17/23 21:31 Dose: 0.5 mg Insulin Glargine-yfgn (Insulin Glargine-Yfgn 300 Unit/3 Ml Pen) 20 unit SUBQ QDBREAKFAST [facility] Insulin Human Regular (Insulin Regular, Human 300 Unit/3 Ml Pen) 3 - 11 unit SUBQ Q6HR [facility]; Protocol Last Admin: 10/19/23 06:13 Dose: 9 unit Insulin Human Regular (Insulin Regular, Human 300 Unit/3 Ml Pen) 15 unit SUBQ Q6HR [facility] Labetalol HCl (Labetalol 20 Mg/4 Ml Syringe) 20 mg IVP Q4H [facility] Last Admin: 10/19/23 06:13 Dose: 20 mg Latanoprost (Latanoprost 0.005% Ophth Drops) 1 drops [facility] Lorazepam (Lorazepam 2 Mg/Ml Vial) 0.5 mg IVP Q4H PRN PRN Reason: Anxiety Last Admin: 10/17/23 21:37 Dose: 0.5 mg Magnesium Sulfate (Magnesium Sulfate) 2 gm in 50 mls @ 50 mls/hr IV ONCE ONE Stop: 10/19/23 08:55 Metronidazole (Flagyl 500 Mg/100 Ml) 500 mg in 100 mls @ 100 mls/hr IV Q8H [facility] Stop: 10/19/23 23:59 Last Admin: 10/19/23 04:56 Dose: 100 mls/hr Ondansetron HCl (Ondansetron 4 Mg/2 Ml Vial) 4 mg IVP Q6HR PRN PRN Reason: Nausea / Vomiting Pantoprazole Sodium (Pantoprazole 40 Mg Vial) 40 mg IVP BID [facility] Last Admin: 10/18/23 21:02 Dose: 40 mg Prochlorperazine Edisylate (Prochlorperazine 10 Mg/2 Ml Vial) 10 mg IVP Q6HR PRN PRN Reason: Nausea / Vomiting Last Admin: 10/16/23 04:55 Dose: 10 mg Objective - Vital Signs/Intake & Output Vital Signs: Vital Signs x48h Temp Pulse Resp BP BP Pulse Ox 10/19/23 07:00 84 19 124/80 96 10/19/23 06:00 91 18 125/79 95 10/19/23 05:00 88 17 128/74 95 10/19/23 04:12 127/89 H 10/19/23 04:00 36.5 C 87 14 127/89 H 97 10/19/23 03:00 85 18 134/82 H 96 10/19/23 02:00 95 18 124/86 H 95 10/19/23 01:00 94 19 121/80 96 10/19/23 00:05 135/87 H Intake & Output: Intake & Output 10/16/23 10/17/23 10/18/2310/18/24 23:59 23:59 23:59 23:59 Intake Total 3593.15 7427.75 3550.583 250 Output Total 4259 5943 1260 1740 Balance 2041.15 2852.75 90.583 -1495 - Objective General Appearance: positive: No acute distress, Alert Eyes Bilateral: positive: Normal inspection, PERRL, No lid inflammation ENT: positive: ENT inspection nml, Other (lips are dry) Neck: positive: Nml inspection Respiratory: positive: No respiratory distress, Breath sounds nml Cardiovascular: positive: Regular rate & rhythm (heart rate is normal today) Abdomen: positive: Tenderness (appropriate ttp. dressing remains C/D/I. thin yellow fluid at the CHAPITO- w/o bloody tinge. does not appear bilious.) Skin: positive: Color nml, No rash Extremities: positive: Other (right first MTP joint. feels boggy. the hemorrhagic blister on the dorsal aspect remains intact. pain on motion of the joint. has intact DP pulse to palpation. cellulitis has receeded.) Neurologic/Psychiatric: positive: Oriented x3 - Lab Results Fish Bones: 10/19/23 04:05 10/19/23 04:05 Other Labs: Lab Results x24hrs 10/19/23 10/19/23 10/19/23 Range/Units 05:57 04:05 04:05 WBC 16.2 H (4.8-10.8) x10^3/uL RBC 3.61 L (4.70-6.10) 10^6/uL Hgb 11.4 L (14.0-18.0) g/dL Hct 35.3 L (42.0-52.0) % MCV 97.8 H (80.0-94.0) fL MCH 31.6 H (27.0-31.0) pg MCHC 32.3 (32.0-36.0) g/dL RDW 12.6 (12.0-15.0) % Plt Count 227 (130-450) 10^3/uL MPV 9.4 (7.4-11.4) fL Neut # (Auto) 9.9 H (1.5-6.6) 10^3/uL Lymph # (Auto) 4.8 H (1.5-3.5) 10^3/uL Dukes # (Auto) 1.1 H (0.0-1.0) 10^3/uL Eos # (Auto) 0.1 (0.0-0.7) 10^3/uL Baso # (Auto) 0.0 (0.0-0.1) 10^3/uL Absolute Nucleated RBC 0.00 x10^3/uL Nucleated RBC % 0.0 /100WBC Sodium 138 (135-145) mmol/L Potassium 3.8 (3.5-4.5) mmol/L Chloride 113 H (101-111) mmol/L Carbon Dioxide 18 L (21-32) mmol/L Anion Gap 7.0 (6-13) BUN 48 H (6-20) mg/dL Creatinine 1.4 H (0.6-1.3) mg/dL Estimated GFR (MDRD) 51 L (>89) Glucose 314 H (74-104) mg/dL POC Whole Bld Glucose 298 H (70 - 100) mg/dL Calcium 8.1 L (8.5-10.3) mg/dL Phosphorus 3.4 (2.5-5.0) mg/dL Magnesium 1.6 L (1.7-2.3) mg/dL Total Bilirubin 0.4 (0.2-1.0) mg/dL AST 27 (10-42) IU/L ALT 28 (10-60) IU/L Alkaline Phosphatase 101 (42-121) IU/L Total Protein 5.2 L (6.4-8.9) g/dL Albumin 2.0 L (3.2-5.5) g/dL Globulin 3.2 (2.1-4.2) g/dL Albumin/Globulin Ratio 0.6 L (1.0-2.2) Prealbumin 10 L (17-34) mg/dL Triglycerides 90 (48-352) mg/dL Last Dose Date Last Dose Time Random Vancomycin ug/mL 10/19/23 10/18/23 10/18/23 Range/Units 00:02 18:00 15:08 WBC (4.8-10.8) x10^3/uL RBC (4.70-6.10) 10^6/uL Hgb (14.0-18.0) g/dL Hct (42.0-52.0) % MCV (80.0-94.0) fL MCH (27.0-31.0) pg MCHC (32.0-36.0) g/dL RDW (12.0-15.0) % Plt Count (130-450) 10^3/uL MPV (7.4-11.4) fL Neut # (Auto) (1.5-6.6) 10^3/uL Lymph # (Auto) (1.5-3.5) 10^3/uL Dukes # (Auto) (0.0-1.0) 10^3/uL Eos # (Auto) (0.0-0.7) 10^3/uL Baso # (Auto) (0.0-0.1) 10^3/uL Absolute Nucleated RBC x10^3/uL Nucleated RBC % /100WBC Sodium (135-145) mmol/L Potassium (3.5-4.5) mmol/L Chloride (101-111) mmol/L Carbon Dioxide (21-32) mmol/L Anion Gap (6-13) BUN (6-20) mg/dL Creatinine (0.6-1.3) mg/dL Estimated GFR (MDRD) (>89) Glucose (74-104) mg/dL POC Whole Bld Glucose 251 H 217 H (70 - 100) mg/dL Calcium (8.5-10.3) mg/dL Phosphorus (2.5-5.0) mg/dL Magnesium (1.7-2.3) mg/dL Total Bilirubin (0.2-1.0) mg/dL AST (10-42) IU/L ALT (10-60) IU/L Alkaline Phosphatase (42-121) IU/L Total Protein (6.4-8.9) g/dL Albumin (3.2-5.5) g/dL Globulin (2.1-4.2) g/dL Albumin/Globulin Ratio (1.0-2.2) Prealbumin (17-34) mg/dL Triglycerides (48-352) mg/dL Last Dose Date 10/17/23 Last Dose Time 1148 Random Vancomycin 11.1 ug/mL 10/18/23 Range/Units 12:06 WBC (4.8-10.8) x10^3/uL RBC (4.70-6.10) 10^6/uL Hgb (14.0-18.0) g/dL Hct (42.0-52.0) % MCV (80.0-94.0) fL MCH (27.0-31.0) pg MCHC (32.0-36.0) g/dL RDW (12.0-15.0) % Plt Count (130-450) 10^3/uL MPV (7.4-11.4) fL Neut # (Auto) (1.5-6.6) 10^3/uL Lymph # (Auto) (1.5-3.5) 10^3/uL Dukes # (Auto) (0.0-1.0) 10^3/uL Eos # (Auto) (0.0-0.7) 10^3/uL Baso # (Auto) (0.0-0.1) 10^3/uL Absolute Nucleated RBC x10^3/uL Nucleated RBC % /100WBC Sodium (135-145) mmol/L Potassium (3.5-4.5) mmol/L Chloride (101-111) mmol/L Carbon Dioxide (21-32) mmol/L Anion Gap (6-13) BUN (6-20) mg/dL Creatinine (0.6-1.3) mg/dL Estimated GFR (MDRD) (>89) Glucose (74-104) mg/dL POC Whole Bld Glucose 244 H (70 - 100) mg/dL Calcium (8.5-10.3) mg/dL Phosphorus (2.5-5.0) mg/dL Magnesium (1.7-2.3) mg/dL Total Bilirubin (0.2-1.0) mg/dL AST (10-42) IU/L ALT (10-60) IU/L Alkaline Phosphatase (42-121) IU/L Total Protein (6.4-8.9) g/dL Albumin (3.2-5.5) g/dL Globulin (2.1-4.2) g/dL Albumin/Globulin Ratio (1.0-2.2) Prealbumin (17-34) mg/dL Triglycerides (48-352) mg/dL Last Dose Date Last Dose Time Random Vancomycin ug/mL ABX Reporting Has patient been on IV antibiotics over the past 48 hours?: Yes Sepsis Event Note (H) - Evaluation Current Stage of Sepsis: Sepsis Possible source of Sepsis: positive: Bone/Joint, GI tract/intra-abdominal Confirmed Source and Organism (if known) of Sepsis: blood culture PCR shows strep- GPC in 2/2 bottles Body fluid NGTD 10/17 Sepsis Associated Organ Dysfunction: resolving. - Sepsis Criteria Sepsis Criteria: WBC count greater than 12,000 or less than 4000 Assessment/Plan - Problem List (1) Pneumoperitoneum Impression: POD#4 for exploratory laparotomy in response to pneumoperitoneum. . Intraoperative findings included duodenal perforation with extensive purulent drainage and succus in the abdomen. 1 cm perforation which was biopsied, primarily closed and Onesimo patch was placed. pathology is pending Surgeon has requested that patient not be given enteral nutrition until repair has been studied. Plan for study: CT of the abdomen and pelvis with p.o. contrast today If negative will do blue ice study and observe for 90 minutes. Assuming there is no blue drainage from the CHAPITO at 90 minutes we will start clears. In discussion with surgery I elected to start fluconazole on postoperative day 2. Patient remained tachycardic and his white count was still elevated. His white blood cell count did come down, and is now somewhat stagnant 15.7 yesterday, 16.2 today. not able to add fungal cultures to peritoneal fluid Due to inability to locate Dobbhoff tube at the relevant portion of the OR case, patient has required TPN. Will continue TPN until he is able to take in adequate nutrition orally. I anticipate this to happen in the next 2 to 3 days, assuming studies today do not indicate a post operative leak. (2) Sepsis Impression: Resolving. his vital signs are normalizing. his tachycardia has come down, although this may be due to change in beta grover from metoprolol 5mg q 6h to labetalol 20mg [id number]. His WBC is stagnant, as mentioned above. his renal function shows improvement. (3) Perforated duodenal ulcer Impression: 2/2 alcohol use. I have ordered BID PPI. we are awaiting pathology. Current a bx regimen should cover for H pylori. I discussed this patient at the bedside this morning with Dr. Shah. (4) Cellulitis Impression: Appropriately covered with current antibiotic therapy. White count is essentially stagnant today. The exam of the right first metatarsal phalangeal joint shows a joint with obvious effusion,as well as fluid around the joint itself. There is not redness. However, I am concerned about infection within the joint that cannot be penetrated with antibiotics. I have reached out to orthopedics today.. (5) Diabetes mellitus, new onset Impression: Blood glucose readings have been difficult to control. I have adjusted his insulin daily. Blood glucose readings over the last 24 hours are 247, 244, 217, 251, 298. His admission A1c is 8.4%. Today I am increasing his glargine insulin from 15 to 20 units twice daily. I am increasing his regular insulin from 10 units to 15 units subQ every 6 hours while on TPN. He remains on sliding scale insulin. He is being dosed armando ropriately according to protocol. (6) Acute kidney injury Impression: Admission creatinine was 0.9. today his creatinine is 1.4. His creatinine climbed as high as 3.4 on postop day 1 from his Onesimo patch. I will remove the Isbell catheter today. We will continue to monitor his status. (7) Hyponatremia Impression: His hyponatremia has resolved as his period of critical illness has resolved. His admission sodium was 124. He has now been normonatremic for 2 days with a reading this morning of 138. I have ordered BMP for the a.m. (8) Hypertension Impression: I have adjusted his medication from metoprolol 5 mg every 6 hours to labetolol 20 mg every 4 hours. We are holding his home Losartan (50mg daily). Blood pressures are much improved readings overnight show gradual improvement.: 162/96, 153/91, 135/87, 127/89. (9) Hypomagnesemia Impression: magnesium 1.6 this AM. Repleted w 2mg Magnesium sulfate today. I will recheck level in AM (10) Alcoholic cirrhosis of liver Impression: Liver biopsy pathology is pending. Bilirubin is within normal limits. There is no transaminitis. MELD-Na Score 17 equating to a 6% 3 mo mortality, child score C. (11) Tachycardia Impression: Question if this is related to sepsis, mild alcohol withdrawal, or discontinuation of beta-grover during his period of acute critical illness. In any event resolved today. Echocardiogram was done On 10/17/2023. Reading was returned last night. Shows sinus rhythm with left ventricular ejection fraction of 55 to 60%. There is focal hypertrophy of the basal septum of the left ventricle. Right ventricle is normal in size and function, there is no valvular disease. No evidence of alcoholic cardiomyopathy. (12) Alcohol use disorder Impression: With resultant health conditions mentioned above. Patient is committed to alcohol abstinence. (13) Malnutrition Impression: As a result of severe acute intra-abdominal process. Patient is currently on TPN. Repair of the duodenal ulcer is being studied today. Anticipate starting p.o. intake late this afternoon. Will then progress. I anticipate this patient will be on TPN for an additional 2 to 3 days until he is able to meet his calorie requirements. (14) Glaucoma Impression: timolol and latanoprost ordered at home dosing.
[2023-10-19] MEDS: CEFEPIME 2 GM in SODIUM CHLORIDE 0.9% MINIBAG 100 ML IV SCH ×2 (08:25→21:10)
[2023-10-19] MEDS: INSULIN GLARGINE-YFGN 300 UNIT/3 ML PEN SUBQ SCH (08:26)
--- NOTE | 2023-10-19 08:37 | PROVIDER PROGRESS NOTE ---
Subjective - General Admit Date: 10/16/23 Procedure Date: 10/15/23 Post Op Days: 4 Procedure Performed: exploratory laparotomy, repair duodenal perforatio/perry patch, liver bx - Review of Systems Wound/Incisions: positive: Healing well, Dressing dry and intact Drain Type: CHAPITO (behind perry patch) Drain Output Description: serosanguinous Approximate mls Output: 525 All Other Systems: positive: Reviewed and negative - Other Other Information/Narrative: Patient denies abdominal pain. He is very thirsty and would like his NG out.+BM. Able to stand at bedside yesterday but felt lightheaded today with sitting up. Objective - Patient Data Vital Signs: Vital Signs x48h Temp Pulse Resp BP BP Pulse Ox 10/19/23 08:00 36.6 C 84 18 132/78 H 95 10/19/23 07:00 84 19 124/80 96 10/19/23 06:00 91 18 125/79 95 10/19/23 05:00 88 17 128/74 95 10/19/23 04:12 127/89 H 10/19/23 04:00 36.5 C 87 14 127/89 H 97 10/19/23 03:00 85 18 134/82 H 96 10/19/23 02:00 95 18 124/86 H 95 10/19/23 01:00 94 19 121/80 96 Weight: Weight 10/17/23 10/18/23 10/19/23 23:59 23:59 23:59 Weight (kg) 98.5 kg 98.5 kg 99 kg Intake & Output: Intake and Output Totals x24h 10/17/23 10/18/23 10/19/23 23:59 23:59 23:59 Intake Total 7427.75 3550.583 250 Output Total 4575 3460 1960 Balance 2852.75 90.583 -1710 - Lab Results Lab Results: 10/19/23 04:05 10/19/23 04:05 Other Lab Results: Lab Results x24hrs 10/19/23 10/19/23 10/19/23 Range/Units 05:57 04:05 04:05 WBC 16.2 H (4.8-10.8) x10^3/uL RBC 3.61 L (4.70-6.10) 10^6/uL Hgb 11.4 L (14.0-18.0) g/dL Hct 35.3 L (42.0-52.0) % MCV 97.8 H (80.0-94.0) fL MCH 31.6 H (27.0-31.0) pg MCHC 32.3 (32.0-36.0) g/dL RDW 12.6 (12.0-15.0) % Plt Count 227 (130-450) 10^3/uL MPV 9.4 (7.4-11.4) fL Neut # (Auto) 9.9 H (1.5-6.6) 10^3/uL Lymph # (Auto) 4.8 H (1.5-3.5) 10^3/uL Elliott # (Auto) 1.1 H (0.0-1.0) 10^3/uL Eos # (Auto) 0.1 (0.0-0.7) 10^3/uL Baso # (Auto) 0.0 (0.0-0.1) 10^3/uL Absolute Nucleated RBC 0.00 x10^3/uL Nucleated RBC % 0.0 /100WBC Sodium 138 (135-145) mmol/L Potassium 3.8 (3.5-4.5) mmol/L Chloride 113 H (101-111) mmol/L Carbon Dioxide 18 L (21-32) mmol/L Anion Gap 7.0 (6-13) BUN 48 H (6-20) mg/dL Creatinine 1.4 H (0.6-1.3) mg/dL Estimated GFR (MDRD) 51 L (>89) Glucose 314 H (74-104) mg/dL POC Whole Bld Glucose 298 H (70 - 100) mg/dL Calcium 8.1 L (8.5-10.3) mg/dL Phosphorus 3.4 (2.5-5.0) mg/dL Magnesium 1.6 L (1.7-2.3) mg/dL Total Bilirubin 0.4 (0.2-1.0) mg/dL AST 27 (10-42) IU/L ALT 28 (10-60) IU/L Alkaline Phosphatase 101 (42-121) IU/L Total Protein 5.2 L (6.4-8.9) g/dL Albumin 2.0 L (3.2-5.5) g/dL Globulin 3.2 (2.1-4.2) g/dL Albumin/Globulin Ratio 0.6 L (1.0-2.2) Prealbumin 10 L (17-34) mg/dL Triglycerides 90 (48-352) mg/dL Last Dose Date Last Dose Time Random Vancomycin ug/mL 10/19/23 10/18/23 10/18/23 Range/Units 00:02 18:00 15:08 WBC (4.8-10.8) x10^3/uL RBC (4.70-6.10) 10^6/uL Hgb (14.0-18.0) g/dL Hct (42.0-52.0) % MCV (80.0-94.0) fL MCH (27.0-31.0) pg MCHC (32.0-36.0) g/dL RDW (12.0-15.0) % Plt Count (130-450) 10^3/uL MPV (7.4-11.4) fL Neut # (Auto) (1.5-6.6) 10^3/uL Lymph # (Auto) (1.5-3.5) 10^3/uL Elliott # (Auto) (0.0-1.0) 10^3/uL Eos # (Auto) (0.0-0.7) 10^3/uL Baso # (Auto) (0.0-0.1) 10^3/uL Absolute Nucleated RBC x10^3/uL Nucleated RBC % /100WBC Sodium (135-145) mmol/L Potassium (3.5-4.5) mmol/L Chloride (101-111) mmol/L Carbon Dioxide (21-32) mmol/L Anion Gap (6-13) BUN (6-20) mg/dL Creatinine (0.6-1.3) mg/dL Estimated GFR (MDRD) (>89) Glucose (74-104) mg/dL POC Whole Bld Glucose 251 H 217 H (70 - 100) mg/dL Calcium (8.5-10.3) mg/dL Phosphorus (2.5-5.0) mg/dL Magnesium (1.7-2.3) mg/dL Total Bilirubin (0.2-1.0) mg/dL AST (10-42) IU/L ALT (10-60) IU/L Alkaline Phosphatase (42-121) IU/L Total Protein (6.4-8.9) g/dL Albumin (3.2-5.5) g/dL Globulin (2.1-4.2) g/dL Albumin/Globulin Ratio (1.0-2.2) Prealbumin (17-34) mg/dL Triglycerides (48-352) mg/dL Last Dose Date 10/17/23 Last Dose Time 1148 Random Vancomycin 11.1 ug/mL 10/18/23 Range/Units 12:06 WBC (4.8-10.8) x10^3/uL RBC (4.70-6.10) 10^6/uL Hgb (14.0-18.0) g/dL Hct (42.0-52.0) % MCV (80.0-94.0) fL MCH (27.0-31.0) pg MCHC (32.0-36.0) g/dL RDW (12.0-15.0) % Plt Count (130-450) 10^3/uL MPV (7.4-11.4) fL Neut # (Auto) (1.5-6.6) 10^3/uL Lymph # (Auto) (1.5-3.5) 10^3/uL Elliott # (Auto) (0.0-1.0) 10^3/uL Eos # (Auto) (0.0-0.7) 10^3/uL Baso # (Auto) (0.0-0.1) 10^3/uL Absolute Nucleated RBC x10^3/uL Nucleated RBC % /100WBC Sodium (135-145) mmol/L Potassium (3.5-4.5) mmol/L Chloride (101-111) mmol/L Carbon Dioxide (21-32) mmol/L Anion Gap (6-13) BUN (6-20) mg/dL Creatinine (0.6-1.3) mg/dL Estimated GFR (MDRD) (>89) Glucose (74-104) mg/dL POC Whole Bld Glucose 244 H (70 - 100) mg/dL Calcium (8.5-10.3) mg/dL Phosphorus (2.5-5.0) mg/dL Magnesium (1.7-2.3) mg/dL Total Bilirubin (0.2-1.0) mg/dL AST (10-42) IU/L ALT (10-60) IU/L Alkaline Phosphatase (42-121) IU/L Total Protein (6.4-8.9) g/dL Albumin (3.2-5.5) g/dL Globulin (2.1-4.2) g/dL Albumin/Globulin Ratio (1.0-2.2) Prealbumin (17-34) mg/dL Triglycerides (48-352) mg/dL Last Dose Date Last Dose Time Random Vancomycin ug/mL - Current Medications Current Medications: Current Medications Generic Name Dose Route Start Last Admin Trade Name Freq PRN Reason Stop Dose Admin Heparin Sodium (Porcine) 5,000 unit 10/16/23 14:00 10/19/23 06:13 Heparin 5,000 Unit/Ml Vial SUBQ 5,000 unit TID CYRIL Administration Hydralazine HCl 10 mg 10/18/23 16:00 10/19/23 08:24 Hydralazine Inj 20 Mg/Ml Vial IVP 10 mg Q4H CYRIL Administration Hydromorphone HCl 0.5 mg 10/14/23 17:12 10/17/23 21:31 Hydromorphone 0.5 Mg/0.5 Ml Syringe IVP 0.5 mg Q2H PRN Administration Pain 8 to 10 Metronidazole 500 mg in 100 mls @ 100 mls/hr 10/15/23 13:00 10/19/23 04:56 Flagyl 500 Mg/100 Ml IV 10/19/23 23:59 100 mls/hr Q8H CYRIL Administration Multivitamins 10 ml/ TRACE 2,011 mls @ 75 mls/hr 10/16/23 19:00 10/18/23 19:03 ELEMENTS 1 ml/ Amino Ac/ IV 75 mls/hr Electrol/Dextrose/Calcium 1900 [facility] Administration Protocol Fat Emulsion Intravenous 250 mls @ 21 mls/hr 10/16/23 19:00 10/19/23 07:09 Intralipid 20% IV Infused 1900 [facility] Infusion Sodium Chloride 1,000 mls @ 75 mls/hr 10/17/23 07:28 10/18/23 19:06 Normal Saline 0.9% IV 75 mls/hr .[id number] CYRIL Administration Fluconazole 100 mls @ 200 mls/hr 10/17/23 09:00 10/18/23 10:15 Diflucan 200 Mg/100 Ml IV 10/20/23 12:00 Infused DAILY CYRIL Infusion Cefepime HCl 2 gm/ Sodium 100 mls @ 200 mls/hr 10/19/23 08:00 10/19/23 08:25 Chloride IV 10/20/23 14:00 200 mls/hr Q24H CYRIL Administration Insulin Glargine-yfgn 20 unit 10/19/23 08:00 10/19/23 08:26 Insulin Glargine-Yfgn 300 Unit/3 Ml Pen SUBQ 20 unit QDBREAKFAST CYRIL Administration Insulin Human Regular 3 - 11 unit 10/17/23 18:00 10/19/23 06:13 Insulin Regular, Human 300 Unit/3 Ml Pen SUBQ 9 unit Q6HR CYRIL Administration Protocol Labetalol HCl 20 mg 10/18/23 14:00 10/19/23 06:13 Labetalol 20 Mg/4 Ml Syringe IVP 20 mg Q4H CYRIL Administration Lorazepam 0.5 mg 10/17/23 08:18 10/17/23 21:37 Lorazepam 2 Mg/Ml Vial IVP 0.5 mg Q4H PRN Administration Anxiety Pantoprazole Sodium 40 mg 10/15/23 21:00 10/18/23 21:02 Pantoprazole 40 Mg Vial IVP 40 mg BID CYRIL Administration Prochlorperazine Edisylate 10 mg 10/15/23 20:51 10/16/23 04:55 Prochlorperazine 10 Mg/2 Ml Vial IVP 10 mg Q6HR PRN Administration Nausea / Vomiting Sodium Chloride 10 ml 10/14/23 17:12 10/18/23 04:54 Sodium Chloride Flush 0.9% 10 Ml Syringe IVP 40 ml PRN PRN Administration NEEDED PER PROVIDER ORDERS Sodium Chloride 10 ml 10/15/23 01:00 10/19/23 02:10 Sodium Chloride Flush 0.9% 10 Ml Syringe IVP Not Given 0100,0900,1700 CYRIL Timolol Maleate 1 drops 10/16/23 15:00 10/18/23 09:11 Timolol 0.5% Ophth Drops EACHEYE 1 drops DAILY CYRIL Administration - Physical Exam Comments/Other: Gen: NAD, alert and oriented HEENT: NG with 100mL bilious fluid out in last 24 hours CV: RRR Pulm: non labored, on RA Abd: soft, incisional ttp, no r/g. CHAPITO with serosang output Ext: B LE pitting edema, R>L, R LE with improving cellulitis Impression/Plan - Problem List Problem List: 68 y/o M with: 1. duodenal perforation with purulent peritonitis POD#4 s/p ex lap with repair of duodenal ulcer and perry patch for pneumop eritoneum (10/15/23) - Leukocytosis stable - Plan to evaluate perforation today. Unable to obtain UGI at this facility due to lack of fluoroscopy. CT and blue ice study negative for signs of leak. NG removed. Slowly advancing diet starting with sparing clears this afternoon. - Continue CHAPITO drain to monitor for leak at repair site, 525mL serosang output yesterday (not bilious) - Continue TPN as per primary team, postop prealbumin was 6 (CRP 25) (Note was unable to place distal feeding tube intraoperatively as dpbhoff tube was unable to be located during relevant portion of case) - Continue BID PPI - Abx for foregut coverage with purulent peritonitis - peritoneal fluid cx are pending though gram stain has no organisms. Blood cx grew perez sensitive S viridans. I recommend continued broad spectrum abx at this time as leukocytosis is stable but still elevated - repeat blood cx negative at 24 hours. Continue to follow - f/u bx of duodenal ulcer margins (1cm perf in D1), liver bx (pathology pending) - TID hep dvt ppx - Ok to d/c rao from surgery standpoint - silver dressing in place, karen will need to come out around POD 12 - f/u appt with surgery on 10/31 @9:30 AM 2. RLE cellulitis/myositits - improving by physical exam - as per primary team with ortho consult 3. previously undiagnosed DM - IM primary team managing blood glucose (improving 300s to high-100s) 4.ZEINA - Cr improving, UOP good - IVF per primary team 5.previously undiagnosed alcoholic cirrhosis, based on etoh hx and appearance of liver intraoperatively ---f/u liver biopsies, counseling re etoh-cessation, ongoing outpatient f/u Agree with PT/OT consultation to increase activity. No lifting/pushing/pulling more than 20 lbs. Abd binder ordered. Patient status remains guarded. Admitted to ICU. Thank you for consulting us in the care of this patient. We will continue to follow closely. Yohana Shah MD FACS General Surgeon
[2023-10-19] MEDS: MAGNESIUM SULFATE 2 GRAM 2 GM/50 ML BAG IV ONE (09:56)
--- NOTE | 2023-10-19 10:14 | CT Report ---
PROCEDURE: Abdomen W INDICATIONS: h/o duodenal perforation, r/o leak CONTRAST: 100ml omni 300 TECHNIQUE: CT scan of the abdomen was performed. Intravenous contrast media was administered. Images recorded an d evaluated at appropriate window settings. Reformats: coronal and sagittal. For radiation dose reduc tion, the following was used: automated exposure control, adjustment of mA and/or kV according to pat ient size. COMPARISON: 10/15/2023 CT FINDINGS: Image quality: Diagnostic Lower chest: Small right pleural effusion and subjacent opacity and atelectasis. Possible trace left pleural effusion also present, with basilar opacity/atelectasis. An enteric tube terminates in the st omach. Coronary calcifications. Partially visualized central line. Liver: No discrete solid mass Gallbladder and biliary system: Nonspecific pericholecystic fluid. No pathologic biliary dilation Pancreas: No ductal dilation Spleen: Nonenlarged Adrenals: No discrete nodules Kidneys: No solid mass or hydronephrosis Vessels and lymph nodes: The main portal vein is patent. No pathologic lymph nodes by size criteria. No abdominal aortic aneurysm. Bowel and peritoneum: Decreased pneumoperitoneum. Small amount of free fluid is present. Oral contras t is seen in the stomach and duodenum, without extravasation of ingested contrast. No small bowel obs truction. Nonspecific wall thickening of the colon. Body wall: Unremarkable Bones: Degenerative changes. IMPRESSION: Decreased pneumoperitoneum. Small amount of peritoneal fluid. Ingested oral contrast was given, seen in the stomach and small bowel. No extravasation to suggest ac tive leakage. Nonspecific colonic wall thickening, possibly reactive or representing colitis. And pericholecystic fluid may be reactive in this nonspecific in the setting of ascites. Bilateral small pleural effusions with atelectasis and possible small underlying airspace opacities. Reviewed by: Papito Haney MD on 10/19/2023 10:13 AM PDT Approved by: Papito Haney MD on 10/19/2023 10:13 AM PDT Station ID: [id number]
[2023-10-19] MEDS ORDERED: INSULIN REGULAR HUMAN 100 UNIT in SODIUM CHLORIDE 0.9% 100ML 99 ML IV SCH (11:00)
[2023-10-19] MEDS ORDERED: INSULIN REGULAR IN 0.9 % NS 100 UNIT/100 ML BAG IV SCH (11:00)
[2023-10-19] MEDS: INSULIN REGULAR HUMAN 100 UNIT in SODIUM CHLORIDE 0.9% 100ML 99 ML IV SCH (11:17)
[2023-10-19] MEDS ORDERED: INSULIN REGULAR, HUMAN 300 UNIT/3 ML PEN SUBQ SCH (12:00)
[2023-10-19] MEDS: ONDANSETRON 4 MG/2 ML VIAL IVP PRN (13:53)
--- NOTE | 2023-10-19 15:05 | XRAY Report ---
PROCEDURE: Shoulder 2+V LT INDICATIONS: joint effusion TECHNIQUE: 3 views of the shoulder were acquired. COMPARISON: None. FINDINGS: Bones: No fractures or dislocations. No suspicious bony lesions. Visualized ribs appear intact. S evere acromioclavicular narrowing is present. There is a mottled appearance of the acromium. Transver se lucency is noted within the midportion. Soft tissues: No suspicious soft tissue calcifications. The visualized lungs are within normal limi ts. Prominent soft tissue edema is present overlying the shoulder joint as well as acromioclavicular joint space. Calcific tendinitis is present. IMPRESSION: Significant soft tissue edema overlying the shoulder particularly the acromioclavicular joint space. Mottled appearance is present within the acromium. Developing osteomyelitis cannot be excluded. Linea r lucency is present within the midportion which may represent developing pathologic fracture. Reviewed by: Jami Coronado MD on 10/19/2023 3:04 PM PDT Approved by: Jami Coronado MD on 10/19/2023 3:04 PM PDT Station ID: [id number]
[2023-10-19] MEDS ORDERED: LABETALOL 20 MG/4 ML SYRINGE IVP PRN (16:00)
[2023-10-19] MEDS ORDERED: GADOTERATE MEGLUMINE 10 MMOL/20 ML VIAL ONE (16:20)
--- NOTE | 2023-10-19 16:22 | XRAY Report ---
PROCEDURE: Foot 1-2V RT INDICATIONS: R 1st MTP edema TECHNIQUE: 2 views of the foot were acquired. COMPARISON: CT 10/14/2023 FINDINGS: Bones: Advanced degenerative changes of first MTP. Mild to moderate first interphalangeal and midfoot degenerative changes. No radiographic erosions or displaced fracture. Small bone fragment adjacent t o the third proximal phalangeal head again seen. Small ossicles and nonacute appearing bone fragments also seen adjacent to the navicular. Soft tissues: Soft tissue swelling diffusely, most focally around the first MTP. IMPRESSION: Advanced degenerative changes of the first MTP. This could be sequelae of degenerative changes or cry stal or inflammatory arthropathy. There is significant surrounding soft tissue swelling. If there is high concern for further derangement, consider MRI evaluation. Reviewed by: Papito Haney MD on 10/19/2023 4:21 PM PDT Approved by: Papito Haney MD on 10/19/2023 4:21 PM PDT Station ID: [id number]
[2023-10-19 16:27] LABS: VANCOMYCIN,RANDOM 9.8 ug/mL
[2023-10-19] MEDS: GADOTERATE MEGLUMINE 10 MMOL/20 ML VIAL IVP ONE (18:24)
[2023-10-19] MEDS: VANCOMYCIN INJ 1 GM in SODIUM CHLORIDE 0.9% 250 ML IV SCH (18:55)
[2023-10-19] MEDS: METOPROLOL TARTRATE 25 MG TABLET PO SCH (21:11)
[2023-10-19] MEDS: LATANOPROST 0.005% OPHTH DROPS EACHEYE SCH (21:11)
[2023-10-20 04:44] LABS: BASOPHILS # (AUTO) 0.1 10^3/uL (0.0-0.1); BASOPHILS % (AUTO) 0.3 %; EOSINOPHILS # (AUTO) 0.1 10^3/uL (0.0-0.7); EOSINOPHILS % (AUTO) 0.6 %; HCT - HEMATOCRIT 36.1 % (42.0-52.0); HGB - HEMOGLOBIN 11.9 g/dL (14.0-18.0); LYMPHOCYTES % (AUTO) 32.8 %; MEAN CORPUSCULAR HEMOGLOBIN 32.7 pg (27.0-31.0); MEAN CORPUSCULAR VOLUME 99.2 fL (80.0-94.0); MEAN PLATELET VOLUME 9.7 fL (7.4-11.4); MONOCYTES # (AUTO) 1.3 10^3/uL (0.0-1.0); MONOCYTES % (AUTO) 7.2 %; NEUTROPHILS # (AUTO) 10.4 10^3/uL (1.5-6.6); NEUTROPHILS % (AUTO) 56.3 %; PLT - PLATELET COUNT 270 10^3/uL (130-450); RED BLOOD COUNT 3.64 10^6/uL (4.70-6.10); WHITE BLOOD COUNT 18.4 x10^3/uL (4.8-10.8)
[2023-10-20 04:59] LABS: CALCIUM 8.3 mg/dL (8.5-10.3); CREATININE 1.1 mg/dL (0.6-1.3); MAGNESIUM 1.8 mg/dL (1.7-2.3); POTASSIUM 4.1 mmol/L (3.5-4.5)
[2023-10-20 05:17] LABS: WBC MORPHOLOGY (MULTIPLE) 1+ SMUDGE CELLS (NORMAL)
[2023-10-20 05:18] LABS: DIFFERENTIAL COMMENT MANUAL=AUTO DIFF; SLIDE SENT FOR PATH REVIEW? Indicated
[2023-10-20] MEDS: VANCOMYCIN INJ 1 GM in SODIUM CHLORIDE 0.9% 250 ML IV SCH (11:48)
[2023-10-20] MEDS ORDERED: SODIUM CHLORIDE 0.9% 100ML 100 ML IV ONE (11:57)
--- NOTE | 2023-10-20 11:57 | MRI Report ---
PROCEDURE: Foot RT W/WO INDICATIONS: right foot ? osteomyelitis 1st MTP CONTRAST: 20ml clariscan TECHNIQUE: Noncontrast sagittal T1 spin echo and T2 fast spin echo with fat saturation, long-axis T1 spin echo a nd T2 fast spin echo with fat saturation; short-axis T1 spin echo, proton density fast spin echo, and T2 fast spin echo with fat saturation through the forefoot. Post-contrast short axis, long axis, an d sagittal T1 spin echo with fat saturation through the forefoot. COMPARISON: Right foot radiograph dated 10/19/2023 and right ankle radiograph dated 10/06/2023. FINDINGS: Image quality: Excellent. 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 There are subcortical T2 hyperintense signal involving first metatarsal head and adjacent first proxi mal phalangeal base and show heterogeneous contrast enhancement concerning for bony erosion. Moderate amount of fluid within first MTP joint space is seen with thickened the synovial lining and enhancem ent concerning for synovitis. [id number] osteoarthritic changes at first interphalangeal joint is seen with small amount of j oint effusion and suggestion of synovitis. Similar subcortical T2 hyperintense signals are also noted adjacent to first interphalangeal joint concerning for erosion. Osteoarthritic changes also seen involving medial and lateral sesamoids of the first metatarsal head without significant edema or erosive changes. No other area of abnormal intraosseous enhancement. No acute fracture or dislocation. No metatarsal stress fractures. Ill-defined geographic area of T2 h yperintense signal and subtle enhancement within first metatarsal shaft and first proximal phalangeal shaft Soft tissues: Significant dorsal foot and forefoot soft tissue swelling is seen. No gross enhancing soft tissue mas s. No discrete drainable fluid collection. Visualized plantar foot muscles shows no significant abnor malities. Extensor and flexor tendons are grossly intact. Principal Lisfranc ligament is intact. Sagittal views shows attenuated appearance of medial sesamoid phalangeal ligament of first metatarsal head. No gross plantar plate tear in second through fifth toes. IMPRESSION: 1. 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 2. Moderate first MTP joint effusion with fluid distending joint capsule and thickening of synovial l ining and enhancement concerning for synovitis. 3. Erosive changes are noted involving first metatarsal head and adjacent first proximal phalangeal b ase. Finding may represent erosion secondary to inflammatory arthropathy such as gout. Osteomyelitis and septic joint cannot be excluded, clinical correlation is recommended. 4. Similar changes to less extent is noted in first interphalangeal joint concerning for changes rela maria elena to inflammatory arthropathy versus early septic joint. 5. Significant dorsal soft tissue swelling and edema. No discrete drainable abscess collection. No en hancing mass. No area of abnormal intramuscular enhancement. Extensor and flexor tendons are intact. 6. Suggestion of low to moderate grade partial thickness tear involving medial sesamoid phalangeal li gament of first metatarsal head concerning for low to moderate grade turf toe injury. Reviewed by: Elvis Perez MD on 10/20/2023 11:56 AM PDT Approved by: Elvis Perez MD on 10/20/2023 11:56 AM PDT Station ID: [id number]
--- NOTE | 2023-10-20 12:25 | PROVIDER PROGRESS NOTE ---
Subjective - Prog Note Date Prog Note Date: 10/20/23 Prog Note Time: 12:15 - Subjective Pt reports feeling: No change Subjective: left shoulder pain is a little better this AM. He was able to stand at the side of the bed today and has a lot of pain in his right foot with standing. He has not been running any fevers. He is tolerating a clear liquid diet and has been advanced to full liquid diet by surgery he had several bowel movements yesterday and he is having bowel movements today. His bowel movements are liquid. His pain is relatively well-controlled. We are using acetaminophen IV to control his pain he has not required the ordered as needed Dilaudid. Current Medications - Current Medications Current Medications: Medications Labetalol HCl (Labetalol 20 Mg/4 Ml Syringe) 10 mg IVP Q4H PRN PRN Reason: SBP>160 Insulin Glargine-yfgn (Insulin Glargine-Yfgn 300 Unit/3 Ml Pen) 25 unit SUBQ QPM CYRIL Last Admin: 10/20/23 16:10 Dose: 25 unit Multivitamins 10 ml/ TRACE ELEMENTS 1 ml/ Amino Ac/Electrol/Dextrose/Calcium 2,011 mls @ 75 mls/hr IV 1900 CYRIL; Protocol Last Admin: 10/19/23 18:55 Dose: 75 mls/hr Hydromorphone HCl (Hydromorphone 0.5 Mg/0.5 Ml Syringe) 0.5 mg IVP Q2H PRN PRN Reason: Pain 8 to 10 Last Admin: 10/17/23 21:31 Dose: 0.5 mg Ondansetron HCl (Ondansetron 4 Mg/2 Ml Vial) 4 mg IVP Q6HR PRN PRN Reason: Nausea / Vomiting Last Admin: 10/19/23 13:53 Dose: 4 mg Vancomycin HCl 1 gm/ Sodium (Chloride) 250 mls @ 167 mls/hr IV Q12H CYRIL Last Admin: 10/20/23 13:45 Dose: Infused Insulin Human Lispro (Insulin Lispro 300 Unit/3 Ml Pen) 2 - 10 unit SUBQ Q4H CYRIL; Protocol Last Admin: 10/20/23 16:09 Dose: 2 unit Insulin Human Regular 100 unit (/ Sodium Chloride) 100 mls @ 0.5 mls/hr IV .Q72H [facility]; Protocol Last Admin: 10/20/23 15:25 Dose: 2 mls/hr, 2 unit/hr Latanoprost (Latanoprost 0.005% Ophth Drops) 1 drops EACHEYE HS [facility] Last Admin: 10/19/23 21:11 Dose: 1 drops Acetaminophen (Acetaminophen) 1,000 mg in 100 mls @ 400 mls/hr IV Q6HR PRN PRN Reason: Moderate Pain (Level 4-6) Last Admin: 10/20/23 15:06 Dose: Infused Cefepime HCl 2 gm/ Sodium (Chloride) 100 mls @ 200 mls/hr IV Q12H [facility] Last Admin: 10/20/23 09:03 Dose: Infused Fat Emulsion Intravenous (Intralipid 20%) 250 mls @ 21 mls/hr IV 1900 [facility] Last Admin: 10/20/23 07:01 Dose: Infused Heparin Sodium (Porcine) (Heparin 5,000 Unit/Ml Vial) 5,000 unit SUBQ TID [facility] Last Admin: 10/20/23 14:20 Dose: 5,000 unit Lorazepam (Lorazepam 2 Mg/Ml Vial) 0.5 mg IVP Q4H PRN PRN Reason: Anxiety Last Admin: 10/17/23 21:37 Dose: 0.5 mg Metoprolol Tartrate (Metoprolol Tartrate 25 Mg Tablet) 12.5 mg PO BID [facility] Last Admin: 10/20/23 08:32 Dose: 12.5 mg Pantoprazole Sodium (Pantoprazole 40 Mg Vial) 40 mg IVP BID [facility] Last Admin: 10/20/23 08:32 Dose: 40 mg Prochlorperazine Edisylate (Prochlorperazine 10 Mg/2 Ml Vial) 10 mg IVP Q6HR PRN PRN Reason: Nausea / Vomiting Last Admin: 10/16/23 04:55 Dose: 10 mg Timolol Maleate (Timolol 0.5% Ophth Drops) 1 drops EACHEYE DAILY [facility] Last Admin: 10/20/23 08:33 Dose: 1 drops Objective - Vital Signs/Intake & Output Vital Signs: Vital Signs x48h Temp Pulse Resp BP Pulse Ox 10/20/23 11:00 79 17 150/91 H 97 10/20/23 10:00 36.5 C 82 19 143/92 H 96 10/20/23 09:00 84 17 150/93 H 98 10/20/23 08:00 97.9 C H 94 17 161/90 H 97 10/20/23 07:00 89 18 149/92 H 97 10/20/23 06:00 88 19 150/82 H 96 10/20/23 05:00 89 18 153/90 H 97 97.9 temp mistakenly entered at C.... this is F Intake & Output: Intake & Output 10/17/23 10/18/23 10/19/23 10/20/23 23:59 23:59 23:59 23:59 Intake Total 7427.75 3550.583 4451.684 1792.568 Output Total 4575 3460 4105 1115 Balance 2852.75 90.583 346.684 677.568 - Objective General Appearance: positive: No acute distress, Alert Eyes Bilateral: positive: No scleral icterus (very slight scleral icterus) ENT: positive: ENT inspection nml Neck: positive: Nml inspection ( Fluconazole Flagyl from skin and skin and got) Respiratory: positive: Chest non-tender, No respiratory distress, Breath sounds nml Cardiovascular: positive: Regular rate & rhythm Abdomen: positive: Nml bowel sounds, No distention, Tenderness (tenderness is appropriate.) Back: positive: Nml inspection Skin: positive: Color nml Extremities: positive: Joint swelling (left shoulder with joint effusion, about the same as yesteday. unable to move left shoulder secondary to pain. The right first MTP is with purluent exudate, tissue around the joint is boggy. the lateral malleolus of the right ankle is with edema and tenderness, slight erythema) Neurologic/Psychiatric: positive: Oriented x3 - Lab Results Fish Bones: 10/20/23 04:12 10/20/23 04:12 Other Labs: Lab Results x24hrs 10/20/23 10/20/23 10/20/23 Range/Units 11:59 11:01 10:10 WBC (4.8-10.8) x10^3/uL RBC (4.70-6.10) 10^6/uL Hgb (14.0-18.0) g/dL Hct (42.0-52.0) % MCV (80.0-94.0) fL MCH (27.0-31.0) pg MCHC (32.0-36.0) g/dL RDW (12.0-15.0) % Plt Count (130-450) 10^3/uL MPV (7.4-11.4) fL Neut # (Auto) (1.5-6.6) 10^3/uL Lymph # (Auto) (1.5-3.5) 10^3/uL [place] # (Auto) (0.0-1.0) 10^3/uL Eos # (Auto) (0.0-0.7) 10^3/uL Baso # (Auto) (0.0-0.1) 10^3/uL Absolute Nucleated RBC x10^3/uL Band Neuts % (Manual) Abnorm Lymph % (Manual) Nucleated RBC % /100WBC Neutrophils # (Manual) Lymphocytes # (Manual) Monocytes # (Manual) Eosinophils # (Manual) Basophils # (Manual) Differential Comment WBC Morphology (NORMAL) Sodium (135-145) mmol/L Potassium (3.5-4.5) mmol/L Chloride (101-111) mmol/L Carbon Dioxide (21-32) mmol/L Anion Gap (6-13) BUN (6-20) mg/dL Creatinine (0.6-1.3) mg/dL Estimated GFR (MDRD) (>89) Glucose (74-104) mg/dL POC Whole Bld Glucose 187 H 211 H 216 H (70 - 100) mg/dL Calcium (8.5-10.3) mg/dL Magnesium (1.7-2.3) mg/dL Last Dose Date Last Dose Time Random Vancomycin ug/mL Slides for Path Review 10/20/23 10/20/23 10/20/23 Range/Units 09:01 07:58 06:49 WBC (4.8-10.8) x10^3/uL RBC (4.70-6.10) 10^6/uL Hgb (14.0-18.0) g/dL Hct (42.0-52.0) % MCV (80.0-94.0) fL MCH (27.0-31.0) pg MCHC (32.0-36.0) g/dL RDW (12.0-15.0) % Plt Count (130-450) 10^3/uL MPV (7.4-11.4) fL Neut # (Auto) (1.5-6.6) 10^3/uL Lymph # (Auto) (1.5-3.5) 10^3/uL [place] # (Auto) (0.0-1.0) 10^3/uL Eos # (Auto) (0.0-0.7) 10^3/uL Baso # (Auto) (0.0-0.1) 10^3/uL Absolute Nucleated RBC x10^3/uL Band Neuts % (Manual) Abnorm Lymph % (Manual) Nucleated RBC % /100WBC Neutrophils # (Manual) Lymphocytes # (Manual) Monocytes # (Manual) Eosinophils # (Manual) Basophils # (Manual) Differential Comment WBC Morphology (NORMAL) Sodium (135-145) mmol/L Potassium (3.5-4.5) mmol/L Chloride (101-111) mmol/L Carbon Dioxide (21-32) mmol/L Anion Gap (6-13) BUN (6-20) mg/dL Creatinine (0.6-1.3) mg/dL Estimated GFR (MDRD) (>89) Glucose (74-104) mg/dL POC Whole Bld Glucose 232 H 219 H 255 H (70 - 100) mg/dL Calcium (8.5-10.3) mg/dL Magnesium (1.7-2.3) mg/dL Last Dose Date Last Dose Time Random Vancomycin ug/mL Slides for Path Review 10/20/23 10/20/23 10/20/23 Range/Units 05:57 05:02 04:12 WBC (4.8-10.8) x10^3/uL RBC (4.70-6.10) 10^6/uL Hgb (14.0-18.0) g/dL Hct (42.0-52.0) % MCV (80.0-94.0) fL MCH (27.0-31.0) pg MCHC (32.0-36.0) g/dL RDW (12.0-15.0) % Plt Count (130-450) 10^3/uL MPV (7.4-11.4) fL Neut # (Auto) (1.5-6.6) 10^3/uL Lymph # (Auto) (1.5-3.5) 10^3/uL [place] # (Auto) (0.0-1.0) 10^3/uL Eos # (Auto) (0.0-0.7) 10^3/uL Baso # (Auto) (0.0-0.1) 10^3/uL Absolute Nucleated RBC x10^3/uL Band Neuts % (Manual) Abnorm Lymph % (Manual) Nucleated RBC % /100WBC Neutrophils # (Manual) Lymphocytes # (Manual) Monocytes # (Manual) Eosinophils # (Manual) Basophils # (Manual) Differential Comment WBC Morphology (NORMAL) Sodium 136 (135-145) mmol/L Potassium 4.1 (3.5-4.5) mmol/L Chloride 112 H (101-111) mmol/L Carbon Dioxide 18 L (21-32) mmol/L Anion Gap 6.0 (6-13) BUN 38 H (6-20) mg/dL Creatinine 1.1 (0.6-1.3) mg/dL Estimated GFR (MDRD) 67 L (>89) Glucose 350 H (74-104) mg/dL POC Whole Bld Glucose 261 H 254 H (70 - 100) mg/dL Calcium 8.3 L (8.5-10.3) mg/dL Magnesium 1.8 (1.7-2.3) mg/dL Last Dose Date Last Dose Time Random Vancomycin ug/mL Slides for Path Review 10/20/23 10/20/23 10/20/23 Range/Units 04:12 04:05 02:56 WBC 18.4 H (4.8-10.8) x10^3/uL RBC 3.64 L (4.70-6.10) 10^6/uL Hgb 11.9 L (14.0-18.0) g/dL Hct 36.1 L (42.0-52.0) % MCV 99.2 H (80.0-94.0) fL MCH 32.7 H (27.0-31.0) pg MCHC 33.0 (32.0-36.0) g/dL RDW 13.0 (12.0-15.0) % Plt Count 270 (130-450) 10^3/uL MPV 9.7 (7.4-11.4) fL Neut # (Auto) 10.4 H (1.5-6.6) 10^3/uL Lymph # (Auto) 6.0 H (1.5-3.5) 10^3/uL [place] # (Auto) 1.3 H (0.0-1.0) 10^3/uL Eos # (Auto) 0.1 (0.0-0.7) 10^3/uL Baso # (Auto) 0.1 (0.0-0.1) 10^3/uL Absolute Nucleated RBC 0.00 x10^3/uL Band Neuts % (Manual) Not Reportable Abnorm Lymph % (Manual) Not Reportable Nucleated RBC % 0.0 /100WBC Neutrophils # (Manual) Not Reportable Lymphocytes # (Manual) Not Reportable Monocytes # (Manual) Not Reportable Eosinophils # (Manual) Not Reportable Basophils # (Manual) Not Reportable Differential Comment MANUAL=AUTO DIFF WBC Morphology 1+ SMUDGE CELLS (NORMAL) Sodium (135-145) mmol/L Potassium (3.5-4.5) mmol/L Chloride (101-111) mmol/L Carbon Dioxide (21-32) mmol/L Anion Gap (6-13) BUN (6-20) mg/dL Creatinine (0.6-1.3) mg/dL Estimated GFR (MDRD) (>89) Glucose (74-104) mg/dL POC Whole Bld Glucose 241 H 238 H (70 - 100) mg/dL Calcium (8.5-10.3) mg/dL Magnesium (1.7-2.3) mg/dL Last Dose Date Last Dose Time Random Vancomycin ug/mL Slides for Path Review Indicated 10/20/23 10/20/23 10/19/23 Range/Units 01:57 01:00 23:56 WBC (4.8-10.8) x10^3/uL RBC (4.70-6.10) 10^6/uL Hgb (14.0-18.0) g/dL Hct (42.0-52.0) % MCV (80.0-94.0) fL MCH (27.0-31.0) pg MCHC (32.0-36.0) g/dL RDW (12.0-15.0) % Plt Count (130-450) 10^3/uL MPV (7.4-11.4) fL Neut # (Auto) (1.5-6.6) 10^3/uL Lymph # (Auto) (1.5-3.5) 10^3/uL [place] # (Auto) (0.0-1.0) 10^3/uL Eos # (Auto) (0.0-0.7) 10^3/uL Baso # (Auto) (0.0-0.1) 10^3/uL Absolute Nucleated RBC x10^3/uL Band Neuts % (Manual) Abnorm Lymph % (Manual) Nucleated RBC % /100WBC Neutrophils # (Manual) Lymphocytes # (Manual) Monocytes # (Manual) Eosinophils # (Manual) Basophils # (Manual) Differential Comment WBC Morphology (NORMAL) Sodium (135-145) mmol/L Potassium (3.5-4.5) mmol/L Chloride (101-111) mmol/L Carbon Dioxide (21-32) mmol/L Anion Gap (6-13) BUN (6-20) mg/dL Creatinine (0.6-1.3) mg/dL Estimated GFR (MDRD) (>89) Glucose (74-104) mg/dL POC Whole Bld Glucose 253 H 236 H 234 H (70 - 100) mg/dL Calcium (8.5-10.3) mg/dL Magnesium (1.7-2.3) mg/dL Last Dose Date Last Dose Time Random Vancomycin ug/mL Slides for Path Review 10/19/23 10/19/23 10/19/23 Range/Units 23:01 21:58 20:59 WBC (4.8-10.8) x10^3/uL RBC (4.70-6.10) 10^6/uL Hgb (14.0-18.0) g/dL Hct (42.0-52.0) % MCV (80.0-94.0) fL MCH (27.0-31.0) pg MCHC (32.0-36.0) g/dL RDW (12.0-15.0) % Plt Count (130-450) 10^3/uL MPV (7.4-11.4) fL Neut # (Auto) (1.5-6.6) 10^3/uL Lymph # (Auto) (1.5-3.5) 10^3/uL [place] # (Auto) (0.0-1.0) 10^3/uL Eos # (Auto) (0.0-0.7) 10^3/uL Baso # (Auto) (0.0-0.1) 10^3/uL Absolute Nucleated RBC x10^3/uL Band Neuts % (Manual) Abnorm Lymph % (Manual) Nucleated RBC % /100WBC Neutrophils # (Manual) Lymphocytes # (Manual) Monocytes # (Manual) Eosinophils # (Manual) Basophils # (Manual) Differential Comment WBC Morphology (NORMAL) Sodium (135-145) mmol/L Potassium (3.5-4.5) mmol/L Chloride (101-111) mmol/L Carbon Dioxide (21-32) mmol/L Anion Gap (6-13) BUN (6-20) mg/dL Creatinine (0.6-1.3) mg/dL Estimated GFR (MDRD) (>89) Glucose (74-104) mg/dL POC Whole Bld Glucose 243 H 228 H 229 H (70 - 100) mg/dL Calcium (8.5-10.3) mg/dL Magnesium (1.7-2.3) mg/dL Last Dose Date Last Dose Time Random Vancomycin ug/mL Slides for Path Review 10/19/23 10/19/23 10/19/23 Range/Units 20:06 18:43 16:59 WBC (4.8-10.8) x10^3/uL RBC (4.70-6.10) 10^6/uL Hgb (14.0-18.0) g/dL Hct (42.0-52.0) % MCV (80.0-94.0) fL MCH (27.0-31.0) pg MCHC (32.0-36.0) g/dL RDW (12.0-15.0) % Plt Count (130-450) 10^3/uL MPV (7.4-11.4) fL Neut # (Auto) (1.5-6.6) 10^3/uL Lymph # (Auto) (1.5-3.5) 10^3/uL [place] # (Auto) (0.0-1.0) 10^3/uL Eos # (Auto) (0.0-0.7) 10^3/uL Baso # (Auto) (0.0-0.1) 10^3/uL Absolute Nucleated RBC x10^3/uL Band Neuts % (Manual) Abnorm Lymph % (Manual) Nucleated RBC % /100WBC Neutrophils # (Manual) Lymphocytes # (Manual) Monocytes # (Manual) Eosinophils # (Manual) Basophils # (Manual) Differential Comment WBC Morphology (NORMAL) Sodium (135-145) mmol/L Potassium (3.5-4.5) mmol/L Chloride (101-111) mmol/L Carbon Dioxide (21-32) mmol/L Anion Gap (6-13) BUN (6-20) mg/dL Creatinine (0.6-1.3) mg/dL Estimated GFR (MDRD) (>89) Glucose (74-104) mg/dL POC Whole Bld Glucose 242 H 199 H 271 H (70 - 100) mg/dL Calcium (8.5-10.3) mg/dL Magnesium (1.7-2.3) mg/dL Last Dose Date Last Dose Time Random Vancomycin ug/mL Slides for Path Review 10/19/23 10/19/23 10/19/23 Range/Units 16:08 16:04 15:04 WBC (4.8-10.8) x10^3/uL RBC (4.70-6.10) 10^6/uL Hgb (14.0-18.0) g/dL Hct (42.0-52.0) % MCV (80.0-94.0) fL MCH (27.0-31.0) pg MCHC (32.0-36.0) g/dL RDW (12.0-15.0) % Plt Count (130-450) 10^3/uL MPV (7.4-11.4) fL Neut # (Auto) (1.5-6.6) 10^3/uL Lymph # (Auto) (1.5-3.5) 10^3/uL [place] # (Auto) (0.0-1.0) 10^3/uL Eos # (Auto) (0.0-0.7) 10^3/uL Baso # (Auto) (0.0-0.1) 10^3/uL Absolute Nucleated RBC x10^3/uL Band Neuts % (Manual) Abnorm Lymph % (Manual) Nucleated RBC % /100WBC Neutrophils # (Manual) Lymphocytes # (Manual) Monocytes # (Manual) Eosinophils # (Manual) Basophils # (Manual) Differential Comment WBC Morphology (NORMAL) Sodium (135-145) mmol/L Potassium (3.5-4.5) mmol/L Chloride (101-111) mmol/L Carbon Dioxide (21-32) mmol/L Anion Gap (6-13) BUN (6-20) mg/dL Creatinine (0.6-1.3) mg/dL Estimated GFR (MDRD) (>89) Glucose (74-104) mg/dL POC Whole Bld Glucose 267 H 244 H (70 - 100) mg/dL Calcium (8.5-10.3) mg/dL Magnesium (1.7-2.3) mg/dL Last Dose Date UNKNOWN Last Dose Time UNKNOWN Random Vancomycin 9.8 ug/mL Slides for Path Review 10/19/23 10/19/23 Range/Units 14:21 13:07 WBC (4.8-10.8) x10^3/uL RBC (4.70-6.10) 10^6/uL Hgb (14.0-18.0) g/dL Hct (42.0-52.0) % MCV (80.0-94.0) fL MCH (27.0-31.0) pg MCHC (32.0-36.0) g/dL RDW (12.0-15.0) % Plt Count (130-450) 10^3/uL MPV (7.4-11.4) fL Neut # (Auto) (1.5-6.6) 10^3/uL Lymph # (Auto) (1.5-3.5) 10^3/uL [place] # (Auto) (0.0-1.0) 10^3/uL Eos # (Auto) (0.0-0.7) 10^3/uL Baso # (Auto) (0.0-0.1) 10^3/uL Absolute Nucleated RBC x10^3/uL Band Neuts % (Manual) Abnorm Lymph % (Manual) Nucleated RBC % /100WBC Neutrophils # (Manual) Lymphocytes # (Manual) Monocytes # (Manual) Eosinophils # (Manual) Basophils # (Manual) Differential Comment WBC Morphology (NORMAL) Sodium (135-145) mmol/L Potassium (3.5-4.5) mmol/L Chloride (101-111) mmol/L Carbon Dioxide (21-32) mmol/L Anion Gap (6-13) BUN (6-20) mg/dL Creatinine (0.6-1.3) mg/dL Estimated GFR (MDRD) (>89) Glucose (74-104) mg/dL POC Whole Bld Glucose 248 H 260 H (70 - 100) mg/dL Calcium (8.5-10.3) mg/dL Magnesium (1.7-2.3) mg/dL Last Dose Date Last Dose Time Random Vancomycin ug/mL Slides for Path Review - Diagnostic Imaging Diagnostic Imaging Results: positive: Final report reviewed, Read contemporaneously Diagnostic Imaging Comments: right foot MRI:significant for 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 Right foot x-ray: Advanced degenerative changes of the first MTP Left shoulder x-ray: Significant soft tissue edema particularly over the acromioclavicular joint space. Mottled appearance of the acromion cannot rule out developing osteomyelitis linear lucency within the midportion of the acromion could represent pathologic fracture ABX Reporting Has patient been on IV antibiotics over the past 48 hours?: Yes Sepsis Event Note (H) - Evaluation Current Stage of Sepsis: Sepsis Possible source of Sepsis: positive: Bone/Joint, GI tract/intra-abdominal - Sepsis Criteria Sepsis Criteria: WBC count greater than 12,000 or less than 4000 Assessment/Plan - Problem List (1) Pneumoperitoneum Impression: Will continue IV Abx for intestinal coverage, as well as for potential osteomyelitis as the WBC is not coming down. CHAPITO drainage looks like ascitic fluid, I have little to no concern for leak. surgery has advanced him to a full liquid diet. POD#5 for exploratory laparotomy in response to pneumoperitoneum. . Intraoperative findings included duodenal perforation with extensive purulent drainage and succus in the abdomen. 1 cm perforation which was biopsied, primarily closed and Onesimo patch was placed. pathology is pending repair of the duodenal ulcer with Onesimo patch has been steady with CT with p.o. contrast as well as blue ice study. There was not leakage. In discussion with surgery I elected to start fluconazole on postoperative day 2. Patient remained tachycardic and his white count was still elevated. His white blood cell count did come down, and is now somewhat stagnant 15.7 yesterday, 16.2 today- back up to 18.4 today . not able to add fungal cultures to peritoneal fluid Due to inability to locate Dobbhoff tube at the relevant portion of the OR case, patient has required TPN. Will continue TPN until he is able to take in adequate nutrition orally. I anticipate this to happen in the next 2 to 3 days. (2) Sepsis Impression: Resolving. his vital signs are normalizing. his tachycardia has come down, although this may be due to change in beta grover from metoprolol 5mg q 6h to labetalol 20mg [id number]. have converted his metoprolol to oral, and his labetolol is now PRN. His WBC is rising. his renal function shows improvement to normal today. (3) Perforated duodenal ulcer Impression: 2/2 alcohol use. I have ordered BID PPI. we are awaiting pathology. Current abx regimen should cover for H pylori. Pathology specimen is pending at this time. (4) Left shoulder pain Impression: Persistent left shoulder pain which worsened yesterday upon standing up. On exam patient has an effusion of his left shoulder joint. On x-ray there is mottling of the acromion which could be consistent with an osteomyelitis. Patient has had strep viridans in his blood. It is possible that he has seeded multiple joints at the time of his bacteremia. We have not de-escalated antibiotic treatment in light of these new findings of joint swelling and pain. Additionally patient's white blood cell count has not come down in fact over the last 24 hours it is gone up from 16.2 to 18.4. This is concerning, because it makes me wonder if he has an infection that is not adequately treated. Orthopedics was consulted and aspirated the left shoulder joint. I discussed this patient with Dr Sidhu at the bedside. The fluid is purulent in appearance. Fluid was sent to the lab for cell count as well as culture and Gram stain. In response to purulent fluid being drained from the left shoulder and purulent fluid draining from the right first metatarsal phalangeal joint and inadequacy of orthopedic coverage here at our critical [facility] I have initiated request for transfer for this patient. (5) Cellulitis Impression: Right foot MRI shows moderate first MTP joint effusion with fluid distending the joint capsule and taking the synovial lining and enhancement concerning for synovitis. There are erosive changes involving the first metatarsal head and adjacent first proximal phalangeal space. Osteomyelitis and septic joint cannot be excluded. Clinically there is a palpable dorsalis pedis pulse in the right foot. There are no ischemic changes. Hemorrhagic blister on the dorsal aspect of the first MTP is present. There is not worsening of the edema. I was at the bedside with orthopedics and discussed this patient. There is now purulent exudate coming from the dorsum of the right first MTP. He remains with cellulitis at the right lateral ankle which at this point is mildly worse than yesterday.. . (6) Diabetes mellitus, new onset Impression: Blood glucose readings have been difficult to control. I have adjusted his insulin daily. Yesterday placed the patient on an insulin drip. In light of this septic arthritis in multiple joints it is going to be difficult to control his blood sugars. This afternoon on insulin drip we were able to achieve 1 reading of 153. I converted him over to glargine and lispro sliding scale. This afternoon he continues to be less than 180. His blood sugar readings over the course of today are 219, 232, 216, 211, 187, 170, 174, 174, 153, 175. After discontinuing insulin drip we are placing him on glargine 25 units every evening and lispro 2 to 10 units subcu every 4 hours. His admission A1c is 8.4%. (7) Acute kidney injury Impression: With avoidance of nephrotoxic medic occasions, treatment of sepsis and control of his intra-abdominal infection patient's acute kidney injury has resolved. Admission creatinine was 0.9 and this morning his creatinine is 1.1. He reached a high of 3.4 on postoperative day 1. (8) Hyponatremia Impression: Resolved. Admission sodium was 124. Sodium this morning is 136. I will continue to monitor this. (9) Hypertension Impression: Controlled on beta-grover therapy blood pressure readings today 148/95, 162/95, 151/99, 126/83. His tachycardia has resolved all of his heart rates are below 100 today.. (10) Hypomagnesemia Impression: Resolved. Normal level of 1.8 today.I have ordered repeat study for the a.m. (11) Alcoholic cirrhosis of liver Impression: Mild scleral icterus on exam today. His bilirubin was 1.3 on admission but has remained well within normal limits. He has CMP ordered for the a.m. He has what appears to be ascitic fluid coming from his abdominal CHAPITO. His abdomen is not distended There is no drainage of fluid on his surgical dressing. This is a silver impregnated dressing and we will leave it in place until at least postop day 7. (12) Alcohol use disorder Impression: He remains committed to a sober lifestyle (13) Malnutrition Impression: Patient had not taken in any significant nutrition for approximately 2 weeks and possibly longer before he was admitted. He was started on TPN on postoperative day 1. This is continuing. He is now on a full liquid diet I expect him and to remain on TPN for at least 2 more days. (14) Glaucoma Impression: home meds are ordered and being continued
[2023-10-20] MEDS: ACETAMINOPHEN 1,000 MG/100 ML 1,000 MG/100 ML BAG IV PRN (14:51)
--- NOTE | 2023-10-20 15:56 | PROVIDER PROGRESS NOTE ---
Subjective - Subjective Pt reports feeling: Improved (no nausea or distension) Objective - Vital Signs/Intake & Output Vital Signs: Vital Signs x48h Temp Pulse Resp BP Pulse Ox 10/20/23 15:00 36.6 C 83 16 162/95 H 97 10/20/23 14:00 83 16 148/95 H 98 10/20/23 13:00 81 31 H 158/96 H 98 10/20/23 12:00 82 19 147/92 H 98 10/20/23 11:00 79 17 150/91 H 97 10/20/23 10:00 36.5 C 82 19 143/92 H 96 10/20/23 09:00 84 17 150/93 H 98 10/20/23 08:00 36.6 C 94 17 161/90 H 97 Intake & Output: Intake & Output 10/17/23 10/18/23 10/19/23 10/20/23 23:59 23:59 23:59 23:59 Intake Total 7427.75 3550.583 4451.684 2255.452 Output Total 4575 3460 4105 1275 Balance 2852.75 90.583 346.684 980.452 - Objective General Appearance: positive: No acute distress, Alert Respiratory: positive: No respiratory distress Abdomen: positive: No distention, Other (christine thin serous) - Lab Results Fish Bones: 10/20/23 04:12 10/20/23 04:12 Other Labs: Lab Results x24hrs 10/20/23 10/20/23 10/20/23 Range/Units 15:11 14:03 13:06 WBC (4.8-10.8) x10^3/uL RBC (4.70-6.10) 10^6/uL Hgb (14.0-18.0) g/dL Hct (42.0-52.0) % MCV (80.0-94.0) fL MCH (27.0-31.0) pg MCHC (32.0-36.0) g/dL RDW (12.0-15.0) % Plt Count (130-450) 10^3/uL MPV (7.4-11.4) fL Neut # (Auto) (1.5-6.6) 10^3/uL Lymph # (Auto) (1.5-3.5) 10^3/uL [place] # (Auto) (0.0-1.0) 10^3/uL Eos # (Auto) (0.0-0.7) 10^3/uL Baso # (Auto) (0.0-0.1) 10^3/uL Absolute Nucleated RBC x10^3/uL Band Neuts % (Manual) Abnorm Lymph % (Manual) Nucleated RBC % /100WBC Neutrophils # (Manual) Lymphocytes # (Manual) Monocytes # (Manual) Eosinophils # (Manual) Basophils # (Manual) Differential Comment WBC Morphology (NORMAL) Sodium (135-145) mmol/L Potassium (3.5-4.5) mmol/L Chloride (101-111) mmol/L Carbon Dioxide (21-32) mmol/L Anion Gap (6-13) BUN (6-20) mg/dL Creatinine (0.6-1.3) mg/dL Estimated GFR (MDRD) (>89) Glucose (74-104) mg/dL POC Whole Bld Glucose 174 H 174 H 170 H (70 - 100) mg/dL Calcium (8.5-10.3) mg/dL Magnesium (1.7-2.3) mg/dL Last Dose Date Last Dose Time Random Vancomycin ug/mL Slides for Path Review 10/20/23 10/20/23 10/20/23 Range/Units 11:59 11:01 10:10 WBC (4.8-10.8) x10^3/uL RBC (4.70-6.10) 10^6/uL Hgb (14.0-18.0) g/dL Hct (42.0-52.0) % MCV (80.0-94.0) fL MCH (27.0-31.0) pg MCHC (32.0-36.0) g/dL RDW (12.0-15.0) % Plt Count (130-450) 10^3/uL MPV (7.4-11.4) fL Neut # (Auto) (1.5-6.6) 10^3/uL Lymph # (Auto) (1.5-3.5) 10^3/uL [place] # (Auto) (0.0-1.0) 10^3/uL Eos # (Auto) (0.0-0.7) 10^3/uL Baso # (Auto) (0.0-0.1) 10^3/uL Absolute Nucleated RBC x10^3/uL Band Neuts % (Manual) Abnorm Lymph % (Manual) Nucleated RBC % /100WBC Neutrophils # (Manual) Lymphocytes # (Manual) Monocytes # (Manual) Eosinophils # (Manual) Basophils # (Manual) Differential Comment WBC Morphology (NORMAL) Sodium (135-145) mmol/L Potassium (3.5-4.5) mmol/L Chloride (101-111) mmol/L Carbon Dioxide (21-32) mmol/L Anion Gap (6-13) BUN (6-20) mg/dL Creatinine (0.6-1.3) mg/dL Estimated GFR (MDRD) (>89) Glucose (74-104) mg/dL POC Whole Bld Glucose 187 H 211 H 216 H (70 - 100) mg/dL Calcium (8.5-10.3) mg/dL Magnesium (1.7-2.3) mg/dL Last Dose Date Last Dose Time Random Vancomycin ug/mL Slides for Path Review 10/20/23 10/20/23 10/20/23 Range/Units 09:01 07:58 06:49 WBC (4.8-10.8) x10^3/uL RBC (4.70-6.10) 10^6/uL Hgb (14.0-18.0) g/dL Hct (42.0-52.0) % MCV (80.0-94.0) fL MCH (27.0-31.0) pg MCHC (32.0-36.0) g/dL RDW (12.0-15.0) % Plt Count (130-450) 10^3/uL MPV (7.4-11.4) fL Neut # (Auto) (1.5-6.6) 10^3/uL Lymph # (Auto) (1.5-3.5) 10^3/uL [place] # (Auto) (0.0-1.0) 10^3/uL Eos # (Auto) (0.0-0.7) 10^3/uL Baso # (Auto) (0.0-0.1) 10^3/uL Absolute Nucleated RBC x10^3/uL Band Neuts % (Manual) Abnorm Lymph % (Manual) Nucleated RBC % /100WBC Neutrophils # (Manual) Lymphocytes # (Manual) Monocytes # (Manual) Eosinophils # (Manual) Basophils # (Manual) Differential Comment WBC Morphology (NORMAL) Sodium (135-145) mmol/L Potassium (3.5-4.5) mmol/L Chloride (101-111) mmol/L Carbon Dioxide (21-32) mmol/L Anion Gap (6-13) BUN (6-20) mg/dL Creatinine (0.6-1.3) mg/dL Estimated GFR (MDRD) (>89) Glucose (74-104) mg/dL POC Whole Bld Glucose 232 H 219 H 255 H (70 - 100) mg/dL Calcium (8.5-10.3) mg/dL Magnesium (1.7-2.3) mg/dL Last Dose Date Last Dose Time Random Vancomycin ug/mL Slides for Path Review 10/20/23 10/20/23 10/20/23 Range/Units 05:57 05:02 04:12 WBC (4.8-10.8) x10^3/uL RBC (4.70-6.10) 10^6/uL Hgb (14.0-18.0) g/dL Hct (42.0-52.0) % MCV (80.0-94.0) fL MCH (27.0-31.0) pg MCHC (32.0-36.0) g/dL RDW (12.0-15.0) % Plt Count (130-450) 10^3/uL MPV (7.4-11.4) fL Neut # (Auto) (1.5-6.6) 10^3/uL Lymph # (Auto) (1.5-3.5) 10^3/uL [place] # (Auto) (0.0-1.0) 10^3/uL Eos # (Auto) (0.0-0.7) 10^3/uL Baso # (Auto) (0.0-0.1) 10^3/uL Absolute Nucleated RBC x10^3/uL Band Neuts % (Manual) Abnorm Lymph % (Manual) Nucleated RBC % /100WBC Neutrophils # (Manual) Lymphocytes # (Manual) Monocytes # (Manual) Eosinophils # (Manual) Basophils # (Manual) Differential Comment WBC Morphology (NORMAL) Sodium 136 (135-145) mmol/L Potassium 4.1 (3.5-4.5) mmol/L Chloride 112 H (101-111) mmol/L Carbon Dioxide 18 L (21-32) mmol/L Anion Gap 6.0 (6-13) BUN 38 H (6-20) mg/dL Creatinine 1.1 (0.6-1.3) mg/dL Estimated GFR (MDRD) 67 L (>89) Glucose 350 H (74-104) mg/dL POC Whole Bld Glucose 261 H 254 H (70 - 100) mg/dL Calcium 8.3 L (8.5-10.3) mg/dL Magnesium 1.8 (1.7-2.3) mg/dL Last Dose Date Last Dose Time Random Vancomycin ug/mL Slides for Path Review 10/20/23 10/20/23 10/20/23 Range/Units 04:12 04:05 02:56 WBC 18.4 H (4.8-10.8) x10^3/uL RBC 3.64 L (4.70-6.10) 10^6/uL Hgb 11.9 L (14.0-18.0) g/dL Hct 36.1 L (42.0-52.0) % MCV 99.2 H (80.0-94.0) fL MCH 32.7 H (27.0-31.0) pg MCHC 33.0 (32.0-36.0) g/dL RDW 13.0 (12.0-15.0) % Plt Count 270 (130-450) 10^3/uL MPV 9.7 (7.4-11.4) fL Neut # (Auto) 10.4 H (1.5-6.6) 10^3/uL Lymph # (Auto) 6.0 H (1.5-3.5) 10^3/uL [place] # (Auto) 1.3 H (0.0-1.0) 10^3/uL Eos # (Auto) 0.1 (0.0-0.7) 10^3/uL Baso # (Auto) 0.1 (0.0-0.1) 10^3/uL Absolute Nucleated RBC 0.00 x10^3/uL Band Neuts % (Manual) Not Reportable Abnorm Lymph % (Manual) Not Reportable Nucleated RBC % 0.0 /100WBC Neutrophils # (Manual) Not Reportable Lymphocytes # (Manual) Not Reportable Monocytes # (Manual) Not Reportable Eosinophils # (Manual) Not Reportable Basophils # (Manual) Not Reportable Differential Comment MANUAL=AUTO DIFF WBC Morphology 1+ SMUDGE CELLS (NORMAL) Sodium (135-145) mmol/L Potassium (3.5-4.5) mmol/L Chloride (101-111) mmol/L Carbon Dioxide (21-32) mmol/L Anion Gap (6-13) BUN (6-20) mg/dL Creatinine (0.6-1.3) mg/dL Estimated GFR (MDRD) (>89) Glucose (74-104) mg/dL POC Whole Bld Glucose 241 H 238 H (70 - 100) mg/dL Calcium (8.5-10.3) mg/dL Magnesium (1.7-2.3) mg/dL Last Dose Date Last Dose Time Random Vancomycin ug/mL Slides for Path Review Indicated 10/20/23 10/20/23 10/19/23 Range/Units 01:57 01:00 23:56 WBC (4.8-10.8) x10^3/uL RBC (4.70-6.10) 10^6/uL Hgb (14.0-18.0) g/dL Hct (42.0-52.0) % MCV (80.0-94.0) fL MCH (27.0-31.0) pg MCHC (32.0-36.0) g/dL RDW (12.0-15.0) % Plt Count (130-450) 10^3/uL MPV (7.4-11.4) fL Neut # (Auto) (1.5-6.6) 10^3/uL Lymph # (Auto) (1.5-3.5) 10^3/uL [place] # (Auto) (0.0-1.0) 10^3/uL Eos # (Auto) (0.0-0.7) 10^3/uL Baso # (Auto) (0.0-0.1) 10^3/uL Absolute Nucleated RBC x10^3/uL Band Neuts % (Manual) Abnorm Lymph % (Manual) Nucleated RBC % /100WBC Neutrophils # (Manual) Lymphocytes # (Manual) Monocytes # (Manual) Eosinophils # (Manual) Basophils # (Manual) Differential Comment WBC Morphology (NORMAL) Sodium (135-145) mmol/L Potassium (3.5-4.5) mmol/L Chloride (101-111) mmol/L Carbon Dioxide (21-32) mmol/L Anion Gap (6-13) BUN (6-20) mg/dL Creatinine (0.6-1.3) mg/dL Estimated GFR (MDRD) (>89) Glucose (74-104) mg/dL POC Whole Bld Glucose 253 H 236 H 234 H (70 - 100) mg/dL Calcium (8.5-10.3) mg/dL Magnesium (1.7-2.3) mg/dL Last Dose Date Last Dose Time Random Vancomycin ug/mL Slides for Path Review 10/19/23 10/19/23 10/19/23 Range/Units 23:01 21:58 20:59 WBC (4.8-10.8) x10^3/uL RBC (4.70-6.10) 10^6/uL Hgb (14.0-18.0) g/dL Hct (42.0-52.0) % MCV (80.0-94.0) fL MCH (27.0-31.0) pg MCHC (32.0-36.0) g/dL RDW (12.0-15.0) % Plt Count (130-450) 10^3/uL MPV (7.4-11.4) fL Neut # (Auto) (1.5-6.6) 10^3/uL Lymph # (Auto) (1.5-3.5) 10^3/uL [place] # (Auto) (0.0-1.0) 10^3/uL Eos # (Auto) (0.0-0.7) 10^3/uL Baso # (Auto) (0.0-0.1) 10^3/uL Absolute Nucleated RBC x10^3/uL Band Neuts % (Manual) Abnorm Lymph % (Manual) Nucleated RBC % /100WBC Neutrophils # (Manual) Lymphocytes # (Manual) Monocytes # (Manual) Eosinophils # (Manual) Basophils # (Manual) Differential Comment WBC Morphology (NORMAL) Sodium (135-145) mmol/L Potassium (3.5-4.5) mmol/L Chloride (101-111) mmol/L Carbon Dioxide (21-32) mmol/L Anion Gap (6-13) BUN (6-20) mg/dL Creatinine (0.6-1.3) mg/dL Estimated GFR (MDRD) (>89) Glucose (74-104) mg/dL POC Whole Bld Glucose 243 H 228 H 229 H (70 - 100) mg/dL Calcium (8.5-10.3) mg/dL Magnesium (1.7-2.3) mg/dL Last Dose Date Last Dose Time Random Vancomycin ug/mL Slides for Path Review 10/19/23 10/19/23 10/19/23 Range/Units 20:06 18:43 16:59 WBC (4.8-10.8) x10^3/uL RBC (4.70-6.10) 10^6/uL Hgb (14.0-18.0) g/dL Hct (42.0-52.0) % MCV (80.0-94.0) fL MCH (27.0-31.0) pg MCHC (32.0-36.0) g/dL RDW (12.0-15.0) % Plt Count (130-450) 10^3/uL MPV (7.4-11.4) fL Neut # (Auto) (1.5-6.6) 10^3/uL Lymph # (Auto) (1.5-3.5) 10^3/uL [place] # (Auto) (0.0-1.0) 10^3/uL Eos # (Auto) (0.0-0.7) 10^3/uL Baso # (Auto) (0.0-0.1) 10^3/uL Absolute Nucleated RBC x10^3/uL Band Neuts % (Manual) Abnorm Lymph % (Manual) Nucleated RBC % /100WBC Neutrophils # (Manual) Lymphocytes # (Manual) Monocytes # (Manual) Eosinophils # (Manual) Basophils # (Manual) Differential Comment WBC Morphology (NORMAL) Sodium (135-145) mmol/L Potassium (3.5-4.5) mmol/L Chloride (101-111) mmol/L Carbon Dioxide (21-32) mmol/L Anion Gap (6-13) BUN (6-20) mg/dL Creatinine (0.6-1.3) mg/dL Estimated GFR (MDRD) (>89) Glucose (74-104) mg/dL POC Whole Bld Glucose 242 H 199 H 271 H (70 - 100) mg/dL Calcium (8.5-10.3) mg/dL Magnesium (1.7-2.3) mg/dL Last Dose Date Last Dose Time Random Vancomycin ug/mL Slides for Path Review 10/19/23 10/19/23 Range/Units 16:08 16:04 WBC (4.8-10.8) x10^3/uL RBC (4.70-6.10) 10^6/uL Hgb (14.0-18.0) g/dL Hct (42.0-52.0) % MCV (80.0-94.0) fL MCH (27.0-31.0) pg MCHC (32.0-36.0) g/dL RDW (12.0-15.0) % Plt Count (130-450) 10^3/uL MPV (7.4-11.4) fL Neut # (Auto) (1.5-6.6) 10^3/uL Lymph # (Auto) (1.5-3.5) 10^3/uL [place] # (Auto) (0.0-1.0) 10^3/uL Eos # (Auto) (0.0-0.7) 10^3/uL Baso # (Auto) (0.0-0.1) 10^3/uL Absolute Nucleated RBC x10^3/uL Band Neuts % (Manual) Abnorm Lymph % (Manual) Nucleated RBC % /100WBC Neutrophils # (Manual) Lymphocytes # (Manual) Monocytes # (Manual) Eosinophils # (Manual) Basophils # (Manual) Differential Comment WBC Morphology (NORMAL) Sodium (135-145) mmol/L Potassium (3.5-4.5) mmol/L Chloride (101-111) mmol/L Carbon Dioxide (21-32) mmol/L Anion Gap (6-13) BUN (6-20) mg/dL Creatinine (0.6-1.3) mg/dL Estimated GFR (MDRD) (>89) Glucose (74-104) mg/dL POC Whole Bld Glucose 267 H (70 - 100) mg/dL Calcium (8.5-10.3) mg/dL Magnesium (1.7-2.3) mg/dL Last Dose Date UNKNOWN Last Dose Time UNKNOWN Random Vancomycin 9.8 ug/mL Slides for Path Review Sepsis Event Note (H) - Evaluation Current Stage of Sepsis: Sepsis Possible source of Sepsis: positive: Bone/Joint, GI tract/intra-abdominal - Sepsis Criteria Sepsis Criteria: WBC count greater than 12,000 or less than 4000 Assessment/Plan - Problem List (1) Perforated duodenal ulcer Impression: improving. ileus resolving to resolved. ok to have full liquid diet. I have ordered this.
[2023-10-20] MEDS: INSULIN LISPRO 300 UNIT/3 ML PEN SUBQ SCH (16:09)
[2023-10-20] MEDS: INSULIN GLARGINE-YFGN 300 UNIT/3 ML PEN SUBQ SCH (16:10)
--- NOTE | 2023-10-20 18:15 | CONSULTATION NOTE ---
Referring Provider Name of Referring Provider:: Makeda Cortez Consult Date: 10/20/23 Chief Complaint - Chief Complaint Chief Complaint: Right great toe and lower leg cellulitis, swelling left shoulder History of Present Illness - History Obtained From Records Reviewed: Yes History obtained from: Patient Exam Limitations: Clinical condition - History of Present Illness HPI Comment/Other: This is a 68-year-old gentleman admitted to the hospital on about 10/14/2023 for right lower extremity cellulitis and then was subsequently found and taken to surgery on an emergency basis for a septic peritonitis with ruptured duodenal ulcer and evidence of cirrhosis of his liver at the time of surgery. He is also been found to have significant glucose intolerance consistent with diabetes mellitus although this was not known at the time of admission. He does have a history of previous great toe surgery to the right foot, cheilectomy done many years ago. He also has a history of gouty arthritis. Apparently began having some problems with the right great toe and even the left shoulder about 4 to 6 weeks prior to admission. He does have a history of alcohol use. 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 His hospital course has been complex, complicated by infection to the right lo wer extremity. He has had cellulitis that has improved but has focal areas now of concern to the great toe and lateral right ankle. Over the past day or 2 a left shoulder localized swelling has been noted despite being on multiple antibiotics. His white blood cell count remains elevated and according to general surgery, his abdominal situation is improving since surgical laparotomy. He does have some pain to both left shoulder and right great toe History - Past Medical History Cardiovascular: reports: Hypertension, High cholesterol Respiratory: reports: Sleep apnea Neuro: reports: None Endocrine/Autoimmune: reports: Type 2 diabetes GI: reports: GERD, Cirrhosis : reports: None HEENT: reports: Glaucoma Psych: reports: None Musculoskeletal: reports: Gout, Other Derm: reports: Herpes zoster, Other (RLE cellulitis with blisters, erythema) MRSA Hx?: No Other Past Medical History: GERD, glaucoma, sleep apnea, gout - Past Surgical History General: reports: Colonoscopy Ortho: reports: Other HEENT: reports: Cataracts - Family & Social History Family History: Mother: (mom at age 94, glaucoma), Hypertension, Fa ther: Cancer (colon) Living arrangement: At home Living Situation: With spouse/s.o. - Substance History Use: Uses substance without health or social issues: NONE Abuse: Recurrent use of substance despite neg consequences: NONE Dependence: Experiences withdrawal or developed tolerances: NONE - POLST Patient has POLST: No POLST Status: Full Code Meds/Allgy - Home Medications Home Medications: Ambulatory Orders Medication Instructions Recorded Confirmed Latanoprost 1 drops EACHEYE HS 04/28/16 10/15/23 Losartan Potassium 100 mg PO DAILY 04/28/16 10/15/23 Timolol [Betimol] 1 drops EACHEYE DAILY 04/28/16 10/15/23 Metoprolol Succinate [Toprol Xl] 25 mg PO DAILY 11/18/21 10/15/23 hydroCHLOROthiazide [Hydrodiuril] 12.5 mg PO DAILY 11/18/21 10/15/23 Rosuvastatin Calcium [Crestor] 20 mg PO HS 10/06/23 10/15/23 allopurinoL [Allopurinol] 300 mg PO DAILY 10/06/23 10/15/23 predniSONE [Deltasone] 10 mg PO [id number] #[id number] tab 10/06/23 10/15/23 tiZANidine [Zanaflex] 4 - 8 mg PO TID 10/06/23 10/15/23 Colchicine [Colcrys] 0.6 - 1.2 mg PO UD PRN 10/14/23 10/15/23 Diclofenac Sodium 1% Gel [Voltaren 1 applic TOP DAILY PRN 10/15/23 10/15/23 Gel] Lidocaine Patch 5% [Lidoderm Patch] 1 patch TOP DAILY PRN 10/15/23 10/15/23 Oxycodone HCl/Acetaminophen 1 tab PO BID PRN 10/15/23 10/15/23 [Oxycodone-Acetaminophen 5-325] - Allergies Allergies/Adverse Reactions: Allergies Allergy/AdvReac Type Severity Reaction Status Date / Time No Known Drug Allergies Allergy Verified 10/14/23 07:55 Exam - Vital Signs Vital Signs: Vital Signs x48h Temp Pulse Resp BP Pulse Ox 10/20/23 17:00 89 23 126/83 H 97 10/20/23 16:00 91 23 151/99 H 97 10/20/23 15:00 36.6 C 83 16 162/95 H 97 10/20/23 14:00 83 16 148/95 H 98 10/20/23 13:00 81 31 H 158/96 H 98 10/20/23 12:00 82 19 147/92 H 98 10/20/23 11:00 79 17 150/91 H 97 - Physical Exam General Appearance: positive: Mild distress Comments/Other: The left shoulder has limited motion with some pain but not severe. There is obvious effusion to the left shoulder with warmth. The skin is intact to left shoulder. There is mild tenderness with palpation about the left shoulder. The right leg shows an area of focal redness swelling and tenderness to the lateral ankle with minimal tenderness to ankle joint. The right great toe shows effusion and a sinus track over the dorsal and fibular aspect of the metatarsal phalangeal joint. There is gross pus that could be blotted from the metatarsal phalangeal joint of the right great toe. Conclusion and Plan - Lab Results Microbiology Results 10/14/23 15:42 Blood - Right Hand Blood Culture - Final Streptococcus Viridans Group 10/14/23 15:42 Blood - Right Arm Blood Culture - Final Streptococcus Viridans Group 10/15/23 14:20 Stool Salmonella/Shigella Screen - Final 10/15/23 14:20 Stool Stool Culture Result 1 - Final 10/15/23 14:20 Stool Campylobacter Culture - Final 10/15/23 14:20 Stool Campylobacter Result 1 - Final 10/15/23 14:20 Stool Escherichia coli Shiga Toxins EIA - Final 10/15/23 18:41 Peritoneal Fluid Body Fluid Culture - Final Laboratory Results 10/20/23 18:02: POC Whole Bld Glucose 240 H 10/20/23 17:10: POC Whole Bld Glucose 175 H 10/20/23 16:01: POC Whole Bld Glucose 153 H 10/20/23 15:11: POC Whole Bld Glucose 174 H 10/20/23 14:03: POC Whole Bld Glucose 174 H 10/20/23 13:06: POC Whole Bld Glucose 170 H 10/20/23 11:59: POC Whole Bld Glucose 187 H 10/20/23 11:01: POC Whole Bld Glucose 211 H 10/20/23 10:10: POC Whole Bld Glucose 216 H 10/20/23 09:01: POC Whole Bld Glucose 232 H 10/20/23 07:58: POC Whole Bld Glucose 219 H 10/20/23 06:49: POC Whole Bld Glucose 255 H 10/20/23 05:57: POC Whole Bld Glucose 261 H 10/20/23 05:02: POC Whole Bld Glucose 254 H 10/20/23 04:12: Sodium 136, Potassium 4.1, Chloride 112 H, Carbon Dioxide 18 L, Anion Gap 6.0, BUN 38 H, Creatinine 1.1, Estimated GFR (MDRD) 67 L, Glucose 350 H, Calcium 8.3 L, Magnesium 1.8 10/20/23 04:12: WBC 18.4 H, RBC 3.64 L, Hgb 11.9 L, Hct 36.1 L, MCV 99.2 H, MCH 32.7 H, MCHC 33.0, RDW 13.0, Plt Count 270, MPV 9.7, Neut # (Auto) 10.4 H, Lymph # (Auto) 6.0 H, [place] # (Auto) 1.3 H, Eos # (Auto) 0.1, Baso # (Auto) 0.1, Absolute Nucleated RBC 0.00, Band Neuts % (Manual) Not Reportable, Abnorm Lymph % (Manual) Not Reportable, Nucleated RBC % 0.0, Neutrophils # (Manual) Not Reportable, Lymphocytes # (Manual) Not Reportable, Monocytes # (Manual) Not Reportable, Eosinophils # (Manual) Not Reportable, Basophils # (Manual) Not Reportable, Differential Comment MANUAL=AUTO DIFF, WBC Morphology 1+ SMUDGE CELLS, Slides for Path Review Indicated 10/20/23 04:05: POC Whole Bld Glucose 241 H 10/20/23 02:56: POC Whole Bld Glucose 238 H 10/20/23 01:57: POC Whole Bld Glucose 253 H 10/20/23 01:00: POC Whole Bld Glucose 236 H 10/19/23 23:56: POC Whole Bld Glucose 234 H 10/19/23 23:01: POC Whole Bld Glucose 243 H 10/19/23 21:58: POC Whole Bld Glucose 228 H 10/19/23 20:59: POC Whole Bld Glucose 229 H 10/19/23 20:06: POC Whole Bld Glucose 242 H 10/19/23 18:43: POC Whole Bld Glucose 199 H 10/19/23 16:59: POC Whole Bld Glucose 271 H 10/19/23 16:08: Last Dose Date UNKNOWN, Last Dose Time UNKNOWN, Random Vancomycin 9.8 10/19/23 16:04: POC Whole Bld Glucose 267 H 10/19/23 15:04: POC Whole Bld Glucose 244 H 10/19/23 14:21: POC Whole Bld Glucose 248 H 10/19/23 13:07: POC Whole Bld Glucose 260 H 10/19/23 12:04: POC Whole Bld Glucose 259 H 10/19/23 11:00: POC Whole Bld Glucose 294 H 10/19/23 05:57: POC Whole Bld Glucose 298 H 10/19/23 04:05: C-Reactive Protein 8.4 H 10/19/23 04:05: Vitamin B12 2480 H, Folate 11.4 10/19/23 04:05: WBC 16.2 H, RBC 3.61 L, Hgb 11.4 L, Hct 35.3 L, MCV 97.8 H, MCH 31.6 H, MCHC 32.3, RDW 12.6, Plt Count 227, MPV 9.4, Neut # (Auto) 9.9 H, Lymph # (Auto) 4.8 H, [place] # (Auto) 1.1 H, Eos # (Auto) 0.1, Baso # (Auto) 0.0, Absolute Nucleated RBC 0.00, Nucleated RBC % 0.0 10/19/23 04:05: Sodium 138, Potassium 3.8, Chloride 113 H, Carbon Dioxide 18 L, Anion Gap 7.0, BUN 48 H, Creatinine 1.4 H, Estimated GFR (MDRD) 51 L, Glucose 314 H, Calcium 8.1 L, Phosphorus 3.4, Magnesium 1.6 L, Total Bilirubin 0.4, AST 27, ALT 28, Alkaline Phosphatase 101, Total Protein 5.2 L, Albumin 2.0 L, G lobulin 3.2, Albumin/Globulin Ratio 0.6 L, Prealbumin 10 L, Triglycerides 90 10/19/23 00:02: POC Whole Bld Glucose 251 H - Diagnostic Imaging Results Diagnostic Imaging Results: positive: See rad report, Read independently (The left shoulder x-rays do suggest some potential abnormality to the acromion, perhaps some lysis. Would recommend CT scan or MRI of the left shoulder. I also would recommend x-rays of the right ankle.) - Plan Plan: 1. Septic arthritis left shoulder Patient has given verbal consent for arthrocentesis which was performed using aseptic technique, anterior glenohumeral joint with gross pus aspirated and sent to lab for culture and cell count 2. 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 3. Cellulitis right lower extremity with some persistent swelling and redness over lateral right ankle concerning for potential abscess formation. Again with verbal consent, arthrocentesis of right ankle performed through an anteromedial portal using aseptic technique; no fluid obtained from right ankle joint. The mildly fluctuant area about the lateral right ankle was aspirated, no pus encountered using aseptic technique. This patient is obviously immunocompromised and now has evidence of new sepsis d espite multiple antibiotics. He needs to have his surgery to his left shoulder and right great toe for persistent sepsis. I would strongly recommend transfer to a higher level of care where multiple disciplinary specialty care can be obtained. This was discussed with Makeda Cortez PA-C who seems to be his primary care provider at this time.
[2023-10-20 19:37] LABS: CC,BF WBC 578000 /mm^3
[2023-10-20 19:38] LABS: BF CLARITY TURBID; BF COLOR PINK; BF SOURCE JOINT; CC,BF RBC 2100000 /mm^3
[2023-10-20 20:07] LABS: MESOTHELIAL %, BF 0 %
--- NOTE | 2023-10-21 06:20 | PROVIDER PROGRESS NOTE ---
Marketing Technology Specialist Note - Marketing Technology Specialist Note Marketing Technology Specialist Note: RN paged "Pt is 68M Full code admitted for cellulitis, duodenal ulcer with perf, potential osteomyelitis. Patient has been confused but pleasant past few days. Today however, patient experienced some hallucinations and paranoia multiple times. Bilateral upper extremity restraints were applied at 05:40 due to patient disorientation and his forceful attempts to remove both a central line and surgically placed drains. Need order for soft upper restraints. 0.5mg PRN ativan was given once lines were secure. by serviceuser , [employer] at Oct 21, 2023, 5:50:03 AM" A: delirium P: bilateral restraints Galindo Morris
[2023-10-21 07:45] LABS: ALBUMIN 2.1 g/dL (3.2-5.5); ALBUMIN/GLOBULIN RATIO 0.7 (1.0-2.2); BILIRUBIN,TOTAL 0.4 mg/dL (0.2-1.0); CALCIUM 8.2 mg/dL (8.5-10.3); MAGNESIUM 1.5 mg/dL (1.7-2.3); PHOSPHORUS 3.4 mg/dL (2.5-5.0); POTASSIUM 3.7 mmol/L (3.5-4.5); TOTAL PROTEIN 5.3 g/dL (6.4-8.9)
[2023-10-21] MEDS ORDERED: SODIUM CHLORIDE 0.9% 100ML 100 ML IV ONE (09:05)
[2023-10-21] MEDS ORDERED: SODIUM CHLORIDE 0.9% MINIBAG 100 ML IV ONE (09:11)
--- NOTE | 2023-10-21 11:41 | PROVIDER PROGRESS NOTE ---
Subjective - Prog Note Date Prog Note Date: 10/21/23 Prog Note Time: 11:40 - Subjective Pt reports feeling: No change Subjective: The patient is a 68-year-old gentleman with a past medical history significant for alcoholic cirrhosis of the liver. He also recently was found to have glucose intolerance consistent with diabetes. He has a history of right toe surgery and a Sheeley ectomy done many years ago. He also has a history of gout. About 4-6 weeks prior to admission he had been complaining of pain in the right great toe and the left shoulder. He was admitted to the hospital on 10/14/2023 with right lower extremity cellulitis. His hospitalization has been complicated by developing a ruptured duodenal ulcer. He developed peritonitis and was taken emergently to the emergency room for a laparotomy. Also during this hospitalization he has been found to have evidence of possible septic arthritis of the left shoulder also with possible osteomyelitis. Currently the patient is stable. Nursing staff reported that the patient became quite confused early this morning. He was trying to pull out his lines. He was temporarily placed in restraints which have since been stopped. When I went to see the patient he is awake and alert but clearly a little confused. His is at the bedside and have quite a few questions which I have answered for now. She is aware that we are trying to get the patient transferred and is hoping that we can get him transferred to hospital and that it is not too far away. The patient tells me he is cold this morning. He tells me he is not feeling too bad. Review of systems could not be obtained due to his underlying confusion. Current Medications - Current Medications Current Medications: Active Medications Heparin Sodium (Porcine) (Heparin 5,000 Unit/Ml Vial) 5,000 unit SUBQ TID [facility] Last Admin: 10/21/23 06:39 Dose: 5,000 unit Hydromorphone HCl (Hydromorphone 0.5 Mg/0.5 Ml Syringe) 0.5 mg IVP Q2H PRN PRN Reason: Pain 8 to 10 Last Admin: 10/17/23 21:31 Dose: 0.5 mg Multivitamins 10 ml/ TRACE ELEMENTS 1 ml/ Amino Ac/Electrol/Dextrose/Calcium 2,011 mls @ 75 mls/hr IV 1900 [facility]IL; Protocol Last Admin: 10/20/23 18:33 Dose: 75 mls/hr Fat Emulsion Intravenous (Intralipid 20%) 250 mls @ 21 mls/hr IV 1900 [facility] Last Infusion: 10/21/23 06:30 Dose: Infused Acetaminophen (Acetaminophen) 1,000 mg in 100 mls @ 400 mls/hr IV Q6HR PRN PRN Reason: Moderate Pain (Level 4-6) Last Infusion: 10/20/23 15:06 Dose: Infused Insulin Human Regular 100 unit (/ Sodium Chloride) 100 mls @ 0.5 mls/hr IV .Q72H [facility]; Protocol Last Titration: 10/20/23 17:00 Dose: 0 unit/hr, 0 mls/hr Cefepime HCl 2 gm/ Sodium (Chloride) 100 mls @ 200 mls/hr IV Q12H [facility] Last Admin: 10/21/23 09:12 Dose: 200 mls/hr Vancomycin HCl 1 gm/ Sodium (Chloride) 250 mls @ 167 mls/hr IV Q12H [facility] Last Admin: 10/21/23 11:44 Dose: 167 mls/hr Insulin Glargine-yfgn (Insulin Glargine-Yfgn 300 Unit/3 Ml Pen) 30 unit SUBQ QPM [facility] Insulin Human Lispro (Insulin Lispro 300 Unit/3 Ml Pen) 5 unit SUBQ TIDWM [facility] Last Admin: 10/21/23 11:51 Dose: 5 unit Labetalol HCl (Labetalol 20 Mg/4 Ml Syringe) 10 mg IVP Q4H PRN PRN Reason: SBP>160 Latanoprost (Latanoprost 0.005% Ophth Drops) 1 drops EACHEYE [facility] Last Admin: 10/20/23 22:25 Dose: 1 drops Lorazepam (Lorazepam 2 Mg/Ml Vial) 0.5 mg IVP Q4H PRN PRN Reason: Anxiety Last Admin: 10/21/23 05:38 Dose: 0.5 mg Metoprolol Tartrate (Metoprolol Tartrate 25 Mg Tablet) 12.5 mg PO BID [facility] Last Admin: 10/21/23 09:13 Dose: 12.5 mg Ondansetron HCl (Ondansetron 4 Mg/2 Ml Vial) 4 mg IVP Q6HR PRN PRN Reason: Nausea / Vomiting Last Admin: 10/19/23 13:53 Dose: 4 mg Pantoprazole Sodium (Pantoprazole 40 Mg Vial) 40 mg IVP BID [facility] Last Admin: 10/21/23 09:13 Dose: 40 mg Prochlorperazine Edisylate (Prochlorperazine 10 Mg/2 Ml Vial) 10 mg IVP Q6HR PRN PRN Reason: Nausea / Vomiting Last Admin: 10/16/23 04:55 Dose: 10 mg Sodium Chloride (Sodium Chloride Flush 0.9% 10 Ml Syringe) 10 ml IVP PRN PRN PRN Reason: NEEDED PER PROVIDER ORDERS Last Admin: 10/18/23 04:54 Dose: 40 ml Sodium Chloride (Sodium Chloride Flush 0.9% 10 Ml Syringe) 10 ml IVP 0100,0900,1700 [facility] Last Admin: 10/21/23 09:18 Dose: 10 ml Timolol Maleate (Timolol 0.5% Ophth Drops) 1 drops EACHEYE DAILY [facility] Last Admin: 10/21/23 09:18 Dose: 1 drops Latanoprost 1 drops EACHEYE 04/28/16 Losartan Potassium 100 mg PO DAILY 04/28/16 Timolol [Betimol] 1 drops EACHEYE DAILY 04/28/16 Metoprolol Succinate [Toprol Xl] 25 mg PO DAILY 11/18/21 hydroCHLOROthiazide [Hydrodiuril] 12.5 mg PO DAILY 11/18/21 Rosuvastatin Calcium [Crestor] 20 mg PO HS 10/06/23 allopurinoL [Allopurinol] 300 mg PO DAILY 10/06/23 tiZANidine [Zanaflex] 4 - 8 mg PO TID 10/06/23 Colchicine [Colcrys] 0.6 - 1.2 mg PO UD PRN 10/14/23 Diclofenac Sodium 1% Gel [Voltaren Gel] 1 applic TOP DAILY PRN 10/15/23 Lidocaine Patch 5% [Lidoderm Patch] 1 patch TOP DAILY PRN 10/15/23 Oxycodone HCl/Acetaminophen [Oxycodone-Acetaminophen 5-325] 1 tab PO BID PRN 10/15/23 Objective - Vital Signs/Intake & Output Reviewed Vital Signs: Yes Vital Signs: Vital Signs x48h Temp Pulse Resp BP BP Pulse Ox 10/21/23 11:00 93 22 139/83 H 95 10/21/23 10:00 97 20 128/92 H 97 10/21/23 09:13 146/93 H 10/21/23 09:00 100 36 H 146/93 H 97 10/21/23 08:00 36.5 C 96 19 127/90 H 97 10/21/23 07:03 103 H 19 155/89 H 95 10/21/23 06:13 101 H 19 155/93 H 97 10/21/23 05:13 99 18 168/95 H 97 10/21/23 04:07 96 18 155/83 H 97 Intake & Output: Intake & Output 10/18/23 10/19/23 10/20/23 10/21/23 23:59 23:59 23:59 23:59 Intake Total 3550.583 4451.684 5491.119 700 Output Total 3460 4105 1845 2100 Balance 90.583 527.748 0624.119 -1400 - Objective General Appearance: positive: Other (The patient is confused. He is pleasant and cooperative. Alert and oriented x 2) Eyes Bilateral: positive: Normal inspection ENT: positive: ENT inspection nml Neck: positive: Nml inspection, Thyroid nml Respiratory: positive: Chest non-tender, No respiratory distress, Breath sounds nml Cardiovascular: positive: Regular rate & rhythm, No murmur, No gallop. negative: Friction rub Abdomen: positive: Other (Large midline incision with dressing intact. No surrounding erythema or drainage. Abdomen is slightly tender around his incision. He has a CHAPITO drain in place that has some clear straw colored liquid.) Skin: positive: No rash, Warm, Dry, Other (The patient is pale and appears ill) Extremities: positive: Non-tender, Full ROM, Other (Right foot with dressing in place.) Neurologic/Psychiatric: positive: Other (He is not oriented to his situation). negative: Disoriented to time - Lab Results Fish Bones: 10/20/23 04:12 10/21/23 07:05 Other Labs: Lab Results x24hrs 10/21/23 10/21/23 10/21/23 Range/Units 08:40 07:05 05:59 Sodium 134 L (135-145) mmol/L Potassium 3.7 (3.5-4.5) mmol/L Chloride 110 (101-111) mmol/L Carbon Dioxide 19 L (21-32) mmol/L Anion Gap 5.0 L (6-13) BUN 33 H (6-20) mg/dL Creatinine 1.0 (0.6-1.3) mg/dL Estimated GFR (MDRD) 75 L (>89) Glucose 240 H (74-104) mg/dL POC Whole Bld Glucose 192 H 225 H (70 - 100) mg/dL Calcium 8.2 L (8.5-10.3) mg/dL Phosphorus 3.4 (2.5-5.0) mg/dL Magnesium 1.5 L (1.7-2.3) mg/dL Total Bilirubin 0.4 (0.2-1.0) mg/dL AST 24 (10-42) IU/L ALT 21 (10-60) IU/L Alkaline Phosphatase 102 (42-121) IU/L Total Protein 5.3 L (6.4-8.9) g/dL Albumin 2.1 L (3.2-5.5) g/dL Globulin 3.2 (2.1-4.2) g/dL Albumin/Globulin Ratio 0.7 L (1.0-2.2) Prealbumin 10 L (17-34) mg/dL Triglycerides 82 (48-352) mg/dL Fluid Source Fluid Color Fluid Clarity Fluid WBC /mm^3 Fluid RBC /mm^3 Fluid Neutrophils % % Fluid Lymphocytes % % Fld Mesothelial Cell % % 10/21/23 10/20/23 10/20/23 Range/Units 02:18 22:17 20:29 Sodium (135-145) mmol/L Potassium (3.5-4.5) mmol/L Chloride (101-111) mmol/L Carbon Dioxide (21-32) mmol/L Anion Gap (6-13) BUN (6-20) mg/dL Creatinine (0.6-1.3) mg/dL Estimated GFR (MDRD) (>89) Glucose (74-104) mg/dL POC Whole Bld Glucose 233 H 268 H 296 H (70 - 100) mg/dL Calcium (8.5-10.3) mg/dL Phosphorus (2.5-5.0) mg/dL Magnesium (1.7-2.3) mg/dL Total Bilirubin (0.2-1.0) mg/dL AST (10-42) IU/L ALT (10-60) IU/L Alkaline Phosphatase (42-121) IU/L Total Protein (6.4-8.9) g/dL Albumin (3.2-5.5) g/dL Globulin (2.1-4.2) g/dL Albumin/Globulin Ratio (1.0-2.2) Prealbumin (17-34) mg/dL Triglycerides (48-352) mg/dL Fluid Source Fluid Color Fluid Clarity Fluid WBC /mm^3 Fluid RBC /mm^3 Fluid Neutrophils % % Fluid Lymphocytes % % Fld Mesothelial Cell % % 10/20/23 10/20/23 10/20/23 Range/Units 18:02 17:43 17:10 Sodium (135-145) mmol/L Potassium (3.5-4.5) mmol/L Chloride (101-111) mmol/L Carbon Dioxide (21-32) mmol/L Anion Gap (6-13) BUN (6-20) mg/dL Creatinine (0.6-1.3) mg/dL Estimated GFR (MDRD) (>89) Glucose (74-104) mg/dL POC Whole Bld Glucose 240 H 175 H (70 - 100) mg/dL Calcium (8.5-10.3) mg/dL Phosphorus (2.5-5.0) mg/dL Magnesium (1.7-2.3) mg/dL Total Bilirubin (0.2-1.0) mg/dL AST (10-42) IU/L ALT (10-60) IU/L Alkaline Phosphatase (42-121) IU/L Total Protein (6.4-8.9) g/dL Albumin (3.2-5.5) g/dL Globulin (2.1-4.2) g/dL Albumin/Globulin Ratio (1.0-2.2) Prealbumin (17-34) mg/dL Triglycerides (48-352) mg/dL Fluid Source JOINT Fluid Color PINK Fluid Clarity TURBID Fluid WBC 221659 /mm^3 Fluid RBC 5604489 /mm^3 Fluid Neutrophils % 81.0 % Fluid Lymphocytes % 19.0 % Fld Mesothelial Cell % 0 % 10/20/23 10/20/23 10/20/23 Range/Units 16:01 15:11 14:03 Sodium (135-145) mmol/L Potassium (3.5-4.5) mmol/L Chloride (101-111) mmol/L Carbon Dioxide (21-32) mmol/L Anion Gap (6-13) BUN (6-20) mg/dL Creatinine (0.6-1.3) mg/dL Estimated GFR (MDRD) (>89) Glucose (74-104) mg/dL POC Whole Bld Glucose 153 H 174 H 174 H (70 - 100) mg/dL Calcium (8.5-10.3) mg/dL Phosphorus (2.5-5.0) mg/dL Magnesium (1.7-2.3) mg/dL Total Bilirubin (0.2-1.0) mg/dL AST (10-42) IU/L ALT (10-60) IU/L Alkaline Phosphatase (42-121) IU/L Total Protein (6.4-8.9) g/dL Albumin (3.2-5.5) g/dL Globulin (2.1-4.2) g/dL Albumin/Globulin Ratio (1.0-2.2) Prealbumin (17-34) mg/dL Triglycerides (48-352) mg/dL Fluid Source Fluid Color Fluid Clarity Fluid WBC /mm^3 Fluid RBC /mm^3 Fluid Neutrophils % % Fluid Lymphocytes % % Fld Mesothelial Cell % % 10/20/23 10/20/23 Range/Units 13:06 11:59 Sodium (135-145) mmol/L Potassium (3.5-4.5) mmol/L Chloride (101-111) mmol/L Carbon Dioxide (21-32) mmol/L Anion Gap (6-13) BUN (6-20) mg/dL Creatinine (0.6-1.3) mg/dL Estimated GFR (MDRD) (>89) Glucose (74-104) mg/dL POC Whole Bld Glucose 170 H 187 H (70 - 100) mg/dL Calcium (8.5-10.3) mg/dL Phosphorus (2.5-5.0) mg/dL Magnesium (1.7-2.3) mg/dL Total Bilirubin (0.2-1.0) mg/dL AST (10-42) IU/L ALT (10-60) IU/L Alkaline Phosphatase (42-121) IU/L Total Protein (6.4-8.9) g/dL Albumin (3.2-5.5) g/dL Globulin (2.1-4.2) g/dL Albumin/Globulin Ratio (1.0-2.2) Prealbumin (17-34) mg/dL Triglycerides (48-352) mg/dL Fluid Source Fluid Color Fluid Clarity Fluid WBC /mm^3 Fluid RBC /mm^3 Fluid Neutrophils % % Fluid Lymphocytes % % Fld Mesothelial Cell % % ABX Reporting Has patient been on IV antibiotics over the past 48 hours?: Yes Sepsis Event Note (H) - Evaluation Current Stage of Sepsis: Sepsis Possible source of Sepsis: positive: Bone/Joint, GI tract/intra-abdominal - Sepsis Criteria Sepsis Criteria: WBC count greater than 12,000 or less than 4000, COMMODITY DIRECTOR: altered consciousness (unrelated to primary neuro pathology) Assessment/Plan - Problem List (1) Sepsis Impression: The patient's sepsis symptoms are resolving. He remains on broad-spectrum IV antibiotics with IV vancomycin and cefepime. (2) Cellulitis of right foot Impression: Continue IV vancomycin and cefepime. Efforts are underway to transfer the patient for further orthopedic evaluation (3) Perforated duodenal ulcer Impression: The patient is postoperative day #6. General surgery is following. Currently on a full liquid diet. He still has a CHAPITO drain in place. Will defer to general surgery on when to remove this (4) Bacteremia Impression: The patient has 2 out of 2 blood cultures positive for strep viridans. Repeat blood cultures are negative. He should be adequately covered with above antibiotics (5) Septic arthritis of shoulder, left Impression: Efforts are underway to transfer the patient for orthopedic evaluation. He may need washout of his left shoulder. There was also evidence of possible osteomyelitis. He would benefit from infectious disease evaluation as well. (6) Acute kidney injury Impression: Creatinine peaked at 3.2. This was likely due to sepsis. Currently creatinine is normal at 1.0 (7) Pneumoperitoneum Impression: Improving (8) Ileus following gastrointestinal surgery Impression: Slowly resolving. (9) Alcohol use disorder Impression: No evidence of alcohol withdrawal (10) Alcoholic cirrhosis of liver Impression: Continue to monitor liver function test (11) Diabetes mellitus, new onset Impression: The patient's hemoglobin A1c is greater than 8. Currently he has been on 25 units of Lantus in the evening with sliding scale coverage. Blood sugars have still been a little on the high side. Will increase his Lantus to 30 units and add 5 units of Humalog 3 times daily AC. He will continue sliding scale coverage. (12) Glaucoma Impression: Continue eyedrops (13) Malnutrition Impression: The patient likely has mild to moderate protein calorie malnutrition. Currently on TPN which we are going to try to wean off as his diet is advanced. (14) Hypomagnesemia Impression: This will be repleted today with 3 g of IV magnesium sulfate. (15) Hyponatremia Impression: Still mildly low. Continue to monitor Time spent: 45 minutes
[2023-10-21] MEDS: INSULIN LISPRO 300 UNIT/3 ML PEN SUBQ SCH (11:51)
[2023-10-21] MEDS ORDERED: INSULIN LISPRO 300 UNIT/3 ML PEN SUBQ SCH (12:00)
[2023-10-21] MEDS: MAGNESIUM SULFATE 3 GM in SODIUM CHLORIDE 0.9% 50 ML IV ONE (13:16)
[2023-10-21] MEDS: INSULIN REGULAR, HUMAN 300 UNIT/3 ML PEN SUBQ SCH (16:52)
[2023-10-21] MEDS: OLANZapine ODT 5 MG TABLET TL PRN (16:56)
--- NOTE | 2023-10-21 17:26 | PROVIDER PROGRESS NOTE ---
Subjective - Prog Note Date Prog Note Date: 10/21/23 - Subjective Subjective: up in chair having soft diet Objective - Vital Signs/Intake & Output Vital Signs: Vital Signs x48h Temp Pulse Resp BP Pulse Ox 10/21/23 16:00 37.1 C 106 H 20 141/90 H 98 10/21/23 15:00 98 21 124/95 H 97 10/21/23 14:00 97 22 144/86 H 100 10/21/23 13:00 100 23 135/81 H 98 10/21/23 11:50 37.3 C 10/21/23 11:00 93 22 139/83 H 95 10/21/23 10:00 97 20 128/92 H 97 Intake & Output: Intake & Output 10/18/23 10/19/23 10/20/23 10/21/23 23:59 23:59 23:59 23:59 Intake Total 3550.583 4451.684 5491.119 2789.75 Output Total 3460 4105 1845 3110 Balance 90.583 399.647 2417.119 -320.25 - Objective General Appearance: positive: No acute distress, Alert Eyes Bilateral: positive: PERRL, EOMI, No scleral icterus Neck: positive: Trachea midline Respiratory: positive: No respiratory distress Abdomen: positive: Non-tender, No distention, Other (christine thin fluid) - Lab Results Fish Bones: 10/20/23 04:12 10/21/23 07:05 Other Labs: Lab Results x24hrs 10/21/23 10/21/23 10/21/23 Range/Units 15:59 11:51 08:40 Sodium (135-145) mmol/L Potassium (3.5-4.5) mmol/L Chloride (101-111) mmol/L Carbon Dioxide (21-32) mmol/L Anion Gap (6-13) BUN (6-20) mg/dL Creatinine (0.6-1.3) mg/dL Estimated GFR (MDRD) (>89) Glucose (74-104) mg/dL POC Whole Bld Glucose 249 H 252 H 192 H (70 - 100) mg/dL Calcium (8.5-10.3) mg/dL Phosphorus (2.5-5.0) mg/dL Magnesium (1.7-2.3) mg/dL Total Bilirubin (0.2-1.0) mg/dL AST (10-42) IU/L ALT (10-60) IU/L Alkaline Phosphatase (42-121) IU/L Total Protein (6.4-8.9) g/dL Albumin (3.2-5.5) g/dL Globulin (2.1-4.2) g/dL Albumin/Globulin Ratio (1.0-2.2) Prealbumin (17-34) mg/dL Triglycerides (48-352) mg/dL Fluid Source Fluid Color Fluid Clarity Fluid WBC /mm^3 Fluid RBC /mm^3 Fluid Neutrophils % % Fluid Lymphocytes % % Fld Mesothelial Cell % % 10/21/23 10/21/23 10/21/23 Range/Units 07:05 05:59 02:18 Sodium 134 L (135-145) mmol/L Potassium 3.7 (3.5-4.5) mmol/L Chloride 110 (101-111) mmol/L Carbon Dioxide 19 L (21-32) mmol/L Anion Gap 5.0 L (6-13) BUN 33 H (6-20) mg/dL Creatinine 1.0 (0.6-1.3) mg/dL Estimated GFR (MDRD) 75 L (>89) Glucose 240 H (74-104) mg/dL POC Whole Bld Glucose 225 H 233 H (70 - 100) mg/dL Calcium 8.2 L (8.5-10.3) mg/dL Phosphorus 3.4 (2.5-5.0) mg/dL Magnesium 1.5 L (1.7-2.3) mg/dL Total Bilirubin 0.4 (0.2-1.0) mg/dL AST 24 (10-42) IU/L ALT 21 (10-60) IU/L Alkaline Phosphatase 102 (42-121) IU/L Total Protein 5.3 L (6.4-8.9) g/dL Albumin 2.1 L (3.2-5.5) g/dL Globulin 3.2 (2.1-4.2) g/dL Albumin/Globulin Ratio 0.7 L (1.0-2.2) Prealbumin 10 L (17-34) mg/dL Triglycerides 82 (48-352) mg/dL Fluid Source Fluid Color Fluid Clarity Fluid WBC /mm^3 Fluid RBC /mm^3 Fluid Neutrophils % % Fluid Lymphocytes % % Fld Mesothelial Cell % % 10/20/23 10/20/23 10/20/23 Range/Units 22:17 20:29 18:02 Sodium (135-145) mmol/L Potassium (3.5-4.5) mmol/L Chloride (101-111) mmol/L Carbon Dioxide (21-32) mmol/L Anion Gap (6-13) BUN (6-20) mg/dL Creatinine (0.6-1.3) mg/dL Estimated GFR (MDRD) (>89) Glucose (74-104) mg/dL POC Whole Bld Glucose 268 H 296 H 240 H (70 - 100) mg/dL Calcium (8.5-10.3) mg/dL Phosphorus (2.5-5.0) mg/dL Magnesium (1.7-2.3) mg/dL Total Bilirubin (0.2-1.0) mg/dL AST (10-42) IU/L ALT (10-60) IU/L Alkaline Phosphatase (42-121) IU/L Total Protein (6.4-8.9) g/dL Albumin (3.2-5.5) g/dL Globulin (2.1-4.2) g/dL Albumin/Globulin Ratio (1.0-2.2) Prealbumin (17-34) mg/dL Triglycerides (48-352) mg/dL Fluid Source Fluid Color Fluid Clarity Fluid WBC /mm^3 Fluid RBC /mm^3 Fluid Neutrophils % % Fluid Lymphocytes % % Fld Mesothelial Cell % % 10/20/23 Range/Units 17:43 Sodium (135-145) mmol/L Potassium (3.5-4.5) mmol/L Chloride (101-111) mmol/L Carbon Dioxide (21-32) mmol/L Anion Gap (6-13) BUN (6-20) mg/dL Creatinine (0.6-1.3) mg/dL Estimated GFR (MDRD) (>89) Glucose (74-104) mg/dL POC Whole Bld Glucose (70 - 100) mg/dL Calcium (8.5-10.3) mg/dL Phosphorus (2.5-5.0) mg/dL Magnesium (1.7-2.3) mg/dL Total Bilirubin (0.2-1.0) mg/dL AST (10-42) IU/L ALT (10-60) IU/L Alkaline Phosphatase (42-121) IU/L Total Protein (6.4-8.9) g/dL Albumin (3.2-5.5) g/dL Globulin (2.1-4.2) g/dL Albumin/Globulin Ratio (1.0-2.2) Prealbumin (17-34) mg/dL Triglycerides (48-352) mg/dL Fluid Source JOINT Fluid Color PINK Fluid Clarity TURBID Fluid WBC 570679 /mm^3 Fluid RBC 7129318 /mm^3 Fluid Neutrophils % 81.0 % Fluid Lymphocytes % 19.0 % Fld Mesothelial Cell % 0 % Sepsis Event Note (H) - Evaluation Current Stage of Sepsis: Sepsis Possible source of Sepsis: positive: Bone/Joint, GI tract/intra-abdominal - Sepsis Criteria Sepsis Criteria: WBC count greater than 12,000 or less than 4000, AGRONOMY ADVISOR: altered consciousness (unrelated to primary neuro pathology) Assessment/Plan - Problem List (1) Perforated duodenal ulcer Impression: tolerating full liquids. having bm. soft abdomen. ok to advance diet
--- NOTE | 2023-10-21 17:47 | XRAY Report ---
PROCEDURE: Ankle 1-2V RT INDICATIONS: right ankle swelling. TECHNIQUE: 3 views of the ankle were acquired. COMPARISON: MRI right foot dated 192 and right foot radiograph dated 10/19/2023. FINDINGS: Bones: No fractures or dislocations. Moderate midfoot and hindfoot joint osteoarthritic changes are noted with joint space narrowing, subchondral sclerosis and dorsal marginal osteophyte formation. Ank le mortise is normally aligned. No suspicious bony lesions. Soft tissues: Significant lateral ankle soft tissue swelling. No tibiotalar joint effusion. [place] s tendon appears normal. 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 No acute ankle fracture or dislocation. Modera te lateral ankle soft tissue swelling. Reviewed by: Elvis Perez MD on 10/21/2023 5:45 PM PDT Approved by: Elvis Perez MD on 10/21/2023 5:45 PM PDT Station ID: [id number]
[2023-10-21] MEDS ORDERED: INSULIN REGULAR, HUMAN 300 UNIT/3 ML PEN SUBQ SCH (18:00)
[2023-10-21 20:47] VITALS: BP 135/86; O2SAT 96
[2023-10-21] MEDS: OLANZapine ODT 5 MG TABLET TL SCH (21:02)
[2023-10-21] MEDS: INSULIN GLARGINE-YFGN 300 UNIT/3 ML PEN SUBQ SCH (21:10)
--- NOTE | 2023-10-22 07:30 | DISCHARGE SUMMARY ---
"Discharge Summary Admit Date: 10/14/23 Discharge Date: 10/22/23 Discharging Provider: Catia Dodd PA-C Code Status: Attempt Resuscitation Condition at Discharge: Serious Discharge Disposition: 02 Transfer Acute Care Hosp Discharge [facility] Name: [facility] - DIAGNOSES Discharge Diagnoses with Status of Each Condition: 1. Sepsis Secondary to cellulitis, septic arthritis of left shoulder and complicated by peritonitis from ruptured duodenal ulcer. Resolved 2. Cellulitis of the right foot The patient had been receiving IV vancomycin and IV cefepime. He is being transferred to a higher level of care and will defer to the oncoming team staff titrate 3. Perforated duodenal ulcer The patient at the time of discharge was postoperative day #6. The patient's diet has been advanced to a low residue soft diet and he was tolerating it at discharge. 4. Bacteremia The patient had 2 out of 2 blood cultures positive for strep viridans. Repeat blood cultures were negative. He has been adequately covered with the above antibiotics. 5. Septic arthritis of the left shoulder The patient was evaluated by orthopedics who recommended washout of the left shoulder. Imaging also revealed evidence of possible osteomyelitis. He is being transferred for orthopedic evaluation and possible infectious disease evaluation as well 6. Acute kidney injury Secondary to sepsis. Resolved 7. Pneumoperitoneum Improving 8. Ileus following GI surgery Resolving. The patient had a bowel movement yesterday and his diet has been successfully advanced 9. Alcohol use disorder The patient has had no evidence of alcohol withdrawal during this hospitalization 10. Alcoholic cirrhosis of the liver Stable 11. Diabetes, new onset The patient's hemoglobin A1c is greater than 8. At the time of discharge she was on 30 units of Lantus in the evening. 5 units of Humalog 3 times daily AC with sliding scale coverage 12. Glaucoma He should continue his eyedrops 13. Hypomagnesemia This was repleted on the day of discharge with 3 g of IV magnesium sulfate 14. Hyponatremia Mild. 15. Malnutrition Mild due to acute illness. The patient was maintained on TPN following his surgery. TPN was stopped yesterday. 16. Acute metabolic encephalopathy The patient has been more confused over the past 24 to 48 hours. He had an episode of combativeness which has resolved. Likely due to worsening infection and complicated by hospital delirium - CONSULTS | PROCEDURES Consultations: General surgery - HOSPITAL COURSE Hospital Course: The patient is a 68-year-old gentleman with a past medical history significant for alcoholic cirrhosis of the liver. He also recently was found to have glucose intolerance consistent with diabetes. He has a history of right toe surgery and a Sheeley ectomy done many years ago. He also has a history of gout. About 4-6 weeks prior to admission he had been complaining of pain in the right great toe and the left shoulder. He was admitted to the hospital on 10/14/2023 with right lower extremity cellulitis. His hospitalization has been complicated by developing a ruptured duodenal ulcer. He developed peritonitis and was taken emergently to the emergency room for a laparotomy. Also during this hospitalization he has been found to have evidence of possible septic arthritis of the left shoulder also with possible osteomyelitis. Currently the patient is stable. He was transferred out of the ICU on 10/21/2023 and his diet has been successfully advanced. It is felt that the patient is stable for transfer for consideration of washout of his shoulder. I received a call from Dr. Metzger who is graciously agreed to accept the patient in transfer. He will be transferred today in stable condition. - ALLERGIES Allergies/Adverse Reactions: Allergies Allergy/AdvReac Type Severity Reaction Status Date / Time No Known Drug Allergies Allergy Verified 10/14/23 07:55 - MEDICATIONS Home Medications: Ambulatory Orders Medication Instructions Recorded Confirmed Latanoprost 1 drops EACHEYE HS 04/28/16 10/15/23 Losartan Potassium 100 mg PO DAILY 04/28/16 10/15/23 Timolol [Betimol] 1 drops EACHEYE DAILY 04/28/16 10/15/23 Metoprolol Succinate [Toprol Xl] 25 mg PO DAILY 11/18/21 10/15/23 hydroCHLOROthiazide [Hydrodiuril] 12.5 mg PO DAILY 11/18/21 10/15/23 Rosuvastatin Calcium [Crestor] 20 mg PO HS 10/06/23 10/15/23 allopurinoL [Allopurinol] 300 mg PO DAILY 10/06/23 10/15/23 predniSONE [Deltasone] 10 mg PO [id number] #42 tab 10/06/23 10/15/23 tiZANidine [Zanaflex] 4 - 8 mg PO TID 10/06/23 10/15/23 Colchicine [Colcrys] 0.6 - 1.2 mg PO UD PRN 10/14/23 10/15/23 Diclofenac Sodium 1% Gel [Voltaren 1 applic TOP DAILY PRN 10/15/23 10/15/23 Gel] Lidocaine Patch 5% [Lidoderm Patch] 1 patch TOP DAILY PRN 10/15/23 10/15/23 Oxycodone HCl/Acetaminophen 1 tab PO BID PRN 10/15/23 10/15/23 [Oxycodone-Acetaminophen 5-325] - PHYSICAL EXAM AT DISCHARGE Physical Exam Other/Comments: The patient was not examined at the time of discharge as he was discharged to [facility] overnight. - LABS Result Diagrams: 10/20/23 04:12 10/21/23 07:05 - SEPSIS Current Stage of Sepsis: Sepsis Possible source of Sepsis: Bone/Joint, GI tract/intra-abdominal Sepsis Criteria: WBC count greater than 12,000 or less than 4000, [employer]: altered consciousness (unrelated to primary neuro pathology) - QUALITY (Female Hip Fx Only) Was patient sent home on osteoporosis medication?: No - FOLLOW UP Follow Up: [facility] will schedule follow-up - TIME SPENT Time Spent in Discharge (Minutes): 45"
--- NOTE | 2023-10-22 07:49 | Discharge Plan ---
Discharge Plan Problem Reviewed?: Yes Disposition: 02 Transfer Acute Care Hosp Condition: Serious Diet: Soft (Low residue) Weight Bearing: No Weight No Smoking: If you smoke, Please STOP! Call for help.
[2023-10-24 16:16] LABS: PATHOLOGIST SLIDE COMMENTS SEE SEPARATE REPORT
== END 2023-10-22 00:15 | disposition short-term general hospital (02) | DRG 871 ==
LOC: ED 07:42 → MS2 17:12 → UNDOADMOB 17:12 → MS2 10-15 20:17 → ICU 10-15 20:55 → MS2 10-15 20:55 → OBSVTOIN 10-16 10:34 → INTOOBSV 10-16 10:34
PROVIDERS: ADMIT Physician Assistant Medical; ATTEND Physician Assistant
PROC: 0FB20ZX Excision of Left Lobe Liver, Open Approach, Diagnostic (ICD-10-PCS; principal; 2023-10-15 17:00)
DX: A41.9 Sepsis, unspecified organism (principal); A40.8 Other streptococcal sepsis; K26.5 Chronic or unspecified duodenal ulcer with perforation; K65.9 Peritonitis, unspecified; K74.60 Unspecified cirrhosis of liver; G93.41 Metabolic encephalopathy; M00.9 Pyogenic arthritis, unspecified; E11.9 Type 2 diabetes mellitus without complications; L03.115 Cellulitis of right lower limb; N17.9 Acute kidney failure, unspecified; K91.89 Other postprocedural complications and disorders of digestive system; K56.7 Ileus, unspecified; E87.1 Hypo-osmolality and hyponatremia; E46 Unspecified protein-calorie malnutrition; M86.9 Osteomyelitis, unspecified; Z82.49 Family history of ischemic heart disease and other diseases of the circulatory system; Z87.891 Personal history of nicotine dependence; K66.8 Other specified disorders of peritoneum; K70.30 Alcoholic cirrhosis of liver without ascites; H40.9 Unspecified glaucoma; E83.42 Hypomagnesemia; M10.9 Gout, unspecified; E11.69 Type 2 diabetes mellitus with other specified complication; I10 Essential (primary) hypertension; E78.00 Pure hypercholesterolemia, unspecified; S90.421A Blister (nonthermal), right great toe, initial encounter; X58.XXXA Exposure to other specified factors, initial encounter; M60.9 Myositis, unspecified; D72.829 Elevated white blood cell count, unspecified; R00.0 Tachycardia, unspecified; M25.474 Effusion, right foot; R41.0 Disorientation, unspecified; G47.33 Obstructive sleep apnea (adult) (pediatric); Z68.29 Body mass index [BMI] 29.0-29.9, adult; Z78.1 Physical restraint status; Z79.52 Long term (current) use of systemic steroids; Z79.899 Other long term (current) drug therapy; Z80.0 Family history of malignant neoplasm of digestive organs; Z83.511 Family history of glaucoma; Z87.19 Personal history of other diseases of the digestive system; Z98.890 Other specified postprocedural states
CPT/HCPCS: 36415; 36558; 43840; 47100; 73030; 73590; 73600; 73620; 73701; 73720; 74160; 74176; 80048; 80053; 80202; 82140; 82330; 82550; 82607; 82746; 83036; 83605; 83690; 83735; 84100; 84134; 84145; 84478; 84550; 85025; 85610; 85651; 86140; 87040; 87045; 87046; 87070; 87077; 87154; 87181; 87205; 87338; 87427; 87493; 87507; 89051; 93307; 96365; 96366; 96367; 96372; 96375; 96376; 97162; 97167; 97530; 99285; A9270; A9575; G0378; J0131; J1170; J1815; J2060; J3370; J3490; J7040; J7120; Q9963; Q9967; 80069; 87101

== ENCOUNTER 2023-11-14 08:00 | Outpatient (CLI) | payer MEDICARE, BC ==
[2023-11-14 18:03] LABS: BUN - BLOOD UREA NITROGEN 24 mg/dL (6-20); CALCIUM 8.2 mg/dL (8.5-10.3); CARBON DIOXIDE - CO2 26 mmol/L (21-32); CHLORIDE 95 mmol/L (101-111); CRP - C-REACTIVE PROTEIN < 0.5 mg/dL (<0.5); GFR - MDRD 75 (>89); GLUCOSE 322 mg/dL (74-104); SODIUM 130 mmol/L (135-145)
[2023-11-14 18:44] LABS: BASOPHILS % (AUTO) 0.1 %; EOSINOPHILS % (AUTO) 0.1 %; HCT - HEMATOCRIT 33.4 % (42.0-52.0); HGB - HEMOGLOBIN 10.6 g/dL (14.0-18.0); LYMPHOCYTES # (AUTO) 2.7 10^3/uL (1.5-3.5); LYMPHOCYTES % (AUTO) 26.3 %; MEAN CORPUSCULAR HEMOGLOBIN 31.1 pg (27.0-31.0); MEAN CORPUSCULAR HGB CONC 31.7 g/dL (32.0-36.0); MEAN CORPUSCULAR VOLUME 97.9 fL (80.0-94.0); MEAN PLATELET VOLUME 10.1 fL (7.4-11.4); MONOCYTES # (AUTO) 0.6 10^3/uL (0.0-1.0); MONOCYTES % (AUTO) 6.2 %; NEUTROPHILS # (AUTO) 6.9 10^3/uL (1.5-6.6); NEUTROPHILS % (AUTO) 66.7 %; PLT - PLATELET COUNT 221 10^3/uL (130-450); RED BLOOD COUNT 3.41 10^6/uL (4.70-6.10); RED CELL DISTRIBUTION WIDTH 15.5 % (12.0-15.0); WHITE BLOOD COUNT 10.3 x10^3/uL (4.8-10.8)
== END 2023-11-14 23:59 | disposition home or self-care (01) ==
LOC: LAB.R 08:00
PROVIDERS: ATTEND Registered Nurse
DX: I48.20 Chronic atrial fibrillation, unspecified (principal); R70.0 Elevated erythrocyte sedimentation rate; I10 Essential (primary) hypertension; R79.82 Elevated C-reactive protein (CRP)
CPT/HCPCS: 80048; 85025; 85651; 86140

== ENCOUNTER 2023-11-16 08:00 | Outpatient (CLI) | payer MEDICARE, BC ==
[2023-11-16 18:20] LABS: BASOPHILS # (AUTO) 0.1 10^3/uL (0.0-0.1); BASOPHILS % (AUTO) 0.7 %; EOSINOPHILS # (AUTO) 0.3 10^3/uL (0.0-0.7); EOSINOPHILS % (AUTO) 1.9 %; HCT - HEMATOCRIT 36.9 % (42.0-52.0); LYMPHOCYTES # (AUTO) 4.1 10^3/uL (1.5-3.5); LYMPHOCYTES % (AUTO) 30.6 %; MEAN CORPUSCULAR HEMOGLOBIN 31.5 pg (27.0-31.0); MEAN CORPUSCULAR HGB CONC 32.5 g/dL (32.0-36.0); MEAN CORPUSCULAR VOLUME 96.9 fL (80.0-94.0); MEAN PLATELET VOLUME 9.8 fL (7.4-11.4); MONOCYTES # (AUTO) 1.3 10^3/uL (0.0-1.0); MONOCYTES % (AUTO) 9.3 %; NEUTROPHILS # (AUTO) 7.6 10^3/uL (1.5-6.6); NEUTROPHILS % (AUTO) 56.7 %; PLT - PLATELET COUNT 233 10^3/uL (130-450); RED BLOOD COUNT 3.81 10^6/uL (4.70-6.10); RED CELL DISTRIBUTION WIDTH 15.9 % (12.0-15.0); WHITE BLOOD COUNT 13.5 x10^3/uL (4.8-10.8)
[2023-11-16 18:52] LABS: ALBUMIN 3.1 g/dL (3.2-5.5); ALBUMIN/GLOBULIN RATIO 0.9 (1.0-2.2); BILIRUBIN,TOTAL 0.4 mg/dL (0.2-1.0); CALCIUM 8.9 mg/dL (8.5-10.3); CREATININE 0.9 mg/dL (0.6-1.3); CRP - C-REACTIVE PROTEIN 1.1 mg/dL (<0.5); POTASSIUM 3.9 mmol/L (3.5-4.5); TOTAL PROTEIN 6.7 g/dL (6.4-8.9)
== END 2023-11-16 23:59 | disposition home or self-care (01) ==
LOC: LAB.R 08:00
PROVIDERS: ATTEND Family Medicine
DX: I10 Essential (primary) hypertension (principal); D64.9 Anemia, unspecified; L03.115 Cellulitis of right lower limb; R70.0 Elevated erythrocyte sedimentation rate; A40.8 Other streptococcal sepsis; R79.82 Elevated C-reactive protein (CRP)
CPT/HCPCS: 80053; 85025; 85651; 86140

== ENCOUNTER 2023-11-23 09:46 | Outpatient (CLI) | payer MEDICARE, BC | END 2023-11-23 09:47 | disposition home or self-care (01) | LOC: LAB.R 09:46 | PROVIDERS: ATTEND Family Medicine | DX: R19.7 Diarrhea, unspecified (principal) | CPT/HCPCS: 87493 ==

== ENCOUNTER 2023-11-24 08:00 | Outpatient (CLI) | payer MEDICARE, BC ==
[2023-11-24 19:47] LABS: BASOPHILS # (AUTO) 0.1 10^3/uL (0.0-0.1); BASOPHILS % (AUTO) 0.5 %; EOSINOPHILS # (AUTO) 0.2 10^3/uL (0.0-0.7); EOSINOPHILS % (AUTO) 1.8 %; HCT - HEMATOCRIT 38.4 % (42.0-52.0); HGB - HEMOGLOBIN 12.3 g/dL (14.0-18.0); LYMPHOCYTES # (AUTO) 2.8 10^3/uL (1.5-3.5); MEAN CORPUSCULAR HEMOGLOBIN 30.4 pg (27.0-31.0); MEAN PLATELET VOLUME 10.3 fL (7.4-11.4); MONOCYTES # (AUTO) 1.1 10^3/uL (0.0-1.0); MONOCYTES % (AUTO) 9.4 %; NEUTROPHILS # (AUTO) 7.8 10^3/uL (1.5-6.6); NEUTROPHILS % (AUTO) 64.7 %; PLT - PLATELET COUNT 221 10^3/uL (130-450); RED BLOOD COUNT 4.04 10^6/uL (4.70-6.10); RED CELL DISTRIBUTION WIDTH 15.1 % (12.0-15.0)
[2023-11-24 20:04] LABS: ALBUMIN 3.3 g/dL (3.2-5.5); ALKALINE PHOSPHATASE 112 IU/L (42-121); ALT ALANINE AMINOTRANSFERASE 13 IU/L (10-60); AST ASPARTATE AMINOTRANSFERASE 23 IU/L (10-42); BILIRUBIN,TOTAL 0.4 mg/dL (0.2-1.0); BUN - BLOOD UREA NITROGEN 46 mg/dL (6-20); CALCIUM 8.8 mg/dL (8.5-10.3); CARBON DIOXIDE - CO2 27 mmol/L (21-32); CHLORIDE 90 mmol/L (101-111); CRP - C-REACTIVE PROTEIN < 0.5 mg/dL (<0.5); GFR - MDRD 75 (>89); GLUCOSE 172 mg/dL (74-104); POTASSIUM 3.3 mmol/L (3.5-4.5); SODIUM 125 mmol/L (135-145); TOTAL PROTEIN 6.6 g/dL (6.4-8.9)
== END 2023-11-24 23:59 | disposition home or self-care (01) ==
LOC: LAB.R 08:00
PROVIDERS: ATTEND Family Medicine
DX: G93.41 Metabolic encephalopathy (principal); D62 Acute posthemorrhagic anemia; A40.8 Other streptococcal sepsis
CPT/HCPCS: 80053; 85025; 85651; 86140

== ENCOUNTER 2023-11-30 12:41 | Outpatient (CLI) | payer MEDICARE, BC ==
[2023-11-30 12:58] LABS: BASOPHILS # (AUTO) 0.1 10^3/uL (0.0-0.1); BASOPHILS % (AUTO) 0.7 %; EOSINOPHILS # (AUTO) 0.2 10^3/uL (0.0-0.7); EOSINOPHILS % (AUTO) 1.4 %; HCT - HEMATOCRIT 37.3 % (42.0-52.0); HGB - HEMOGLOBIN 12.7 g/dL (14.0-18.0); LYMPHOCYTES # (AUTO) 2.9 10^3/uL (1.5-3.5); LYMPHOCYTES % (AUTO) 26.6 %; MEAN CORPUSCULAR HEMOGLOBIN 31.8 pg (27.0-31.0); MEAN CORPUSCULAR VOLUME 93.5 fL (80.0-94.0); MEAN PLATELET VOLUME 9.8 fL (7.4-11.4); MONOCYTES # (AUTO) 1.2 10^3/uL (0.0-1.0); MONOCYTES % (AUTO) 10.7 %; NEUTROPHILS # (AUTO) 6.4 10^3/uL (1.5-6.6); NEUTROPHILS % (AUTO) 60.1 %; PLT - PLATELET COUNT 180 10^3/uL (130-450); RED BLOOD COUNT 3.99 10^6/uL (4.70-6.10); RED CELL DISTRIBUTION WIDTH 15.1 % (12.0-15.0); WHITE BLOOD COUNT 10.7 x10^3/uL (4.8-10.8)
[2023-11-30 13:09] LABS: ALBUMIN 3.4 g/dL (3.2-5.5); ALBUMIN/GLOBULIN RATIO 1.1 (1.0-2.2); ALKALINE PHOSPHATASE 120 IU/L (42-121); ALT ALANINE AMINOTRANSFERASE 15 IU/L (10-60); AST ASPARTATE AMINOTRANSFERASE 23 IU/L (10-42); BILIRUBIN,TOTAL 0.5 mg/dL (0.2-1.0); BUN - BLOOD UREA NITROGEN 37 mg/dL (6-20); CALCIUM 9.2 mg/dL (8.5-10.3); CARBON DIOXIDE - CO2 29 mmol/L (21-32); CHLORIDE 90 mmol/L (101-111); CREATININE 0.9 mg/dL (0.6-1.3); CRP - C-REACTIVE PROTEIN < 0.5 mg/dL (<0.5); GFR - MDRD 84 (>89); GLUCOSE 183 mg/dL (74-104); SODIUM 127 mmol/L (135-145); TOTAL PROTEIN 6.5 g/dL (6.4-8.9)
== END 2023-11-30 12:42 | disposition home or self-care (01) ==
LOC: LAB 12:41
PROVIDERS: ATTEND Family Medicine
DX: A40.8 Other streptococcal sepsis (principal); B95.4 Other streptococcus as the cause of diseases classified elsewhere
CPT/HCPCS: 36415; 80053; 85025; 85651; 86140

== ENCOUNTER 2023-12-02 11:59 | Outpatient (CLI) | payer MEDICARE, BC ==
[2023-12-02 12:27] LABS: CREATININE 0.9 mg/dL (0.6-1.3); POTASSIUM 3.1 mmol/L (3.5-4.5)
== END 2023-12-02 12:00 | disposition home or self-care (01) ==
LOC: LAB.R 11:59
PROVIDERS: ATTEND Internal Medicine Cardiovascular Disease
DX: Z13.228 Encounter for screening for other metabolic disorders (principal)
CPT/HCPCS: 80048

== ENCOUNTER 2023-12-06 11:54 | Outpatient (CLI) | payer MEDICARE, BC ==
[2023-12-06 12:01] LABS: BASOPHILS # (AUTO) 0.1 10^3/uL (0.0-0.1); BASOPHILS % (AUTO) 0.7 %; EOSINOPHILS # (AUTO) 0.2 10^3/uL (0.0-0.7); HCT - HEMATOCRIT 38.3 % (42.0-52.0); HGB - HEMOGLOBIN 12.6 g/dL (14.0-18.0); LYMPHOCYTES # (AUTO) 2.1 10^3/uL (1.5-3.5); LYMPHOCYTES % (AUTO) 21.4 %; MEAN CORPUSCULAR HEMOGLOBIN 31.3 pg (27.0-31.0); MEAN CORPUSCULAR HGB CONC 32.9 g/dL (32.0-36.0); MEAN PLATELET VOLUME 9.9 fL (7.4-11.4); MONOCYTES % (AUTO) 9.9 %; NEUTROPHILS # (AUTO) 6.6 10^3/uL (1.5-6.6); NEUTROPHILS % (AUTO) 65.7 %; PLT - PLATELET COUNT 206 10^3/uL (130-450); RED BLOOD COUNT 4.03 10^6/uL (4.70-6.10); RED CELL DISTRIBUTION WIDTH 15.4 % (12.0-15.0)
[2023-12-06 12:26] LABS: ALBUMIN 3.4 g/dL (3.2-5.5); ALBUMIN/GLOBULIN RATIO 1.1 (1.0-2.2); BILIRUBIN,TOTAL 0.4 mg/dL (0.2-1.0); CALCIUM 9.2 mg/dL (8.5-10.3); CREATININE 0.9 mg/dL (0.6-1.3); CRP - C-REACTIVE PROTEIN 0.6 mg/dL (<0.5); POTASSIUM 3.8 mmol/L (3.5-4.5); TOTAL PROTEIN 6.4 g/dL (6.4-8.9)
== END 2023-12-06 11:55 | disposition home or self-care (01) ==
LOC: LAB.R 11:54
PROVIDERS: ATTEND Family Medicine
DX: I10 Essential (primary) hypertension (principal); I48.20 Chronic atrial fibrillation, unspecified; R70.0 Elevated erythrocyte sedimentation rate; R79.82 Elevated C-reactive protein (CRP)
CPT/HCPCS: 80053; 85025; 85651; 86140

== ENCOUNTER 2023-12-09 08:00 | Outpatient (CLI) | payer MEDICARE, BC ==
[2023-12-09 13:40] LABS: CALCIUM 6.8 mg/dL (8.5-10.3); CREATININE 0.6 mg/dL (0.6-1.3); POTASSIUM 2.8 mmol/L (3.5-4.5)
== END 2023-12-09 23:59 | disposition home or self-care (01) ==
LOC: LAB 08:00
PROVIDERS: ATTEND Family Medicine
DX: I10 Essential (primary) hypertension (principal)
CPT/HCPCS: 36415; 80048

== ENCOUNTER 2023-12-12 13:58 | Outpatient (CLI) | payer MEDICARE, BC ==
[2023-12-12 14:30] LABS: CALCIUM 9.6 mg/dL (8.5-10.3); POTASSIUM 3.7 mmol/L (3.5-4.5)
== END 2023-12-12 13:59 | disposition home or self-care (01) ==
LOC: LAB.R 13:58
PROVIDERS: ATTEND Family Medicine
DX: I10 Essential (primary) hypertension (principal)
CPT/HCPCS: 80048

== ENCOUNTER 2023-12-14 08:00 | Outpatient (CLI) | payer MEDICARE, BC ==
[2023-12-15 00:11] LABS: BASOPHILS # (AUTO) 0.1 10^3/uL (0.0-0.1); BASOPHILS % (AUTO) 0.8 %; EOSINOPHILS # (AUTO) 0.1 10^3/uL (0.0-0.7); EOSINOPHILS % (AUTO) 1.2 %; HCT - HEMATOCRIT 36.7 % (42.0-52.0); HGB - HEMOGLOBIN 12.1 g/dL (14.0-18.0); LYMPHOCYTES # (AUTO) 3.4 10^3/uL (1.5-3.5); LYMPHOCYTES % (AUTO) 36.6 %; MEAN CORPUSCULAR HEMOGLOBIN 31.6 pg (27.0-31.0); MEAN CORPUSCULAR VOLUME 95.8 fL (80.0-94.0); MEAN PLATELET VOLUME 9.8 fL (7.4-11.4); MONOCYTES # (AUTO) 1.2 10^3/uL (0.0-1.0); MONOCYTES % (AUTO) 13.5 %; NEUTROPHILS # (AUTO) 4.4 10^3/uL (1.5-6.6); NEUTROPHILS % (AUTO) 47.6 %; PLT - PLATELET COUNT 259 10^3/uL (130-450); RED BLOOD COUNT 3.83 10^6/uL (4.70-6.10); RED CELL DISTRIBUTION WIDTH 15.2 % (12.0-15.0); WHITE BLOOD COUNT 9.2 x10^3/uL (4.8-10.8)
[2023-12-15 00:31] LABS: ALBUMIN 3.6 g/dL (3.2-5.5); ALBUMIN/GLOBULIN RATIO 1.1 (1.0-2.2); ALKALINE PHOSPHATASE 128 IU/L (42-121); ALT ALANINE AMINOTRANSFERASE 24 IU/L (10-60); AST ASPARTATE AMINOTRANSFERASE 32 IU/L (10-42); BILIRUBIN,TOTAL 0.5 mg/dL (0.2-1.0); BUN - BLOOD UREA NITROGEN 39 mg/dL (6-20); CALCIUM 9.4 mg/dL (8.5-10.3); CARBON DIOXIDE - CO2 25 mmol/L (21-32); CHLORIDE 98 mmol/L (101-111); CREATININE 0.9 mg/dL (0.6-1.3); CRP - C-REACTIVE PROTEIN < 0.5 mg/dL (<0.5); GFR - MDRD 84 (>89); GLUCOSE 127 mg/dL (74-104); POTASSIUM 4.5 mmol/L (3.5-4.5); SODIUM 130 mmol/L (135-145); TOTAL PROTEIN 6.9 g/dL (6.4-8.9)
== END 2023-12-14 23:59 | disposition home or self-care (01) ==
LOC: LAB.R 08:00
PROVIDERS: ATTEND Family Medicine
DX: M00.212 Other streptococcal arthritis, left shoulder (principal); M86.112 Other acute osteomyelitis, left shoulder; A40.8 Other streptococcal sepsis
CPT/HCPCS: 80053; 85025; 85651; 86140

== ENCOUNTER 2023-12-21 08:00 | Outpatient (CLI) | payer MEDICARE, BC ==
[2023-12-21 16:54] LABS: CALCIUM 9.3 mg/dL (8.5-10.3); CREATININE 1.3 mg/dL (0.6-1.3); POTASSIUM 3.9 mmol/L (3.5-4.5)
== END 2023-12-21 23:59 | disposition home or self-care (01) ==
LOC: LAB.R 08:00
PROVIDERS: ATTEND Family Medicine
DX: I87.1 Compression of vein (principal)
CPT/HCPCS: 80048

== ENCOUNTER 2023-12-26 08:00 | Outpatient (CLI) | payer MEDICARE, BC ==
[2023-12-26 17:22] LABS: CALCIUM 9.1 mg/dL (8.5-10.3); CREATININE 1.1 mg/dL (0.6-1.3)
[2023-12-26 18:01] LABS: ESTIMATED AVERAGE GLUCOSE 120 mg/dL (70-100); HEMOGLOBIN A1c% 5.8 % (4.27-6.07)
== END 2023-12-26 23:59 | disposition home or self-care (01) ==
LOC: LAB.R 08:00
PROVIDERS: ATTEND Registered Nurse
DX: I10 Essential (primary) hypertension (principal); E11.9 Type 2 diabetes mellitus without complications
CPT/HCPCS: 80048; 83036